=== PATIENT | male | born 1950 | race Caucasian/White ===

== ENCOUNTER → 2018-02-12 11:59 | Outpatient (CLI) | payer MEDICARE, SELFPAY ==
[2018-02-12 15:53] LABS: Absolute Lymphocyte Count 1.03 X10^3/ul (0.83-4.51); Absolute Neutrophil Count 4.9 X10^3/uL (2.0-7.7); Basophil# 0.04 X10^3/uL; Basophil% 0.6 % (0-1); Eosinophil# 0.15 X10^3/uL; Eosinophils% 2.2 % (0-5); Hemoglobin 13.1 g/dl (13.0-16.5); Lymphocyte # 1.03 X10^3/ul (4.0); Lymphocyte % 15.2 % (19-41); Mean Corp Hgb Conc 33.6 g/gl (32-36); Mean Corpuscular Volume 89.4 fL (80-94); Mean Platelet Vol. 11.1 fl (6.2-12.0); Monocyte# 0.62 X10^3/uL; Monocyte% 9.2 % (0-10); Neutrophil % 72.5 % (47-70); Platelet Count 187 K/mm3 (150-450); RBC Distribution Width CV 14.1 % (11.6-14.6); RBC Distribution Width SD 45.4 fl (35.1-43.9); Red Blood Count 4.36 M/mm3 (4.6-6.2); White Blood Count 6.8 K/mm3 (4.4-11.0)
[2018-02-12 15:55] LABS: POSITIVE COUNT NO; POSITIVE DIFFERENTIAL NO; POSITIVE MORPHOLOGY NO
[2018-02-12 16:09] LABS: ALB/GLOB Ratio 0.9 RATIO (0.9-2.4); AST(SGOT) 18 U/L (15-37); Alanine Aminotransfer ALT/SGPT 21 U/L (16-61); Albumin, Serum 3.5 g/dL (3.2-5.0); Alkaline Phosphatase 63 U/L (45-117); Anion Gap 5 (5-15); BUN 23 mg/dL (7-18); BUN/Creat Ratio 18.1 RATIO (10-20); Calcium,Total 8.9 mg/dL (8.5-10.1); Chloride 105 mmol/L (98-107); Creatinine, Serum 1.27 mg/dL (0.70-1.30); EST Glomerular Filtration Rate 60 mL/min (>60); Est Glom Filt Rate - Afr Amer 72 mL/min (>60); Glucose 98 mg/dL (74-106); Potassium 3.9 mmol/L (3.5-5.1); Protein, Total 7.5 g/dL (6.4-8.2); Sodium Level 137 mmol/L (136-145)
== END ==
PROVIDERS: Family Provider Family Medicine; PCP Family Medicine; Visit Provider Family Medicine
DX: I10 Essential (primary) hypertension (principal); I77.9 Disorder of arteries and arterioles, unspecified; I48.91 Unspecified atrial fibrillation; I51.9 Heart disease, unspecified
CPT/HCPCS: 36415; 80053; 85025

== ENCOUNTER → 2018-03-04 09:41 | Outpatient (CLI) | payer MEDICARE, SELFPAY ==
--- NOTE | 2018-03-04 09:47 | CDU_ITS ---
Reason For Study: bruit Rt. Velocities/BP Lt. Velocities/BP Prox CCA 57.5/12.3 cm/sec. Prox CCA 76.2/19.3 cm/sec. Mid CCA 62.1/14.1 cm/sec. Mid CCA 68.6/24.0 cm/sec. Dist CCA 90.3/20.5 cm/sec. Dist CCA 78.0/24.6 cm/sec. Prox ICA 348/137 cm/sec. Prox ICA 82.7/24.0 cm/sec. Mid ICA 388/108 cm/sec. Mid ICA 90.9/35.8 cm/sec. Dist ICA 59.7/25.1 cm/sec. Dist ICA 105/35.1 cm/sec. Rt. ICA/CCA = 6.2. Lt. ICA/CCA = 1.5. Prox ECA 145/20.4 cm/sec. Prox ECA 131/16.7 cm/sec. Rt. Vert. 75.6/24.6 cm/sec. Lt. Vert. 40.5/17.0 cm/sec. Right Extracranial There is homogeneous, smooth atherosclerotic plaque noted in the right common carotid artery. There is heterogeneous, irregular atherosclerotic plaque noted in the right internal carotid artery. There is heterogeneous, irregular atherosclerotic plaque noted in the right external carotid artery. Antegrade flow is noted in the right vertebral artery. There is heterogeneous, irregular atherosclerotic plaque noted in the right bulb. Left Extracranial There is heterogeneous, irregular atherosclerotic plaque noted in the left common carotid artery. There is heterogeneous, irregular atherosclerotic plaque noted in the left internal carotid artery. There is heterogeneous, irregular atherosclerotic plaque noted in the left external carotid artery. Antegrade flow is noted in the left vertebral artery. There is heterogeneous, irregular atherosclerotic plaque noted in the left bulb. Procedure Carotid Duplex 32597. The exam was diagnostic. Exam performed in department. Prelim called to Gerogie at Dr. Wilkerson's office. Interpretation Summary Near occlusion of the right extracranial internal carotid. Mild (<50%) stenosis left extracranial internal carotid. The degree of stenosis in the right internal carotid artery appears to be well over 70%, based upon velocity criteria, and likely nearly occlusive in nature. There is acoustic shadowing in the internal carotid arteries bilaterally, which obscures visualization of the arterial lumen. Therefore, the degree of stenosis may exceed that indicated by velocity criteria alone. The degree of stenosis in the right internal carotid artery warrants additional medical attention and management. Flow within the vertebral arteries is antegrade bilaterally. Ordering Physician: Oumar Wilkerson Performed By: Jose A Pike RVT
== END ==
LOC: CVS 09:42
PROVIDERS: Family Provider Family Medicine; PCP Family Medicine; Visit Provider Family Medicine
DX: R09.89 Other specified symptoms and signs involving the circulatory and respiratory systems (principal); I51.9 Heart disease, unspecified; I48.91 Unspecified atrial fibrillation
CPT/HCPCS: 93880

== ENCOUNTER → 2018-03-28 13:48 | Outpatient (CLI) | payer MEDICARE, SELFPAY ==
[2018-03-27 15:40] LABS: Hematocrit 41.9 % (40-54); Mean Corp Hgb Conc 33.4 g/gl (32-36); Mean Corpuscular Hgb 29.9 pg (27.0-32.0); Mean Corpuscular Volume 89.5 fL (80-94); Mean Platelet Vol. 10.2 fl (6.2-12.0); Platelet Count 193 K/mm3 (150-450); RBC Distribution Width CV 13.8 % (11.6-14.6); RBC Distribution Width SD 44.9 fl (35.1-43.9); Red Blood Count 4.68 M/mm3 (4.6-6.2); White Blood Count 5.2 K/mm3 (4.4-11.0)
[2018-03-27 15:47] LABS: Scan Indicated on CBC? Y/N NO
[2018-03-27 16:21] LABS: Anion Gap 4 (5-15); BUN 16 mg/dL (7-18); BUN/Creat Ratio 13.2 RATIO (10-20); Calcium,Total 8.9 mg/dL (8.5-10.1); Chloride 101 mmol/L (98-107); Creatinine, Serum 1.21 mg/dL (0.70-1.30); EST Glomerular Filtration Rate 63 mL/min (>60); Est Glom Filt Rate - Afr Amer 77 mL/min (>60); Glucose 83 mg/dL (74-106); Potassium 4.2 mmol/L (3.5-5.1); Sodium Level 137 mmol/L (136-145)
--- NOTE | 2018-03-28 13:49 | CT_ITS ---
STUDY: CTA NECK WITH CONTRAST REASON FOR EXAM: Male, 67 years old. Carotid artery stenosis RADIATION DOSAGE (If Supplied By Facility): CTDIvol = ( 26.43 ) mGy, DLP = ( 778.65 ) mGycm TECHNIQUE: CT angiography with multi-detector data acquisition was performed from the aortic arch to the skull base following intravenous administration of 100 ml of Isovue 370 contrast. MIP images were reconstructed from the axial data set. Post-processing of the angiographic images was performed, with multiplanar reformation and 3D reconstruction. Individualized dose optimization techniques were used for this CT. COMPARISON: None. FINDINGS: AORTIC ARCH: There is atherosclerotic calcific plaque formation of the aortic arch and great vessels arising from the aortic arch, without a hemodynamically significant stenosis. There is a normal origin of the brachiocephalic, left common carotid, and left subclavian arteries. RIGHT CAROTID ARTERIES: There is atherosclerotic plaque formation of the common carotid artery, but without a hemodynamically significant stenosis. There is extensive atherosclerotic plaque formation with severe narrowing of the right carotid bulb with a hemodynamically significant stenosis. There is severe atherosclerotic plaque formation of the origin of the right internal carotid artery with a near complete occlusion. Normal visualized cervical portion of the right internal carotid artery. There is mild atherosclerotic plaque formation of the origin of the right external carotid artery with less than 50% cross sectional diameter stenosis. LEFT CAROTID ARTERIES: There is atherosclerotic plaque formation of the common carotid artery, but without a hemodynamically significant stenosis. There is mild atherosclerotic plaque formation with minimal narrowing of the left carotid bulb. There is mild atherosclerotic plaque formation of the origin of the left internal carotid artery with less than 50% cross sectional diameter stenosis. Normal visualized cervical portion of the left internal carotid artery. There is mild atherosclerotic plaque formation of the origin of the left external carotid artery with less than 50% cross sectional diameter stenosis. VERTEBRAL ARTERIES: Normal bilateral vertebral arteries. CT/CTA Neck W/WO Contrast IMPRESSION: There is severe atherosclerotic plaque formation of the origin of the right internal carotid artery with a near complete occlusion. The degree of stenosis calculation is in accordance with NASCET criteria. N.B. : The above information has been verbally conveyed by Sage Montes MD to Lul Jones, Referring Physician, on 03/28/2018 15:07:14 (ET). Electronically Signed: Sage Montes MD at 15:07 EDT Tel , Service support , N.B. : The above information has been verbally conveyed by Sage Montes MD to Lul Jones, Referring Physician, on 03/28/2018 15:07:14 (ET).
== END ==
LOC: CT 13:48
PROVIDERS: Family Provider Family Medicine; PCP Family Medicine; Visit Provider Surgery
DX: Z01.818 Encounter for other preprocedural examination (principal); I65.23 Occlusion and stenosis of bilateral carotid arteries
CPT/HCPCS: 36415; 70498; 80048; 85027; Q9967

== ENCOUNTER → 2018-04-02 07:47 | Outpatient (CLI) | payer MEDICARE, SELFPAY ==
--- NOTE | 2018-04-02 07:49 | ECHOD_ITS ---
Reason For Study: PRE OP EXAM Procedure This was a 2D Doppler, Color Flow transthoracic echocardiogram. The exam was of adequate technical quality. Exam performed in department. Left Ventricle Moderately dilated left ventricle. Mild to moderate segmental systolic dysfunction (see wall motion). The estimated ejection fraction is 40 %. Transmitral diastolic flow velocities suggest moderate (stage 2) diastolic dysfunction (pseudonormal pattern). Posterior-Basal: Hypokinetic. Infero-Basal: Akinetic. Basal inferoseptal: Akinetic. Basal anteroseptal: Hypokinetic. Mid- Lateral : Hypokinetic. Mid-Posterior: Hypokinetic. Mid-Inferior: Hypokinetic. Mid-inferoseptal : Hypokinetic. Mid-anteroseptal : Hypokinetic. Anterior [place] : Akinetic. Inferior [place] : Akinetic. Lateral [place] : Hypokinetic. Septal [place] : Akinetic. Right Ventricle Normal RV size. ICD or pacer leads identified within the right ventricle. Normal systolic function. Atria The left atrium is severely enlarged. Normal right atrium. ICD or pacer leads identified within the right atrium. No doppler evidence for ASD. Mitral Valve There is no mitral annular calcification. Mild diffuse mitral valve thickening. Mild-Moderate (1- 2+) mitral valve insufficiency. Tricuspid Valve Normal tricuspid valve. Mild tricuspid valve insufficiency. Right ventricular systolic pressure estimated to be 27 mmHg. Aortic Valve Trisinus/trileaflet aortic valve. Mild diffuse aortic valve thickening. Trivial aortic valve insufficiency. Pulmonic Valve The pulmonic valve is not well visualized. Trivial pulmonic valve insufficiency. Great Vessels Normal sized aortic root. Pericardium/Pleural No pericardial effusion. MMode/2D Measurements & Calculations LVIDd: 5.9 cm IVSd: 0.83 cm Ao root diam: 3.4 cm LVIDs: 4.7 cm LVPWd: 1.1 cm RVDd: 3.5 cm FS: 19.6 % LAV(MOD-bp): 189.0 ml LA A4 area: 42.6 cm2 RA A4 area: 20.2 cm2 LAV(MOD-bp) Indexed: 92.8 ml/m2 LAV(MOD-sp2): 191.7 ml LAV(MOD-sp4): 184.1 ml Doppler Measurements & Calculations MV E max roscoe: 82.4 cm/sec Lat Peak E' Roscoe: 7.1 cm/sec Med Peak E' [place]coe: 7.0 cm/sec MV A max roscoe: 20.9 cm/sec E/E' lat: 11.7 E/E' med: 11.8 MV E/A: 3.9 Ao V2 max: 119.8 cm/sec LV V1 max: 82.7 cm/sec PA V2 max: 60.4 cm/sec Ao max P.7 mmHg LV V1 max P.7 mmHg PI dec slope: 84.3 cm/sec2 TR max roscoe: 245.5 cm/sec TR max P.2 mmHg Interpretation Summary Moderately dilated left ventricle. Mild to moderate segmental systolic dysfunction (see wall motion). The estimated ejection fraction is 40 %. The left atrium is severely enlarged. Mild diffuse mitral valve thickening. Mild-Moderate (1-2+) mitral valve insufficiency. Mild tricuspid valve insufficiency. Mild diffuse aortic valve thickening. Trivial aortic valve insufficiency. Trivial pulmonic valve insufficiency. Right ventricular systolic pressure estimated to be 27 mmHg. Transmitral diastolic flow velocities suggest diastolic dysfunction (pseudonormal pattern). ICD or pacer leads identified within the right atrium ICD or pacer leads identified within the right ventricle. Ordering Physician: Lul Jones Referring Physician: Oumar Wilkerson Performed By: Paulette Cortez, BRITNEY, RVT
== END ==
PROVIDERS: Family Provider Family Medicine; PCP Family Medicine; Visit Provider Surgery
DX: I25.10 Atherosclerotic heart disease of native coronary artery without angina pectoris (principal); Z95.5 Presence of coronary angioplasty implant and graft; Z95.0 Presence of cardiac pacemaker
CPT/HCPCS: 93306

== ENCOUNTER 2018-04-03 05:21 | Inpatient (IN) | payer MEDICARE, SELFPAY ==
--- NOTE | 2018-03-29 13:24 | EKG12_ITS ---
Test Reason : PREOP Blood Pressure : / mmHG Vent. Rate : 058 BPM Atrial Rate : 058 BPM P-R Int : 288 ms QRS Dur : 102 ms QT Int : 414 ms P-R-T Axes : 044 075 072 degrees QTc Int : 406 ms Sinus bradycardia with 1st degree A-V block Nonspecific T wave abnormality Confirmed by RAUL MARIE, [place] ([id number]), international editorial producer LAZ FLORES ([id number]) on 04/03/2018 3:17:47 PM Referred By: Lul Jones Confirmed By:JAMAICA CARTER MD
[2018-04-03] VITALS (27 sets, daily range): BP systolic 86–134; BP diastolic 44–71; PULSE 42–86; RESP 16–20; TEMP 36.1–36.7; O2SAT 90–100; BMI 25.9; BMI 26.7
--- NOTE | 2018-04-03 | PLAQ_PTH ---
PATIENT: KAREN JIMENEZ LOC: PCU U#:[id number] AGE/SX: 67/M ROOM: [facility] RE04/03/[address]: Dr. Lul Jones MD : [id number] BED: 1 DIS: 04/04/2018 SPEC #: [id number] RECD: 04/03/18 14:43 STATUS: ROBERT REQ #: [id number] SYMONE: 04/03/18 00:[address]: Lul Jones DEPT: SURGICAL PATHOLOGY RECD BY: Jam Montenegro ENTERED: 04/03/18 14:44 SP TYPE: PLAQUE OTHR DR: Dr. Oumar Wilkerson DO Tissues: PLAQUE Procedures: Decalcification bone/plaque Surgery Specimen Level III HEADER OPERATION: Right carotid endarterectomy with patch angioplasty PRE-OP DIAGNOSIS: Carotid stenosis, right TISSUE SUBMITTED: Plaque right carotid artery MICROSCOPIC DIAGNOSIS Right carotid artery plaque, endarterectomy: Calcified atheromatous plaque consistent with severe stenosis. AM:jacinto 04/08/18 GROSS DESCRIPTION Received in fixative is one container labeled with the patient's name and designated plaque right carotid artery. The specimen consists of a previously opened tubular piece of hopkins, indurated tissue measuring 3.5 cm in length and 1 cm in diameter. The lumen is almost completely obliterated focally. The specimen cuts with a gritty sensation. The entire specimen is submitted in one cassette after decalcification. / SJ:jacinto 04/03/18 TC:5 CPT: 27237, 07107
[2018-04-03 06:30] LABS: Prothrombin Time Fingerstick 11.7 SEC (11.9-14.4)
--- NOTE | 2018-04-03 06:36 | OP.PCM_ITS ---
Problem List (1) Carotid stenosis, right Status: Acute Report of Operation Date of Procedure: 04/03/18 Pre-Operative Diagnosis: Critical stenosis right extracranial internal carotid Post-Operative Diagnosis: Same Surgery/Procedure Performed:: Left radial arterial line placement. Right carotid endarterectomy with bovine patch angioplasty Description of Surgical Findings:: At the bedside timeout and informed consent was obtained. There was adequate Pancho test on the left. The left wrist was gently extended and prepped with Betadine. Under ultrasound guidance 1% lidocaine was instilled as a local anesthetic. A total of 1 cc was used. The radial artery was transfixed. I then try to get the 20-gauge aero anterior cath catheter to advance. It would not. So I removed that catheter held pressure. Then percutaneously I introduced a 20-gauge Angiocath. Using pressure tubing was connected. Seldinger wire technique I was able to advance a catheter. I secured to the skin with interrupted 3-0 silk. Good waveform was obtained. Oma wrap was applied after OpSite dressing was applied. Hand was viable at the completion. Blood loss minimal. No apparent complication. The patient tolerated the procedure well. Good waveform was obtained. The patient was subsequently taken to the operative room for definitive surgical intervention The patient was placed supine on the table. He underwent general endotracheal intubation and anesthesia. Ancef 2 g were given intravenously. The right neck was sterilely prepped and draped. An oblique incision was made along the anterior border the sternocleidomastoid. Sharp dissection was carried down through the subcutaneous tissue. The sternocleidomastoid was reflected laterally after incising the platysma. Crossing facial vein was secured with 3- 0 Vicryl ligatures. The carotid bulb was identified circumferential trial was obtained of the common carotid proximally and a Fernandez tie of Dacron tape was placed. There was a lymph node packet superiorly this had to be dissected free and elevated. Dissection was performed upon the internal carotid and the hypoglossal nerve was identified and protected. A Dacron tape was placed around the internal carotid. A vessel loop was then placed around the external carotid and a Fernandez tie of 3-0 Vicryl and the superior thyroid. The patient received 9000 units of heparin. After adequate circling time peripheral vascular clamps were placed on the internal carotid common carotid and external carotid. An 11 blade was used to make an arteriotomy which was extended with Fernandez scissors. The plaque was extraordinarily calcific thick. A reasonably long arteriotomy was required. A #10 USCI style shunt was placed cephalad and proximally. Time to place a shunt was 4 minutes and 15 seconds. There was increased difficulty in placement. Subsequently the endarterectomy was performed at the layer of the external elastic lamina. The plaque was sharply transected proximally. It then was nicely feathered at the internal carotid and an inversion enterectomy was performed of the external carotid. Debris was carefully removed. A single tacking suture of 7-0 Prolene was placed at the internal carotid. Then a bovine patch 8 x 0.8 cm shaped to form and a patch angioplasty was created with running 6-0 Prolene. Prior to completion the vessel was copiously irrigated the shunt was removed the angioplasty was completed. Initial flow was instituted from the external carotid common carotid find the internal carotid. Time for shunt removal was 2 minutes. A couple repair sutures of 7-0 Prolene required for complete hemostasis. The patient then received 30 mg of protamine. Surgicel was applied topically. The patient still from his preoperative anticoagulation of Coumadin and Plavix was still somewhat oozy so I Did Pl., FloSeal to the wound. After hemostasis was achieved the wound was closed with a deep layer approximating the platysma running 3-0 Vicryl. The skin edges proximate running septic or 5-0 Vicryl. The ledy-incisional area was anesthetized with 0.5% Marcaine. A total 10 cc was used. Steri-Strips Telfa and tape dressings were applied. Sponge and instrument and needle counts were reported to the surgeon to be correct. Blood loss was 200 cc. He tolerated the procedure well. It appeared to awake neurologically intact. He was taken to the recovery area in satisfactory condition without apparent complication. Specimens the plaque. Drains none. Blood loss 200 cc. Lul Jones M.D., F.A.C.S. Type of Anesthesia:: General Anesthesiologist: Jose Joseph
--- NOTE | 2018-04-03 06:38 | PCM.DC.GS ---
<Lul Jones - Last Filed: 04/03/18 06:38> Discharge Diet: Light diet - advance as tolerated - if you have questions about your diet instructions, please talk to you doctor. Discharge Activity: May Not Drive - for 1 week or while taking narcotic pain medicine. May shower in (days): 3 - Shower on Sunday please Lifting Restrictions: 10 pounds Call your doctor if your incision/area has: Continuous Slow Oozing, Sudden Increased Bleeding, Increased Pain/ Swelling, Increased Redness, Foul Smelling Discharge Call your doctor if you observe: Fever of 101 or Higher Suture Line Care: Avoid Pulling/Pushing, Avoid Pinching/Bending Additional Dressing/Incision Instructions:: Please keep your right neck incision clean and dry. You may shower on Sunday. You may cover the incision with gauze and tape as needed to protect from clothing. You may remove the Steri-Strips in 1 week Allergies/Adverse Reactions: Allergies No Known Allergies Allergy (Verified 03/29/18 08:07) Medications to take at Discharge Carvedilol [Coreg (Beta Giovanni)] 12.5 mg PO BID 07/02/15 Losartan Potassium [Cozaar] 25 mg PO DAILY 07/02/15 Pravastatin [Pravachol] 40 mg PO QHS 07/02/15 Warfarin Sodium [Jantoven] 7.5 mg PO MOWEFR 07/02/15 clopidogrel 75 mg tablet 75 mg PO QDAY 03/27/18 Furosemide [Lasix] 40 mg PO BIDLX 03/29/18 Spironolactone 12.5 mg PO DAILY 03/29/18 Warfarin [Coumadin] 5 mg PO SUTUTHSA 03/29/18 Primary Care Physician: Oumar Wilkerson DO [Primary Care Provider] - Please Follow Up With: Lul Jones MD - [phone] When: Call to make an appointment to be seen in about 10 days. <Lashanda Rodriguez - Last Filed: 04/04/18 07:20> Proposed Discharge Date: 04/04/18
[2018-04-03] MEDS: Cefazolin 2 GM in 0.9% Normal Saline 100 ML IV (07:11)
[2018-04-03] MEDS: Heparin Injection (Vial) 5,000 UNIT/ML VIAL 5000 UNIT (08:30)
[2018-04-03] MEDS: Bupivacaine Mpf 0.5% 30 ML VIAL (09:31)
[2018-04-03] MEDS: HYDROcodone Bitartrate/Apap 5/325 Tablet PO ×2 (14:48→22:25)
[2018-04-03] MEDS: Furosemide 40 MG Tablet PO (14:52)
[2018-04-03] MEDS: Spironolactone 25 MG Tablet 12.5 MG PO (14:52)
--- NOTE | 2018-04-03 15:00 | CASEMGMT ---
Addendum entered by Clover Rudd 04/03/18 15:12: Pt denies needs Original Note: SEE RN CM ASSESS LINK. D/C PLAN: HOME RAMIRO MARIN RN CM
[2018-04-03] MEDS: Cefazolin 1 GM/50 ML BAG IV ×2 (15:19→22:22)
[2018-04-03] MEDS: Tamsulosin HCl 0.4 MG Capsule PO (15:20)
[2018-04-03] MEDS: Carvedilol 12.5 MG Tablet PO (21:00)
[2018-04-03] MEDS: Pravastatin 40 MG Tablet PO (21:00)
[2018-04-03] MEDS: 0.9% NaCl Peripheral Flush Adult/Peds IV (22:22)
[2018-04-04 03:00] VITALS: PULSE 54
[2018-04-04 04:40] VITALS: BP 117/64; PULSE 61; RESP 16; TEMP 36.8; O2SAT 93
[2018-04-04] MEDS: HYDROcodone Bitartrate/Apap 5/325 Tablet PO (05:19)
--- NOTE | 2018-04-04 05:19 | PCM.PN.SRG ---
Subjective: Brief urinary retention last night treated with single st cath and pt now voiding Still on PULVERIZING AND SIFTING OPERATOR O2 Sl sore right neck Neuro intact - Physical Exam HEENT: - - supple, no staining Neurological: Cranial nerves II-XII grossly intact Vital Signs Temp Pulse Resp BP Pulse Ox 98.0 F 54 L 16 104/60 94 04/03/18 22:00 04/04/18 03:00 04/03/18 22:00 04/03/18 22:00 04/03/18 22:00 Oxygen Flow Rate (L/min) 2 Oxygen Delivery Method Nasal Cannula Weight: 197 lb 1.492 oz Body Mass Index (BMI) 26.7 Intake and Output for Last 24 Hours 04/02/18 04/03/18 04/04/18 23:59 23:59 23:59 Intake Total 4180 / 4180 223 / 223 Output Total 800 / 800 Balance 3380 / 3380 223 / 223 Laboratory Tests Past 24 Hrs 04/03/18 06:20 POC PT 11.7 L INR 1.00 Medical Necessity - Tobacco Use Smoking Status: Former smoker Tobacco Use: Vapor Assessment/Plan All Active Problems Carotid stenosis, right (Acute) S/P colonoscopy (Acute) S/P internal cardiac defibrillator procedure (Acute) History of radiofrequency ablation procedure for cardiac arrhythmia (Acute) S/P CABG (coronary artery bypass graft) (Acute) H/O heart artery stent (Acute) HTN (hypertension) (Acute) CHF (congestive heart failure) (Acute) Plan discharge today once off of oxygen Pt had preop echo and is discharged on admission medicines. CHF is chronic condition. Pt should follow up with primary care
[2018-04-04 06:55] VITALS: BP 114/60; PULSE 56; RESP 18; TEMP 36.7; O2SAT 95
--- NOTE | 2018-04-04 07:48 | NURSING ---
ambulated gilbert with pt, spo2 remained stable >94%
== END 2018-04-04 07:35 | disposition home or self-care (01) | DRG 39 ==
LOC: MS2 05:28 → PCU 13:48
PROVIDERS: Admitting Provider Surgery; Family Provider Family Medicine; PCP Family Medicine; Visit Provider Surgery
PROC: 03CK0ZZ Extirpation of Matter from Right Internal Carotid Artery, Open Approach (ICD-10-PCS; CPT 35301; principal; 2018-04-03 06:55)
DX: I65.21 Occlusion and stenosis of right carotid artery (principal); I50.9 Heart failure, unspecified; I11.0 Hypertensive heart disease with heart failure; K43.2 Incisional hernia without obstruction or gangrene; Z95.1 Presence of aortocoronary bypass graft; Z95.5 Presence of coronary angioplasty implant and graft; Z95.810 Presence of automatic (implantable) cardiac defibrillator; I25.10 Atherosclerotic heart disease of native coronary artery without angina pectoris; Z79.01 Long term (current) use of anticoagulants; R33.9 Retention of urine, unspecified; E78.5 Hyperlipidemia, unspecified
CPT/HCPCS: 36416; 85610; 88304; 88311; 93005; 93306; J7040; J7120; A4216; J2405

== ENCOUNTER → 2018-05-08 12:51 | Outpatient (CLI) | payer MEDICARE, SELFPAY ==
--- NOTE | 2018-05-08 13:13 | CDU_ITS ---
Reason For Study: F/U RT CEA Rt. Velocities/BP Prox CCA 72.7/18.2 cm/sec. Mid CCA 90.3/24.0 cm/sec. Dist CCA 101.0/26.4 cm/sec. Prox ICA 109.0/20.4 cm/sec. Mid ICA 94.3/29.1 cm/sec. Dist ICA 88.8/28.3 cm/sec. Rt. ICA/CCA = 1.2. Prox ECA 224.0/18.3 cm/sec. Rt. Vert. 58.6/18.8 cm/sec. Right Extracranial There is homogeneous, smooth atherosclerotic plaque noted in the right common carotid artery. There is homogeneous, smooth atherosclerotic plaque noted in the right internal carotid artery. There is homogeneous, smooth atherosclerotic plaque noted in the right external carotid artery. Antegrade flow is noted in the right vertebral artery. Procedure Carotid Duplex 10715. Exam performed in department. Interpretation Summary Surgical changes right carotid bulb and proximal internal carotid with minimal smooth plague. <50% stenosis right internal carotid Moderate disease right external carotid Patent and antegrade right vertebral. Ordering Physician: Lashanda Rodriguez PA-C Referring Physician: Lashanda Rodriguez PA-C Performed By: Re Kelly RVT
== END ==
LOC: CVS 12:52
PROVIDERS: Family Provider Family Medicine; PCP Family Medicine; Visit Provider Physician Assistant
DX: I65.21 Occlusion and stenosis of right carotid artery (principal)
CPT/HCPCS: 93882

== ENCOUNTER → 2018-09-13 08:10 | Outpatient (CLI) | payer MEDICARE, SELFPAY ==
[2018-09-13 12:19] LABS: Absolute Lymphocyte Count 0.89 X10^3/ul (0.83-4.51); Absolute Neutrophil Count 3.8 X10^3/uL (2.0-7.7); Basophil# 0.03 X10^3/uL; Basophil% 0.6 % (0-1); Eosinophil# 0.11 X10^3/uL; Hematocrit 38.8 % (40-54); Lymphocyte # 0.89 X10^3/ul (4.0); Lymphocyte % 16.4 % (19-41); Mean Corp Hgb Conc 33.5 g/gl (32-36); Mean Corpuscular Hgb 30.2 pg (27.0-32.0); Mean Platelet Vol. 11.3 fl (6.2-12.0); Monocyte# 0.56 X10^3/uL; Monocyte% 10.3 % (0-10); Neutrophil # 3.83 X10^3/uL (2.7-7.7); Neutrophil % 70.5 % (47-70); Platelet Count 196 K/mm3 (150-450); RBC Distribution Width CV 14.3 % (11.6-14.6); RBC Distribution Width SD 46.4 fl (35.1-43.9); Red Blood Count 4.31 M/mm3 (4.6-6.2); White Blood Count 5.4 K/mm3 (4.4-11.0)
[2018-09-13 12:27] LABS: ALB/GLOB Ratio 0.8 RATIO (0.9-2.4); AST(SGOT) 22 U/L (15-37); Alanine Aminotransfer ALT/SGPT 21 U/L (16-61); Albumin, Serum 3.4 g/dL (3.2-5.0); Alkaline Phosphatase 64 U/L (45-117); Anion Gap 7 (5-15); BUN 17 mg/dL (7-18); BUN/Creat Ratio 15.5 RATIO (10-20); Calcium,Total 8.5 mg/dL (8.5-10.1); Chloride 105 mmol/L (98-107); Cholesterol 146 mg/dL (200); EST Glomerular Filtration Rate 71 mL/min (>60); Est Glom Filt Rate - Afr Amer 85 mL/min (>60); Globulin 4.2 g/dL (2.2-4.2); Glucose 92 mg/dL (74-106); High Density Lipoprotein 52 mg/dL; POSITIVE COUNT NO; POSITIVE DIFFERENTIAL NO; POSITIVE MORPHOLOGY NO; PSA,Total - Annual Screen 0.11 ng/mL (0.00-4.00); Potassium 3.7 mmol/L (3.5-5.1); Protein, Total 7.6 g/dL (6.4-8.2); Sodium Level 140 mmol/L (136-145); Triglycerides 50 mg/dL; Very Low Density Lipoprotein 10 mg/dL (5-40)
--- OUTSIDE RECORDS SUMMARY | 2018-11-08 01:43 | XMS RPT_ITS ---
:1950 Author Organization OHIP Support Name Relationship Address Phone DAVID BELTRE Unavailable [address] [place] [address] R Unavailable Unavailable Unavailable KRUGER, SHAISTA Unavailable Unavailable + [place] [address] ALEXSANDER DAVID Unavailable [address] [place] [address] R Unavailable Unavailable Unavailable KRUGER, SHAISTA Unavailable Unavailable + [place] [address] ALEXSANDER DAVID Unavailable [address] [place] [address] R Unavailable Unavailable Unavailable KRUGER, SHAISTA Unavailable Unavailable + [place] [address] ALEXSANDER DAVID Unavailable [address] + [address] [place] [address] R Unavailable Unavailable Unavailable KRUGER, SHAISTA Unavailable . + [place] [address] ALEXSANDER, DAVID Unavailable [address] [place] [address] R Unavailable Unavailable Unavailable KRUGER, SHAISTA Unavailable Unavailable + [place] [address] ALEXSANDER, DAVID Unavailable [address] + [address] [place] [address] R Unavailable Unavailable Unavailable KRUGER, SHAISTA Unavailable . + [place] [address] ALEXSANDER, DAVID Unavailable [address] + [address] [place] [address] R Unavailable Unavailable Unavailable KRUGER, SHAISTA Unavailable Unavailable + [place] [address] ALEXSANDER, DAVID Unavailable [address] [place] [address] R Unavailable Unavailable Unavailable KRUGER, SHAISTA Unavailable Unavailable + [place] [address] ALEXSANDER, DAVID Unavailable [address] [place] [address] R Unavailable Unavailable Unavailable KRUGER, SHAISTA Unavailable . + [place] [address] ALEXSANDER, DAVID Unavailable [address] [place] [address] R Unavailable Unavailable Unavailable KRUGER, SHAISTA Unavailable . + [place] [address] ALEXSANDER, DAVID Unavailable [address] [place] [address] R Unavailable Unavailable Unavailable KRUGER, SHAISTA Unavailable . + [place] [address] ALEXSANDER, DAVID Unavailable [address] [place] [address] R Unavailable Unavailable Unavailable KRUGER, SHAISTA Unavailable . + [place] [address] ALEXSANDER, DAVID Unavailable [address] [place] [address] R Unavailable Unavailable Unavailable ALEXSANDER, DAVID Unavailable [address] [phone] [place] [address] R Unavailable Unavailable Unavailable Care Team Providers Name Role Phone DARIUS TRAN Referring Unavailable DARIUS TRAN Referring Unavailable DARIUS TRAN Admitting Unavailable DARIUS TRAN Attending Unavailable RheaOumar Attending Unavailable Rhea, Oumar Primary Care Unavailable RheaOumar Attending Unavailable Rhea, Oumar Referring Unavailable Rhea, Oumar Primary Care Unavailable CebulLul Attending Unavailable Rhea, Oumar Referring Unavailable Rhea, Oumar Primary Care Unavailable CebulLul Attending Unavailable CebulLul Referring Unavailable Rhea, Oumar Primary Care Unavailable Lul Jones Admitting Unavailable Lul Jones Attending Unavailable Rhea, Oumar Primary Care Unavailable CeLul richardson Attending Unavailable Cebul Lul Referring Unavailable Rhea, Oumar Primary Care Unavailable CebulLul Attending Unavailable Rhea, Oumar Referring Unavailable Rhea, Oumar Primary Care Unavailable Rodriguez PA-C, Lashanda Attending Unavailable Rhea, Oumar Referring Unavailable Rhea, Oumar Primary Care Unavailable Geovanny Carter Attending Unavailable Robert, Lul Referring Unavailable Cedylan, Lul Attending Unavailable Rodriguez PA-C, Lashanda Attending Unavailable Rhea, Oumar Primary Care Unavailable Rodriguez PA-C, Lashanda Referring Unavailable Geovanny Carter Attending Unavailable Cebul, Lul Attending Unavailable Rodriguez PA-C, Lashanda Referring Unavailable Rhea, Oumar Attending Unavailable Rhea, Oumar Primary Care Unavailable PROBLEMS PROBLEMS DATE TYPE CONDITION / CODE ATTENDING STATUS SOURCE 09/13/2018 Unknown I10 - Essential Oumar Wilkerson Active [place] (primary) Community hypertension / Hospital I10(ICD-10) Repository 09/13/2018 Unknown I48.91 - Unspecified Oumar Wilkerson Active [place] atrial fibrillation Community / I48.91(ICD-10) Hospital Repository 09/13/2018 Unknown I25.5 - Ischemic Rhea Oumar Active [place] cardiomyopathy / [facility] I25.5(ICD-10) Hospital Repository 09/13/2018 Unknown Z51.81 - Encounter Oumar Wilkerson Active [place] for therapeutic drug Community level monitoring / Hospital Z51.81(ICD-10) Repository 09/13/2018 Unknown Z12.11 - Encounter Rhea Oumar Elijah [place] for screening for [facility] malignant neoplasm [facility] colon / Repository Z12.11(ICD-10) 09/13/2018 Unknown Z12.5 - Encounter RheaOumar [place] for screening for [facility] malignant neoplasm [facility] prostate / Repository Z12.5(ICD-10) 09/13/2018 Unknown R63.4 - Abnormal Rhea Oumar Active [place] weight loss / Community R63.4(ICD-10) Hospital Repository 09/02/2018 Active Persistent atrial DRESINGDARIUS Active [place] fibrillation / [facility] I48.1(ICD-10) [place] Repository 06/20/2018 Unknown I65.21 - Occlusion Lul Jones Active [place] and stenosis of [facility] right carotid artery Hospital / I65.21(ICD-10) Repository 04/04/2018 Unknown Z84.89 - Family Lul Jones Active [place] history of other Community specified conditions Hospital / Z84.89(ICD-10) Repository 05/01/2018 Unknown R00.1 - Bradycardia, Geovanny Carter Active [place] unspecified / Community R00.1(ICD-10) Hospital Repository 05/01/2018 Unknown I50.9 - Heart Geovanny Carter Active [place] failure, unspecified Community / I50.9(ICD-10) Hospital Repository 05/01/2018 Unknown I11.0 - Hypertensive Geovanny Carter Active [place] heart disease with Community heart failure / Hospital I11.0(ICD-10) Repository 03/28/2018 Unknown Z01.818 - Encounter Lul Jones Active [place] for other Community preprocedural Hospital examination / Repository Z01.818(ICD-10) 03/27/2018 Unknown I65.23 - Occlusion Lul Jones Active [place] and stenosis of Community bilateral carotid Hospital arteries / Repository I65.23(ICD-10) 02/12/2018 Unknown I77.9 - Disorder of RheaOumar villarreal Active [place] arteries and Community arterioles, Hospital unspecified / Repository I77.9(ICD-10) 02/12/2018 Unknown I51.9 - Heart Oumar Wilkerson Active [place] disease, unspecified Community / I51.9(ICD-10) Hospital Repository PROCEDURES PROCEDURES No Procedure Records FoundRESULTS RESULTS COMPREHENSIVE METABOLIC Collected: 09/13/2018 Status: F Source: [place] PROFIL 8:13 AM [facility] REPOSITORY TYPE CODE TESTS RESULT OUT OF RANGE REFERENCE UNITS LAB L501.0100 74-106 mg/dL Normal GLU 92 Result Comment: Please note revised GLUCOSE reference range effective 2017. LAB L501.1000 7-18 mg/dL Normal BUN 17 LAB L501.1100 0.70-1.30 mg/dL Normal CREAT,SERUM 1.10 Result Comment: The validity of the calculated GFR AND GFRAA in patients over 70 years has not been determined. Clinical correlation is essential. LAB L501.1110 >60 mL/min Normal EST GFR 71 Result Comment: Non- GFR Calc LAB L501.1115 >60 mL/min Normal EST GFR - AA 85 Result Comment: GFR Calc LAB L501.1300 10-20 RATIO Normal BUN/CRE 15.5 LAB L501.1500 6.4-8.2 g/dL T Normal PROT 7.6 LAB L501.1800 3.2-5.0 g/dL Normal ALB 3.4 LAB L501.1950 2.2-4.2 g/dL Normal GLOB 4.2 LAB L501.2000 0.9-2.4 RATIO Low A/G 0.8 LAB L501.2200 8.5-10.1 mg/dL CA Normal 8.5 LAB L501.4100 15-37 U/L Normal AST 22 LAB L501.4305 45-117 U/L Normal ALK P 64 LAB L501.4405 16-61 U/L Normal ALT 21 LAB L501.4600 0.20-1.00 mg/dL T Normal BILI 0.60 LAB L501.5300 136-145 mmol/L NA Normal 140 LAB L501.5600 3.5-5.1 mmol/L K Normal 3.7 LAB L501.5900 98-107 mmol/L CL Normal 105 LAB L501.6100 21.0-32.0 mmol/L Normal CO2 28.0 LAB L501.6200 5-15 Normal GAP 7 Performed By: #### L500.4050, L500.4100, L501.9910 #### [facility] [address] [place], [place], [address] LIPID PROFILE Collected: 09/13/2018 Status: F Source: [place] 8:13 AM [facility] REPOSITORY TYPE CODE TESTS RESULT OUT OF RANGE REFERENCE UNITS LAB L501.4900 200 mg/dL Normal CHOL 146 Result Comment: <200 mg/dL Desirable 200-240 mg/dL Borderline >240 mg/dL High Risk LAB L501.5000 mg/dL Normal TRIG 50 Result Comment: The drugs N-Acetylcysteine and Metamizole may falsely depress this assay. Serum Triglycerides Reference Interval Normal <150 mg/dL Borderline high 150 - 199 mg/dL High 200 - 499 mg/dL Very High > or = 500 mg/dL LAB L501.6400 mg/dL Normal HDL 52 Result Comment: The drugs N-Acetylcysteine and Metamizole may falsely depress this assay. Reference Range HDL <40 mg/dL Low HDL Cholesterol HDL >or= 60 mg/dL High HDL Cholesterol LAB L501.6500 0-130 mg/dL Normal LDL 84 LAB L501.6600 5-40 mg/dL Normal VLDL 10 Performed By: #### L500.4050, L500.4100, L501.9910 #### [facility] [address] [place], [address] PSA,TOTAL - ANNUAL Collected: 09/13/2018 Status: F Source: [place] SCREEN 8:13 AM [facility] REPOSITORY TYPE CODE TESTS RESULT OUT OF RANGE REFERENCE UNITS LAB L501.9910 0.00-4.00 ng/mL Normal PSA,TOT 0.11 SCREEN Result Comment: This test was performed using the TPSA assay method for the BYTEGRID chemistry system. Values obtained with different assay methods cannot be used interchangably. When changing PSA assays in the course of monitoring a patient, additional sequential testing should be carried out to confirm baseline values. Performed By: #### L500.4050, L500.4100, L501.9910 #### [facility] [address] [facility] [place], [address] CBC W/DIFF, AUTOMATED Collected: 09/13/2018 Status: F Source: [place] 8:13 AM [facility] REPOSITORY TYPE CODE TESTS RESULT OUT OF RANGE REFERENCE UNITS LAB L100.1000 4.4-11.0 K/mm3 Normal WBC 5.4 LAB L100.1200 4.6-6.2 M/mm3 Low RBC 4.31 LAB L100.1300 13.0-16.5 g/dl Normal HGB 13.0 LAB L100.1400 40-54 % Low HCT 38.8 LAB L100.1500 80-94 fL Normal MCV 90.0 LAB L100.1600 27.0-32.0 pg Normal MCH 30.2 LAB L100.1700 32-36 g/gl Normal MCHC 33.5 LAB L100.1810 11.6-14.6 % Normal RDW CV 14.3 LAB L100.1820 35.1-43.9 fl High RDW SD 46.4 LAB L100.1900 150-450 K/mm3 Normal PLT 196 LAB L100.2000 6.2-12.0 fl Normal MPV 11.3 LAB L100.2100 47-70 % High NEUT% 70.5 LAB L100.2200 19-41 % Low LY% 16.4 LAB L100.2300 0-10 % High MONO% 10.3 LAB L100.2400 0-5 % Normal EO% 2.0 LAB L100.2500 0-1 % Normal BASO% 0.6 LAB L100.2550 0.0-0.9 % Normal IM GRAN % 0.200 Result Comment: IG% - Immature Granulocytes (promyelocytes, myelocytes and metamyelocytes) > 1% indicates that a LEFT SHIFT is Present. LAB L100.2620 2.0-7.7 X10 3/uL Normal Absolute Neut 3.8 LAB L100.2720 0.83-4.51 X10 3/ul Normal Absolute Lymph 0.89 Performed By: #### L100.0100 #### [facility] [address] [place], [address] EKG1 Observed: 09/02/2018 Status: F Source: [place] 8:58 AM [facility] REPOSITORY NAME : DAVID JIMENEZ PID : [id number] : 1950 Gender : Male Race : ORD : Procedure Date : Sep 02 2018 08:58:09 Edit Date : Sep 02 2018 15:56:46 Diagnosis:SINUS BRADYCARDIA WITH 1ST DEGREE AV BLOCK LOW VOLTAGE QRS, CONSIDER PULMONARY DISEASE, PERICARDIAL EFFUSION, OR NORMAL VARIANT NON-SPECIFIC ST AND T WAVE CHANGES ABNORMAL ECG Confirmed by YONATHAN VILLELA M.D. ([id number]) on 09/02/2018 3:56:43 PM Ventricular Rate : 55 BPM Atrial Rate : 55 BPM P-R Interval : 288 ms QRS Duration : 104 ms Q-T Interval : 438 ms QTC Calculation(Bezet) : 419 ms P [place] : 59 degrees R [place] : 60 degrees T [place] : 51 degrees Test Reason : 921 Location : 23 : [facility] J2-1 Overread By : YONATHAN VILLELA M.D. Edited By : YONATHAN VILLELA M.D. Referred By : , Acquired by : [id number] CNCNPATED Observed: 08/30/2018 Status: COMPLETED Source: [place] 12:00 AM [facility] REPOSITORY Education (EPSMN) DAVID JIMENEZ ([id number]) 1950 M Date Time Provider Department 08/30/18 DARIUS TRAN Tamra EPSMN Reason for Visit: Patient Education [91] Visit Notes: >> Jen Boyd) DOMI Rodriguez SunAug 30, 2018 12:19 PM Status: Signed THE FOLLOWING WAS EVALUATED Motivation To Learn: Interested Family/Significant Other Support: Unable to assess - Family not present Cognitive Ability: Alert and oriented Patient Learns Best By: Verbal Instruction The Following Influencing Factors Were Barriers To This Education Session: None The Following Physical Limitations Were Barriers To This Education Session: None Instruction Provided To: Patient Procedure: Cardioversion Pre-procedure information reviewed: Patient ID verified Procedure verified Physician verified Explanation of procedure Sedation level during procedure MD medication instructions from EP lab request None Travel instructions/restrictions Scheduling information Possible same day discharge versus overnight hospital stay Check out time Family waiting area Physician contact with family after procedure Post Procedure Expectations reviewed: Inpatient hospital stay Post procedure antiarrhythmics and anticoagulation will be discussed with Physician, nurse practitioner or Physician psychiatric technician assistant upon discharge Instructions for transmitting EKG to Monitoring Center 3 month follow up instructions Contact number for information and questions Patient Evaluation: Verbalizes understanding Follow Up Plan: Follow up as directed by MD. Supplemental Material Given: Written Material Instructed By Jen Rodriguez RN. In Department of CARDIOLOGY. During your visit today, we recorded the following information about you: Allergies As of Date: 08/30/2018 (No Known Allergies) Date Reviewed: 07/21/2016 Reviewed by: Rhea Hinds - Fully Assessed Prescriptions as of 08/30/2018 Sig: FUROSEMIDE 40 MG TABLET TAKE 1 TABLET BY MOUTH TWICE * CARVEDILOL 12.5 MG TABLET TAKE ONE TABLET BY MOUTH TWIC* CLOPIDOGREL 75 MG TABLET Take 1 tablet by mouth once d* WARFARIN 5 MG TABLET TAKE 1.5 TABLETS DAILY AND * LOSARTAN 25 MG TABLET Take 1 tablet by mouth once d* PRAVASTATIN 40 MG TABLET Take 1 tablet by mouth once d* SPIRONOLACTONE 25 MG TABLET Take 0.5 tablets by mouth onc* OMEPRAZOLE 20 MG TABLET,DELAY* Take by mouth. Encounter Status:Closed by JEN CLEMENS on 08/30/18 HOSP Observed: 08/26/2018 Status: COMPLETED Source: [place] 12:00 AM [facility] REPOSITORY Patient Update (EPSMN) BARBARADAVID Raine ([id number]) 1950 M Date Time Provider Department 08/26/18 DARIUS TRAN [facility] During your visit today, we recorded the following information about you: Trina Khalil RN 08/26/2018 5:30 AM Signed Allergies As of Date: 08/26/2018 (No Known Allergies) Date Reviewed: 07/21/2016 Reviewed by: Rhea Hinds - Fully Assessed Reason for Visit: Coumadin/INR [1207] Prescriptions as of 08/26/2018 Sig: FUROSEMIDE 40 MG TABLET TAKE 1 TABLET BY MOUTH TWICE * CARVEDILOL 12.5 MG TABLET TAKE ONE TABLET BY MOUTH TWIC* CLOPIDOGREL 75 MG TABLET Take 1 tablet by mouth once d* WARFARIN 5 MG TABLET TAKE 1.5 TABLETS DAILY AND * LOSARTAN 25 MG TABLET Take 1 tablet by mouth once d* PRAVASTATIN 40 MG TABLET Take 1 tablet by mouth once d* SPIRONOLACTONE 25 MG TABLET Take 0.5 tablets by mouth onc* OMEPRAZOLE 20 MG TABLET,DELAY* Take by mouth. Problem List As Of Date 08/26/2018 Noted Resolved Atrial fibrillation (HCC) [I48.91] HTN (hypertension) [I10] HLD (hyperlipidemia) [E78.5] CAD (coronary artery disease) [I25.10] Visit Notes: >> Trina Khalil RN SunAug 26, 2018 5:26 AM Status: Signed Encounter Status:Closed by TRINA KHALIL RN on 08/26/18 PROGRESS Observed: 08/17/2018 Status: COMPLETED Source: [place] 2:58 PM [facility] REPOSITORY HNO ID: [id number] Author: Darius Tran MD Service: (none) Author Type: Physician Type: Progress Notes Filed: 08/18/2018 11:06 AM Note Text: Pt seen in Device Clinic. Remote check showed AFL. Prior history of A-lead functioning poorly, so brought in to Clinic to affirm. Device check shows atrial flutter with excellent rate control. Duration ~1 month. Last INR was high, no issues with warfarin. He can get wekly INR at his testing facility. Only Sx are fatigue, decreased effort tolerance. ROS: Constitutional: - Negative Neuro: - Negative Psych: - Negative HEENT: - Negative Endo: - Negative CV: See HPI Pulm: - Negative GI: - Negative : - Negative MSK: - Negative Derm: - Negative Heme: - Negative General - Well-developed, well-nourished, no acute distress. HEENT - Normocephalic, atraumatic. Neck -Supple, no JVD, no bruits, no thyromegaly. Heart - RRR, no murmurs, gallops, rubs. Lungs - CTA bilaterally. Device site - Well healed, L upper chest. Abdomen - Positive bowel sounds, no bruits, no organomegaly, no masses. Back - Non-tender. Extremities - No edema. Normal pulses. Neuro - Alert and oriented to person, place, time. Interrogation of the device today shows normal device pacing and sensing function with battery status OK. Underlying AT with 3:1 AV conduction at 60 bpm. Programmed NOT to BiV pace. Starting on 07/31/18, AT with 3:1 AV conduction at 60 bpm. 2% DATA CONTROL CLERK. IMPRESSION: Atypical atrial flutter S/p ablation of AF DCM with chronic/systolic CHF S/p ICD PLAN: Will set up for DCCV in a few weeks. Can try ATP first, as this is a slow atypical flutter, vs AT. If ATP fails then DCCV. detention, he had widespread LA scarring, so less likely to consider redo ablation, however he benefited from ablation with documented EF improvement, so if flutter refractory, would have to consider. Darius Tran MD CNOV Observed: 08/17/2018 Status: COMPLETED Source: [place] 12:00 AM [facility] REPOSITORY Office Visit (CARDMN) DAVID JIMENEZ ([id number]) 1950 M Date Time Provider Department 08/17/18 DARIUS TRAN During your visit today, we recorded the following information about you: Darius Tran MD, MD 08/18/2018 11:06 AM Signed Pt seen in Device Clinic. Remote check showed AFL. Prior history of A-lead functioning poorly, so brought in to Clinic to affirm. Device check shows atrial flutter with excellent rate control. Duration ~1 month. Last INR was high, no issues with warfarin. He can get wekly INR at his testing facility. Only Sx are fatigue, decreased effort tolerance. ROS: Constitutional: - Negative Neuro: - Negative Psych: - Negative HEENT: - Negative Endo: - Negative CV: See HPI Pulm: - Negative GI: - Negative : - Negative MSK: - Negative Derm: - Negative Heme: - Negative General - Well-developed, well-nourished, no acute distress. HEENT - Normocephalic, atraumatic. Neck -Supple, no JVD, no bruits, no thyromegaly. Heart - RRR, no murmurs, gallops, rubs. Lungs - CTA bilaterally. Device site - Well healed, L upper chest. Abdomen - Positive bowel sounds, no bruits, no organomegaly, no masses. Back - Non-tender. Extremities - No edema. Normal pulses. Neuro - Alert and oriented to person, place, time. Interrogation of the device today shows normal device pacing and sensing function with battery status OK. Underlying AT with 3:1 AV conduction at 60 bpm. Programmed NOT to BiV pace. Starting on 07/31/18, AT with 3:1 AV conduction at 60 bpm. 2% DATA CONTROL CLERK. IMPRESSION: Atypical atrial flutter S/p ablation of AF DCM with chronic/systolic CHF S/p ICD PLAN: Will set up for DCCV in a few weeks. Can try ATP first, as this is a slow atypical flutter, vs AT. If ATP fails then DCCV. detention, he had widespread LA scarring, so less likely to consider redo ablation, however he benefited from ablation with documented EF improvement, so if flutter refractory, would have to consider. Darius Tran MD Allergies As of Date: 08/17/2018 (No Known Allergies) Date Reviewed: 07/21/2016 Reviewed by: Rhea Hinds - Fully Assessed Reason for Visit: palpitation [1365] Primary Visit Diagnosis:Atypical atrial flutter (HCC) [I48.4] Prescriptions as of 08/17/2018 Sig: FUROSEMIDE 40 MG TABLET TAKE 1 TABLET BY MOUTH TWICE * CARVEDILOL 12.5 MG TABLET TAKE ONE TABLET BY MOUTH TWIC* CLOPIDOGREL 75 MG TABLET Take 1 tablet by mouth once d* WARFARIN 5 MG TABLET TAKE 1.5 TABLETS DAILY AND * LOSARTAN 25 MG TABLET Take 1 tablet by mouth once d* PRAVASTATIN 40 MG TABLET Take 1 tablet by mouth once d* SPIRONOLACTONE 25 MG TABLET Take 0.5 tablets by mouth onc* OMEPRAZOLE 20 MG TABLET,DELAY* Take by mouth. Problem List As Of Date 08/17/2018 Noted Resolved Atrial fibrillation (HCC) [I48.91] HTN (hypertension) [I10] HLD (hyperlipidemia) [E78.5] CAD (coronary artery disease) [I25.10] Encounter Status:Closed by DARIUS TRAN MD on 08/18/18 CAROTID DUPLEX Observed: 05/12/2018 Status: F Source: [place] ULTRASOUND 4:13 PM [facility] REPOSITORY [facility] Cardiovascular Services [address] [place] [id number] Carotid Unilateral 05/08/18 1315 MR#: [id number] Acct: [id number] Name: DAVID JIMENEZ Rep #: [id number] : 1950 67 From: Lul Jones MD Attending Dr: Lashanda Rodriguez PA-C Status: REG CLI Ordering Dr: Lashanda Rodriguez PA-C Date: 05/08/18 Location: [facility] Sex: M C Admitted: Reason For Study: F/U RT CEA Rt. Velocities/BP Prox CCA 72.7/18.2 cm/sec. Mid CCA 90.3/24.0 cm/sec. Dist CCA 101.0/26.4 cm/sec. Prox ICA 109.0/20.4 cm/sec. Mid ICA 94.3/29.1 cm/sec. Dist ICA 88.8/28.3 cm/sec. Rt. ICA/CCA = 1.2. Prox ECA 224.0/18.3 cm/sec. Rt. Vert. 58.6/18.8 cm/sec. Right Extracranial There is homogeneous, smooth atherosclerotic plaque noted in the right common carotid artery. There is homogeneous, smooth atherosclerotic plaque noted in the right internal carotid artery. There is homogeneous, smooth atherosclerotic plaque noted in the right external carotid artery. Antegrade flow is noted in the right vertebral artery. Procedure Carotid Duplex 38817. Exam performed in department. Interpretation Summary Surgical changes right carotid bulb and proximal internal carotid with minimal smooth plague. <50% stenosis right internal carotid Moderate disease right external carotid Patent and antegrade right vertebral. 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 [address] [place] [address] OFFICE VISIT Date of Service: 04/15/18 MR#: [id number] Acct: [id number] Name: DAVID JIMENEZ Rep #: [id number] : 1950 Provider: Lashanda Rodriguez PA-C Age/Sex: 67/M Location: [facility] Status: Signed Intake Vital Signs04/15/18 Blood Pressure 114/70 04/15/18 Blood Pressure Location Lt brachial 04/15/18 Blood Pressure Position Sitting 04/15/18 Respiratory Rate 18 Intake Visit Reasons: FU 04/03/18 ENDARTERECTOMY - CEBUL Chief Complaint: carotid end Paper Feeder Required: No Is patient in pain?: No Allergies No Known Allergies Allergy (Verified 04/15/18 13:00) Medications Carvedilol [Coreg (Beta Giovanni)] 12.5 mg PO BID 07/02/15 [History Confirmed 04/15/18] Losartan Potassium [Cozaar] 25 mg PO DAILY 07/02/15 [History Confirmed 04/15/18] Pravastatin [Pravachol] 40 mg PO QHS 07/02/15 [History Confirmed 04/15/18] Warfarin Sodium [Jantoven] 7.5 mg PO MOWEFR 07/02/15 [History Confirmed 04/15/18] clopidogrel 75 mg tablet 75 mg PO QDAY 03/27/18 [History Confirmed 04/15/18] Furosemide [Lasix] 40 mg PO BIDLX 03/29/18 [History Confirmed 04/15/18] Spironolactone 12.5 mg PO DAILY 03/29/18 [History Confirmed 04/15/18] Warfarin [Coumadin] 5 mg PO SUTUTHSA 03/29/18 [History Confirmed 04/15/18] Hydrocodone Bitart/Apap 5-325 [[place] 5/325] 1 - 2 tab PO Q6H PRN PRN 3 Days #8 tab 04/04/18 [Rx Confirmed 04/15/18] PFSH Medical History Carotid stenosis, right (Acute) H/O heart artery stent (Acute) HTN (hypertension) (Acute) Chronic a-fib (Chronic) Dyslipidemia (Chronic) CHF (congestive heart failure) (Acute) CAD (coronary artery disease) (Chronic) Surgical History S/P colonoscopy (Acute) S/P internal cardiac defibrillator procedure (Acute) History of radiofrequency ablation procedure for cardiac arrhythmia (Acute) S/P CABG (coronary artery bypass graft) (Acute) Pacemaker (Chronic) H/O carotid endarterectomy (Acute) S/P internal cardiac defibrillator procedure (Acute) Family History Father Hypertension Social History Smoking Status: Former smoker HPI HPI HPI: DAVID JIMENEZ, is a 67 M I am following for carotid stenosis. Dr. Jones performed a right carotid endarterectomy on 04/03/18. Patient tolerated the procedure well. He denies numbness, tingling, weakness of extremities, slurred speech, hoarseness, or vision changes. Pathology demonstrated plaque. He denies incisional pain/discomfort. He is returned to taking both blood thinners. Exam Const General: cooperative, healthy appearing, comfortable, no acute distress Neck Other: Right lateral neck- incision c/d/i. No erythema or infection noted. Steri-strips removed. No drainage or oozing noted. Assessment AND Plan Problems 1. Carotid stenosis, right I65.21 Plan - Recommend right carotid duplex in 3 weeks and bilateral duplex in 1 year - Follow-up with Dr. Jones in 1 year Orders Orders: Coding Level of Care Code Global Post Op Diagnoses Carotid stenosis, right I65.21 04/16/18 0941 <Electronically signed by Lashanda Rodriguez PA-C> Date Lashanda Rodriguez PA-C Cosigner Signature: Date (if applicable) CC: OPERATIVE REPORT Observed: 04/04/2018 Status: F Source: [place] 1:03 PM [facility] REPOSITORY [facility] Medical Records Department [address] [place] [address] Operative Report 04/03/18 0633 MR#: [id number] Acct: [id number] Name: DAVID JIMENEZ Rep #: [id number] : 1950 67 From: Lul Jones MD PCP: Oumar Wilkerson DO Status: DIS IN Y Location: [facility] [id number] Problem List (1) Carotid stenosis, right Status: Acute Report of Operation Date of Procedure: 04/03/18 Pre-Operative Diagnosis: Critical stenosis right extracranial internal carotid Post-Operative Diagnosis: Same Surgery/Procedure Performed:: Left radial arterial line placement. Right carotid endarterectomy with bovine patch angioplasty Description of Surgical Findings:: At the bedside timeout and informed consent was obtained. There was adequate Pancho test on the left. The left wrist was gently extended and prepped with Betadine. Under ultrasound guidance 1% lidocaine was instilled as a local anesthetic. A total of 1 cc was used. The radial artery was transfixed. I then try to get the 20-gauge aero anterior cath catheter to advance. It would not. So I removed that catheter held pressure. Then percutaneously I introduced a 20-gauge Angiocath. Using pressure tubing was connected. Seldinger wire technique I was able to advance a catheter. I secured to the skin with interrupted 3-0 silk. Good waveform was obtained. Oma wrap was applied after OpSite dressing was applied. Hand was viable at the completion. Blood loss minimal. No apparent complication. The patient tolerated the procedure well. Good waveform was obtained. The patient was subsequently taken to the operative room for definitive surgical intervention The patient was placed supine on the table. He underwent general endotracheal intubation and anesthesia. Ancef 2 g were given intravenously. The right neck was sterilely prepped and draped. An oblique incision was made along the anterior border the sternocleidomastoid. Sharp dissection was carried down through the subcutaneous tissue. The sternocleidomastoid was reflected laterally after incising the platysma. Crossing facial vein was secured with 3-0 Vicryl ligatures. The carotid bulb was identified circumferential trial was obtained of the common carotid proximally and a Fernandez tie of Dacron tape was placed. There was a lymph node packet superiorly this had to be dissected free and elevated. Dissection was performed upon the internal carotid and the hypoglossal nerve was identified and protected. A Dacron tape was placed around the internal carotid. A vessel loop was then placed around the external carotid and a Fernandez tie of 3-0 Vicryl and the superior thyroid. The patient received 9000 units of heparin. After adequate circling time peripheral vascular clamps were placed on the internal carotid common carotid and external carotid. An 11 blade was used to make an arteriotomy which was extended with Fernandez scissors. The plaque was extraordinarily calcific thick. A reasonably long arteriotomy was required. A #10 USCI style shunt was placed cephalad and proximally. Time to place a shunt was 4 minutes and 15 seconds. There was increased difficulty in placement. Subsequently the endarterectomy was performed at the layer of the external elastic lamina. The plaque was sharply transected proximally. It then was nicely feathered at the internal carotid and an inversion enterectomy was performed of the external carotid. Debris was carefully removed. A single tacking suture of 7-0 Prolene was placed at the internal carotid. Then a bovine patch 8 x 0.8 cm shaped to form and a patch angioplasty was created with running 6-0 Prolene. Prior to completion the vessel was copiously irrigated the shunt was removed the angioplasty was completed. Initial flow was instituted from the external carotid common carotid find the internal carotid. Time for shunt removal was 2 minutes. A couple repair sutures of 7-0 Prolene required for complete hemostasis. The patient then received 30 mg of protamine. Surgicel was applied topically. The patient still from his preoperative anticoagulation of Coumadin and Plavix was still somewhat oozy so I Did Pl., FloSeal to the wound. After hemostasis was achieved the wound was closed with a deep layer approximating the platysma running 3-0 Vicryl. The skin edges proximate running septic or 5-0 Vicryl. The ledy-incisional area was anesthetized with 0.5% Marcaine. A total 10 cc was used. Steri-Strips Telfa and tape dressings were applied. Sponge and instrument and needle counts were reported to the surgeon to be correct. Blood loss was 200 cc. He tolerated the procedure well. It appeared to awake neurologically intact. He was taken to the recovery area in satisfactory condition without apparent complication. Specimens the plaque. Drains none. Blood loss 200 cc. Lul Jones M.D., F.A.C.S. Type of Anesthesia:: General Anesthesiologist: Jose Joseph 04/04/18 1303 <Electronically signed by Lul Jones MD> Date Lul Jones MD CC: Oumar Wilkerson DO; Lul Jones MD Signed DISCHARGE INSTRUCTION Observed: 04/04/2018 Status: F Source: [place] 1:03 PM [facility] REPOSITORY [facility] Medical Records Department [address] [place] [address] Instructions for Home/Discharge Instructions 04/03/18 0638 MR#: [id number] Acct: [id number] Name: DAVID JIMENEZ Rep #: [id number] : 1950 67 From: Lul Jones MD PCP: Oumar Wilkerson DO Status: DIS IN <Lul Jones - Last Filed: 04/03/18 06:38> Discharge Diet: Light diet - advance as tolerated - if you have questions about your diet instructions, please talk to you doctor. Discharge Activity: May Not Drive - for 1 week or while taking narcotic pain medicine. May shower in (days): 3 - Shower on Sunday please Lifting Restrictions: 10 pounds Call your doctor if your incision/area has: Continuous Slow Oozing, Sudden Increased Bleeding, Increased Pain/ Swelling, Increased Redness, Foul Smelling Discharge Call your doctor if you observe: Fever of 101 or Higher Suture Line Care: Avoid Pulling/Pushing, Avoid Pinching/Bending Additional Dressing/Incision Instructions:: Please keep your right neck incision clean and dry. You may shower on Sunday. You may cover the incision with gauze and tape as needed to protect from clothing. You may remove the Steri-Strips in 1 week Allergies/Adverse Reactions: Allergies No Known Allergies Allergy (Verified 03/29/18 08:07) Medications to take at Discharge Carvedilol [Coreg (Beta Giovanni)] 12.5 mg PO BID 07/02/15 Losartan Potassium [Cozaar] 25 mg PO DAILY 07/02/15 Pravastatin [Pravachol] 40 mg PO QHS 07/02/15 Warfarin Sodium [Jantoven] 7.5 mg PO MOWEFR 07/02/15 clopidogrel 75 mg tablet 75 mg PO QDAY 03/27/18 Furosemide [Lasix] 40 mg PO BIDLX 03/29/18 Spironolactone 12.5 mg PO DAILY 03/29/18 Warfarin [Coumadin] 5 mg PO SUTUTHSA 03/29/18 Primary Care Physician: Oumar Wilkerson DO [Primary Care Provider] - Please Follow Up With: Lul Jones MD - [phone] When: Call to make an appointment to be seen in about 10 days. <Lashanda Rodriguez - Last Filed: 04/04/18 07:20> Proposed Discharge Date: 04/04/18 04/04/18 1303 <Electronically signed by Lul Jones MD> Date Lul Jones MD CC: Oumar Wilkerson DO 12 LEAD ELECTROCARDIOGRAM Observed: 04/03/2018 Status: F Source: [place] 3:18 PM [facility] REPOSITORY [facility] Cardiovascular Services [address] [place] [id number] 12 Lead EKG 03/29/18 1337 MR#: [id number] Acct: [id number] Name: DAVID JIMENEZ Rep #: [id number] : 1950 67 From: Geovanny Carter MD Attending Dr: Lul Jones MD Status: ADM IN Ordering Dr: Lul Jones MD Date: 03/29/18 Location: [facility] Sex: M C Admitted: 04/03/18 Test Reason : PREOP Blood Pressure : / mmHG Vent. Rate : 058 BPM Atrial Rate : 058 BPM P-R Int : 288 ms QRS Dur : 102 ms QT Int : 414 ms P-R-T Axes : 044 075 072 degrees QTc Int : 406 ms Sinus bradycardia with 1st degree A-V block Nonspecific T wave abnormality Confirmed by RAUL MARIE, GEOVANNY ([id number]), photograph editor LAZ FLORES ([id number]) on 04/03/2018 3:17:47 PM Referred By: Lul Jones Confirmed By:GEOVANNY CARTER MD 04/03/18 1517 Date Geovanny Carter MD CC: Oumar Wilkerson DO; Lul Jones MD Signed PROTIME W/INR Collected: 04/03/2018 Status: F Source: [place] 6:20 AM [facility] REPOSITORY TYPE CODE TESTS RESULT OUT OF REFERENCE UNITS RANGE LAB L9200.1001 11.9-14.4 SEC Low PROTIME ISTAT 11.7 Result Comment: Reference Range 11.9 - 14.4 LAB L9200.2000 Normal INR ISTAT 1.00 Result Comment: Critical Value > 3.5 Performed By: #### L9200.0000 #### [facility] Point of Care [address] [place] [address] PLAQUE Observed: 04/03/2018 Status: F Source: [place] 12:00 AM [facility] REPOSITORY Patient: DAVID JIMENEZ : 1950 (67/M) Acct Num: [id number] Phys: Lul Jones MD Unit Num: [id number] Loc: PCU [id number] Specimen: [id number] Received: 04/03/18 - 1443 Spec Type: PLAQUE TISSUES TISSUES: PLAQUE GROSS DESCRIPTION Received in fixative is one container labeled with the patient's name and designated plaque right carotid artery. The specimen consists of a previously opened tubular piece of hopkins, indurated tissue measuring 3.5 cm in length and 1 cm in diameter. The lumen is almost completely obliterated focally. The specimen cuts with a gritty sensation. The entire specimen is submitted in one cassette after decalcification. / SJ:jacinto 04/03/18 TC:5 CPT: 79584, 67016 HEADER OPERATION: Right carotid endarterectomy with patch angioplasty PRE-OP DIAGNOSIS: Carotid stenosis, right TISSUE SUBMITTED: Plaque right carotid artery MICROSCOPIC DIAGNOSIS Right carotid artery plaque, endarterectomy: Calcified atheromatous plaque consistent with severe stenosis. AM:jacinto 04/08/18 Signed Arley Shobha 04/08/18 <signature on file> Performed By: #### PPLAQ #### [facility] [address] [place], [address] ECHOCARDIOGRAM COMPLETE Observed: 04/02/2018 Status: F Source: [place] 9:08 AM [facility] REPOSITORY [facility] Cardiovascular Services [address] [place] [address] Echo Complete 04/02/18 0756 MR#: [id number] Acct: [id number] Name: DAVID JIMENEZ Rep #: [id number] : 1950 67 From: Geovanny Carter MD Attending Dr: Lul Jones MD Status: REG CLI Ordering Dr: Lul Jones MD Date: 04/02/18 Location: [facility] Sex: M C Admitted: Reason For Study: PRE OP EXAM Procedure This was a 2D Doppler, Color Flow transthoracic echocardiogram. The exam was of adequate technical quality. Exam performed in department. Left Ventricle Moderately dilated left ventricle. Mild to moderate segmental systolic dysfunction (see wall motion). The estimated ejection fraction is 40 %. Transmitral diastolic flow velocities suggest moderate (stage 2) diastolic dysfunction (pseudonormal pattern). Posterior-Basal: Hypokinetic. Infero-Basal: Akinetic. Basal inferoseptal: Akinetic. Basal anteroseptal: Hypokinetic. Mid- Lateral : Hypokinetic. Mid-Posterior: Hypokinetic. Mid-Inferior: Hypokinetic. Mid-inferoseptal : Hypokinetic. Mid-anteroseptal : Hypokinetic. Anterior Pratt : Akinetic. Inferior Pratt : Akinetic. Lateral Pratt : Hypokinetic. Septal Pratt : Akinetic. Right Ventricle Normal RV size. ICD or pacer leads identified within the right ventricle. Normal systolic function. Atria The left atrium is severely enlarged. Normal right atrium. ICD or pacer leads identified within the right atrium. No doppler evidence for ASD. Mitral Valve There is no mitral annular calcification. Mild diffuse mitral valve thickening. Mild-Moderate (1- 2+) mitral valve insufficiency. Tricuspid Valve Normal tricuspid valve. Mild tricuspid valve insufficiency. Right ventricular systolic pressure estimated to be 27 mmHg. Aortic Valve Trisinus/trileaflet aortic valve. Mild diffuse aortic valve thickening. Trivial aortic valve insufficiency. Pulmonic Valve The pulmonic valve is not well visualized. Trivial pulmonic valve insufficiency. Great Vessels Normal sized aortic root. Pericardium/Pleural No pericardial effusion. MMode/2D Measurements AND Calculations LVIDd: 5.9 cm IVSd: 0.83 cm Ao root diam: 3.4 cm LVIDs: 4.7 cm LVPWd: 1.1 cm RVDd: 3.5 cm FS: 19.6 % LAV(MOD-bp): 189.0 ml LA A4 area: 42.6 cm2 RA A4 area: 20.2 cm2 LAV(MOD-bp) Indexed: 92.8 ml/m2 LAV(MOD-sp2): 191.7 ml LAV(MOD-sp4): 184.1 ml Doppler Measurements AND Calculations MV E max roscoe: 82.4 cm/sec Lat Peak E' Roscoe: 7.1 cm/sec Med Peak E' Roscoe: 7.0 cm/sec MV A max roscoe: 20.9 cm/sec E/E' lat: 11.7 E/E' med: 11.8 MV E/A: 3.9 Ao V2 max: 119.8 cm/sec LV V1 max: 82.7 cm/sec PA V2 max: 60.4 cm/sec Ao max P.7 mmHg LV V1 max P.7 mmHg PI dec slope: 84.3 cm/sec2 TR max roscoe: 245.5 cm/sec TR max P.2 mmHg Interpretation Summary Moderately dilated left ventricle. Mild to moderate segmental systolic dysfunction (see wall motion). The estimated ejection fraction is 40 %. The left atrium is severely enlarged. Mild diffuse mitral valve thickening. Mild-Moderate (1-2+) mitral valve insufficiency. Mild tricuspid valve insufficiency. Mild diffuse aortic valve thickening. Trivial aortic valve insufficiency. Trivial pulmonic valve insufficiency. Right ventricular systolic pressure estimated to be 27 mmHg. Transmitral diastolic flow velocities suggest diastolic dysfunction (pseudonormal pattern). ICD or pacer leads identified within the right atrium ICD or pacer leads identified within the right ventricle. 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 Carotid artery stenosis RADIATION DOSAGE (If Supplied By Facility): CTDIvol = ( 26.43 ) mGy, DLP = ( 778.65 ) mGycm TECHNIQUE: CT angiography with multi-detector data acquisition was performed from the aortic arch to the skull base following intravenous administration of 100 ml of Isovue 370 contrast. MIP images were reconstructed from the axial data set. Post-processing of the angiographic images was performed, with multiplanar reformation and 3D reconstruction. Individualized dose optimization techniques were used for this CT. COMPARISON: None. FINDINGS: AORTIC ARCH: There is atherosclerotic calcific plaque formation of the aortic arch and great vessels arising from the aortic arch, without a hemodynamically significant stenosis. There is a normal origin of the brachiocephalic, left common carotid, and left subclavian arteries. RIGHT CAROTID ARTERIES: There is atherosclerotic plaque formation of the common carotid artery, but without a hemodynamically significant stenosis. There is extensive atherosclerotic plaque formation with severe narrowing of the right carotid bulb with a hemodynamically significant stenosis. There is severe atherosclerotic plaque formation of the origin of the right internal carotid artery with a near complete occlusion. Normal visualized cervical portion of the right internal carotid artery. There is mild atherosclerotic plaque formation of the origin of the right external carotid artery with less than 50% cross sectional diameter stenosis. LEFT CAROTID ARTERIES: There is atherosclerotic plaque formation of the common carotid artery, but without a hemodynamically significant stenosis. There is mild atherosclerotic plaque formation with minimal narrowing of the left carotid bulb. There is mild atherosclerotic plaque formation of the origin of the left internal carotid artery with less than 50% cross sectional diameter stenosis. Normal visualized cervical portion of the left internal carotid artery. There is mild atherosclerotic plaque formation of the origin of the left external carotid artery with less than 50% cross sectional diameter stenosis. VERTEBRAL ARTERIES: Normal bilateral vertebral arteries. CT/CTA Neck W/WO Contrast IMPRESSION: There is severe atherosclerotic plaque formation of the origin of the right internal carotid artery with a near complete occlusion. The degree of stenosis calculation is in accordance with NASCET criteria. N.B. : The above information has been verbally conveyed by Sage Montes MD to Lul Jones, Referring Physician, on 03/28/2018 15:07:14 (ET). Electronically Signed: Sage Montes MD at 15:07 EDT Tel , Service support , N.B. : The above information has been verbally conveyed by Sage Montes MD to Lul Jones, Referring Physician, on 03/28/2018 15:07:14 (ET). 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 SURGERY VISIT REPORT Observed: 03/27/2018 Status: F Source: [place] 5:40 PM [facility] [address] [place] [address] [address] [place] [address] OFFICE VISIT Date of Service: 03/27/18 MR#: [id number] Acct: [id number] Name: BARBARADAVID Raine Rep #: [id number] : 1950 Provider: Lul Jones MD Age/Sex: 67/M Location: [facility] Status: Signed Intake Vital Signs03/27/18 Height 6 ft 03/27/18 Weight: 195 lb 2 oz 03/27/18 Body Mass Index (BMI) 26.4 03/27/18 Blood Pressure 139/81 Intake Visit Reasons: CAROTID Chief Complaint: carotid stenosis Paper Feeder Required: No Is patient in pain?: No Allergies No Known Allergies Allergy (Verified 03/27/18 13:51) Medications Carvedilol [Coreg (Beta Giovanni)] 12.5 mg PO BID 07/02/15 [History Confirmed 03/27/18] Losartan Potassium [Cozaar] 25 mg PO DAILY 07/02/15 [History Confirmed 03/27/18] Pravastatin [Pravachol] 40 mg PO QHS 07/02/15 [History Confirmed 03/27/18] Warfarin Sodium [Jantoven] 7.5 mg PO 07/02/15 [History Confirmed 03/27/18] Furosemide [Lasix] 40 mg PO BIDLX #60 tab 07/03/15 [Rx Confirmed 03/27/18] Magnesium Oxide [Mag-Ox 400] 400 mg PO DAILY #30 tab 07/03/15 [Rx Confirmed 03/27/18] Potassium Chloride [K-Dur] 20 meq PO DAILY #30 tab 07/03/15 [Rx Confirmed 03/27/18] clopidogrel 75 mg tablet 75 mg PO QDAY 03/27/18 [History Confirmed 03/27/18] PFSH Medical History Carotid stenosis, right (Acute) H/O heart artery stent (Acute) HTN (hypertension) (Acute) Chronic a-fib (Chronic) Dyslipidemia (Chronic) CHF (congestive heart failure) (Acute) CAD (coronary artery disease) (Chronic) Surgical History S/P colonoscopy (Acute) S/P internal cardiac defibrillator procedure (Acute) History of radiofrequency ablation procedure for cardiac arrhythmia (Acute) S/P CABG (coronary artery bypass graft) (Acute) Pacemaker (Chronic) S/P internal cardiac defibrillator procedure (Acute) Family History Father Hypertension Social History Smoking Status: Former smoker HPI HPI HPI: DAVID JIMENEZ, is a 67 M who presents to the office today for surgical consultation regarding extracranial carotid artery occlusive disease. 59-year-old gentleman. He is referred by Dr. Oumar Wilkerson for surgical consultation regarding carotid occlusive disease and a written copy of my surgical consult recommendations will be returned to him. On routine clinical examination the patient was detected as having a right carotid bruit. The patient has a known history of previous long-term heavy tobacco use at 3 packs per day. Approximately 8 years ago that culminated in him requiring coronary bypass surgery. He is also had coronary stenting 3 years ago. He is currently stopped his tobacco but he is now gaping. He is managed because of atrial fibrillation and pacemaker defibrillator in place on Coumadin as well as clopidogrel. He denies previous myocardial infarction or stroke. He states that there is some question as to whether his pacemaker defibrillator has a loose lead. He has undergone cardiac ablation. He is currently not in atrial fibrillation. He does not have a local audiovisual aids technician. On March 04, 2018 at the [facility] he had carotid duplex imaging. Peak systolic velocity within the right mid internal carotid was 388 cm/s with an end-diastolic flow of 108. This was felt to be consistent with greater than 70% stenosis. It was felt to be near occlusive. The left extracranial carotid artery has a normal velocity and less than 50% stenosis. Bilateral vertebrals are patent and antegrade. He denies any focal neurologic change. Patient does note calf claudication at several blocks. Right leg worse than the left ROS General General: No weight change, appetite, fatigue, colon cancer, breast cancer or weakness HEENT HEENT: No difficulty swallowing, eye injury, eye surgery, swollen glands or hoarseness Endo Endocrine: No thyroid disease, diabetes mellitus, thyroid cancer, Hair loss, heat intolerance or cold intolerance Musc Musculoskeletal: Yes back problems and arthritis; no rheumatoid arthritis, gout or joint pain Cardio Cardiovascular: Yes pacemaker, heart disease, high blood pressure, heart attack and heart stent; no murmur, atrial fibrillation, palpitations, shortness of breat with exertion or chest pain Resp Respiratory: No shortness of breath, No sleep apnea, No cough, No COPD, No asthma, No emphysema, No wheezing Gastro Gastrointestinal: No abdominal pain, No nausea or vomiting, Yes diarrhea, No constipation, No blood in stool, No acid reflux, No hemorrhoids, No ulcers, No gallbladder problem, No black,tarry stools Jose Hematologic: Yes blood thinners, No blood disorders, No bleeding, No anemia, No blood clots Neuro Neurologic: No weakness Exam Const General: cooperative, no acute distress [facility] Head: normal to inspection Eyes General: appearance normal, both eyes and all related structures Neck Neck: normal visual inspection Thyroid: thyroid normal Lymphatic: no lymphadenopathy noted Other: Diminished right carotid pulse at 1+ with a harsh 3/6 bruit. 3+ left carotid pulse Chest Other: Increased anterior posterior diameter Resp Effort AND Inspection: normal respiratory effort Auscultation: clear to auscultation bilaterally Cardio Rate: regular rate Rhythm: regular rhythm Heart Sounds: no murmurs Other: Bilateral brachials are 2+. Bilateral radials 2+. Bilateral femorals are 3+. Bilateral popliteals 1+. Left DP 1+. Left PT 3+. Right DP 0 right PT 1+ GI Palpation: soft, no hepatosplenomegaly Other: Patient has a midline median sternotomy incision. This extends way down into the epigastrium. There is a separate epigastric incisional hernia measuring approximately 4 cm in diameter. To the right at the site of suspected chest tube there is a much larger 8 cm diameter soft tissue defect. Neither of these areas are reducible Musc Cervical Spine: normal cervical lordosis Skin Other: Diffuse areas of ecchymosis noted bilateral dorsal hands and forearms Neuro General: CN's II-XI intact bilaterally Extrem General: no calf tenderness Psych Affect: normal affect Assessment AND Plan Problems 1. Carotid stenosis, right I65.21 2. Incisional hernia, without obstruction or gangrene K43.2; K43.91 Plan 67-year-old gentleman who appears to have a high-grade critical stenosis of his right internal carotid. He has had a history of coronary disease. He has a pacemaker defibrillator in place. He did have ablation treatment for atrial fibrillation and states that his rhythm has been normal. He does have history of cardiac bypass surgery as well as coronary stenting. He is doubly anticoagulated on Coumadin as well as clopidogrel. He denies any focal neurologic changes. He has had a past history of heavy tobacco use at 3 packs per day. He stopped approximately 7 or 8 years ago. He currently is vaping With his present I have discussed treatment options in detail. I am recommending a arterial line for monitoring and a right carotid endarterectomy with patch angioplasty. In details we have discussed the technique, benefits, risks, alternatives. We have compared and contrasted this with carotid artery stenting as well as ongoing medical management. He is not currently in atrial fibrillation I have asked him to hold his Coumadin 4 days preoperatively. I have asked him to hold his clopidogrel 2 days preoperatively and at that point start low-dose 81 mg aspirin. We will obtain a CTA of the carotids. He has had an opportunity to ask and have questions answered. He is aware that with his degree of right carotid stenosis I consider him at higher risk for stroke with or without treatment. I very much appreciate the kind opportunity of assisting with his surgical care It is of additional note that the patient has a rather complex epigastric ventral incisional hernia that extends not only in the midline but off to the right related to his midline median sternotomy incision as well as his chest tube causing 2 separate defects. He is not currently symptomatic from that at this setting. cc: Dr Rhea Jones M.D., F.A.C.S. Orders Orders: Coding Level of Care Code Comprehensive,moderate Diagnoses Carotid stenosis, right I65.21 Incisional hernia, without obstruction or gangrene K43.2; K43.91 Obstruction and gangrene presence: without obstruction or gangrene Time Spent (min) 55 03/27/18 1740 <Electronically signed by Lul Jones MD> Date Lul Jones MD Cosigner Signature: Date (if applicable) CC: Oumar Wilkerson DO CBC-COMPLETE BLOOD CNT Collected: 03/27/2018 Status: F Source: [place] NO DIFF 3:23 PM [facility] REPOSITORY TYPE CODE TESTS RESULT OUT OF RANGE REFERENCE UNITS LAB L100.1000 4.4-11.0 K/mm3 Normal WBC 5.2 LAB L100.1200 4.6-6.2 M/mm3 Normal RBC 4.68 LAB L100.1300 13.0-16.5 g/dl Normal HGB 14.0 LAB L100.1400 40-54 % Normal HCT 41.9 LAB L100.1500 80-94 fL Normal MCV 89.5 LAB L100.1600 27.0-32.0 pg Normal MCH 29.9 LAB L100.1700 32-36 g/gl Normal MCHC 33.4 LAB L100.1810 11.6-14.6 % Normal RDW CV 13.8 LAB L100.1820 35.1-43.9 fl High RDW SD 44.9 LAB L100.1900 150-450 K/mm3 Normal PLT 193 LAB L100.2000 6.2-12.0 fl Normal MPV 10.2 Performed By: #### L100.0500, L500.2500 #### [facility] [address] [place], [address] BASIC METABOLIC Collected: 03/27/2018 Status: F Source: [place] PROFILE (BMP) 3:23 PM [facility] REPOSITORY TYPE CODE TESTS RESULT OUT OF RANGE REFERENCE UNITS LAB L501.0100 74-106 mg/dL Normal GLU 83 Result Comment: Please note revised GLUCOSE reference range effective 2017. LAB L501.1000 7-18 mg/dL Normal BUN 16 LAB L501.1100 0.70-1.30 mg/dL Normal CREAT,SERUM 1.21 Result Comment: The validity of the calculated GFR AND GFRAA in patients over 70 years has not been determined. Clinical correlation is essential. LAB L501.1110 >60 mL/min Normal EST GFR 63 Result Comment: Non- GFR Calc LAB L501.1115 >60 mL/min Normal EST GFR - AA 77 Result Comment: GFR Calc LAB L501.1300 10-20 RATIO Normal BUN/CRE 13.2 LAB L501.2200 8.5-10.1 mg/dL CA Normal 8.9 LAB L501.5300 136-145 mmol/L NA Normal 137 LAB L501.5600 3.5-5.1 mmol/L K Normal 4.2 LAB L501.5900 98-107 mmol/L CL Normal 101 LAB L501.6100 21.0-32.0 mmol/L Normal CO2 32.0 LAB L501.6200 5-15 Low GAP 4 Performed By: #### L100.0500, L500.2500 #### [facility] [address] [place], [address] CAROTID DUPLEX Observed: 03/04/2018 Status: F Source: [place] ULTRASOUND 8:05 PM [facility] REPOSITORY [facility] Cardiovascular Services [address] [facility] [place] [address] Carotid Duplex Ultrasound 03/04/18 0953 MR#: [id number] Acct: [id number] Name: DAVID JIMENEZ Rep #: [id number] : 1950 67 From: Alex Varela MD Attending Dr: Oumar Wilkerson DO Status: REG CLI Ordering Dr: Oumar Wilkerson DO Date: 03/04/18 Location: CVS Sex: M C Admitted: Reason For Study: bruit Rt. Velocities/BP Lt. Velocities/BP Prox CCA 57.5/12.3 cm/sec. Prox CCA 76.2/19.3 cm/sec. Mid CCA 62.1/14.1 cm/sec. Mid CCA 68.6/24.0 cm/sec. Dist CCA 90.3/20.5 cm/sec. Dist CCA 78.0/24.6 cm/sec. Prox ICA 348/137 cm/sec. Prox ICA 82.7/24.0 cm/sec. Mid ICA 388/108 cm/sec. Mid ICA 90.9/35.8 cm/sec. Dist ICA 59.7/25.1 cm/sec. Dist ICA 105/35.1 cm/sec. Rt. ICA/CCA = 6.2. Lt. ICA/CCA = 1.5. Prox ECA 145/20.4 cm/sec. Prox ECA 131/16.7 cm/sec. Rt. Vert. 75.6/24.6 cm/sec. Lt. Vert. 40.5/17.0 cm/sec. Right Extracranial There is homogeneous, smooth atherosclerotic plaque noted in the right common carotid artery. There is heterogeneous, irregular atherosclerotic plaque noted in the right internal carotid artery. There is heterogeneous, irregular atherosclerotic plaque noted in the right external carotid artery. Antegrade flow is noted in the right vertebral artery. There is heterogeneous, irregular atherosclerotic plaque noted in the right bulb. Left Extracranial There is heterogeneous, irregular atherosclerotic plaque noted in the left common carotid artery. There is heterogeneous, irregular atherosclerotic plaque noted in the left internal carotid artery. There is heterogeneous, irregular atherosclerotic plaque noted in the left external carotid artery. Antegrade flow is noted in the left vertebral artery. There is heterogeneous, irregular atherosclerotic plaque noted in the left bulb. Procedure Carotid Duplex 96382. The exam was diagnostic. Exam performed in department. Prelim called to Georgie at Dr. Wilkerson's office. Interpretation Summary Near occlusion of the right extracranial internal carotid. Mild (<50%) stenosis left extracranial internal carotid. The degree of stenosis in the right internal carotid artery appears to be well over 70%, based upon velocity criteria, and likely nearly occlusive in nature. There is acoustic shadowing in the internal carotid arteries bilaterally, which obscures visualization of the arterial lumen. Therefore, the degree of stenosis may exceed that indicated by velocity criteria alone. The degree of stenosis in the right internal carotid artery warrants additional medical attention and management. Flow within the vertebral arteries is antegrade bilaterally. 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 CBC W/DIFF, AUTOMATED Collected: 02/12/2018 Status: F Source: [place] 12:02 PM [facility] REPOSITORY TYPE CODE TESTS RESULT OUT OF RANGE REFERENCE UNITS LAB L100.1000 4.4-11.0 K/mm3 Normal WBC 6.8 LAB L100.1200 4.6-6.2 M/mm3 Low RBC 4.36 LAB L100.1300 13.0-16.5 g/dl Normal HGB 13.1 LAB L100.1400 40-54 % Low HCT 39.0 LAB L100.1500 80-94 fL Normal MCV 89.4 LAB L100.1600 27.0-32.0 pg Normal MCH 30.0 LAB L100.1700 32-36 g/gl Normal MCHC 33.6 LAB L100.1810 11.6-14.6 % Normal RDW CV 14.1 LAB L100.1820 35.1-43.9 fl High RDW SD 45.4 LAB L100.1900 150-450 K/mm3 Normal PLT 187 LAB L100.2000 6.2-12.0 fl Normal MPV 11.1 LAB L100.2100 47-70 % High NEUT% 72.5 LAB L100.2200 19-41 % Low LY% 15.2 LAB L100.2300 0-10 % Normal MONO% 9.2 LAB L100.2400 0-5 % Normal EO% 2.2 LAB L100.2500 0-1 % Normal BASO% 0.6 LAB L100.2550 0.0-0.9 % Normal IM GRAN % 0.300 Result Comment: IG% - Immature Granulocytes (promyelocytes, myelocytes and metamyelocytes) > 1% indicates that a LEFT SHIFT is Present. LAB L100.2620 2.0-7.7 X10 3/uL Normal Absolute Neut 4.9 LAB L100.2720 0.83-4.51 X10 3/ul Normal Absolute Lymph 1.03 Performed By: #### L100.0100 #### [facility] [address] [place], [address] COMPREHENSIVE METABOLIC Collected: 02/12/2018 Status: F Source: [facility] 12:02 PM [facility] REPOSITORY TYPE CODE TESTS RESULT OUT OF RANGE REFERENCE UNITS LAB L501.0100 74-106 mg/dL Normal GLU 98 Result Comment: Please note revised GLUCOSE reference range effective 2017. LAB L501.1000 7-18 mg/dL High BUN 23 LAB L501.1100 0.70-1.30 mg/dL Normal CREAT,SERUM 1.27 Result Comment: The validity of the calculated GFR AND GFRAA in patients over 70 years has not been determined. Clinical correlation is essential. LAB L501.1110 >60 mL/min Normal EST GFR 60 Result Comment: Non- GFR Calc LAB L501.1115 >60 mL/min Normal EST GFR - AA 72 Result Comment: GFR Calc LAB L501.1300 10-20 RATIO Normal BUN/CRE 18.1 LAB L501.1500 6.4-8.2 g/dL T Normal PROT 7.5 LAB L501.1800 3.2-5.0 g/dL Normal ALB 3.5 LAB L501.1950 2.2-4.2 g/dL Normal GLOB 4.0 LAB L501.2000 0.9-2.4 RATIO Normal A/G 0.9 LAB L501.2200 8.5-10.1 mg/dL CA Normal 8.9 LAB L501.4100 15-37 U/L Normal AST 18 LAB L501.4305 45-117 U/L Normal ALK P 63 LAB L501.4405 16-61 U/L Normal ALT 21 LAB L501.4600 0.20-1.00 mg/dL T Normal BILI 0.50 LAB L501.5300 136-145 mmol/L NA Normal 137 LAB L501.5600 3.5-5.1 mmol/L K Normal 3.9 LAB L501.5900 98-107 mmol/L CL Normal 105 LAB L501.6100 21.0-32.0 mmol/L Normal CO2 27.0 LAB L501.6200 5-15 Normal GAP 5 Performed By: #### L500.4050 #### [facility] [address] [place], [place], [address] ALLERGIES ALLERGIES DATE TYPE / CODE NAME / CODE REACTION SEVERITY SOURCE 04/15/2018 Drug No Known Unknown [facility] Allergy/416 Allergies/U30452 [facility] 873390(SNOM 0388(RXNORM) Repository ED CT) Drug NO KNOWN [facility] Class/92444 ALLERGIES [facility] 1003(SNOMED Repository CT) ENCOUNTERS ENCOUNTERS ADMIT/DISCHARGE ACCOUNT ADMITTING ENCOUNTER LOCATION SOURCE NUMBER CLASS 09/13/2018 [id number] Ambulatory [facility] ing:LAB.FUTUR Repository E 09/02/2018 [id number] CHELSEA [facility] Repository 09/02/2018 [id number] Ambulatory [facility] Repository 08/16/2018/08/16/20 [id number] Ambulatory [address] Repository 05/12/2018 [id number] Ambulatory BMSBuilding:[place].[facility] Repository 05/08/2018 [id number] Ambulatory [facility] ing:[facility]S Repository 04/15/2018/04/15/20 [id number] Ambulatory BMSBuilding:[place] [address] [facility] Repository 04/03/2018/04/04/20 [id number] CebulLul Inpatient [place] 18 Encounter [facility] ing:PCURoom: Repository [id number]: 1 04/03/2018/04/04/20 [id number] Ambulatory BMSBuilding:B [place] 18 MS.[facility] Repository 04/02/2018 [id number] Ambulatory [facility] ing:CVS Repository 04/02/2018 [id number] Ambulatory BMSBuilding:[place] [facility] Repository 03/29/2018/04/04/20 [id number] Ambulatory BMSBuilding:W [place] 18 [facility] Repository 03/28/2018 [id number] Ambulatory [facility] ing:CT Repository 03/27/2018/03/27/20 [id number] Ambulatory BMSBuilding:B [place] [facility] Repository 03/19/2018 [id number] Ambulatory BMSBuilding:[place] [facility] Repository 03/04/2018 [id number] Ambulatory [facility] ing:CVS Repository 02/12/2018 [id number] Ambulatory [facility] ing:BFHLAB Repository PAYERS PAYERS ENCOUNTER GUARANTOR PAYER SUBSCRIBER SOURCE 09/13/2018 DAVID Ni Primary DAVID Ni [place] [id number] Insurance:MEDICARE SLONEDOB: [facility] [id number] Number: Repository [id number]: [phone] [id number] [phone] () Date:2018-08-27 09/13/2018 Secondary NOT GIVENUNK [place] Insurance:SELF PAY [facility] Number: Effective Repository Date:2018-08-27 05/12/2018 DAVID Ni Primary DAVID D [place] [id number] Insurance:MEDICARE SLONEDOB: [facility] [id number] Number: Repository [id number]: 330 [id number] [phone] () Date:2018-04-15 05/12/2018 Secondary NOT GIVENUNK [place] Insurance:SELF PAY [facility] Number: Effective Repository Date:2018-05-12 05/08/2018 DAVID D Primary DAVID D [place] [id number] Insurance:MEDICARE SLONEDOB: [facility] [address] PART A [facility] [id number], [place] Number: Repository [address]Bio: 330 [id number] [phone] () Date:2018-04-15 05/08/2018 Secondary NOT GIVENUNK [place] Insurance:SELF PAY [facility] Number: Effective Repository Date:2018-04-15 04/15/2018 DAVID D Primary DAVID D [place] [id number] Insurance:MEDICARE SLONEDOB: [facility] [address] PART A [facility] [id number], [place] Number: Repository [id number]: 330 [id number] [phone] () Date:2018-04-04 04/15/2018 Secondary NOT GIVENUNK [place] Insurance:SELF PAY [facility] Number: Effective Repository Date:2018-04-04 04/03/2018 DAVID D Primary DAVID D [place] [id number] Insurance:MEDICARE SLONEDOB: [facility] [address] PART A [facility] [id number], [place] Number: Repository [address]Dmf: 330 [id number] [phone] () Date:2018-03-27 04/03/2018 Secondary NOT GIVENUNK [place] Insurance:SELF PAY [facility] Number: Effective Repository Date:2018-03-27 04/03/2018 DAVID D Primary DAVID D [place] [id number] Insurance:MEDICARE SLONEDOB: [facility] [address] PART A [facility] [id number], [place] Number: Repository [address]Gry: 330 [id number] [phone] () Date:2018-03-27 04/03/2018 Secondary NOT GIVENUNK [place] Insurance:SELF PAY [facility] Number: Effective Repository Date:2018-04-03 04/02/2018 DAVID D Primary DAVID D [place] [id number] Insurance:MEDICARE SLONEDOB: [facility] [address] [address] PART A [facility] [id number] [place] Number: Repository [address]Rqu: 440 [id number] [phone] () Date:2018-04-01 04/02/2018 Secondary NOT GIVENUNK [place] Insurance:SELF PAY [facility] Number: Effective Repository Date:2018-04-01 04/02/2018 DAVID D Primary DAVID D [place] [id number] Insurance:MEDICARE SLONEDOB: [facility] [address] PART A [facility] [id number], [place] Number: Repository [address]Dmy: 330 [id number] [phone] () Date:2018-04-01 04/02/2018 Secondary NOT GIVENUNK [place] Insurance:SELF PAY [facility] Number: Effective Repository Date:2018-04-02 03/29/2018 DAVID D Primary DAVID D [place] [id number] Insurance:MEDICARE SLONEDOB: [facility] [address] PART A [facility] [id number], [place] Number: Repository [address]Vnu: 330 [id number] [phone] () Date:2018-03-27 03/29/2018 Secondary NOT GIVENUNK [place] Insurance:SELF PAY [facility] Number: Effective Repository Date:2018-03-29 03/28/2018 DAVID D Primary DAVID D [place] [id number] Insurance:MEDICARE SLONEDOB: [facility] [address] PART A [facility] [id number], [place] Number: Repository [id number]: [phone] [id number] [phone] () Date:2018-03-27 03/28/2018 Secondary NOT GIVENUNK [place] Insurance:SELF PAY [facility] Number: Effective Repository Date:2018-03-27 03/27/2018 DAVID D Primary DAVID D [place] [id number] Insurance:MEDICARE SLONEDOB: [facility] [address] PART A [facility] [id number], [place] Number: Repository [id number]: [phone] [id number] [phone] () Date:2018-03-26 03/27/2018 Secondary NOT GIVENUNK [place] Insurance:SELF PAY [facility] Number: Effective Repository Date:2018-03-27 03/19/2018 DAVID D Primary DAVID D [place] [id number] Insurance:MEDICARE SLONEDOB: [facility] [address] PART A [facility] [id number], [place] Number: Repository [id number]: [phone]) [id number] [phone] () Date:2018-03-05 03/19/2018 Secondary NOT GIVENUNK [place] Insurance:SELF PAY [facility] Number: Effective Repository Date:2018-04-05 03/04/2018 David D Primary David D [place] [id number] Insurance:MEDICARE SloneDOB: [facility] [address] PART A [facility] [id number], [place] Number: Repository [id number]: [phone] [id number] [phone] () Date:2018-02-12 03/04/2018 Secondary NOT GIVENUNK [place] Insurance:SELF PAY [facility] Number: Effective Repository Date:2018-02-12 02/12/2018 David D Primary David D [place] [id number] Insurance:MEDICARE SloneDOB: [facility]isa DrDenise PART A [facility] [id number], [place] Number: Repository [id number]: [phone] [id number] [phone] () Date:2018-02-12 02/12/2018 Secondary NOT GIVENUNK [place] Insurance:SELF PAY [facility] Number: Effective Repository Date:2018-02-12
== END ==
PROVIDERS: Family Provider Family Medicine; PCP Family Medicine; Visit Provider Family Medicine
DX: I10 Essential (primary) hypertension (principal); I48.91 Unspecified atrial fibrillation; I25.5 Ischemic cardiomyopathy; Z51.81 Encounter for therapeutic drug level monitoring; Z12.11 Encounter for screening for malignant neoplasm of colon; Z12.5 Encounter for screening for malignant neoplasm of prostate; R63.4 Abnormal weight loss
CPT/HCPCS: 36415; 80053; 80061; 84153; 85025; G0103

== ENCOUNTER 2019-09-07 15:55 | Emergency (ER) | payer MEDICARE, SELFPAY ==
[2019-09-07 15:55] VITALS: BP 142/67; PULSE 65; RESP 16; TEMP 35.9
[2019-09-07 15:57] VITALS: BP 142/67; PULSE 65; RESP 16; TEMP 35.8; BMI 24.4
--- NOTE | 2019-09-07 16:23 | ED.DCSUM_ITS ---
- ER Visit Summary Date of Service: 09/07/19 Chief Complaint: Left foot pain History of Present Illness: The patient is a 69 M who presents with left foot pain that has been getting progressively worse over the past 4 days. Patient states the pain is gradually gotten worse. Patient describes the pain as sharp. Patient states nothing makes the pain better or worse. Patient denies any paresthesias or weakness. Patient denies any trauma or injury. Patient denies any calf pain or swelling. Physical Examination: Vital signs are stable. Patient is afebrile. Patient is in no acute distress. Musculoskeletal exam reveals tenderness, edema, and mild erythema over the first metatarsal phalangeal joint of the left foot. There is some mild edema around the second and third distal metatarsals as well. There is no bony crepitance or step-off. There is pain with any motion of the left great toe. Sensation was intact to light touch in all digits. Capillary refill is less than 2 seconds in all digits. Pedal pulses are equal bilaterally. There is no tenderness to the ankle or calf. There is full range of motion of the ankle and knee. Test Results: X-rays of the left foot were obtained. There are osteoarthritic changes noted. There is no acute fracture noted. This is interpreted by the radiologist myself. CBC and basic metabolic profile were obtained. Patient has a mild anemia with hemoglobin of 12.9 and hematocrit 39.1. Uric acid was ob tained and was normal at 7.2. Emergency Department Course and Treatment: Patient was given a dose of [place] here. Patient was given a postop shoe. Patient was given a prescription for Naprosyn. Patient was instructed to ice and elevate the left foot. Patient was instructed to follow-up with his primary care physician in 5 to 7 days. Patient understood and was agreeable with the plan. All questions were answered. Disposition: Discharge home Impression: Left foot pain, probable gout This note was generated with MEMS[employer] dictation software. It may contain incorrect words, spelling, and punctuation that were not noted in review of the chart prior to signing ED Disposition - Plan for ED Patient: Disposition: Home or Assisted Living Diagnosis: Left foot pain Instructions: Gouty Arthritis Prescriptions: Naproxen [Naprosyn] 500 mg PO BID #20 tab Prescription Printed Referrals: Oumar Wilkerson DO [Primary Care Provider] - 5-7 Days
--- NOTE | 2019-09-07 16:45 | RAD_ITS ---
STUDY: X-RAY - LEFT FOOT CLINICAL: Male, 69 years old. Left foot pain. TECHNIQUE: 3 view(s) of the foot. COMPARISON: None. FINDINGS: Superior and inferior calcaneal spurs. Normal visualized subtalar, talonavicular, calcaneocuboid, tarsal and tarsometatarsal articulations. Normal metatarsi. Moderate arthrosis of the MTP and IP joints. The soft tissue structures are unremarkable. RAD/Foot min 3 Views IMPRESSION: Osteoarthritic changes. No acute finding. Electronically Signed: Kyle Greenberg MD at 17:01 EST , Service support ,
[2019-09-07 16:47] LABS: Absolute Lymphocyte Count 0.83 X10^3/uL (0.83-4.51); Absolute Neutrophil Count 5.6 X10^3/uL (2.0-7.7); Basophil# 0.04 X10^3/uL; Basophil% 0.5 % (0-1); Eosinophil# 0.06 X10^3/uL; Eosinophils% 0.8 % (0-5); Hematocrit 39.1 % (40-54); Hemoglobin 12.9 g/dL (13.0-16.5); Lymphocyte # 0.83 X10^3/ul (4.0); Lymphocyte % 11.1 % (19-41); Mean Corpuscular Hgb 30.1 pg (27.0-32.0); Mean Corpuscular Volume 91.4 fL (80-94); Mean Platelet Vol. 10.6 fl (6.2-12.0); Monocyte# 0.93 X10^3/uL; Monocyte% 12.4 % (0-10); NRBC Flagged by Analyzer 0 % (0-5); Neutrophil # 5.63 X10^3/uL (2.7-7.7); Neutrophil % 74.9 % (47-70); Platelet Count 163 K/mm3 (150-450); RBC Distribution Width CV 13.5 % (11.6-14.6); RBC Distribution Width SD 45.7 fl (35.1-43.9); Red Blood Count 4.28 M/mm3 (4.6-6.2); White Blood Count 7.5 K/mm3 (4.4-11.0)
[2019-09-07 16:56] LABS: Anion Gap 6 (5-15); BUN 15 mg/dL (7-18); BUN/Creat Ratio 13.2 RATIO (10-20); Chloride 104 mmol/L (98-107); Creatinine, Serum 1.14 mg/dL (0.70-1.30); EST Glomerular Filtration Rate 68 mL/min (>60); Est Glom Filt Rate - Afr Amer 82 mL/min (>60); Estimated Creatinine Clearance 66.18 ml/min; Glucose 97 mg/dL (74-106); Potassium 3.4 mmol/L (3.5-5.1); Sodium Level 140 mmol/L (136-145); Uric Acid 7.2 mg/dL (3.5-7.2)
[2019-09-07] MEDS: HYDROcodone Bitartrate/Apap 5/325 Tablet PO (17:17)
[2019-09-07 17:44] VITALS: BP 130/68; PULSE 71; RESP 15; O2SAT 98
== END 2019-09-07 17:48 | disposition home or self-care (01) ==
PROVIDERS: Emergency Provider Emergency Medicine; Family Provider Family Medicine; PCP Family Medicine
DX: M79.672 Pain in left foot (principal); M19.072 Primary osteoarthritis, left ankle and foot; I11.0 Hypertensive heart disease with heart failure; I50.9 Heart failure, unspecified; Z95.810 Presence of automatic (implantable) cardiac defibrillator
CPT/HCPCS: 73630; 80048; 84550; 85025; 99284; A4216

== ENCOUNTER → 2019-11-04 15:12 | Outpatient (CLI) | payer MEDICARE, SELFPAY ==
[2019-11-04 17:39] LABS: PSA,Total - Annual Screen 0.12 ng/mL (0.00-4.00)
[2019-11-04 17:41] LABS: International Normalized Ratio 1.6; Prothrombin Time (Protime)PT. 19.1 SECONDS (11.7-14.9)
== END ==
LOC: BFHLAB 15:13
PROVIDERS: PCP Family Medicine; Visit Provider Family Medicine
DX: Z51.81 Encounter for therapeutic drug level monitoring (principal); Z79.01 Long term (current) use of anticoagulants; Z12.5 Encounter for screening for malignant neoplasm of prostate
CPT/HCPCS: 36415; 84153; 85610; G0103

== ENCOUNTER → 2020-09-14 11:56 | Outpatient (CLI) | payer MEDICARE, SELFPAY ==
[2020-09-14 16:10] LABS: Absolute Lymphocyte Count 1.18 X10^3/uL (0.83-4.51); Absolute Neutrophil Count 4.5 X10^3/uL (2.0-7.7); Basophil# 0.04 X10^3/uL; Basophil% 0.6 % (0-1); Eosinophil# 0.14 X10^3/uL; Eosinophils% 2.2 % (0-5); Hemoglobin 14.1 g/dL (13.0-16.5); Lymphocyte # 1.18 X10^3/ul (4.0); Lymphocyte % 18.4 % (19-41); Mean Corp Hgb Conc 32.8 g/dL (32-36); Mean Corpuscular Hgb 30.7 pg (27.0-32.0); Mean Corpuscular Volume 93.5 fL (80-94); Monocyte# 0.54 X10^3/uL; Monocyte% 8.4 % (0-10); NRBC Flagged by Analyzer 0 % (0-5); Neutrophil # 4.49 X10^3/uL (2.7-7.7); Neutrophil % 70.2 % (47-70); Platelet Count 210 K/mm3 (150-450); RBC Distribution Width CV 13.8 % (11.6-14.6); RBC Distribution Width SD 46.8 fl (35.1-43.9); White Blood Count 6.4 K/mm3 (4.4-11.0)
[2020-09-14 16:12] LABS: International Normalized Ratio 3.3; Prothrombin Time (Protime)PT. 33.2 SECONDS (11.7-14.9)
[2020-09-14 16:19] LABS: ALB/GLOB Ratio 0.8 RATIO (0.9-2.4); AST(SGOT) 24 U/L (15-37); Alanine Aminotransfer ALT/SGPT 28 U/L (16-61); Albumin, Serum 3.4 g/dL (3.2-5.0); Alkaline Phosphatase 74 U/L (45-117); Anion Gap 5 (5-15); BUN 13 mg/dL (7-18); BUN/Creat Ratio 12.3 RATIO (10-20); Calcium,Total 9.1 mg/dL (8.5-10.1); Chloride 105 mmol/L (98-107); Creatinine, Serum 1.06 mg/dL (0.70-1.30); EST Glomerular Filtration Rate 73 mL/min (>60); Est Glom Filt Rate - Afr Amer 89 mL/min (>60); Globulin 4.3 g/dL (2.2-4.2); Glucose 84 mg/dL (74-106); Potassium 3.5 mmol/L (3.5-5.1); Protein, Total 7.7 g/dL (6.4-8.2); Sodium Level 140 mmol/L (136-145)
[2020-09-16 15:59] LABS: Carbohydrate AG 19-9 3 U/mL (0-35)
== END ==
PROVIDERS: PCP Family Medicine; Visit Provider Family Medicine
DX: I10 Essential (primary) hypertension (principal); R63.4 Abnormal weight loss; R11.0 Nausea; Z51.81 Encounter for therapeutic drug level monitoring; Z79.01 Long term (current) use of anticoagulants; R97.8 Other abnormal tumor markers
CPT/HCPCS: 36415; 80053; 85025; 85610; 86301

== ENCOUNTER → 2020-09-16 13:29 | Outpatient (CLI) | payer MEDICARE, SELFPAY ==
--- NOTE | 2020-09-16 13:31 | RAD_ITS ---
STUDY: X-RAY CHEST REASON FOR EXAM: Male, 70 years old. Cough, history of smoking. TECHNIQUE: PA and lateral views of the chest. COMPARISON: Comparison is made with prior examination of 07/02/2015. FINDINGS: Hyperinflation. Mild elevation of the anterior aspect of the right hemidiaphragm. Minimal linear scarring at the lung bases. . There is no demonstrated pleural abnormality. Sternal cerclage wires and vascular clips are present from a prior sternotomy and coronary artery bypass graft procedure (CABG). Left-sided dual-chamber pacemaker is seen. Normal mediastinum and jagruti. Normal visualized pulmonary arteries. There is atherosclerotic calcification of the aortic arch with tortuosity. There are diffuse degenerative changes of the visualized thoracic spine. Normal visualized ribs, clavicles, and shoulders. There is no demonstrated abnormality of the visualized soft tissue structures of the upper abdomen. RAD/Chest PA and Lateral IMPRESSION: Hyperinflation. Mild scarring at the lung bases. Electronically Signed: Brody Sanchez, at 15:42 EST , Service support ,
--- NOTE | 2020-09-16 13:32 | RAD_ITS ---
STUDY: X-RAY - LUMBAR SPINE REASON FOR EXAM: Male, 70 years old. Right foot drop, lower back pain. TECHNIQUE: 5 view(s) of the lumbar spine were obtained including oblique views. COMPARISON: None FINDINGS: There is straightening of the normal lumbar lordosis. There is a levoscoliosis of the lumbar spine. There is a normal alignment of the vertebrae. There is multilevel endplate spondylosis of the lumbar vertebrae. There is multi-level degenerative disc disease with multi-level disc space narrowing. There is atherosclerotic calcification of the abdominal aorta without a demonstrated aneurysm. RAD/L/S Spine Min 4 Views IMPRESSION: Degenerative changes of the spine, as detailed above. Straightening of the normal lumbar lordosis. Mild levoscoliosis. Electronically Signed: Brody Sanchez, at 15:45 EST , Service support ,
== END ==
PROVIDERS: PCP Family Medicine; Referring Provider Family Medicine; Visit Provider Family Medicine
DX: M21.371 Foot drop, right foot (principal); R05 Cough
CPT/HCPCS: 71046; 72110

== ENCOUNTER → 2020-11-10 11:19 | Outpatient (CLI) | payer MEDICARE, SELFPAY ==
--- NOTE | 2020-11-10 12:56 | NEURO_ITS ---
NCS and/or EMG Patient Report Ordering Doctor: Oumar Wilkerson DATE OF SERVICE: 11/10/20 David Persaud presents for electrodiagnostic testing of the right lower limb. He has noted weakness and foot drop in the right foot over the past 3 to 4 months. Electrodiagnostic findings: There is an absent peroneal motor response when measuring at the extensor digitorum brevis. At the tibialis anterior, there is a right peroneal latency within normal limits with reduced amplitude and normal conduction velocity. Normal right tibial motor response is noted. Absent right superficial peroneal response. Prolonged right sural latency. On needle EMG, 1+ fibrillations are noted in the right tibialis anterior with a decreased re cruitment pattern. No denervation was noted in any other muscles tested. Electrodiagnostic impression: This is an abnormal study in the right lower limb. 1. 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 There are motor units present without polyphasic activity, though there is a decreased recruitment pattern. 2. 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 No electrodiagnostic evidence is noted for lumbosacral radiculopathy. If there are any further questions, please do not hesitate to contact me.
== END ==
LOC: PSN 11:20
PROVIDERS: PCP Family Medicine; Referring Provider Family Medicine; Visit Provider Family Medicine
DX: M21.371 Foot drop, right foot (principal)
CPT/HCPCS: 95886; 95910

== ENCOUNTER 2020-12-16 12:09 | Outpatient (RCR) | payer MEDICARE, SELFPAY ==
[2020-12-16] MEDS: COVID-19 VACC, MRNA(PFIZER)/PF 30 MCG/0.3 ML SYRINGE IM (08:39)
[2021-01-06] MEDS: COVID-19 VACC, MRNA(PFIZER)/PF 30 MCG/0.3 ML SYRINGE IM (08:15)
== END 2020-12-16 23:59 ==
LOC: IMMUN 12:09
PROVIDERS: PCP Family Medicine; Visit Provider Family Medicine
DX: Z23 Encounter for immunization (principal)
CPT/HCPCS: 0001A; 0002A

== ENCOUNTER → 2020-12-21 09:22 | Outpatient (CLI) | payer MEDICARE, SELFPAY ==
[2020-12-21 12:22] LABS: International Normalized Ratio 2.8; Prothrombin Time (Protime)PT. 29.1 SECONDS (11.7-14.9)
== END ==
PROVIDERS: PCP Family Medicine; Visit Provider Family Medicine
DX: Z79.01 Long term (current) use of anticoagulants (principal); Z51.81 Encounter for therapeutic drug level monitoring
CPT/HCPCS: 36415; 85610

== ENCOUNTER → 2022-05-11 | Outpatient (CLI) | payer MEDICARE, SELFPAY ==
--- NOTE | 2022-05-11 13:40 | RAD_ITS ---
STUDY: X-RAY CHEST REASON FOR EXAM: Male, 71 years old. Cough. Shortness of breath. TECHNIQUE: Frontal and lateral views of the chest. COMPARISON: 09/16/2020. FINDINGS: Mild hyperinflation with mild diffuse interstitial pattern, slightly more prominent than on the prior study. Azygos lobe. There is no demonstrated pleural abnormality. Stable cardiomegaly, sternotomy wires and dual lead cardiac pacer. Normal mediastinum and jagruti. Normal visualized pulmonary arteries. Aortic tortuosity with calcification unchanged. Mild diffuse thoracic spondylosis. Normal visualized ribs, clavicles, and shoulders. There is no demonstrated abnormality of the visualized soft tissue structures of the upper abdomen. RAD/Chest PA and Lateral IMPRESSION: Cardiomegaly with hyperexpansion and mild increase in interstitial prominence. No focal consolidation or acute finding. Electronically Signed: Kyle Greenberg MD at 9:28 EDT ,
[2022-05-11 14:56] LABS: Absolute Lymphocyte Count 0.96 X10^3/uL (0.83-4.51); Absolute Neutrophil Count 5.1 X10^3/uL (2.0-7.7); Basophil# 0.05 X10^3/uL; Basophil% 0.7 % (0-1); Eosinophil# 0.12 X10^3/uL; Eosinophils% 1.7 % (0-5); Hematocrit 37.6 % (40-54); Hemoglobin 12.7 g/dL (13.0-16.5); Lymphocyte # 0.96 X10^3/ul (0.83-4.51); Lymphocyte % 13.9 % (19-41); Mean Corp Hgb Conc 33.8 g/dL (32-36); Mean Corpuscular Hgb 31.4 pg (27.0-32.0); Mean Corpuscular Volume 92.8 fL (80-94); Mean Platelet Vol. 10.7 fl (6.2-12.0); Monocyte# 0.67 X10^3/uL; Monocyte% 9.7 % (0-10); NRBC Flagged by Analyzer 0 % (0-5); Neutrophil # 5.07 X10^3/uL (2.7-7.7); Neutrophil % 73.6 % (47-70); Platelet Count 184 K/mm3 (150-450); RBC Distribution Width CV 15.2 % (11.6-14.6); RBC Distribution Width SD 52.3 fl (35.1-43.9); Red Blood Count 4.05 M/mm3 (4.6-6.2); White Blood Count 6.9 K/mm3 (4.4-11.0)
[2022-05-11 15:14] LABS: Vitamin B12 473 pg/mL (211-911)
[2022-05-11 15:33] LABS: ALB/GLOB Ratio 0.8 RATIO (0.9-2.4); AST(SGOT) 17 U/L (15-37); Alanine Aminotransfer ALT/SGPT 18 U/L (16-61); Albumin, Serum 3.1 g/dL (3.2-5.0); Alkaline Phosphatase 73 U/L (45-117); Anion Gap 6 (5-15); BUN 13 mg/dL (7-18); Calcium,Total 8.5 mg/dL (8.5-10.1); Chloride 109 mmol/L (98-107); Cholesterol 176 mg/dL (200); Creatinine, Serum 1.08 mg/dL (0.70-1.30); EST Glomerular Filtration Rate 71 mL/min (>60); Est Glom Filt Rate - Afr Amer 86 mL/min (>60); Globulin 3.8 g/dL (2.2-4.2); Glucose 112 mg/dL (74-106); High Density Lipoprotein 51 mg/dL; Potassium 3.8 mmol/L (3.5-5.1); Protein, Total 6.9 g/dL (6.4-8.2); Sodium Level 138 mmol/L (136-145); Thyroid Stim Hormone (TSH) 3.25 uIU/mL (0.358-3.74); Triglycerides 87 mg/dL; Uric Acid 3.7 mg/dL (3.5-7.2); Very Low Density Lipoprotein 17 mg/dL (5-40)
== END | disposition home or self-care (01) ==
LOC: MTLAB 13:34
PROVIDERS: PCP Family Medicine; Referring Provider Family Medicine; Visit Provider Family Medicine
DX: I10 Essential (primary) hypertension (principal); I48.91 Unspecified atrial fibrillation; M10.9 Gout, unspecified; R63.4 Abnormal weight loss; R53.83 Other fatigue; R05.9 Cough, unspecified; R06.00 Dyspnea, unspecified
CPT/HCPCS: 36415; 71046; 80053; 80061; 82607; 84443; 84550; 85025

== ENCOUNTER → 2022-05-12 | Outpatient (CLI) | payer MEDICARE, SELFPAY ==
[2022-05-12 15:12] LABS: Color, Urine Yellow (Yellow); Glucose, Dipstick Normal (Normal); Ketone-Dipstick 5 mg/dl (Negative); Leukocyte Esterase-Dipstick 25 /ul (Negative); Nitrite-Dipstick Negative (Negative); Occult Blood-Urine 25 /ul (Negative); Protein-Dipstick 15 mg/dl (Negative); Urine Bilirubin Dipstick Negative (Negative); Urine Clarity Clear (Clear); Urine Urobilinogen 1 mg/dl (Normal)
== END | disposition home or self-care (01) ==
LOC: LABSPEC 13:50
PROVIDERS: PCP Family Medicine; Referring Provider Family Medicine; Visit Provider Family Medicine
DX: I10 Essential (primary) hypertension (principal); I48.91 Unspecified atrial fibrillation; M10.9 Gout, unspecified; R63.4 Abnormal weight loss; R53.83 Other fatigue
CPT/HCPCS: 81002

== ENCOUNTER → 2022-05-18 | Outpatient (CLI) | payer MEDICARE, SELFPAY ==
--- NOTE | 2022-05-18 16:39 | CT_ITS ---
EXAM: CT CHEST WITH INTRAVENOUS CONTRAST CLINICAL INDICATION: DYSPNEA/COUGH TECHNIQUE: Helically acquired images were obtained of the chest with intravenous contrast. This CT exam was performed using one or more of the following dose reduction techniques: automated exposure control, adjustment of the mA and/or kV according to patient size, and/or use of iterative reconstruction technique. This report was created using [employer] report generation technology. CONTRAST: IV 100mL Isovue-370 COMPARISON: None. FINDINGS: LUNGS AND PLEURAL SPACES: Unremarkable. No mass. No consolidation or edema. No pleural effusion or thickening. No pneumothorax. HEART: There is enlargement of the left atrium. No pericardial effusion. No significant coronary artery calcifications. MEDIASTINUM: Unremarkable. No mediastinal or hilar adenopathy. Esophagus is unremarkable. No hiatal hernia. THYROID: Unremarkable. No thyroid lesions. BONES/JOINTS: Unremarkable. No suspicious lytic or blastic abnormality. VASCULATURE: Images were obtained down through the abdomen. There is an infrarenal abdominal aortic aneurysm that measures 7.2 cm in AP diameter. There is no evidence of rupture or leakage. No thoracic aortic dissection. No obvious central pulmonary embolism although this study was not performed with the pulmonary embolism protocol. CT/Chest WITH Contrast IMPRESSION: 1. No acute pulmonary abnormality. 2. Large infrarenal abdominal aortic aneurysm measuring 7.2 cm in AP diameter. There is no rupture or leakage. Electronically Signed: Juan Jose Cid MD at 17:31 EDT ,
== END | disposition home or self-care (01) ==
PROVIDERS: PCP Family Medicine; Visit Provider Family Medicine
DX: R05.9 Cough, unspecified (principal); R06.00 Dyspnea, unspecified; R63.4 Abnormal weight loss
CPT/HCPCS: 71260; Q9967

== ENCOUNTER → 2022-05-29 | Outpatient (CLI) | payer MEDICARE, SELFPAY ==
[2022-05-29 16:38] LABS: Creatinine, Serum 1.75 mg/dL (0.70-1.30); EST Glomerular Filtration Rate 41 mL/min (>60); Est Glom Filt Rate - Afr Amer 49 mL/min (>60)
== END | disposition home or self-care (01) ==
LOC: LAB 14:16
PROVIDERS: PCP Family Medicine; Visit Provider Surgery Trauma Surgery
DX: I71.4 Abdominal aortic aneurysm, without rupture (principal)
CPT/HCPCS: 36415; 82565

== ENCOUNTER → 2022-06-02 | Outpatient (CLI) | payer MEDICARE, SELFPAY ==
--- NOTE | 2022-06-02 13:04 | CT_ITS ---
STUDY: CTA ABDOMEN AND PELVIS WITH CONTRAST REASON FOR EXAM: Male, 71 years old. AAA, operative planning RADIATION DOSAGE (If Supplied By Facility): CTDIvol = ( 10.04 ) mGy, DLP = ( 310.81 ) mGycm TECHNIQUE: Transaxial images were obtained from the dome of the diaphragm to the symphysis pubis without oral contrast. IV 100mL Isovue-370 was administered. Sagittal and coronal images were reconstructed. 3-D images were reconstructed. Individualized dose optimization techniques were used for this CT. COMPARISON: None. FINDINGS: The visualized lung bases are unremarkable. Markedly distended left atrium. Coronary artery calcification. A dual-chamber pacemaker is seen. 1 cm cyst in the lateral aspect of the right lobe of the liver. Normal gallbladder and extrahepatic biliary system. Normal spleen. Normal pancreas. Normal bilateral adrenal glands. Normal right kidney. Normal left kidney. Normal visualized stomach. Normal small intestine. There are multiple colonic diverticula consistent with diverticulosis. Moderate amount of fecal material is seen in the colon. The appendix is visualized and appears normal. There is a fusiform infrarenal abdominal aortic aneurysm with a transverse dimension of 6.9 cm. There is evidence of a mural thrombus. Calcification of the common iliac arteries bilaterally. Atherosclerotic plaque formation at the origin of the superior mesenteric artery and celiac trunk. Atherosclerotic plaque formation at the origin of the renal arteries bilaterally. Normal inferior vena cava. Normal retroperitoneum. There is diffuse bladder wall thickening although the bladder is not adequately distended at this time. Normal abdominal wall. There are diffuse degenerative changes of the visualized lumbar spine. Loss of the normal lumbar lordosis. CT/CT ANGIO ABD&PEL W/O&W/DYE IMPRESSION: Fusiform infrarenal abdominal aortic aneurysm with a transverse dimension of 6.9 cm. Mural thrombus is seen. Atherosclerotic plaque formation at the origins of both renal arteries as well as the superior mesenteric and celiac arteries. Enlargement of the left atrium. Electronically Signed: Brody Sanchez MD at 13:34 EDT ,
== END | disposition home or self-care (01) ==
PROVIDERS: PCP Family Medicine; Visit Provider Surgery Trauma Surgery
DX: I71.4 Abdominal aortic aneurysm, without rupture (principal)
CPT/HCPCS: 74174; Q9967

== ENCOUNTER → 2022-06-30 | Outpatient (CLI) | payer MEDICARE, SELFPAY ==
--- NOTE | 2022-06-30 16:12 | STRESSREP ---
Stress Test Report Pharmacologic myocardial perfusion stress test. 71-year-old man with a history of coronary disease status post coronary bypass surgery status post ICD implantation who is scheduled to undergo abdominal aortic surgery. Stress protocol: Resting EKG demonstrates normal sinus rhythm with a rate of 74 bpm ventricular paced rhythm is noted resting blood pressure is 118/72 mmHg. 0.4 mg of regadenoson was infused per usual protocol followed by rapid intravenous saline flush injection continuous EKG monitoring was performed. The maximum heart rate attained was 81 bpm which was 54% of max impacted heart rate the maximum workload was 1 metabolic equivalent. At rest there were no ST or T wave changes noted to suggest abnormal flow reserve and at peak infusion nonspecific ST changes were noted with did not meet the criteria for ischemia. The final blood pressure was 100/62 mmHg. Myocardial perfusion protocol. 11.3 mCi of technetium 99m sestamibi was injected at rest. 0.4 mg of regadenoson was infused per usual protocol. At peak infusion 33.9 mCi of technetium 99m sestamibi was injected stress images were obtained stress and rest images were reconstructed in comparing the short axis vertical long and horizontal long axis. Gated images were also obtained. Perfusion SPECT analysis: Review of the stress images demonstrate a normal cardiac silhouette size. There is a medium size defect noted involving the mid anterior wall extending to the apex. The septum lateral wall and inferior wall are well perfused. The resting images demonstrate a similar patent. No obvious ischemia is noted in the above is suggestive of a previous anterior apical infarct. Gated SPECT analysis: The gated ejection fraction is noted to be 31%. Conclusion: Pharmacologic myocardial perfusion stress test with no obvious ischemia noted. Previous anteroapical infarct noted. Ischemic cardiomyopathy present.
== END | disposition home or self-care (01) ==
LOC: CVS 07:03
PROVIDERS: PCP Family Medicine; Referring Provider Internal Medicine Cardiovascular Disease; Visit Provider Internal Medicine Cardiovascular Disease
DX: I25.10 Atherosclerotic heart disease of native coronary artery without angina pectoris (principal)
CPT/HCPCS: 78452; 93017; A9500; A4216; J2785

== ENCOUNTER 2022-07-03 05:18 | Inpatient (IN) | payer MEDICARE, SELFPAY ==
--- NOTE | 2022-06-28 08:04 | EKG12_ITS ---
Test Reason : PRE OP Blood Pressure : / mmHG Vent. Rate : 072 BPM Atrial Rate : 072 BPM P-R Int : 146 ms QRS Dur : 170 ms QT Int : 482 ms P-R-T Axes : 091 -85 090 degrees QTc Int : 527 ms AV dual-paced rhythm Abnormal ECG Confirmed by OSCAR MARIE, NAHID ([id number]), metropolitan editor CACHRORO MCDANIEL ([id number]) on 06/28/2022 1:55:41 PM Referred By: LINDSAY Confirmed By:NAHID MOORE MD
[2022-06-28 08:49] LABS: Absolute Lymphocyte Count 0.94 X10^3/uL (0.83-4.51); Absolute Neutrophil Count 7.7 X10^3/uL (2.0-7.7); Basophil# 0.04 X10^3/uL; Basophil% 0.4 % (0-1); Eosinophil# 0.09 X10^3/uL; Hematocrit 39.8 % (40-54); Hemoglobin 13.1 g/dL (13.0-16.5); Lymphocyte # 0.94 X10^3/ul (0.83-4.51); Mean Corp Hgb Conc 32.9 g/dL (32-36); Mean Corpuscular Volume 94.1 fL (80-94); Mean Platelet Vol. 10.7 fl (6.2-12.0); Monocyte# 0.67 X10^3/uL; Monocyte% 7.1 % (0-10); NRBC Flagged by Analyzer 0 % (0-5); Neutrophil # 7.66 X10^3/uL (2.7-7.7); Neutrophil % 81.2 % (47-70); Platelet Count 178 K/mm3 (150-450); RBC Distribution Width CV 15.5 % (11.6-14.6); RBC Distribution Width SD 53.3 fl (35.1-43.9); Red Blood Count 4.23 M/mm3 (4.6-6.2); White Blood Count 9.4 K/mm3 (4.4-11.0)
[2022-06-28 09:12] LABS: Anion Gap 7 (5-15); BUN 24 mg/dL (7-18); BUN/Creat Ratio 14.3 RATIO (10-20); Calcium,Total 9.2 mg/dL (8.5-10.1); Chloride 102 mmol/L (98-107); Creatinine, Serum 1.68 mg/dL (0.70-1.30); EST Glomerular Filtration Rate 43 mL/min (>60); Est Glom Filt Rate - Afr Amer 52 mL/min (>60); Glucose 100 mg/dL (74-106); Potassium 3.8 mmol/L (3.5-5.1); Sodium Level 137 mmol/L (136-145)
[2022-06-28 09:15] LABS: Albumin, Serum 3.5 g/dL (3.2-5.0); Magnesium 2.2 mg/dL (1.6-2.6); Phosphorus 3.4 mg/dL (2.5-4.9)
--- NOTE | 2022-06-29 14:31 | SUR.PREOP ---
talked with delmar the pacer rep with the [facility] about the pacemaker/icd and turning off and on for procedure. she said she will not be doing this and we will need to call the pacer rep, kb, to coordinate this (cell: [phone]). Kb called and given the info about the pt and procedure for sunday. he is going to call Maurice in the phlebotomy lab assistant and coordinate when he should be here sunday.
[2022-07-03] VITALS (22 sets, daily range): BP systolic 93–134; BP diastolic 52–82; PULSE 69–109; RESP 2–21; TEMP 35.9–36.4; O2SAT 93–100; BMI 20.5; BMI 21.2
[2022-07-03 05:56] LABS: INR Fingerstick 1.3; Prothrombin Time Fingerstick 15.7 SEC (11.7-14.9)
[2022-07-03] MEDS: Lactated Ringers 1,000 ML 15 ML IV (06:26)
--- NOTE | 2022-07-03 07:33 | PCM.HP.BLA ---
History and Physical Intake Vital Signs ? 05/29/2213:58 06/13/2215:44 Height 5 ft 9.5 in ? Weight: ? 146 lb 8 oz BP ? 102/69 Blood Pressure Location ? Lt brachial Position ? Sitting Respiration ? 18 Pulse ? 90 Pulse Source ? Monitor Temp ? 98.6 F Temp Source ? Temporal Pulse Oximetry (%) ? 98 Oxygen Delivery Method ? room air Intake Visit Reasons:?test results, AAA (abdominal aortic aneurysm) without rupture Chief Complaint: carotid end Is patient in pain?: No Allergies No Known Allergies Allergy (Verified 05/29/22 14:00) Medications carvedilol 12.5 mg tablet 12.5 mg PO BID bp 07/02/15 [History Confirmed 06/13/22] losartan 25 mg tablet 25 mg PO DAILY bp 07/02/15 [History Confirmed 06/13/22] clopidogrel 75 mg tablet (Plavix) 75 mg PO QDAY blood thinner 03/27/18 [History Confirmed 06/13/22] furosemide 40 mg tablet 40 mg PO BIDLX water pill 03/29/18 [History Confirmed 06/13/22] spironolactone 25 mg tablet 12.5 mg PO DAILY water pill 03/29/18 [History Confirmed 06/13/22] allopurinol 300 mg tablet 300 mg PO DAILY 05/29/22 [History Confirmed 06/13/22] amiodarone 200 mg tablet 200 mg PO DAILY 05/29/22 [History Confirmed 06/13/22] warfarin 5 mg tablet 5 mg PO DAILY blood thinner 06/13/22 [History Confirmed 06/13/22] PFSH Medical History? CAD (coronary artery disease) Carotid stenosis, right CHF (congestive heart failure) Chronic a-fib Dyslipidemia HTN (hypertension) Surgical History? H/O carotid endarterectomy H/O heart artery stent History of radiofrequency ablation procedure for cardiac arrhythmia Pacemaker S/P CABG (coronary artery bypass graft) S/P colonoscopy S/P internal cardiac defibrillator procedure S/P internal cardiac defibrillator procedure Family History? Father Hypertension Social History? Smoking Status:? Former smoker alcohol intake:? current Assessment and Plan Assessment and Plan (1) AAA (abdominal aortic aneurysm) without rupture: ?Status:?Chronic ?Plan: -CTA images reviewed -has adequate proximal landing zone for Ovation, and also with difficult access vessels R>L; should be adequate for graft delivery -will plan for EVAR
--- NOTE | 2022-07-03 12:44 | PCM.OPRPT ---
Report of Operation Date of Procedure: 07/03/22 Pre-Operative Diagnosis: Abdominal aortic aneurysm without rupture Right common femoral artery stenosis Post-Operative Diagnosis: Same Surgery/Procedure Performed:: Endovascular exclusion of abdominal aortic aneurysm Right femoral endarterectomy and patch angioplasty Description of Surgical Findings:: Satisfactory exclusion of aneurysm with no endoleak visualized. Palpable bilateral femoral pulses. Surgeon: Son Costa Type of Anesthesia: General Specimen's removed: Right femoral plaque Estimated Blood Loss (mL): 100 Description of Procedure: HPI: Patient is a 71-year-old male who was incidentally found to have a large infrarenal abdominal aneurysm seen initially on imaging of the chest. Formal CTA revealed anatomy that was suitable for endovascular repair but also significantly diseased bilateral common femoral arteries more right than left. He is taken now for planned endovascular exclusion with bilateral cutdowns and a right femoral endarterectomy. Description of procedure: Upon obtaining informed consent and verification of correct patient procedure and site patient was taken to [facility] where he was placed under general anesthesia. He was then positioned prepped and draped in usual sterile fashion and timeout was performed. Oblique incision made over the palpable right femoral artery and Bovie used to dissect down through subcutaneous tissue. Self-retaining tractor was then put in position further dissection was carried down to the femoral sheath. Femoral sheath was then incised exposing the common femoral artery present dissected using sharp dissection. Right angle used to place a vessel loop in the proximal common femoral artery distally onto the SFA and profunda. We then made oblique incision over the left femoral artery and Bovie was used dissect down through subcutaneous tissue again self-retaining tractors were put in position. Dissection was then carried to the femoral sheath which was then incised and sharp dissection used to dissect free the common femoral artery. Right angle was then used to place a vessel loop proximal distal common femoral artery. Patient was then heparinized and allowed us to care for 3 minutes with reducing every 30 minutes based on ACT. Next micropuncture needle was used to access the right common femoral artery in retrograde fashion. This exchanged out for a Magic wire and the micropuncture sheath exchanged for a short 5 [place] sheath. Using the Magic wire and angled glide catheter we navigated the abdominal aorta ultimately advanced our wire and catheter into the proximal descending thoracic aorta. Magic wire was exchanged out for a Lunderquist wire we turned our attention to the left femoral access. Left common femoral artery was accessed in retrograde fashion using a micropuncture needle and wire exchanged for micropuncture sheath. The micropuncture sheath a starter J-wire was advanced a micropuncture sheath exchanged out for a short 5 [place] sheath. Through the 5 [place] sheath glide catheter was then advanced and used to navigate the Magic wire traversing abdominal aorta. The glide cath was exchanged for a marker pigtail catheter was then positioned at the L2 vertebral body. Digital subtraction aortogram was performed confirming position of the proximal extent of the aneurysm in relation to the renal vessels. The Endologix alto abdominal stent graft system was then brought in the field and prepped for manufactures instructions. A 34 mm main body was selected and the 5 [place] sheath was then withdrawn from the right femoral access and the main body advanced under fluoroscopic guidance into the abdominal aorta. Then positioned at the aortic landing zone and repeat subtraction angiography was performed with magnified view and adjustments for parallax. The renal vessel origins were then confirmed and device position adjusted to limb below the lowest renal artery which was on the right. Suprarenal fixation was then released fixing the graft in position and the polymer was attached to the injection system. The polymer was being injected we attempted to cannulate the contralateral gate using an array of catheters and an angled glide wire. Ultimately were unable to successfully cannulate so the plan was used through wire access and snare. First we ballooned the proximal seal zone using the integrated balloon. Next an 014 wire was advanced through the through wire access port in the left femoral 5 [place] sheath exchanged out for a short 7 [place] sheath. Through the 7 [place] sheath a ensnare was advanced and used to snare through reaccessed wire in the distal aorta. Snare and captured wire were then withdrawn and the glide catheter advanced over the exteriorized portion of the wire. This was advanced into the main body of the graft a second 014 wire was advanced through the glide catheter traversing into the descending thoracic aorta. The through wire was then withdrawn and the cath advanced into the descending thoracic aorta. The second 014 wire was then withdrawn and the liquids wire advanced through the glide catheter into the descending thoracic aorta. The glide catheter was then exchanged for a marker pigtail catheter which was positioned at the inferior aspect of the graft and subtraction angiography via the left femoral sheath was performed. The left internal iliac artery was chronically occluded but plan was to land the graft in the distal common iliac. In ovation limb 18 x 120 was then brought in the field prepped for manufactures instruction. The left femoral 7 [place] sheath was then withdrawn slowly advanced into position and deployed. The delivery sheath was left intact to maintain hemostasis. Next the remainder the main body was deployed in the delivery system withdrawn after which a 14 [place] sheath was advanced over the Lunderquist wire to maintain hemostasis in the right femoral access. Marker pigtail catheter was then advanced via the right femoral sheath and repeat subtraction angiography of the right iliac system performed confirming necessary length. Next a 16 x 140 ovation limb was brought in the field and prepped for manufactures instructions. The pigtail catheter was then withdrawn from the right femoral access and the limb advanced via the right femoral sheath. This was in position with satisfactory overlap and deployed then delivery system withdrawn. Next a Q50 balloon was used to angioplasty the overlap sites of the iliac limbs. Finally a pigtail catheter was readvanced via the right femoral access sheath and positioned at the renal vessels. Completion aortogram was performed to revealed satisfactory placement of the graft with no endoleak identified, patent bilateral renal arteries, preserved right internal iliac artery, and brisk flow through the iliac outflow. Next the left femoral sheath and wire were withdrawn and the vessel occluded with Vesseloops. It was then repaired with 6-0 Prolene in transverse orientation after which there is a palpable pulse proximal to and distal to the repair. Next the right femoral sheath and wire withdrawn and vessel occluded with Vesseloops. The arteriotomy was then extended proximal and distal and a freer elevator used to perform endarterectomy of the right common femoral artery with satisfactory endpoint distally. The distal endpoint was intact with 7-0 Prolene interrupted sutures and a bovine pericardial patch secured using 5-0 Prolene in a running fashion. After completing the suture line the clamps were removed from the profunda and the common femoral arteries allowing antegrade flush before releasing the superficial femoral artery. Palpable pulse across the over the patch into the outflow vessels and satisfactory Doppler signal. Wounds were then inspected for hemostasis and heparin reversed with protamine. The incision was then closed with 2-0 Vicryl 3-0 Vicryl 4-0 Monocryl and Dermabond for the skin. The conclusion of the case patient was awakened anesthesia taken recovery room with anticipated mission the intensive care unit.
--- NOTE | 2022-07-03 13:40 | PCM.CONS.GEN ---
Assessment & Plan Assessment/Plan (1) CAD (coronary artery disease): QUALIFIERS: Coronary Disease-Associated Artery/Lesion type: coronary artery bypass graft PLAN: Status post CABG Patient does have an ischemic cardiomyopathy with an EF of 45% from 2D echocardiogram on 01/20/22 Patient does have an AICD in place Placed back on clopidogrel (2) Atrial fibrillation: PLAN: Paced rhythm On carvedilol and amiodarone Anticoagulated with warfarin. Warfarin has been resumed by vascular surgery. Monitor INR (3) AAA (abdominal aortic aneurysm) without rupture: PLAN: Status post repair today Management per vascular surgery PLAN: Plan VTE prophylaxis: Patient on warfarin. Thank for the consult. The hospital service will continue to following during this patient's hospitalization. HPI Consult Data Date of Consult: 07/03/22 HPI Narrative Reason for Consultation: Medical management. HPI Narrative: KAREN JIMENEZ, is a 71 M who presents for AAA repair. Today, the patient underwent endovascular exclusion of the abdominal aortic aneurysm with right femoral endarterectomy and patch angioplasty. Patient feels the need to urinate as well as defecate. Feels tired currently. [facility] Medical History Alcohol use Ambulates with cane Arthritis Atrial fibrillation Back pain CAD (coronary artery disease) Cardiac resynchronization therapy defibrillator (TH[employer] D[employer] MAP MODELER-D) in place Cardiology follow-up encounter Carotid stenosis, right CHF (congestive heart failure) Essential (primary) hypertension Former smoker Gout History of diverticulitis History of echocardiogram History of stress test Hyperlipidemia Injury of head and neck Loss of hearing Mitral regurgitation Primary cardiomyopathy Wears dentures Wears glasses Home Medications carvedilol 12.5 mg tablet 12.5 mg PO BID bp 07/02/15 [History Last Taken 09/07/19] losartan 25 mg tablet 25 mg PO DAILY bp 07/02/15 [History Last Taken 09/07/19] clopidogrel 75 mg tablet (Plavix) 75 mg PO QDAY blood thinner 03/27/18 [History Last Taken 07/02/22] spironolactone 25 mg tablet 12.5 mg PO DAILY water pill 03/29/18 [History Last Taken 09/07/19] allopurinol 300 mg tablet 300 mg PO DAILY GOUT 05/29/22 [History Last Taken Unknown] amiodarone 200 mg tablet 200 mg PO DAILY HEART 05/29/22 [History Last Taken Unknown] warfarin 5 mg tablet 5 mg PO DAILY blood thinner 06/13/22 [History Last Taken 06/25/22] furosemide 40 mg tablet 40 mg PO BID water pill 06/26/22 [History Last Taken Unknown] atorvastatin 10 mg tablet (Lipitor) 10 mg PO DAILY #30 tabs 06/28/22 [Rx Last Taken Unknown] Allergy/AdvReac Type Severity Reaction Status Date / Time No Known Allergies Allergy Verified 07/03/22 05:56 Family History Father Hypertension Pacemaker Mother Myocardial infarction Daughter Thyroid disorder Other Essential (primary) hypertension Surgical History H/O carotid endarterectomy H/O heart artery stent H/O right inguinal hernia repair (~2003) History of cardiac catheterization History of carotid endarterectomy History of radiofrequency ablation procedure for cardiac arrhythmia Pacemaker S/P CABG (coronary artery bypass graft) S/P colonoscopy S/P internal cardiac defibrillator procedure S/P internal cardiac defibrillator procedure Social History Smoking Status: Former smoker how long ago did patient quit smokin years ago alcohol intake: current alcohol intake frequency: a few times a month substance use type: does not use caffeine: Yes Type: coffee Number of servings: 5 ROS ROS Narrative All review of systems were negative except as mentioned above in the history of present illness and the other review of systems. Physical Exam Const alert and no apparent distress Resp normal respiratory effort, no retractions, no use of accessory muscles and clear to auscultation bilaterally Cardio regular rate, regular rhythm, S1 normal heart sound and S2 normal heart sound GI normal to inspection, nondistended, normoactive bowel sounds and soft to palpation GI Narrative: Abdominal bruit Extremity normal to inspection and no clubbing, cyanosis or edema Psych affect normal Lab / Micro Data Result Diagrams: 06/28/22 08:31 06/28/22 08:31 Labs: Laboratory Results - last 24 hr 07/03/22 05:49: POC PT 15.7 H, INR 1.3 Charges/Coding Visit Charges Inpatient E&M: 84230 Init Hosp L2
[2022-07-03] MEDS: Cefazolin 2 GM in 0.9% Normal Saline 100 ML IV (13:57)
[2022-07-03] MEDS: Heparin Injection (Vial) 5,000 UNIT/ML VIAL 5000 UNIT (13:57)
[2022-07-03] MEDS: Bupivacaine 0.25% 30 ML Vial (13:57)
[2022-07-03] MEDS: Nitro/D5w 25MG/250ML Bottle 25 MG (13:57)
[2022-07-03] MEDS: Thrombin 5,000 IU Kit (PSA) 5,000 IU Vial 5000 IU TOPICAL (13:58)
[2022-07-03] MEDS: 0.9% Normal Saline 1,000 ML 100 ML IV ×2 (13:58→23:59)
[2022-07-03] MEDS: Cefazolin 1 GM/50 ML BAG IV ×2 (15:03→21:00)
[2022-07-03] MEDS: HEPARIN/D5w 25,000 UNITS 25,000 UNITS/250 ML IV.SOLN. 5 UNITS CONT INF (16:44)
[2022-07-03] MEDS: Ensure Plus High Protein 120 ML LIQUID PO (16:49)
--- NOTE | 2022-07-03 19:49 | NURSING ---
This RN attempted to place pts arterial line in the correct position and stabilize it with tape. Pt states it is uncomfortable and does not leave the line where it needs to be. RN educated pt on the importance of the location of the line. RN will continue educations as pt tolerates. Note completed by: Makenzie Rose RN.
[2022-07-03] MEDS: 0.9% Saline Lock 10 ML Syringe IV (20:57)
[2022-07-03] MEDS: oxyCODONE 5 MG Tablet PO (20:57)
[2022-07-03] MEDS: Atorvastatin Calcium 10 MG Tablet PO (21:00)
[2022-07-03] MEDS: Carvedilol 12.5 MG Tablet PO (21:00)
[2022-07-04] VITALS (17 sets, daily range): BP systolic 95–114; BP diastolic 59–81; PULSE 79–93; RESP 10–22; TEMP 35.9–36.4; O2SAT 93–110
[2022-07-04] MEDS: oxyCODONE 5 MG Tablet PO (01:57)
[2022-07-04 04:43] LABS: Absolute Lymphocyte Count 0.43 X10^3/uL (0.83-4.51); Absolute Neutrophil Count 10.6 X10^3/uL (2.0-7.7); Basophil# 0.02 X10^3/uL; Basophil% 0.2 % (0-1); Hematocrit 30.1 % (40-54); Hemoglobin 9.9 g/dL (13.0-16.5); Lymphocyte # 0.43 X10^3/ul (0.83-4.51); Lymphocyte % 3.6 % (19-41); Mean Corp Hgb Conc 32.9 g/dL (32-36); Mean Corpuscular Hgb 30.8 pg (27.0-32.0); Mean Corpuscular Volume 93.8 fL (80-94); Mean Platelet Vol. 11.3 fl (6.2-12.0); Monocyte% 6.7 % (0-10); NRBC Flagged by Analyzer 0 % (0-5); Neutrophil # 10.63 X10^3/uL (2.7-7.7); Neutrophil % 88.9 % (47-70); POSITIVE DIFFERENTIAL YES; Platelet Count 121 K/mm3 (150-450); RBC Distribution Width SD 52.1 fl (35.1-43.9); Red Blood Count 3.21 M/mm3 (4.6-6.2)
[2022-07-04 04:46] LABS: Differential Indicated SCAN CRITERIA MET
[2022-07-04 04:57] LABS: International Normalized Ratio 1.4; Prothrombin Time (Protime)PT. 16.9 SECONDS (11.7-14.9)
--- NOTE | 2022-07-04 05:03 | NURSING ---
Pts arterial line continued to be dampened and be very positional. RN got blood work from pts line and then removed line due to not being able to get a good wave form. RN held pressure for initial 10 minutes the site began to ooz. RN help pressure for continued 30 minutes, placed a new clean dressing and will continue to monitor per protocol. Note completed by: Makenzie Rose RN.
[2022-07-04 05:04] LABS: Anisocytosis 1+
[2022-07-04 05:07] LABS: Anion Gap 8 (5-15); BUN 19 mg/dL (7-18); BUN/Creat Ratio 15.4 RATIO (10-20); Calcium,Total 8.1 mg/dL (8.5-10.1); Chloride 106 mmol/L (98-107); Creatinine, Serum 1.23 mg/dL (0.70-1.30); EST Glomerular Filtration Rate 61 mL/min (>60); Est Glom Filt Rate - Afr Amer 74 mL/min (>60); Estimated Creatinine Clearance 52.98 ml/min; Glucose 130 mg/dL (74-106); Magnesium 1.9 mg/dL (1.6-2.6); Potassium 3.4 mmol/L (3.5-5.1); Sodium Level 139 mmol/L (136-145)
--- NOTE | 2022-07-04 07:10 | PCM.PN.HOSP ---
Subjective Subjective Feels good. Objective Data Objective Data Vital Signs: Vital Signs Temp Pulse Resp BP Pulse Ox O2 Del Method O2 Flow Rate 35.9 C L 84 14 110/65 110 Room Air 95 07/04/22 00:00 07/04/22 07:00 07/04/22 07:00 07/04/22 07:00 07/04/22 07:00 07/04/22 07:00 07/04/22 00:00 Oxygen Flow Rate (L/min) 95 Oxygen Delivery Method Room Air Weight: 71.1 kg Body Mass Index (BMI) 21.2 Intake & Output: Intake and Output for Last 24 Hours 07/02/22 07/03/22 07/04/22 23:59 23:59 23:59 Intake Total 1627 / 1627 Output Total 1999 325 / 325 Balance -373 / -473 -325 / -325 Medical Nutrition Assessment Dietitian: Malnutrition Criteria Met Start: 07/03/22 16:25 Freq: Status: Active Protocol: Document 07/03/22 16:25 RMA (Rec: 07/03/22 16:25 RMA [id number]) Nutrition Malnutrition Evidence of Malnutrition Exists Yes Malnutrition (severe): Acute Illness/Injury Evidenced By Suboptimal Energy Intake ( Moderate),Weight Loss (Severe) Clinical Problem Acute Disease or Injury Related Malnutrition Etiology moderate to severe protein- calorie malnutrition in the context of acute disease related to inadequate oral intake and decreased appetite Signs/Symptoms as evidenced by ~5% wt loss x past 1 month and PO meeting less than 50-75% estimated nutrition needs Status Active Problem Recommendation Dietitian Recommendations/Changes Continue cardiac diet; will add 120 ml ensure plus high protein TID w/ medpass for tolerance. Adjust ONS as needed to optimize oral intake and prevent further weight loss. Lab / Micro Data Result Diagrams: 07/04/22 04:18 07/04/22 04:18 Labs: Laboratory Results - last 24 hr 07/04/22 04:18: WBC 12.0 H, RBC 3.21 L, Hgb 9.9 L, Hct 30.1 L, MCV 93.8, MCH 30.8, MCHC 32.9, RDW Std Deviation 52.1 H, RDW Coeff of Cynthia 15.0 H, Plt Count 121 L, MPV 11.3, Immature Gran % (Auto) 0.600, Neut % (Auto) 88.9 H, Lymph % (Auto) 3.6 L, [place] % (Auto) 6.7, Eos % (Auto) 0.0, Baso % (Auto) 0.2, Absolute Neuts (auto) 10.6 H, Absolute Lymphs (auto) 0.43 L, Nucleated RBC % 0, Anisocytosis 1+ 07/04/22 04:18: PT 16.9 H, INR 1.4 07/04/22 04:18: Sodium 139, Potassium 3.4 L, Chloride 106, Carbon Dioxide 25.0, Anion Gap 8, BUN 19 H, Creatinine 1.23, Estim Creat Clear Calc 52.98, Est GFR (MDRD) Af Amer 74, Est GFR (MDRD) Non-Af 61, BUN/Creatinine Ratio 15.4, Glucose 130 H, Calcium 8.1 L, Phosphorus 3.0, Magnesium 1.9 Physical Exam Const alert and no apparent distress Resp normal respiratory effort, no retractions, no use of accessory muscles and clear to auscultation bilaterally Cardio regular rate, regular rhythm, S1 normal heart sound and S2 normal heart sound GI normal to inspection, nondistended, normoactive bowel sounds GI Narrative: abdominal bruit. Assessment & Plan Assessment/Plan (1) CAD (coronary artery disease): QUALIFIERS: Associated angina: without angina Coronary Disease-Associated Artery/Lesion type: [place] artery [place] vs. transplanted heart: [place] heart Qualified Code(s): I25.10 - Atherosclerotic heart disease of [place] coronary artery without angina pectoris PLAN: Status post CABG Patient does have an ischemic cardiomyopathy with an EF of 45% from 2D echocardiogram on 01/20/22 Patient does have an AICD in place Placed back on clopidogrel Follow up with cardiology per prior routine. (2) Atrial fibrillation: QUALIFIERS: Atrial fibrillation type: unspecified Qualified Code(s): I48.91 - Unspecified atrial fibrillation PLAN: Paced rhythm On carvedilol and amiodarone Anticoagulated with warfarin. Warfarin has been resumed by vascular surgery. On heparin gtt Monitor INR Not necessary to bridge warfarin from an afib perspective. (3) AAA (abdominal aortic aneurysm) without rupture: PLAN: Status post repair today Management per vascular surgery (4) Hypokalemia: PLAN: K 3.4, Mag 1.9 replace (5) Acute blood loss anemia: PLAN: Hg 13.1 on the , now down to 9.9. Monitor No need for transfusions at this time, but transfuse if Hg 8 or less (given h/o CAD) No need to hold anticoagulation at this time from a medical perspective. PLAN: Plan VTE prophylaxis: Patient on warfarin and heparin gtt. Charges/Coding Visit Charges Inpatient E&M: 57029 Subs Hosp L2
--- NOTE | 2022-07-04 07:30 | PLAQ_PTH ---
PATIENT: KAREN JIMENEZ LOC: [facility] U#:[id number] AGE/SX: 71/M ROOM: ICU02 RE07/03/[address]: Dr. Son Costa MD : 1950 BED: 1 DIS: 07/04/2022 SPEC #: [id number] RECD: 07/04/22 10:01 STATUS: ROBERT REQ #: [id number] SYMONE: 07/04/22 07:[address]: Son Costa DEPT: SURGICAL PATHOLOGY RECD BY: Elizabeth Patricia ENTERED: 07/04/22 10:38 SP TYPE: PLAQUE OTHR DR: MD Dr. Oumar Holloway DO Tissues: PLAQUE Procedures: Decalcification bone/plaque Surgery Specimen Level III HEADER OPERATION: Endovascular abdominal aortic aneurysm repair right femoral artery; femoral endarterectomy PRE-OP DIAGNOSIS: Abdominal aortic aneurysm; femoral atherosclerosis TISSUE SUBMITTED: Right femoral artery plaque MICROSCOPIC DIAGNOSIS Right femoral artery plaque, endarterectomy: Atherosclerotic tissue with focal calcifications (plaque). DOUGLAS:jacinto 07/07/2022 GROSS DESCRIPTION Received in fixative is one container labeled with the patient's name and designated plaque. The specimen consists of a previously opened, elongated piece of [place], indurated tissue measuring 2.5 x 0.5 x 0.5 cm. Also present in the container are multiple detached pieces of [place], indurated tissue measuring in aggregate 1.5 x 1.5 x 0.2 cm. The specimen cuts with gritty sensation. The entire specimen is submitted in one cassette after decalcification. / DOUGLAS:jacinto 07/04/2022 TC:5 CPT: 23175, 43531
--- NOTE | 2022-07-04 09:04 | PCM.PN.SRG ---
Subjective Subjective Doing well, mild pain at left femoral incision. Was up to chair last night. Objective Data Objective Data Vital Signs: Vital Signs Temp Pulse Resp BP Pulse Ox O2 Del Method O2 Flow Rate 97.6 F L 84 13 105/67 94 Room Air 95 07/04/22 08:00 07/04/22 08:00 07/04/22 08:00 07/04/22 08:00 07/04/22 08:00 07/04/22 08:00 07/04/22 00:00 Oxygen Flow Rate (L/min) 95 Oxygen Delivery Method Room Air Weight: 156 lb 11.979 oz Body Mass Index (BMI) 21.2 Intake & Output: Intake and Output for Last 24 Hours 07/02/22 07/03/22 07/04/22 23:59 23:59 23:59 Intake Total 1627 / 1627 240 / 240 Output Total 1999 / 2099 325 / 325 Balance -373 / -473 -85 / -85 Medical Nutrition Assessment Dietitian: Malnutrition Criteria Met Start: 07/03/22 16:25 Freq: Status: Active Protocol: Document 07/03/22 16:25 RMA (Rec: 07/03/22 16:25 RMA [id number]) Nutrition Malnutrition Evidence of Malnutrition Exists Yes Malnutrition (severe): Acute Illness/Injury Evidenced By Suboptimal Energy Intake ( Moderate),Weight Loss (Severe) Clinical Problem Acute Disease or Injury Related Malnutrition Etiology moderate to severe protein- calorie malnutrition in the context of acute disease related to inadequate oral intake and decreased appetite Signs/Symptoms as evidenced by ~5% wt loss x past 1 month and PO meeting less than 50-75% estimated nutrition needs Status Active Problem Recommendation Dietitian Recommendations/Changes Continue cardiac diet; will add 120 ml ensure plus high protein TID w/ medpass for tolerance. Adjust ONS as needed to optimize oral intake and prevent further weight loss. Lab / Micro Data Result Diagrams: 07/04/22 04:18 07/04/22 04:18 Labs: Laboratory Results - last 24 hr 07/04/22 04:18: WBC 12.0 H, RBC 3.21 L, Hgb 9.9 L, Hct 30.1 L, MCV 93.8, MCH 30.8, MCHC 32.9, RDW Std Deviation 52.1 H, RDW Coeff of Cynthia 15.0 H, Plt Count 121 L, MPV 11.3, Immature Gran % (Auto) 0.600, Neut % (Auto) 88.9 H, Lymph % (Auto) 3.6 L, [place] % (Auto) 6.7, Eos % (Auto) 0.0, Baso % (Auto) 0.2, Absolute Neuts (auto) 10.6 H, Absolute Lymphs (auto) 0.43 L, Nucleated RBC % 0, Anisocytosis 1+ 07/04/22 04:18: PT 16.9 H, INR 1.4 07/04/22 04:18: Sodium 139, Potassium 3.4 L, Chloride 106, Carbon Dioxide 25.0, Anion Gap 8, BUN 19 H, Creatinine 1.23, Estim Creat Clear Calc 52.98, Est GFR (MDRD) Af Amer 74, Est GFR (MDRD) Non-Af 61, BUN/Creatinine Ratio 15.4, Glucose 130 H, Calcium 8.1 L, Phosphorus 3.0, Magnesium 1.9 Physical Exam Narrative Bilateral incision soft, no hematoma Const alert, oriented x3, no apparent distress and healthy appearing General Appearance: cooperative; Negative for combative or lethargic Orientation / Consciousness: awake Exam Limitations: no limitations HEENT Head and Scalp: normocephalic and atraumatic Eyes EOMs intact bilaterally General Eye: normal appearance of both eyes Neck full ROM and no lymphadenopathy General: trachea midline Thyroid: thyroid normal Resp normal respiratory effort and no use of accessory muscles Effort and Inspection: Negative for labored, stridor or audible wheezes Cardio regular rate and regular rhythm Peripheral Pulses: brachial pulses present and radial pulses present Back/Spine Cervical Spine: cervical ROM normal Extremity full ROM, normal capillary refill and no clubbing, cyanosis or edema Skin no rashes or lesions noted and no wounds Neuro oriented x3, CN's II-XII intact bilaterally, no focal motor deficits and no sensory deficits noted Psych thought process normal, cooperative, affect normal, speech normal and activity/motor behavior normal Assessment & Plan Assessment/Plan (1) AAA (abdominal aortic aneurysm) without rupture: PLAN: -cr down to below baseline, hgb drop since pre-op labs; suspect dilutional rather than blood loss -cont low dose fixed rate heparin, coumadin this evening -dc PURVI mcclain -resume home lasix -progressive ambulation -if doing well this afternoon will DC in evening
--- NOTE | 2022-07-04 09:45 | CASEMGMT ---
RN CM Face to Face with patient for initial transition planning/care coordination assessment. RN CM introduced self and role at [facility]. Patient sitting in chair, alert and oriented. Patient willing to participate in assessment and is able to answer all questions appropriately. Care providers, pharmacy, and demographics verified. Patient wishes to discharge home, denies need for home health at this time. Patient states he has no further needs or concerns at this time. CM to follow for discharge planning needs that may arise. PCP: Rhea Specialists: [facility]; [facility] Preferred Pharmacy: [facility] Insurance: [facility] Prescription Benefit: yes Living Will/HPOA: none LNOK: girlfriend, daughter Living Arrangements: Patient lives with girlfriend in a mobile home with 3 steps and railing to enter the home. Patient states he is independent at home. Transportation: self, girlfriend DME/HHC: Patient states he has cane, walker, and grab bars at home. Patient denies previous HHC or SNF. Disposition Plan: Patient to discharge home with family support and follow-up plans in place. Chrissie MARIN, RN, CM
[2022-07-04] MEDS: Losartan Potassium 25 MG Tablet PO (10:06)
[2022-07-04] MEDS: Amiodarone 200 MG Tablet PO (10:06)
[2022-07-04] MEDS: Carvedilol 12.5 MG Tablet PO (10:06)
[2022-07-04] MEDS: Allopurinol 300 MG Tablet PO (10:06)
[2022-07-04] MEDS: Clopidogrel Bisulfate 75 MG Tablet PO (10:06)
[2022-07-04] MEDS: Ensure Plus High Protein 120 ML LIQUID PO ×2 (10:06→11:15)
[2022-07-04] MEDS: Furosemide 40 MG Tablet PO (10:06)
[2022-07-04] MEDS: Potassium Chloride Oral Tablet 20 MEQ 40 MEQ PO (10:11)
--- NOTE | 2022-07-04 15:24 | DCINST_ITS ---
Discharge Instructions Diet Discharge Diet: No restrictions Activity Discharge Activity: May Drive (when not taking pain medication) and May Shower (07/05) Weight Bearing Status: Weight bearing as tolerated Lifting Restrictions: Do not lieft >20 lbs for 3 weeks Additional Activity Instructions:: Do not submerge incisions for 3 weeks Dressing / Incision Call your doctor if your incision/area has: Sudden Increased Bleeding, Increased Pain/ Swelling, Increased Redness and Foul Smelling Discharge Call your doctor if you observe: Fever of 101 or Higher and Uncontrolled pain Cleanse incision/area with: Soap & Water (gently with shower) and Keep Dressing Clean & Dry Additional Dressing/Incision Instructions:: Remove left side dressing 07/05 after shower. Remove right side dressing 1 week Follow Up Care Test Results: Test results from this visit will be discussed in further detail at your follow- up appointment, if applicable. Discharge Plan Admission Admit Date/Time: 07/03/22 05:18 Primary Reason for Your Visit: AAA Attending Provider: Son Costa Primary Care Provider: Oumar Wilkerson Consulting Providers: Son Cervantes Discharge Orders/Prescriptions Prescriptions: New oxycodone 5 mg Tablet 5 mg PO Q4H PRN PRN (Reason: Pain Score 4-5) 3 Days Qty: 12 0RF Continued clopidogrel [Plavix] 75 mg tablet 75 mg PO QDAY amiodarone 200 mg tablet 200 mg PO DAILY allopurinol 300 mg tablet 300 mg PO DAILY atorvastatin [Lipitor] 10 mg tablet 10 mg PO DAILY Qty: 30 6RF carvedilol 12.5 MG tablet 12.5 mg PO BID Label Comments: Heart losartan 25 MG tablet 25 mg PO DAILY Label Comments: Blood pressure spironolactone 25 MG tablet 12.5 mg PO DAILY warfarin 5 mg tablet 5 mg PO DAILY furosemide 40 mg tablet 40 mg PO BID Label Comments: water pill Referrals / Follow Up: Oumar Wilkerson DO [Primary Care Provider] - Disposition Discharge Orders: Discharge Patient (Routine); Ordered 07/04/22 Ordered By: Dr. Son Costa
--- NOTE | 2022-07-04 15:29 | DS.PCM_ITS ---
Providers Date of Admission: 07/03/22 Primary Care Physician: Dr. Oumar Wilkerson DO Reason For Visit: ENDOVASCULAR AAA REPAIR RT FEMORAL ENDARTERECTOMY Diagnosis Discharge Diagnosis (1) CAD (coronary artery disease): Status: Chronic Code(s): I25.10 - Atherosclerotic heart disease of [place] coronary artery without angina pectoris Qualifiers: [place] vs. transplanted heart: [place] heart Coronary Disease-Associated Artery/Lesion type: [place] artery Associated angina: without angina Qualified Code(s): I25.10 - Atherosclerotic heart disease of [place] coronary artery without angina pectoris (2) Atrial fibrillation: Status: Chronic Code(s): I48.91 - Unspecified atrial fibrillation Qualifiers: Atrial fibrillation type: unspecified Qualified Code(s): I48.91 - Unspecified atrial fibrillation (3) AAA (abdominal aortic aneurysm) without rupture: Status: Chronic Code(s): I71.4 - Abdominal aortic aneurysm, without rupture Plan: -cr down to below baseline, hgb drop since pre-op labs; suspect dilutional rather than blood loss -cont low dose fixed rate heparin, coumadin this evening -PURVI [place] -resume home lasix -progressive ambulation -if doing well this afternoon will DC in evening (4) Hypokalemia: Status: Acute Code(s): E87.6 - Hypokalemia (5) Acute blood loss anemia: Status: Acute Code(s): D62 - Acute posthemorrhagic anemia Medications at Discharge Home Medications carvedilol 12.5 mg tablet 12.5 mg PO BID bp 07/02/15 losartan 25 mg tablet 25 mg PO DAILY bp 07/02/15 clopidogrel 75 mg tablet (Plavix) 75 mg PO QDAY blood thinner 03/27/18 spironolactone 25 mg tablet 12.5 mg PO DAILY water pill 03/29/18 allopurinol 300 mg tablet 300 mg PO DAILY GOUT 05/29/22 amiodarone 200 mg tablet 200 mg PO DAILY HEART 05/29/22 warfarin 5 mg tablet 5 mg PO DAILY blood thinner 06/13/22 furosemide 40 mg tablet 40 mg PO BID water pill 06/26/22 atorvastatin 10 mg tablet (Lipitor) 10 mg PO DAILY #30 tabs 06/28/22 oxycodone 5 mg tablet 5 mg PO Q4H PRN PRN Pain Score 4-5 3 days #12 tabs 07/04/22 Hospital Course Operations - (Endovascular aneurysm repair, right femoral endarterectomy ) Summary of Care Provided Hospital Course: Patient presented on 07/03/2022 for elective endovascular exclusion of abdominal aortic aneurysm and right femoral endarterectomy. He tolerated the procedure well which went as planned and he was admitted to the intensive care unit for hemodynamic monitoring and vascular checks. He began early ambulation on postop day 0 with progressive ambulation the following day. Patient has some element of chronic kidney disease and so was hydrated postoperatively given the contrast used for the procedure and on postop day 1 showed evidence of hemodilution with a drop in hemoglobin but also drop in creatinine to better than his baseline. He remained hemodynamically stable with satisfactory urine output so fluids were discontinued and home medications including diuretics were resumed. Throughout postop day #1 he increase his level of activity, tolerated diet, and was able to void without difficulty after the catheter was removed. In the evening on 07/04/2022 he felt prepared for discharge to home with his . He was discharged home with instructions to resume his home medications with addition of short interval pain medications, and also he was given instructions on care for his Prevena closed incisional wound VAC. Physical Exam Const alert, oriented x3, no apparent distress and healthy appearing General Appearance: cooperative; Negative for combative or lethargic Orientation / Consciousness: awake Exam Limitations: no limitations HEENT Head and Scalp: normocephalic and atraumatic Eyes EOMs intact bilaterally General Eye: normal appearance of both eyes Neck full ROM General: trachea midline; Negative for lymphadenopathy Resp normal respiratory effort and no use of accessory muscles Effort and Inspection: Negative for labored, stridor or audible wheezes Cardio regular rate and regular rhythm Back/Spine Cervical Spine: cervical ROM normal Extremity full ROM Skin no rashes or lesions noted and no wounds Neuro oriented x3, CN's II-XII intact bilaterally, no focal motor deficits and no sensory deficits noted Psych thought process normal, cooperative, affect normal, speech normal and activity/motor behavior normal Medical Records Data Medical Nutrition Assessment Dietitian: Malnutrition Criteria Met Start: 07/03/22 16:25 Freq: Status: Active Protocol: Document 07/03/22 16:25 RMA (Rec: 07/03/22 16:25 RMA [id number]) Nutrition Malnutrition Evidence of Malnutrition Exists Yes Malnutrition (severe): Acute Illness/Injury Evidenced By Suboptimal Energy Intake ( Moderate),Weight Loss (Severe) Clinical Problem Acute Disease or Injury Related Malnutrition Etiology moderate to severe protein- calorie malnutrition in the context of acute disease related to inadequate oral intake and decreased appetite Signs/Symptoms as evidenced by ~5% wt loss x past 1 month and PO meeting less than 50-75% estimated nutrition needs Status Active Problem Recommendation Dietitian Recommendations/Changes Continue cardiac diet; will add 120 ml ensure plus high protein TID w/ medpass for tolerance. Adjust ONS as needed to optimize oral intake and prevent further weight loss. Weight / BMI Weight Weight: 156 lb 11.979 oz Body Mass Index (BMI) 21.2 ABG / Lab / Microbiology Data Result Diagrams: 07/04/22 04:18 07/04/22 04:18 Laboratory: Laboratory Results - last 24 hr 07/04/22 04:18: WBC 12.0 H, RBC 3.21 L, Hgb 9.9 L, Hct 30.1 L, MCV 93.8, MCH 30.8, MCHC 32.9, RDW Std Deviation 52.1 H, RDW Coeff of Cynthia 15.0 H, Plt Count 121 L, MPV 11.3, Immature Gran % (Auto) 0.600, Neut % (Auto) 88.9 H, Lymph % (Auto) 3.6 L, [place] % (Auto) 6.7, Eos % (Auto) 0.0, Baso % (Auto) 0.2, Absolute Neuts (auto) 10.6 H, Absolute Lymphs (auto) 0.43 L, Nucleated RBC % 0, Anisocytosis 1+ 07/04/22 04:18: PT 16.9 H, INR 1.4 07/04/22 04:18: Sodium 139, Potassium 3.4 L, Chloride 106, Carbon Dioxide 25.0, Anion Gap 8, BUN 19 H, Creatinine 1.23, Estim Creat Clear Calc 52.98, Est GFR (MDRD) Af Amer 74, Est GFR (MDRD) Non-Af 61, BUN/Creatinine Ratio 15.4, Glucose 130 H, Calcium 8.1 L, Phosphorus 3.0, Magnesium 1.9 D/C Instructions Discharge Diet: No restrictions Weight Bearing Status: Weight bearing as tolerated Additional Activity Instructions: Do not submerge incisions for 3 weeks Call your doctor if your incision/area has: Sudden Increased Bleeding, Increased Pain/ Swelling, Increased Redness and Foul Smelling Discharge Call your doctor if you observe: Fever of 101 or Higher and Uncontrolled pain Cleanse incision/area with: Soap & Water (gently with shower) and Keep Dressing Clean & Dry Additional Dressing/Incision Instructions: Remove left side dressing 07/05 after shower. Remove right side dressing 1 week Meaningful Use Info Meaningful Use Diagnoses (Choose all that apply): None applicable Discharge Plan Admission Admit Date/Time: 07/03/22 05:18 Primary Reason for Your Visit: AAA Attending Provider: Son Costa Primary Care Provider: Oumar Wilkerson Consulting Providers: Son Cervantes Discharge Orders/Prescriptions Prescriptions: New oxycodone 5 mg Tablet 5 mg PO Q4H PRN PRN (Reason: Pain Score 4-5) 3 Days Qty: 12 0RF Continued clopidogrel [Plavix] 75 mg tablet 75 mg PO QDAY amiodarone 200 mg tablet 200 mg PO DAILY allopurinol 300 mg tablet 300 mg PO DAILY atorvastatin [Lipitor] 10 mg tablet 10 mg PO DAILY Qty: 30 6RF carvedilol 12.5 MG tablet 12.5 mg PO BID Label Comments: Heart losartan 25 MG tablet 25 mg PO DAILY Label Comments: Blood pressure spironolactone 25 MG tablet 12.5 mg PO DAILY warfarin 5 mg tablet 5 mg PO DAILY furosemide 40 mg tablet 40 mg PO BID Label Comments: water pill Referrals / Follow Up: Oumar Wilkerson DO [Primary Care Provider] - Disposition Disposition (needs filled in before D/C Order can be placed): Home, Self Care
== END 2022-07-04 16:30 | disposition home or self-care (01) | DRG 269 ==
LOC: ACINP 05:19 → ICU 14:03
PROVIDERS: Anesthesiology; Admitting Provider Surgery Trauma Surgery; PCP Family Medicine; Referring Provider Surgery Trauma Surgery; Visit Provider Surgery Trauma Surgery
PROC: 04V03DZ Restriction of Abdominal Aorta with Intraluminal Device, Percutaneous Approach (ICD-10-PCS; principal; 2022-07-03 07:00)
PROC: 04V03DZ Restriction of Abdominal Aorta with Intraluminal Device, Percutaneous Approach (ICD-10-PCS; 2022-07-03 07:00)
DX: I71.4 Abdominal aortic aneurysm, without rupture (principal); E44.0 Moderate protein-calorie malnutrition; I74.5 Embolism and thrombosis of iliac artery; I13.0 Hypertensive heart and chronic kidney disease with heart failure and stage 1 through stage 4 chronic kidney disease, or unspecified chronic kidney disease; I48.20 Chronic atrial fibrillation, unspecified; I50.9 Heart failure, unspecified; E78.5 Hyperlipidemia, unspecified; E87.6 Hypokalemia; I70.201 Unspecified atherosclerosis of native arteries of extremities, right leg; I25.10 Atherosclerotic heart disease of native coronary artery without angina pectoris; M10.9 Gout, unspecified; I25.5 Ischemic cardiomyopathy; N18.9 Chronic kidney disease, unspecified; Z68.21 Body mass index [BMI] 21.0-21.9, adult; Z79.02 Long term (current) use of antithrombotics/antiplatelets; Z79.01 Long term (current) use of anticoagulants; Z79.899 Other long term (current) drug therapy; Z87.891 Personal history of nicotine dependence; Z95.1 Presence of aortocoronary bypass graft; Z95.5 Presence of coronary angioplasty implant and graft; Z95.810 Presence of automatic (implantable) cardiac defibrillator
CPT/HCPCS: 34701; 34812; 36415; 36416; 78452; 80048; 82040; 83735; 84100; 85025; 85610; 86850; 86900; 86901; 88304; 88311; 93005; 93017; 97161; 97166; 97802; 99251; A9500; C1725; J7030; J7040; J7050; J7120; Q9967; A4216; C1769; C1773; C1894; G0463; J1940; J2405; J2785

== ENCOUNTER → 2022-07-31 | Outpatient (CLI) | payer MEDICARE, SELFPAY ==
[2022-07-31 10:31] LABS: Creatinine, Serum 1.59 mg/dL (0.70-1.30); EST Glomerular Filtration Rate 46 mL/min (>60); Est Glom Filt Rate - Afr Amer 55 mL/min (>60)
== END | disposition home or self-care (01) ==
PROVIDERS: PCP Family Medicine; Referring Provider Surgery Trauma Surgery; Visit Provider Surgery Trauma Surgery
DX: I71.40 Abdominal aortic aneurysm, without rupture, unspecified (principal)
CPT/HCPCS: 36415; 82565

== ENCOUNTER → 2022-08-03 | Outpatient (CLI) | payer MEDICARE, SELFPAY ==
--- NOTE | 2022-08-03 14:10 | CT_ITS ---
INDICATION: AAA, s/p evar EXAMINATION: CTA abdomen and pelvis - TECHNIQUE: Routine abdominal CT angiogram protocol was performed with IV contrast. MIP images provided. A radiation dose optimization technique was used for this scan. IV Contrast dosage and agent: 10 4 mL Radiation dose DLP mGy / cm. COMPARISON: June 02, 2022 CT angiogram abdomen and pelvis FINDINGS: Lung bases: There is minimal bilateral lower lobe atelectasis left greater than right this is superimposed on fibrotic change. There is slightly greater than prior study. The heart is enlarged. There are partially visualized pacer leads. Liver: There is a well-corticated cystic structure right hepatic lobe measuring 1.9 mm stable since prior study. Gallbladder: Normal. Spleen: Normal. Adrenal gland: Normal. Kidneys: There is moderate to severe atrophy of the left kidney. There is dense calcification uptake of the left renal artery similar to prior study. Pancreas:Normal. Bowel gas pattern: There is a visualized small hiatal hernia. The small bowel demonstrates normal caliber. There is a mild amount of stool in the colon. Allowing for technique there is a decompressed mildly thick-walled appearance of the tortuous rectum. Appendix: Normal. Free air: None. Free fluid: None. Pelvis: There is a thick walled appearance of the bladder suspicious for cystitis. Pelvic organs: Prostate is mildly enlarged. There are calcifications. Bone survey: Is visualized degenerative change in the thoracolumbar spine. There is multilevel disc space narrowing and vacuum phenomenon neural foraminal narrowing. At the level of L3 L4 L4 L5 L5 S1 there is moderate neural foraminal narrowing moderate central stenosis. Adenopathy: No significant pathologic adenopathy detected. Other: None. Vascular: At the level of the kidneys and jamul aorta measures 6.8 x 7.2 cm. The aneurysm has been repaired since the prior study. This visualized stent that begins at the level of the celiac. The stent partially surrounds the jamul liver contrasted lumen of the aorta. There are stents visualized within the bilateral common iliac arteries. On image #70 there is a suggestion that there could be a minimal amount of endovascular leak allowing for the presence of the stent and its interface. CT/CT ANGIO ABD&PEL W/O&W/DYE IMPRESSION: [place] aorta measuring 6.8 x 7.2 cm similar in size to the prior study. Status post repair. Image #75 suggests there could be a small amount endovascular leak around the edge of the stent. Recommend continued follow-up. Severe left renal atrophy. Hiatal hernia. Wall thickening of the esophagus could consider esophagitis. Findings suspicious for cystitis. Decompressed possibly mild thick-walled appearance of the rectum with tortuosity could consider follow-up proctoscopy when appropriate. Minimal lower lobe atelectasis. Superimposed on interstitial lung disease. Cardiomegaly. Status post sternotomy. Electronically Signed: Juliana Alexander MD at 5:57 EDT ,
== END | disposition home or self-care (01) ==
LOC: CT 13:46
PROVIDERS: PCP Family Medicine; Referring Provider Surgery Trauma Surgery; Visit Provider Surgery Trauma Surgery
DX: I71.40 Abdominal aortic aneurysm, without rupture, unspecified (principal)
CPT/HCPCS: 74174; Q9967

== ENCOUNTER → 2022-12-14 | Outpatient (CLI) | payer MEDICARE, SELFPAY ==
[2022-12-14 17:46] LABS: Absolute Lymphocyte Count 0.98 X10^3/uL (0.83-4.51); Absolute Neutrophil Count 4.8 X10^3/uL (2.0-7.7); Basophil# 0.04 X10^3/uL; Basophil% 0.6 % (0-1); Eosinophils% 1.5 % (0-5); Hematocrit 38.2 % (40-54); Hemoglobin 12.7 g/dL (13.0-16.5); Lymphocyte # 0.98 X10^3/ul (0.83-4.51); Lymphocyte % 15.1 % (19-41); Mean Corp Hgb Conc 33.2 g/dL (32-36); Mean Corpuscular Hgb 30.8 pg (27.0-32.0); Mean Corpuscular Volume 92.7 fL (80-94); Mean Platelet Vol. 11.2 fl (6.2-12.0); Monocyte# 0.62 X10^3/uL; Monocyte% 9.5 % (0-10); NRBC Flagged by Analyzer 0 % (0-5); Neutrophil # 4.76 X10^3/uL (2.7-7.7); Neutrophil % 73.1 % (47-70); Platelet Count 200 K/mm3 (150-450); RBC Distribution Width CV 16.6 % (11.6-14.6); RBC Distribution Width SD 56.4 fl (35.1-43.9); Red Blood Count 4.12 M/mm3 (4.6-6.2); White Blood Count 6.5 K/mm3 (4.4-11.0)
[2022-12-14 18:14] LABS: Vitamin D,25 Hydroxy 26.1 ng/mL
[2022-12-14 18:36] LABS: ALB/GLOB Ratio 0.8 RATIO (0.9-2.4); AST(SGOT) 28 U/L (15-37); Alanine Aminotransfer ALT/SGPT 29 U/L (16-61); Albumin, Serum 3.4 g/dL (3.2-5.0); Alkaline Phosphatase 87 U/L (45-117); Anion Gap 5 (5-15); BUN 32 mg/dL (7-18); BUN/Creat Ratio 20.1 RATIO (10-20); Chloride 104 mmol/L (98-107); Creatinine, Serum 1.59 mg/dL (0.70-1.30); EST Glomerular Filtration Rate 46 mL/min (>60); Est Glom Filt Rate - Afr Amer 55 mL/min (>60); Globulin 4.3 g/dL (2.2-4.2); Glucose 104 mg/dL (74-106); Potassium 4.4 mmol/L (3.5-5.1); Protein, Total 7.7 g/dL (6.4-8.2); Sodium Level 137 mmol/L (136-145); Thyroid Stim Hormone (TSH) 5.84 uIU/mL (0.358-3.74)
== END | disposition home or self-care (01) ==
LOC: BFHLAB 16:30
PROVIDERS: PCP Family Medicine; Visit Provider Family Medicine
DX: R53.83 Other fatigue (principal); Z51.81 Encounter for therapeutic drug level monitoring; E55.9 Vitamin D deficiency, unspecified
CPT/HCPCS: 36415; 80053; 82306; 84443; 85025

== ENCOUNTER 2023-03-19 06:38 | Day surgery (SDC) | payer MEDICARE, SELFPAY ==
[2023-03-19] VITALS (7 sets, daily range): BP systolic 107–125; BP diastolic 68–78; PULSE 72–76; RESP 16; TEMP 35.9–36.7; O2SAT 94–100; BMI 20.2
--- NOTE | 2023-03-19 | GASB_PTH ---
PATIENT: KAREN JIMENEZ LOC: EN U#:[id number] AGE/SX: 72/M ROOM: RE03/19/[address]: Dr. Ashanti Huerta MD : 1950 BED: DIS: 03/19/2023 SPEC #: [id number] RECD: 03/19/23 14:24 STATUS: ROBERT KATY #: [id number] SYMONE: 03/19/23 00:[address]: Ashanti Huerta DEPT: SURGICAL PATHOLOGY RECD BY: Jam Montenegro ENTERED: 03/20/23 07:43 SP TYPE: Gastric Bx OTHR DR: Dr. Oumar Wilkerson DO Tissues: A - Gastric mucous membrane B - Ascending colon C - Transverse colon Procedures: Special Stain Group II Surgery Specimen Level IV Alcian Blue/PAS (control) HEADER OPERATION: Colonoscopy, EGD (MAC), biopsy, polypectomy PRE-OP DIAGNOSIS: Change in bowel habit, weight loss nonintentional TISSUE SUBMITTED: A - Biopsy of Gastroesophageal junction, B - Polyps ascending colon, C - Polyp transverse colon MICROSCOPIC DIAGNOSIS A. Gastroesophageal junction, biopsy: A fragment of gastric mucosa with chronic inflammation. Intestinal metaplasia (goblet cell metaplasia) not identified. See comment. B. Ascending colon polyps, polypectomy: Fragments of tubular adenoma. C. Transverse colon polyp, polypectomy: Fragments of tubular adenoma. SJ:rg 03/21/2023 COMMENT A. Alcian blue/PAS stain with matched control is used in the evaluation of the specimen. MICROSCOPIC DESCRIPTION Slides are reviewed. GROSS DESCRIPTION A - Received in fixative is one container labeled with the patient's name and designated biopsy GE junction. The specimen consists of one irregular fragment of light hopkins soft tissue that measures 0.3 x 0.3 x 0.1 cm. The specimen is totally submitted in one cassette. B - Received in fixative is one container labeled with the patient's name and designated polyps ascending colon. The specimen consists of multiple irregular fragments of light hopkins soft tissue that in aggregate measure 2.5 x 0.5 x 0.1 cm. The specimen is totally submitted in one cassette. C - Received in fixative is one container labeled with the patient's name and designated polyp transverse colon. The specimen consists of multiple irregular fragments of light hopkins soft tissue that in aggregate measure 2.0 x 0.5 x 0.3 cm. The specimen is totally submitted in one cassette. / SJ:rg 03/20/2023 TC:1 CPT: 96767 x3, 47328
--- NOTE | 2023-03-19 07:23 | SUR.PREOP ---
Curly, patient advocate from [facility], calls to say pacemaker interrogation is normal.
[2023-03-19] MEDS: Lactated Ringers 1,000 ML 15 ML IV (07:24)
--- NOTE | 2023-03-19 07:33 | SUR.PREOP ---
Roland from [employer] calls, if cautery will be used, magnet needs taped over device. If anesthesia wants, may interrogate again after procedure if cautery used, but not necessary.
--- NOTE | 2023-03-19 08:09 | PCM.HP.BLA ---
History and Physical Date of Admission: 03/19/23 Date of Service:? 02/26/23 MR#: [id number] Acct: [id number] Name:KAREN CASTILLO Rep #: [id number] : 1950 ? ? Provider: Dr. Ashanti Huerta MD Age/Sex:? 72/M ? ? Location: [facility] Status: Signed with Addenda ADDENDUM by Dr. Ashanti Huerta MD on 02/27/23 at 0946 Assessment and Plan Assessment and Plan (1) Change in bowel habit: ?Status:?Acute (2) Weight loss, non-intentional: ?Status:?Acute Plan We will have patient continue his Plavix but hold his warfarin for 5 days prior to the procedure. 02/27/23 0946 <Electronically signed by Ashanti Huerta MD> Date Ashanti Huerta MD cc:? Dr. Oumar Wilkerson, DO ~* Signed Intake Vital Signs ? 07/03/2216:10 02/26/2313:27 Height 5 ft 11 in 5 ft 11 in Weight: ? 142 lb 6 oz BMI ? 19.8 BP ? 101/68 Blood Pressure Location ? Lt radial Position ? Sitting Respiration ? 16 Pulse ? 81 Pulse Source ? Monitor Temp ? 97.5 F L Temp Source ? Temporal Pulse Oximetry (%) ? 98 Oxygen Delivery Method ? 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 Is patient in pain?: Yes Allergies No Known Allergies Allergy (Verified 02/26/23 13:31) Medications carvedilol 12.5 mg tablet 12.5 mg PO BID bp 07/02/15 [History Confirmed 02/26/23] losartan 25 mg tablet 25 mg PO DAILY bp 07/02/15 [History Confirmed 02/26/23] clopidogrel 75 mg tablet (Plavix) 75 mg PO QDAY blood thinner 03/27/18 [History Confirmed 02/26/23] spironolactone 25 mg tablet 12.5 mg PO DAILY water pill 06/15/18 [History Confirmed 02/26/23] allopurinol 300 mg tablet 300 mg PO DAILY GOUT 05/29/22 [History Confirmed 02/26/23] amiodarone 200 mg tablet 200 mg PO DAILY HEART 05/29/22 [History Confirmed 02/26/23] warfarin 5 mg tablet 5 mg PO DAILY blood thinner 06/13/22 [History Confirmed 02/26/23] furosemide 40 mg tablet 40 mg PO BID water pill 06/26/22 [History Confirmed 02/26/23] atorvastatin 10 mg tablet (Lipitor) 10 mg PO DAILY #30 tabs 06/28/22 [Rx Confirmed 02/26/23] oxycodone 5 mg tablet 5 mg PO Q4H PRN PRN Pain Score 4-5 3 days #12 tabs 07/04/22 [Rx Confirmed 07/27/22] cholecalciferol (vitamin D3) 1,250 mcg (50,000 unit) tablet (Dialyvite Vitamin D3 Max) 1,250 mcg PO QWEEK 02/26/23 [History Confirmed 02/26/23] pravastatin 40 mg tablet 40 mg PO DAILY 02/26/23 [History Confirmed 02/26/23] warfarin 7.5 mg tablet 7.5 mg PO QMWF 02/26/23 [History Confirmed 02/26/23] PFSH Medical History? 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 H/O carotid endarterectomy H/O heart artery stent H/O right inguinal hernia repair (~2003) History of cardiac catheterization History of carotid endarterectomy History of radiofrequency ablation procedure for cardiac arrhythmia Pacemaker S/P AAA repair S/P CABG (coronary artery bypass graft) S/P colonoscopy S/P internal cardiac defibrillator procedure S/P internal cardiac defibrillator procedure Family History? Father Hypertension PacemakerMother Myocardial infarctionDaughter Thyroid disorderOther Essential (primary) hypertension Social History? Smoking Status:? Former smoker how long ago did patient quit smoking:? 12 years ago alcohol intake:? current alcohol intake frequency: a few times a month substance use type:? does not use caffeine:? Yes Type: coffee Number of servings: 5 HPI HPI HPI: 72-year-old male presents with his significant other-Nahomy due to change of bowel habits as well as weight loss.? Nahomy states he has lost about 100 pounds in the last year unintentional.? Patient's last colonoscopy was about 15 years ago negative per patient; however memory may not be accurate.? Patient has been having issues with constipation but over the last 3 weeks and was needing a laxative daily however currently he last took a laxative 3 to 4 days ago and goes about every other day.? Patient has been trying to drink a little more water.? Patient never had previous EGD.? Patient states he does have some vomiting of phlegm once or twice a day denies it actually been from the stomach or any nausea or reflux.? Patient states is due to his sinuses/allergy. ROS General General: Yes weight change and fatigue; No appetite, colon cancer, breast cancer or weakness Additional Details: loss HEENT HEENT: No difficulty swallowing, eye injury, eye surgery, swollen glands or hoarseness Endo Endocrine: No thyroid disease, diabetes mellitus, thyroid cancer, Hair loss, heat intolerance or cold intolerance Skin Skin: No rash or changing moles Musc Musculoskeletal: Yes back problems, arthritis and gout; No rheumatoid arthritis or joint pain Cardio Cardiovascular: Yes heart disease, atrial fibrillation, high blood pressure, heart attack, heart stent and shortness of breat with exertion; No murmur, pacemaker, palpitations or chest pain Psych Psychiatric: Yes depression and anxiety; No hearing voices Resp Respiratory: Yes shortness of breath, Yes sleep apnea, Yes cough, No COPD, No asthma, No emphysema and No wheezing Gastro Gastrointestinal: No abdominal pain, No nausea or vomiting, No diarrhea, Yes constipation, No blood in stool, No acid reflux, No hemorrhoids, No ulcers, No gallbladder problem and No black,tarry stools Jose Hematologic: Yes blood thinners, No blood disorders, Yes bleeding, No anemia and No blood clots Neuro Neurologic: No system reviewed and no additional complaints, except as documented, No as per HPI, No abnormal gait, No abnormal hearing, No abnormal movements, No abnormal speech, No behavioral changes, No burning sensations, No confusion, No convulsions, No disequilibrium, No dizziness, No localized weakness, No frequent falls, No headache(s), No lack of coordination, No loss of vision, No memory loss, Yes numbness, No other visual disturbances, No radicular pain, No restless legs, No sensory deficit, No syncope, Yes tingling, No tremor(s), No weakness and No other Exam Const General: cooperative and frail appearing Nutritional Appearance: underweight Resp Effort & Inspection: normal respiratory effort Cardio Rate: regular rate GI Inspection: non-distended Palpation: soft, hernia (Epigastric, reducible-inferior area of CABG incision) and nontender Skin General: ecchymosis (Due to blood thinners and upper extremities) Neuro General: patient alert, patient awake and patient oriented x3 Psych Appearance: grossly normal Assessment and Plan Assessment and Plan (1) Change in bowel habit: ?Status:?Acute (2) Weight loss, non-intentional: ?Status:?Acute Plan I have discussed the above with the patient. I have offered the patient EGD and colonoscopy I have explained the risks/benefits of the procedure and described the procedure.? I have discussed the risks with the patient, including but not limited to:? infection, bleeding, perforation of the GI tract requiring emergency surgery, inability to complete the procedure, injury to any internal organs, complications of anesthesia, etc. - the patient understands and agrees to proceed. I have answered all the patient's questions to the patient's satisfaction and the patient has no further questions. The patient has been given instructions for the colon cleansing preparation.? 1 day of clears, MiraLAX Dulcolax split prep.? Okay to start as early as he wants the day before the procedure. Ashanti Huerta M.D. Pager: [phone] [facility] [address] [place] [address], [address] [place] [address] Office: [phone] Coding Level of Care Code Off vis,new,level 3 Diagnoses Change in bowel habit? R19.4 Weight loss, non-intentional? R63.4 02/27/23 0946 <Electronically signed by Ashanti Huerta MD> Date Ashanti Huerta MD
--- NOTE | 2023-03-19 10:09 | OP.EGD_ITS ---
Patient Name: David Persaud Procedure Date: 03/19/2023 7:26 AM Date of : 1950 Age: 72 Procedure: Upper GI endoscopy Indications: Weight loss Providers: Ashanti Huerta MD Medicines: Monitored Anesthesia Care Patient Profile: This is a 72 year old male. Complications: No immediate complications. Procedure: Pre-Anesthesia Assessment: - Prior to the procedure, a History and Physical was performed, and patient medications and allergies were reviewed. The patient's tolerance of previous anesthesia was also reviewed. The risks and benefits of the procedure and the sedation options and risks were discussed with the patient. All questions were answered, and informed consent was obtained. Prior Anticoagulants: The patient has taken Coumadin (warfarin), last dose was 5 days prior to procedure. ASA Grade Assessment: Per anesthesia. After reviewing the risks and benefits, the patient was deemed in satisfactory condition to undergo the procedure. After obtaining informed consent, the endoscope was passed under direct vision. Throughout the procedure, the patient's blood pressure, pulse, and oxygen saturations were monitored continuously. The Colonoscope was introduced through the mouth, and advanced to the second part of duodenum. The upper GI endoscopy was accomplished without difficulty. The patient tolerated the procedure well. Scope In: 8:54:04 AM Scope Out: 9:07:53 AM Total Procedure Duration Time 0 hours 13 minutes 49 seconds Findings: The Z-line was irregular and was found 42 cm from the incisors. Biopsies were taken with a cold forceps for histology. A small hiatal hernia was present. Striped mildly erythematous mucosa without bleeding was found in the gastric antrum. The examined duodenum was normal. The exam was otherwise without abnormality. Impression: - Z-line irregular, 42 cm from the incisors. Biopsied. - Small hiatal hernia. - Erythematous mucosa in the antrum. - Normal examined duodenum. - The examination was otherwise normal. Recommendation: - Discharge patient to home. - Resume previous diet. - Continue present medications. - Resume Coumadin (warfarin) at prior dose tomorrow. - Use Prilosec (omeprazole) 40 mg PO daily. Procedure Code(s): --- Professional --- 89967, Esophagogastroduodenoscopy, flexible, transoral; with biopsy, single or multiple Diagnosis Code(s): --- Professional --- K22.8, Other specified diseases of esophagus K44.9, Diaphragmatic hernia without obstruction or gangrene K31.89, Other diseases of stomach and duodenum R63.4, Abnormal weight loss CPT copyright 2017 [employer]. All rights reserved. The codes documented in this report are preliminary and upon certified medical coder review may be revised to meet current compliance requirements. MD Ashanti Garza MD 03/19/2023 10:08:56 AM This report has been signed electronically. Number of Addenda: 0 Note Initiated On: 03/19/2023 7:26 AM
--- NOTE | 2023-03-19 10:10 | OP.CCLET_ITS ---
03/19/2023 Oumar Wilkerson [address] [place] [address] Re : Upper GI endoscopy procedure for David Persaud Dear Dr. Wilkerson This procedure was performed on Sunday, March 19, 2023. My impressions and recommendations are as follows: Impressions : - Z-line irregular, 42 cm from the incisors. Biopsied. - Small hiatal hernia. - Erythematous mucosa in the antrum. - Normal examined duodenum. - The examination was otherwise normal. Recommendations : - Discharge patient to home. - Resume previous diet. - Continue present medications. - Resume Coumadin (warfarin) at prior dose tomorrow. - Use Prilosec (omeprazole) 40 mg PO daily. My findings are described in the full procedure note, which is enclosed. If I can be of further assistance, please feel free to contact me at Doctor phone number(s): , Work: . Sincerely, MD Ashanti Garza MD 03/19/2023 10:08:56 AM This report has been signed electronically.
--- NOTE | 2023-03-19 10:16 | OP.COLON_ITS ---
Patient Name: David Persaud Procedure Date: 03/19/2023 9:08 AM Date of : 1950 Age: 72 Procedure: Colonoscopy Indications: Weight loss Providers: Ashanti Huerta MD Medicines: Monitored Anesthesia Care Patient Profile: This is a 72 year old male. Last Colonoscopy: more than 10 years ago. Complications: No immediate complications. Procedure: Pre-Anesthesia Assessment: - Prior to the procedure, a History and Physical was performed, and patient medications and allergies were reviewed. The patient's tolerance of previous anesthesia was also reviewed. The risks and benefits of the procedure and the sedation options and risks were discussed with the patient. All questions were answered, and informed consent was obtained. Prior Anticoagulants: The patient has taken Coumadin (warfarin), last dose was 5 days prior to procedure. ASA Grade Assessment: Per anesthesia. After reviewing the risks and benefits, the patient was deemed in satisfactory condition to undergo the procedure. After I obtained informed consent, the scope was passed under direct vision. Throughout the procedure, the patient's blood pressure, pulse, and oxygen saturations were monitored continuously. The Colonoscope was introduced through the anus and advanced to the cecum, identified by the appendiceal orifice, ileocecal valve and palpation. The colonoscopy was technically difficult and complex due to a tortuous colon. The patient tolerated the procedure well. The quality of the bowel preparation was good. Scope In: 9:09:56 AM Scope Withdrawal Time 0 hours 31 minutes 33 seconds Scope Out: 9:57:33 AM Total Procedure Duration Time 0 hours 47 minutes 37 seconds Findings: The perianal and digital rectal examinations were normal. Seven semi-pedunculated polyps were found in the transverse colon and ascending colon. The polyps were 3 to 6 mm in size. These polyps were removed with a hot snare. Resection and retrieval were complete. Two sessile polyps were found in the transverse colon and ascending colon. The polyps were less than 5 mm in size. These polyps were removed with a cold biopsy forceps. Resection and retrieval were complete. Multiple small-mouthed diverticula were found in the sigmoid colon. The exam was otherwise without abnormality on direct and retroflexion views. Impression: - Seven 3 to 6 mm polyps in the transverse colon and in the ascending colon, removed with a hot snare. Resected and retrieved. - Two less than 5 mm polyps in the transverse colon and in the ascending colon, removed with a cold biopsy forceps. Resected and retrieved. - Diverticulosis in the sigmoid colon. - The examination was otherwise normal on direct and retroflexion views. Recommendation: - Discharge patient to home. - High fiber diet. - Continue present medications. - Await pathology results. - Repeat colonoscopy is recommended for surveillance of multiple polyps. The colonoscopy date will be determined after pathology results from today's exam become available for review. Procedure Code(s): --- Professional --- 08467, PT, Colonoscopy, flexible; with removal of tumor(s), polyp(s), or other lesion(s) by snare technique 93941, 59, Colonoscopy, flexible; with biopsy, single or multiple Diagnosis Code(s): --- Professional --- D12.3, Benign neoplasm of transverse colon (hepatic flexure or splenic flexure) D12.2, Benign neoplasm of ascending colon R63.4, Abnormal weight loss K57.30, Diverticulosis of large intestine without perforation or abscess without bleeding CPT copyright 2017 [employer] [place] [employer]. All rights reserved. The codes documented in this report are preliminary and upon host/hostess head review may be revised to meet current compliance requirements. MD Ashanti Garza MD 03/19/2023 10:15:14 AM This report has been signed electronically. Number of Addenda: 0 Note Initiated On: 03/19/2023 9:08 AM
--- NOTE | 2023-03-19 10:16 | OP.CCLET_ITS ---
03/19/2023 Oumar Wilkerson [address] [place] [address] Re : Colonoscopy procedure for David Persaud Dear Dr. Wilkerson This procedure was performed on Sunday, March 19, 2023. My impressions and recommendations are as follows: Impressions : - Seven 3 to 6 mm polyps in the transverse colon and in the ascending colon, removed with a hot snare. Resected and retrieved. - Two less than 5 mm polyps in the transverse colon and in the ascending colon, removed with a cold biopsy forceps. Resected and retrieved. - Diverticulosis in the sigmoid colon. - The examination was otherwise normal on direct and retroflexion views. Recommendations : - Discharge patient to home. - High fiber diet. - Continue present medications. - Await pathology results. - Repeat colonoscopy is recommended for surveillance of multiple polyps. The colonoscopy date will be determined after pathology results from today's exam become available for review. My findings are described in the full procedure note, which is enclosed. If I can be of further assistance, please feel free to contact me at Doctor phone number(s): , Work: . Sincerely, MD Ashanti Garza MD 03/19/2023 10:15:14 AM This report has been signed electronically.
--- NOTE | 2023-03-19 11:10 | SUR.PHASEI ---
MAGNET WAS PLACED OVER PACEMAKER DURING ENDOSCOPY PROCEDURES. PACEMAKER INTERROGATED PER WRITTEN INSTRUCTIONS. CALL RECEIVED TO VERIFY PACEMAKER IS FUNCTIONING CORRECTLY.
== END 2023-03-19 11:20 | disposition home or self-care (01) ==
LOC: EN 06:42 → AC 06:43
PROVIDERS: PCP Family Medicine; Referring Provider Family Medicine; Visit Provider Surgery
PROC: 0DJD8ZZ Inspection of Lower Intestinal Tract, Via Natural or Artificial Opening Endoscopic (ICD-10-PCS; CPT 45378; principal; 2023-03-19 08:25)
DX: K20.90 Esophagitis, unspecified without bleeding (principal); I50.9 Heart failure, unspecified; I11.0 Hypertensive heart disease with heart failure; K57.30 Diverticulosis of large intestine without perforation or abscess without bleeding; K44.9 Diaphragmatic hernia without obstruction or gangrene; Z87.891 Personal history of nicotine dependence; D12.2 Benign neoplasm of ascending colon; D12.3 Benign neoplasm of transverse colon; Z79.01 Long term (current) use of anticoagulants; Z79.899 Other long term (current) drug therapy; Z79.02 Long term (current) use of antithrombotics/antiplatelets; E78.5 Hyperlipidemia, unspecified
CPT/HCPCS: 45385; 45380; 43239; 88305; 88313; J7120; J2405

== ENCOUNTER 2023-09-08 07:53 | Inpatient (IN) | payer MEDICARE, SELFPAY ==
[2023-09-08] VITALS (12 sets, daily range): BP systolic 92–111; BP diastolic 58–68; PULSE 72–83; RESP 17–28; TEMP 36.2–36.6; O2SAT 83–98; BMI 20.7; BMI 19.3
--- NOTE | 2023-09-08 08:10 | ED.VIS.DYS ---
HPI History of Present Illness Chief Complaint: Shortness of Breath Informant: patient and spouse/S.O. Narrative Narrative: Patient presents with dyspnea. There is a little variation of the story between the patient and his . The overall summary is here. The patient has been having more dyspnea than his baseline for the last weeks or months. He coughs and brings up clear liquid. He was placed on pantoprazole for this. He has not had fevers. He has not had chest pain. He has been getting more short of breath. He has gotten some swelling of his feet. But it is a little bit better now than it was a week or so ago. Patient is on Coumadin. His level was just cut down last week because evidently he was too high. It sounds like this might be due to atrial fibrillation or to diffuse peripheral vascular disease. They are not sure exactly why he takes Coumadin. Patient has not had been having fevers or chills. What prompted the visit this morning is that he seemed to be confused. He had gone to the bathroom a couple times. He thought there might be a baby in the room when he looked at a blanket. He realizes it was not there but he states it look like it at that time. I am wondering if he may have been transiently hypoxic. He is not on oxygen at home. He smokes marijuana but not cigarettes. He used to smoke cigarettes and used to smoke cigars. [facility] Medical History AAA (abdominal aortic aneurysm) without rupture Alcohol use Ambulates with cane Arthritis Atrial fibrillation Back pain CAD (coronary artery disease) Cardiac resynchronization therapy defibrillator ([employer]UMBER-D) in place Cardiology follow-up encounter Carotid stenosis, right CHF (congestive heart failure) Essential (primary) hypertension Former smoker Gout History of diverticulitis History of echocardiogram History of stress test Hyperlipidemia Injury of head and neck Loss of hearing Mitral regurgitation Primary cardiomyopathy Wears dentures Wears glasses Home Medications carvedilol 12.5 mg tablet 12.5 mg PO BID bp 07/02/15 [History Last Taken 09/07/19] losartan 25 mg tablet 25 mg PO DAILY bp 07/02/15 [History Last Taken 09/07/19] clopidogrel 75 mg tablet (Plavix) 75 mg PO QDAY blood thinner 03/27/18 [History Last Taken 07/02/22] spironolactone 25 mg tablet 12.5 mg PO DAILY water pill 03/29/18 [History Last Taken 09/07/19] allopurinol 300 mg tablet 300 mg PO DAILY PRN GOUT 05/29/22 [History Last Taken Unknown] amiodarone 200 mg tablet 200 mg PO DAILY HEART 05/29/22 [History Last Taken Unknown] furosemide 40 mg tablet 40 mg PO BID water pill 06/26/22 [History Last Taken 09/07/23 17:00] atorvastatin 10 mg tablet (Lipitor) 10 mg PO DAILY #30 tabs 06/28/22 [Rx Last Taken Unknown] pantoprazole 40 mg tablet,delayed release 40 mg PO DAILY #30 tabs 03/19/23 [Rx Last Taken Unknown] warfarin 2.5 mg tablet 2.5 mg PO DAILY 09/08/23 [History Last Taken 09/07/23 17:00] Allergy/AdvReac Type Severity Reaction Status Date / Time No Known Allergies Allergy Verified 09/08/23 08:04 Family History Father Hypertension Pacemaker Mother Myocardial infarction Daughter Thyroid disorder Other Essential (primary) hypertension Surgical History H/O carotid endarterectomy H/O heart artery stent H/O right inguinal hernia repair (~2003) History of cardiac catheterization History of carotid endarterectomy History of radiofrequency ablation procedure for cardiac arrhythmia Pacemaker S/P AAA repair S/P CABG (coronary artery bypass graft) S/P colonoscopy S/P internal cardiac defibrillator procedure S/P internal cardiac defibrillator procedure Social History Smoking Status: Former smoker how long ago did patient quit smokin years ago alcohol intake: current alcohol intake frequency: a few times a month substance use type: does not use caffeine: Yes Type: coffee Number of servings: 5 ROS ROS ED ROS Narrative A complete review of systems was performed and is negative except as documented in the history of present illness. Some specific details below. Constitutional: No recent fevers or chills. No malaise. His states that he has fallen intermittently over the last few months but denies hurting himself. He has not hit his head. EYE: No discharge, visual complaints, or pain. ENT: No difficulty swallowing. No swelling. No pain. He was placed on pantoprazole recently. CV: Denies chest pain or palpitations. He does have history of four-vessel bypass about 14 years ago and stents and ablation since. Respiratory: See history of present illness. GI: No abdominal pain. No nausea vomiting diarrhea. No blood in stool. : No frequency dysuria or hematuria. Musculoskeletal: No recent trauma. No pains. No swelling other than at both feet and ankles. It has not gone up higher.. Skin: No rash. Nondiaphoretic. Neuro: No weakness or numbness. Endocrine: No polyuria or polydipsia. EXAM Physical Exam Narrative Exam Narrative: CONSTITUTIONAL: Patient is nontoxic in appearance. The patient looks comfortable. Work of breathing looks normal. He carries on a normal conversation. HEENT: No notable trauma. Mucous membranes moist. No sinus tenderness. No indication of pain with swallowing. EYES: No conjunctival injection. No significant pallor. NECK:No JVD. No stridor. CARDIOVASCULAR: Regular rate and he appears to be paced on the monitor at about 70. Regular rhythm. No notable murmur. No JVD. He has palpable pacer/ICD in his left upper chest and signs of prior well-healed median sternotomy. RESPIRATORY: No respiratory distress. Breathing is unlabored. When I first had the patient take a deep breath he seemed to have a slight wheeze but that cleared. He did have a few crackles at the bases just a little bit more on the right than the left. No rhonchi. No coughing while I am in the room. Saturations were normal sitting in bed at about 94% on room air showing no hypoxia at this moment. GASTROINTESTINAL: Not distended. Bowel sounds are normal. No tenderness. No guarding. No rebound. No palpable mass. No bruit is heard. GENITOURINARY: No tenderness over the bladder. No CVA tenderness. MUSCULOSKELETAL: Atraumatic. He does have some slight edema just to the dorsal surface of his feet and at his ankles. But no edema above the ankles. NEUROLOGICAL: Patient is alert and appropriate. No focal deficit noted. He is not at all confused now. He is not hallucinating. SKIN: No noted rashes. No diaphoresis. PSYCHIATRIC: Patient is calm. Mood is appropriate. Const Vital Signs: 09/08/23 07:55 09/08/23 08:02 09/08/23 08:37 Temperature 97.2 F L Temperature Source Temporal Pulse Rate 73 Respiratory Rate 18 Respiratory Effort Short of Breath Blood Pressure 106/62 Blood Pressure Mean 76 Pulse Ox 94 91 Oxygen Delivery Method Room Air Room Air Room Air Oxygen Flow Rate (L/min) 09/08/23 08:37 09/08/23 08:58 09/08/23 08:58 Temperature Temperature Source Pulse Rate 75 Respiratory Rate 20 H Respiratory Effort Blood Pressure Blood Pressure Mean Pulse Ox 83 96 Oxygen Delivery Method Room Air Nasal Cannula Oxygen Flow Rate (L/min) 2 09/08/23 09:13 Temperature Temperature Source Pulse Rate 72 Respiratory Rate 28 H Respiratory Effort Blood Pressure 108/68 Blood Pressure Mean 81 Pulse Ox 96 Oxygen Delivery Method Nasal Cannula Oxygen Flow Rate (L/min) 2 MDM MDM MDM Narrative Medical decision making narrative: My independent interpretation of the patient's two-view PA and lateral chest x-ray shows his pacer, left-sided effusion, increased markings consistent with CHF and there may be a component of chronic interstitial disease. Final reading is pending at this time. Patient CBC shows minimal elevation of white count and minimally low hemoglobin with normal platelets. I do not think the small abnormalities are the cause of his symptoms. Patient's Rocio does show minimally low sodium. Creatinine is near his baseline but slightly high. Glucose is slightly up at 129. Patient's troponin is negative still at 75. Patient's BNP is quite high at 3128.8. This is his highest that I have on record. His INR is elevated at 3.6 but no acute bleeding. By his history it sounds like this was in the range of 6 last week when his Coumadin dose was not reduced. I have no indication that he has been subtherapeutic recently and I do not think he needs CT scan looking for pulmonary embolus. Patient was ambulated and desaturated to 83% even while he was wearing 2 L of oxygen with minimal exertion. Patient does not have oxygen at home. I think his intermittent hallucinations are likely due to severe hypoxia. With his significant history of coronary artery disease, slight valvular problems, pulmonary hypertension as I did review his prior echo in June 2022, peripheral vascular disease, Coumadin, he should come in the hospital. He has significantly desaturating with minimal exertion even on oxygen. He was given some Lasix here. Hospitalist was contacted. I also note that his COVID and influenza are negative. Lab Data Attestation: I reviewed the patient's lab results. Labs: Laboratory Results - last 24 hr 09/08/23 08:02 WBC 11.8 H RBC 4.01 L Hgb 12.0 L Hct 36.6 L MCV 91.3 MCH 29.9 MCHC 32.8 RDW Std Deviation 53.7 H RDW Coeff of Cytnhia 16.0 H Plt Count 330 MPV 11.1 Immature Gran % (Auto) 0.600 Neut % (Auto) 87.5 H Lymph % (Auto) 6.2 L [place] % (Auto) 5.2 Eos % (Auto) 0.2 Baso % (Auto) 0.3 Absolute Neuts (auto) 10.3 H Absolute Lymphs (auto) 0.73 L Nucleated RBC % 0 PT 36.1 H INR 3.6 Sodium 135 L Potassium 3.9 Chloride 101 Carbon Dioxide 27.0 Anion Gap 7 BUN 35 H Creatinine 2.00 H Estim Creat Clear Calc 30.89 Est GFR (MDRD) Af Amer 42 L Est GFR (MDRD) Non-Af 35 L BUN/Creatinine Ratio 17.5 Glucose 129 H Calcium 9.2 Troponin I High Sens 75 B-Natriuretic Peptide 3128.8 H EKG Initial EKG: Comments: My independent interpretation of the patient's EKG shows paced rhythm at 70. Nonspecific changes likely related to pace. No notable ST elevation. VA interval is normal on this AV dual paced rhythm. QRS duration and QTc are a bit long Discharge Plan Triage Chief Complaint: Shortness of Breath ED Provider: Jamel Weston Dx/Rx/DC Orders Clinical Impression: History of peripheral vascular disease, Acute CHF (congestive heart failure), Hypoxia, History of coronary artery disease, Warfarin-induced coagulopathy Prescriptions: No Action clopidogrel [Plavix] 75 mg tablet 75 mg PO QDAY amiodarone 200 mg tablet 200 mg PO DAILY allopurinol 300 mg tablet 300 mg PO DAILY PRN (Reason: GOUT) atorvastatin [Lipitor] 10 mg tablet 10 mg PO DAILY Qty: 30 6RF carvedilol 12.5 MG tablet 12.5 mg PO BID Patient Comments: Heart losartan 25 MG tablet 25 mg PO DAILY Patient Comments: Blood pressure spironolactone 25 MG tablet 12.5 mg PO DAILY furosemide 40 mg tablet 40 mg PO BID Patient Comments: water pill pantoprazole 40 mg tablet,delayed release (DR/EC) 40 mg PO DAILY Qty: 30 3RF warfarin 2.5 mg tablet 2.5 mg PO DAILY Primary Care Provider: Oumar Wilkerson Referrals: Oumar Wilkerson DO [Primary Care Provider] -
[2023-09-08] MEDS: Ipratropium/Albuterol Sulfate 3 ML AMPUL.NEB INHALATION (08:22)
[2023-09-08 08:25] LABS: Absolute Lymphocyte Count 0.73 X10^3/uL (0.83-4.51); Absolute Neutrophil Count 10.3 X10^3/uL (2.0-7.7); Basophil# 0.04 X10^3/uL; Basophil% 0.3 % (0-1); Eosinophil# 0.02 X10^3/uL; Eosinophils% 0.2 % (0-5); Hematocrit 36.6 % (40-54); Lymphocyte # 0.73 X10^3/ul (0.83-4.51); Lymphocyte % 6.2 % (19-41); Mean Corp Hgb Conc 32.8 g/dL (32-36); Mean Corpuscular Hgb 29.9 pg (27.0-32.0); Mean Corpuscular Volume 91.3 fL (80-94); Mean Platelet Vol. 11.1 fl (6.2-12.0); Monocyte# 0.61 X10^3/uL; Monocyte% 5.2 % (0-10); NRBC Flagged by Analyzer 0 % (0-5); Neutrophil # 10.34 X10^3/uL (2.7-7.7); Neutrophil % 87.5 % (47-70); Platelet Count 330 K/mm3 (150-450); RBC Distribution Width SD 53.7 fl (35.1-43.9); Red Blood Count 4.01 M/mm3 (4.6-6.2); White Blood Count 11.8 K/mm3 (4.4-11.0)
[2023-09-08 08:43] LABS: Anion Gap 7 (5-15); BUN 35 mg/dL (7-18); BUN/Creat Ratio 17.5 RATIO (10-20); Calcium,Total 9.2 mg/dL (8.5-10.1); Chloride 101 mmol/L (98-107); EST Glomerular Filtration Rate 35 mL/min (>60); Est Glom Filt Rate - Afr Amer 42 mL/min (>60); Estimated Creatinine Clearance 30.89 ml/min; Glucose 129 mg/dL (74-106); Potassium 3.9 mmol/L (3.5-5.1); Sodium Level 135 mmol/L (136-145); Troponin-I HS 75 pg/mL (3.0-78.0)
--- NOTE | 2023-09-08 08:50 | RAD_ITS ---
STUDY: X-RAY CHEST REASON FOR EXAM: Male, 73 years old. cough, SOB TECHNIQUE: PA and lateral views of the chest. COMPARISON: Chest x-ray dated May 11, 2022 FINDINGS: Moderate patchy consolidation is present in bilateral lower lobes and in the inferior aspects of the bilateral upper lobes consistent with multifocal pneumonia. Small bilateral pleural effusions are also present. Chronically hyperinflated lungs with cystic emphysematous changes and interstitial scarring. Normal heart size. Stable CABG clips. Stable left chest cardiac device. Upper abdominal aortic vascular stent partially visualized. Stable visualized osseous structures. There is no demonstrated abnormality of the visualized soft tissue structures of the upper abdomen. RAD/Chest PA and Lateral IMPRESSION: 1. Moderate multifocal bilateral pneumonia Electronically Signed: Arnold Quintanilla MD at 9:32 EST ,
[2023-09-08 08:51] LABS: International Normalized Ratio 3.6; Prothrombin Time (Protime)PT. 36.1 SECONDS (11.7-14.9)
[2023-09-08] MEDS: Furosemide 40 MG/4 ML Vial IV ×2 (09:12→16:44)
--- NOTE | 2023-09-08 09:22 | NURSING ---
DR NORIS REVELES
--- NOTE | 2023-09-08 09:27 | NURSING ---
PCU KITTOE CHF, HYPOXIA, HX CAD, AND PERIPHAL VASCULAR DISEASE
--- NOTE | 2023-09-08 09:36 | PCM.HP.STD ---
[facility] - General General Date of Admission: 09/08/23 Date of Service: 09/08/23 Chief Complaint: Shortness of breath HPI Narrative KAREN JIMENEZ, is a 73 M with past medical history seen for coronary artery disease with previous CABG, ischemic cardiomyopathy status post AICD placement chronic A-fib who presented with shortness of breath. Patient symptoms have been ongoing for the past couple of weeks. Shortness of breath is brought on with minimal activity. Patient also did notice increasing swelling involving both lower extremities. He also did experience subjective cough but denied any fever. Presented to the emergency department where patient was found to have significant hypoxia. Patient was found to have markedly elevated BNP as well as moderate multifocal bilateral patchy consolidation consistent with multifocal pneumonia. Admitted to monitored bed as a case of acute respiratory insufficiency secondary to combination of CHF and pneumonia [facility] Medical History AAA (abdominal aortic aneurysm) without rupture Alcohol use Ambulates with cane Arthritis Atrial fibrillation Back pain CAD (coronary artery disease) Cardiac resynchronization therapy defibrillator (TOP CAGER-D) in place Cardiology follow-up encounter Carotid stenosis, right CHF (congestive heart failure) Essential (primary) hypertension Former smoker Gout History of diverticulitis History of echocardiogram History of stress test Hyperlipidemia Injury of head and neck Loss of hearing Mitral regurgitation Primary cardiomyopathy Wears dentures Wears glasses Home Medications carvedilol 12.5 mg tablet 12.5 mg PO BID bp 07/02/15 [History Last Taken 09/07/19] losartan 25 mg tablet 25 mg PO DAILY bp 07/02/15 [History Last Taken 09/07/19] clopidogrel 75 mg tablet (Plavix) 75 mg PO QDAY blood thinner 03/27/18 [History Last Taken 07/02/22] spironolactone 25 mg tablet 12.5 mg PO DAILY water pill 03/29/18 [History Last Taken 09/07/19] allopurinol 300 mg tablet 300 mg PO DAILY PRN GOUT 05/29/22 [History Last Taken Unknown] amiodarone 200 mg tablet 200 mg PO DAILY HEART 05/29/22 [History Last Taken Unknown] furosemide 40 mg tablet 40 mg PO BID water pill 06/26/22 [History Last Taken 09/07/23 17:00] atorvastatin 10 mg tablet (Lipitor) 10 mg PO DAILY cholesterol #30 tabs 06/28/22 [Rx Last Taken Unknown] pantoprazole 40 mg tablet,delayed release 40 mg PO DAILY #30 tabs 03/19/23 [Rx Last Taken Unknown] warfarin 2.5 mg tablet 2.5 mg PO DAILY 09/08/23 [History Last Taken 09/07/23 17:00] Allergy/AdvReac Type Severity Reaction Status Date / Time No Known Allergies Allergy Verified 09/08/23 08:04 Family History Father Hypertension Pacemaker Mother Myocardial infarction Daughter Thyroid disorder Other Essential (primary) hypertension Surgical History H/O carotid endarterectomy H/O heart artery stent H/O right inguinal hernia repair (~2003) History of cardiac catheterization History of carotid endarterectomy History of radiofrequency ablation procedure for cardiac arrhythmia Pacemaker S/P AAA repair S/P CABG (coronary artery bypass graft) S/P colonoscopy S/P internal cardiac defibrillator procedure S/P internal cardiac defibrillator procedure Social History Smoking Status: Former smoker how long ago did patient quit smokin years ago alcohol intake: current alcohol intake frequency: a few times a month substance use type: does not use caffeine: Yes Type: coffee Number of servings: 5 ROS ROS Narrative GENERAL: anorexia HEENT: denies headache, sinus congestion, RESPIRATORY: cough, sputum production, shortness of breath, dyspnea on exertion CARDIAC: denies chest pain, palpitations, orthopnea, PND GASTROINTESTINAL: denies abdominal pain, nausea, GENITOURINARY: denies dysuria, urgency, frequency, EXTREMITY: denies swelling MUSCULOSKELETAL: denies current joint pain or tenderness NEUROLOGIC: denies focal numbness, weakness, tingling HEMATOLOGIC: denies easy bruising and/or hemorrhage INTEGUMENT: denies rashes PSYCHIATRIC: denies suicidal or homicidal ideation Vital Signs Vital Signs Vital Signs: 09/08/23 07:55 09/08/23 08:02 09/08/23 08:37 Temperature 97.2 F L Temperature Source Temporal Pulse Rate 73 Respiratory Rate 18 Respiratory Effort Short of Breath Blood Pressure 106/62 Blood Pressure Mean 76 Pulse Ox 94 91 Oxygen Delivery Method Room Air Room Air Room Air Oxygen Flow Rate (L/min) 09/08/23 08:37 09/08/23 08:58 09/08/23 08:58 Temperature Temperature Source Pulse Rate 75 Respiratory Rate 20 H Respiratory Effort Blood Pressure Blood Pressure Mean Pulse Ox 83 96 Oxygen Delivery Method Room Air Nasal Cannula Oxygen Flow Rate (L/min) 2 09/08/23 09:13 Temperature Temperature Source Pulse Rate 72 Respiratory Rate 28 H Respiratory Effort Blood Pressure 108/68 Blood Pressure Mean 81 Pulse Ox 96 Oxygen Delivery Method Nasal Cannula Oxygen Flow Rate (L/min) 2 Weight Weight: 67.4 kg Body Mass Index (BMI) 20.7 Physical Exam Narrative GENERAL: cooperative but frail looking HEENT: Atraumatic; normocephalic EYES; Anicteric, Normal Conjunctiva NECK; supple, normal thyroid, RESPIRATORY: Diminished to auscultation CARDIOVASCULAR: Regular S1 S2, GI: soft, normoactive bowel sounds, : No Renal angle tenderness; EXTREMITIES: 1+ bipedal edema, no clubbing, MUSCULOSKELETAL: no muscle wasting NEURO: Awake; no lateralizing signs. SKIN: No Rash PSYCH; Flat affect Results Lab / Micro Data 09/08/23 08:02 09/08/23 08:02 Labs: Laboratory Results - last 24 hr 09/08/23 08:02: WBC 11.8 H, RBC 4.01 L, Hgb 12.0 L, Hct 36.6 L, MCV 91.3, MCH 29.9, MCHC 32.8, RDW Std Deviation 53.7 H, RDW Coeff of Cynthia 16.0 H, Plt Count 330, MPV 11.1, Immature Gran % (Auto) 0.600, Neut % (Auto) 87.5 H, Lymph % (Auto) 6.2 L, [place] % (Auto) 5.2, Eos % (Auto) 0.2, Baso % (Auto) 0.3, Absolute Neuts (auto) 10.3 H, Absolute Lymphs (auto) 0.73 L, Nucleated RBC % 0, PT 36.1 H, INR 3.6, Sodium 135 L, Potassium 3.9, Chloride 101, Carbon Dioxide 27.0, Anion Gap 7, BUN 35 H, Creatinine 2.00 H, Estim Creat Clear Calc 30.89, Est GFR (MDRD) Af Amer 42 L, Est GFR (MDRD) Non-Af 35 L, BUN/Creatinine Ratio 17.5, Glucose 129 H, Calcium 9.2, Troponin I High Sens 75, B-Natriuretic Peptide 3128.8 H Micro: Microbiology 09/08/23 08:41 Nasal Secretion SARS-CoV-2 & FLU Antigen (Rapid) - Final Imagaing Radiology Impression Chest X-Ray 09/08/23 08:50 IMPRESSION: 1. Moderate multifocal bilateral pneumonia Electronically Signed: Arnold Quintanilla MD at 9:32 EST , Assessment & Plan Assessment/Plan (1) Acute CHF (congestive heart failure): PLAN: Plan Patient is a 73-year-old gentleman presented with progressive shortness of breath imaging studies demonstrated moderate multifocal bilateral pneumonia. Was also found to have elevated BNP greater than 3000 admitted to monitored bed for further management 1. Acute respiratory insufficiency ? Secondary to combination of acute congestive heart failure as well as suspected pneumonia. Admitted to monitored bed with treatment of underlying condition 2. Acute on chronic congestive heart failure with reduced ejection fraction ? Echo from 01/20/2022 demonstrated EF of 45%. Patient has been admitted to a monitored bed placed on strict input and output, daily weight, low-sodium diet, fluid restriction. Placed on furosemide and repeat echo ordered 3. Multifocal pneumonia ? Apart from patient dyspnea patient also had slightly elevated WBC count he was however Afebrile. Patient was started on ceftriaxone as well as azithromycin in addition to supplemental oxygen after cultures have been sent 4. Coronary artery disease W previous CABG and subsequent stent placement, Patient is on guideline directed medical therapy 5. Ischemic cardiomyopathy ? Status post AICD placement 6. Chronic kidney disease stage III ? Baseline creatinine 1.5-1.7 creatinine on admission was 2, daily monitoring with BMPs ordered since patient is on furosemide 7. Dyslipidemia -Patient is on statin therapy, continued at home dose 8. Hypertension - Blood pressure controlled, home medications continued with dose adjustment as needed 9. Chronic A. fib ? Rate controlled on amiodarone and beta-blockers. Patient is on systemic anticoagulation with Coumadin INR was slightly elevated Coumadin dose held for a day subsequent monitoring with daily INR as ordered 10. Conduction system disorder ? Status post pacemaker placement 11. DVT prophylaxis ? Patient is on systemic anticoagulation Time spent in the patient's overall evaluation,decision-making process, review of diagnostic data, adjustment of management, discussion with other providers, nursing nursing and ancillary staff involved in patient's care documentation, 75 Minutes Advance planning; did discuss with the patient and family regarding advanced directives as well as CODE STATUS. Did explain the various scenarios involved ( FULL CODE, DNR CCA, DNR CCA with no intubation, and DNR CC and what each meant) patient elected to remain full code with CPR and intubation if needed. Order was placed. Time spent on discussion 18 minutes. Charges/Coding Visit Charges Inpatient E&M: 80417 Init Hosp L3 Procedures Hospitalists Procedures: 97391 Advncd Care Plan 30 Min
--- NOTE | 2023-09-08 10:45 | CASEMGMT ---
DOMI LOVELL Face to Face with patient for initial transition planning/care coordination assessment. RN NAS introduced self and role at [facility]. Patient lying in bed, alert and oriented. Patient willing to participate in assessment and is able to answer all questions appropriately. Care providers, pharmacy, and demographics verified. Patient wishes to discharge home, denies need for home health at discharge. Patient states he has no further needs or concerns at this time. CM to follow for discharge planning needs that may arise. PCP: Rhea Specialists: Igor, vascular; Abrahan, party demonstrator Preferred Pharmacy: [facility] Insurance: [facility] Prescription Benefit: none Living Will/HPOA: none, interested in completing, SW made aware LNOK: Daughter, significant other Living Arrangements: Patient has been staying with signifcant other in her mobile home with 4 steps to enter. Patient states he is independent at home. Transportation: self, significant other DME/HHC: Patient has shower chair, cane, and walker at home. No previous HHC or SNF. Will monitor for home oxygen at discharge. Patient has no preferences for DME Disposition Plan: Patient to discharge home with family support and follow-up plans in place. Will monitor for home oxygen. Chrissie MARIN, RN, CM
--- NOTE | 2023-09-08 10:55 | ECHOD_ITS ---
Reason For Study: CHF Procedure This was a 2D Doppler, Color Flow transthoracic echocardiogram. The study was technically difficult. PT unable to lie down or be still D/T SOB. Exam performed sitting upright. Exam performed portable in patient room. Left Ventricle Severely dilated left ventricle. Severe global left ventricular systolic dysfunction. The left ventricular ejection fraction is 25 %. At least grade 2 diastolic dysfunction. Right Ventricle There is a pacemaker lead in the right ventricle. Atria The left atrium is severely enlarged. The right atrium is mildly enlarged. ICD or pacer leads identified within the right atrium. Mitral Valve Moderately severe (3+) mitral valve insufficiency. Tricuspid Valve Moderate (2+) tricuspid valve insufficiency. Right ventricular systolic pressure estimated to be 60 mmHg. Aortic Valve Aortic sclerosis, no stenosis. Moderate (2+) aortic valve insufficiency. Pulmonic Valve The pulmonic valve is not well visualized. Great Vessels Normal sized aortic root. Pericardium/Pleural No pericardial effusion. Moderate size left pleural effusion. MMode/2D Measurements & Calculations LVIDd: 7.1 cm IVSd: 0.87 cm Ao root diam: 3.5 cm LVIDs: 6.4 cm LVPWd: 0.97 cm RVDd: 3.0 cm FS: 10.7 % LAV(MOD-bp): 338.3 ml LVAd ap4: 50.9 cm2 LVAd ap2: 53.2 cm2 LAV(MOD-bp) Indexed: 187.2 ml/m2 LVLd ap4: 9.3 cm LVLd ap2: 9.5 cm LAV(MOD-sp2): 396.1 ml EDV(MOD-sp4): 237.7 ml EDV(MOD-sp2): 243.4 ml LAV(MOD-sp4): 291.4 ml EDV(sp4-el): 236.4 ml EDV(sp2-el): 252.7 ml LVAs ap4: 42.1 cm2 LVAs ap2: 43.9 cm2 LVLs ap4: 8.8 cm LVLs ap2: 9.6 cm ESV(MOD-sp4): 170.9 ml ESV(MOD-sp2): 170.8 ml ESV(sp4-el): 171.3 ml ESV(sp2-el): 170.7 ml EF(MOD-sp4): 28.1 % EF(MOD-sp2): 29.8 % EF(sp4-el): 27.5 % SV(MOD-sp4): 66.8 ml SV(MOD-sp2): 72.6 ml SV(sp4-el): 65.1 ml LA dimension(2D): 7.9 cm LA A4 area: 57.1 cm2 RA A4 area: 19.8 cm2 TAPSE: 2.3 cm Doppler Measurements & Calculations Lat Peak E' Roscoe: 6.9 cm/sec Med Peak E' Roscoe: 7.1 cm/sec MV V2 max: 155.6 cm/sec MV max P.7 mmHg MV V2 mean: 86.9 cm/sec MV mean P.4 mmHg MV V2 VTI: 31.1 cm MV P1/2t max roscoe: 154.3 cm/sec Ao V2 max: 138.1 cm/sec AI max roscoe: 339.2 cm/sec MV P1/2t: 46.7 msec Ao max P.6 mmHg AI max P.0 mmHg MV dec slope: 968.1 cm/sec2 Ao V2 mean: 87.0 cm/sec AI dec slope: 259.1 cm/sec2 Ao mean P.5 mmHg AI P1/2t: 383.5 msec MVA(P1/2t): 4.7 cm2 Ao V2 VTI: 21.7 cm AV (velocity ratio): 0.65 LV V1 max: 80.9 cm/sec MR max roscoe: 446.4 cm/sec PA V2 max: 49.4 cm/sec LV V1 max P.6 mmHg MR max P.7 mmHg LV V1 mean P.1 mmHg MR mean roscoe: 328.1 cm/sec LV V1 mean: 48.2 cm/sec MR mean P.3 mmHg LV V1 VTI: 14.1 cm MR VTI: 115.1 cm PI end-d roscoe: 192.8 cm/sec TR max roscoe: 334.4 cm/sec TR max P.7 mmHg ECHO/Echo Complete Interpretation Summary Severely dilated left ventricle. Severe global left ventricular systolic dysfunction. The left ventricular ejection fraction is 25 %. At least grade 2 diastolic dysfunction. The left atrium is severely enlarged. The right atrium is mildly enlarged. Moderately severe (3+) mitral valve insufficiency. Moderate (2+) tricuspid valve insufficiency. Right ventricular systolic pressure estimated to be 60 mmHg. Moderate (2+) aortic valve insufficiency. Moderate size left pleural effusion. Ordering Physician: Tamir Ramirez Referring Physician: Oumar Wilkerson Performed By: Paulette Cortez, BRITNEY, RVT
--- NOTE | 2023-09-08 11:06 | US_ITS ---
STUDY: RENAL ULTRASOUND - COMPLETE REASON FOR EXAM: Male, 73 years old. Elevated BUN and creatinine TECHNIQUE: Ultrasound evaluation of the kidneys was performed with real-time and static rossi-scale imaging. COMPARISON: None. FINDINGS: RIGHT KIDNEY: Normal location of the right kidney, which is normal in size. The right kidney measures 10.0 x 6.0 x 4.3 cm. There is a normal cortex of the right kidney. The renal cortex measures 1.0 cm. There is no right renal mass or cyst. There are no right renal calculi. There is no right hydronephrosis. DISTAL RIGHT URETER: There is non-visualization of the distal right ureter. There is no demonstrated right ureterovesical junction calculus. There is a visualized right ureteral jet. LEFT KIDNEY: Normal location of the left kidney, which is atrophic. The left kidney measures 8.0 x 3.8 x 3.4 cm. There is diffuse thinning of the renal cortex. The renal cortex measures 0.9 cm. There is no left renal mass or cyst. There are no left renal calculi. There is no left hydronephrosis. DISTAL LEFT URETER: There is non-visualization of the distal left ureter. There is no demonstrated left ureterovesical junction calculus. There is a visualized left ureteral jet. AORTA: There is no elongation or tortuosity of the abdominal aorta. I.V.C.: The IVC is patent. BLADDER: The bladder is incompletely distended. There is a small amount of fluid around the inferior right lobe of liver and the kidney US/Kidney and Bladder IMPRESSION: No obstructive uropathy or suspicious solid renal lesion Left kidney is slightly atrophic with cortical thinning compared to the right suggesting perhaps long-standing vascular insufficiency or reflux Small amount of free fluid around the inferior right lobe of liver and right kidney Electronically Signed: Dar Kruger MD at 15:15 EST ,
[2023-09-08 12:11] LABS: Lactic Acid 2.2 mmol/L (0.4-1.9)
--- NOTE | 2023-09-08 12:35 | CASEMGMT ---
Social Work As per CM, pt interested in completing LW/POA. SW met w/pt in room, he declined to complete the forms at this time and just wanted the information. SW left information for pt in room(as pt in restroom) with number for pt to call to set up an appt to complete the forms. BRADY Weinstein
[2023-09-08] MEDS: Ceftriaxone 2 GM in 0.9% Normal Saline (50mL MB+) 50 ML IV (14:13)
[2023-09-08] MEDS: guaiFENesin 1,200 MG Tablet 1200 MG PO ×2 (14:14→21:32)
[2023-09-08] MEDS: Carvedilol 12.5 MG Tablet PO (14:14)
[2023-09-08] MEDS: Amiodarone 200 MG Tablet PO (14:14)
[2023-09-08] MEDS: Clopidogrel Bisulfate 75 MG Tablet PO (14:14)
[2023-09-08] MEDS: Pantoprazole Sodium 40 MG Tablet PO (14:14)
[2023-09-08] MEDS: Spironolactone 25 MG Tablet 12.5 MG PO (14:15)
[2023-09-08] MEDS: Menthol/Lanolin/Calamine/Znox 113 GM Tube 1 APPLIC TOPICAL ×3 (14:17→21:29)
[2023-09-08] MEDS: Losartan Potassium 25 MG Tablet PO (14:18)
[2023-09-08] MEDS: proCHLORPERazine 10 MG/2 ML Vial 5 MG IV (14:31)
[2023-09-08] MEDS: 0.9% Saline Lock 10 ML Syringe IV ×2 (14:31→16:43)
[2023-09-08] MEDS: Azithromycin 500 MG in Dextrose 5%-Water (250mL Bag) 250 ML 250 MG IV (15:06)
[2023-09-08 15:39] LABS: Reflex Lactate? Y
[2023-09-08 16:41] LABS: Lactic Acid 2.9 mmol/L (0.4-1.9)
[2023-09-08] MEDS: Senna/Docusate Sodium 1 Tablet 2 TABLET PO (16:43)
--- NOTE | 2023-09-08 17:10 | NURSING ---
erin Peres called updated
[2023-09-08] MEDS: MELATONIN 3 MG TABLET PO (21:29)
[2023-09-08] MEDS: Atorvastatin Calcium 10 MG Tablet PO (21:29)
[2023-09-09] VITALS (7 sets, daily range): BP systolic 92–106; BP diastolic 51–63; PULSE 68–72; RESP 15–18; TEMP 36.3–36.6; O2SAT 93–97; BMI 18.8
--- NOTE | 2023-09-09 04:11 | RAD_ITS ---
HISTORY: blood tinged sputum. TECHNIQUE: XR Chest 1 View. COMPARISON: Prior day. FINDINGS: LINES/TUBES: Cardiac pacemaker again seen. CARDIOMEDIASTINAL BORDERS: Unchanged cardiomegaly with midline sternotomy. Aortic stent graft noted in the abdomen. LUNGS: Mild interval change in pattern of patchy alveolar and interstitial opacities. PLEURA: Decreased mild left pleural effusion. RAD/Chest 1 View (Portable) IMPRESSION: Decreased mild left pleural effusion with mild interval change in pattern of bilateral pneumonia. Electronically Signed: Janette Atkins MD at 10:25 EST ,
[2023-09-09 05:34] LABS: Absolute Lymphocyte Count 0.82 X10^3/uL (0.83-4.51); Absolute Neutrophil Count 8.8 X10^3/uL (2.0-7.7); Basophil# 0.03 X10^3/uL; Basophil% 0.3 % (0-1); Eosinophil# 0.03 X10^3/uL; Eosinophils% 0.3 % (0-5); Hematocrit 35.5 % (40-54); Hemoglobin 11.2 g/dL (13.0-16.5); Lymphocyte # 0.82 X10^3/ul (0.83-4.51); Lymphocyte % 7.8 % (19-41); Mean Corp Hgb Conc 31.5 g/dL (32-36); Mean Corpuscular Hgb 29.2 pg (27.0-32.0); Mean Corpuscular Volume 92.4 fL (80-94); Mean Platelet Vol. 10.8 fl (6.2-12.0); Monocyte# 0.72 X10^3/uL; Monocyte% 6.9 % (0-10); NRBC Flagged by Analyzer 0 % (0-5); Neutrophil # 8.82 X10^3/uL (2.7-7.7); Neutrophil % 84.2 % (47-70); Platelet Count 277 K/mm3 (150-450); RBC Distribution Width CV 16.2 % (11.6-14.6); RBC Distribution Width SD 54.4 fl (35.1-43.9); Red Blood Count 3.84 M/mm3 (4.6-6.2); White Blood Count 10.5 K/mm3 (4.4-11.0)
[2023-09-09 05:52] LABS: Prothrombin Time (Protime)PT. 43.4 SECONDS (11.7-14.9)
[2023-09-09 05:56] LABS: International Normalized Ratio 4.5
[2023-09-09 06:05] LABS: Anion Gap 10 (5-15); BUN 35 mg/dL (7-18); BUN/Creat Ratio 17.3 RATIO (10-20); Calcium,Total 8.2 mg/dL (8.5-10.1); Chloride 102 mmol/L (98-107); Creatinine, Serum 2.02 mg/dL (0.70-1.30); EST Glomerular Filtration Rate 35 mL/min (>60); Est Glom Filt Rate - Afr Amer 42 mL/min (>60); Estimated Creatinine Clearance 28.63 ml/min; Glucose 108 mg/dL (74-106); Magnesium 2.2 mg/dL (1.6-2.6); Phosphorus 3.9 mg/dL (2.5-4.9); Potassium 3.5 mmol/L (3.5-5.1); Sodium Level 137 mmol/L (136-145)
--- NOTE | 2023-09-09 07:21 | PCM.PN.HOSP ---
Reason for Visit Reason for Visit: Diagnoses Heart failure, unspecified (09/08/23) Subjective Subjective Patient is a 73-year-old gentleman admitted with progressive shortness of breath admitted to monitored bed where patient is currently undergoing evaluation and management. Objective Data Objective Data Vital Signs: Vital Signs Temp Pulse Resp BP Pulse Ox O2 Del Method O2 Flow Rate 97.9 F 72 18 92/60 96 Nasal Cannula 2 09/09/23 04:00 09/09/23 04:00 09/09/23 04:00 09/09/23 04:00 09/09/23 04:00 09/09/23 04:00 09/09/23 04:00 FiO2 96 09/08/23 10:24 Oxygen Flow Rate (L/min) 2 Oxygen Delivery Method Nasal Cannula Weight: 61.5 kg Body Mass Index (BMI) 18.8 Intake & Output: Intake and Output for Last 24 Hours 09/07/23 09/08/23 09/09/23 23:59 23:59 23:59 Intake Total 945 / 1425 960 / 960 Balance 945 / 1425 960 / 960 Lab / Micro Data 09/09/23 04:48 09/09/23 04:48 Labs: Laboratory Results - last 24 hr 09/08/23 08:02: WBC 11.8 H, RBC 4.01 L, Hgb 12.0 L, Hct 36.6 L, MCV 91.3, MCH 29.9, MCHC 32.8, RDW Std Deviation 53.7 H, RDW Coeff of Cynthia 16.0 H, Plt Count 330, MPV 11.1, Immature Gran % (Auto) 0.600, Neut % (Auto) 87.5 H, Lymph % (Auto) 6.2 L, Rhea % (Auto) 5.2, Eos % (Auto) 0.2, Baso % (Auto) 0.3, Absolute Neuts (auto) 10.3 H, Absolute Lymphs (auto) 0.73 L, Nucleated RBC % 0, PT 36.1 H, INR 3.6, Sodium 135 L, Potassium 3.9, Chloride 101, Carbon Dioxide 27.0, Anion Gap 7, BUN 35 H, Creatinine 2.00 H, Estim Creat Clear Calc 30.89, Est GFR (MDRD) Af Amer 42 L, Est GFR (MDRD) Non-Af 35 L, BUN/Creatinine Ratio 17.5, Glucose 129 H, Calcium 9.2, Troponin I High Sens 75, B-Natriuretic Peptide 3128.8 H 09/08/23 11:33: Lactic Acid 2.2 H* 09/08/23 15:54: Lactic Acid 2.9 H* 09/09/23 04:48: WBC 10.5, RBC 3.84 L, Hgb 11.2 L, Hct 35.5 L, MCV 92.4, MCH 29.2, MCHC 31.5 L, RDW Std Deviation 54.4 H, RDW Coeff of Cynthia 16.2 H, Plt Count 277, MPV 10.8, Immature Gran % (Auto) 0.500, Neut % (Auto) 84.2 H, Lymph % (Auto) 7.8 L, Rhea % (Auto) 6.9, Eos % (Auto) 0.3, Baso % (Auto) 0.3, Absolute Neuts (auto) 8.8 H, Absolute Lymphs (auto) 0.82 L, Nucleated RBC % 0, PT 43.4 H, INR 4.5 H*, Sodium 137, Potassium 3.5, Chloride 102, Carbon Dioxide 25.0, Anion Gap 10, BUN 35 H, Creatinine 2.02 H, Estim Creat Clear Calc 28.63, Est GFR (MDRD) Af Amer 42 L, Est GFR (MDRD) Non-Af 35 L, BUN/Creatinine Ratio 17.3, Glucose 108 H, Calcium 8.2 L, Phosphorus 3.9, Magnesium 2.2, B-Natriuretic Peptide 2558.5 H Micro: Microbiology 09/08/23 15:15 Mucosa - Nose Respiratory Panel (PCR) - Final 09/08/23 19:30 Urine, Clean Catch Legionella Antigen - Final 09/08/23 19:30 Urine, Clean Catch Streptococcus pneumoniae Antigen (M - Final 09/08/23 08:41 Nasal Secretion SARS-CoV-2 & FLU Antigen (Rapid) - Final Radiography Diagnostic Testing: Radiology Impression Chest X-Ray 09/08/23 08:50 IMPRESSION: 1. Moderate multifocal bilateral pneumonia Electronically Signed: Arnold Quintanilla MD at 9:32 EST Reading Location ID and State: [facility] / [place] , Service support , Renal Ultrasound 09/08/23 11:06 IMPRESSION: No obstructive uropathy or suspicious solid renal lesion Left kidney is slightly atrophic with cortical thinning compared to the right suggesting perhaps long-standing vascular insufficiency or reflux Small amount of free fluid around the inferior right lobe of liver and right kidney Electronically Signed: Dar Kruger MD at 15:15 EST Reading Location ID and State: [facility] / [place] , Service support , Physical Exam Narrative GENERAL: cooperative but frail looking HEENT: Atraumatic; normocephalic EYES; Anicteric, Normal Conjunctiva NECK; supple, normal thyroid, RESPIRATORY: Diminished to auscultation CARDIOVASCULAR: Regular S1 S2, GI: soft, normoactive bowel sounds, : No Renal angle tenderness; EXTREMITIES: 1+ bipedal edema, no clubbing, MUSCULOSKELETAL: no muscle wasting NEURO: Awake; no lateralizing signs. SKIN: No Rash PSYCH; Flat affect Assessment & Plan Assessment/Plan (1) Acute CHF (congestive heart failure): PLAN: Plan Patient is a 73-year-old gentleman presented with progressive shortness of breath imaging studies demonstrated moderate multifocal bilateral pneumonia. Was also found to have elevated BNP greater than 3000 admitted to monitored bed for further management 1. Acute respiratory insufficiency ? Secondary to combination of acute congestive heart failure as well as suspected pneumonia. Admitted to monitored bed with treatment of underlying condition ? 09/09/2023 patient remains on supplemental oxygen 2. Acute on chronic congestive heart failure with reduced ejection fraction ? Echo from 01/20/2022 demonstrated EF of 45%. Patient has been admitted to a monitored bed placed on strict input and output, daily weight, low-sodium diet, fluid restriction. Placed on furosemide and repeat echo ordered ? 09/09/2023; I's and O's not accurately charted, patient's weight down from admission weight of 67.4 kg to 61.5. Switched IV Lasix to p.o. Lasix 3. Multifocal pneumonia ? Apart from patient dyspnea patient also had slightly elevated WBC count he was however Afebrile. Patient was started on ceftriaxone as well as azithromycin in addition to supplemental oxygen after cultures have been sent 4. Coronary artery disease W previous CABG and subsequent stent placement, Patient is on guideline directed medical therapy 5. Ischemic cardiomyopathy ? Status post AICD placement 6. Chronic kidney disease stage III ? Baseline creatinine 1.5-1.7 creatinine on admission was 2, daily monitoring with BMPs ordered since patient is on furosemide ? 09/09/2023; no significant change in kidney function following admission. Consult placed to nephrology 7. Dyslipidemia -Patient is on statin therapy, continued at home dose 8. Hypertension - Blood pressure controlled, home medications continued with dose adjustment as needed 9. Chronic A. fib ? Rate controlled on amiodarone and beta-blockers. Patient is on systemic anticoagulation with Coumadin INR was slightly elevated Coumadin dose held for a day subsequent monitoring with daily INR as ordered ? 09/09/2023 INR up to 4.5 patient Coumadin currently being held repeat INR ordered for a.m. 10. Conduction system disorder ? Status post pacemaker placement 11. DVT prophylaxis ? Patient is on systemic anticoagulation Time spent in the patient's overall evaluation,decision-making process, review of diagnostic data, adjustment of management, discussion with other providers, nursing nursing and ancillary staff involved in patient's care documentation, 50 minutes Charges/Coding Visit Charges Inpatient E&M: [id number] [facility] L3
--- NOTE | 2023-09-09 08:37 | PCM.CONS.R ---
Assessment & Plan Assessment/Plan (1) KENJI (acute kidney injury): (2) Chronic kidney disease, stage 3b: (3) HTN (hypertension): PLAN: Plan Impression/Plan: 73-year-old man with past history of hypertension, CAD status post CABG, ischemic cardiomyopathy with HFrEF status post AICD placement, atrial fibrillation, PAD, GERD, and hyperlipidemia. The patient presented to hospital on 09/08/2023 with dyspnea. He was admitted for treatment of acute hypoxic respiratory failure due to decompensated HFrEF and pneumonia. Nephrology is following for KENJI on CKD. Acute kidney injury on chronic kidney disease stage G3b. Baseline serum creatinine has been around 1.6 to 1.8 mg/dL since May 2022. I suspect patient has nephrosclerosis and/or ischemic nephropathy since he has past history of PAD and tobacco use. Renal ultrasound from 09/08/2023 showed atrophic left kidney measuring 8.0 cm. Right kidney measures 10.0 cm. There are no hydronephrosis on either kidney. Current rise in serum creatinine up to 2.02 mg/dL on 09/09/2023 may be secondary to cardiorenal KENJI. However, current serum creatinine may represent progression of CKD as well. I will check urinalysis and urine indices. I will check urine albumin to creatinine ratio. Okay to continue current medication including losartan and spironolactone. Agree with continuing losartan and spironolactone. We will monitor renal function. After discharge, the patient will benefit from following up with us for CKD care our office in [place]. Hypertension. BP is controlled. He is on losartan and spironolactone for HFrEF already. These medication should also help to attenuate proteinuria and protect the kidney as well. As long as there is no hyperkalemia or unexpected drop of GFR, ARB and MRA should be continued. Nephrology plan will be discussed with Dr. Ramirez. HPI Consult Data Date of Consult: 09/11/23 HPI Narrative Reason for Consultation: Chronic kidney disease HPI Narrative: KAREN JIMENEZ is a 73-year-old man with past history of hypertension, CAD status post CABG, ischemic cardiomyopathy with HFrEF status post AICD placement, atrial fibrillation, PAD, GERD, and hyperlipidemia. The patient presented to hospital on 09/08/2023 with dyspnea. He was admitted for treatment of acute hypoxic respiratory failure due to decompensated HFrEF and pneumonia. Nephrology is asked see the patient because of KENJI and CKD. Patient presented with serum creatinine of 2.00 mg/dL on 09/08/2023. Serum creatinine prior to this admission had been around 1.6-1.8 mg/dL as far back as 2021. The patient is unaware of any prior history of CKD. He has never seen nephrology before. The patient denies current chest pain. His dyspnea and ankle edema has improved since admission. There is no current edema. The patient has occasional nausea without vomiting. He denies diarrhea. He denies LUTS. FORMERLY [facility], [facility] Medical History AAA (abdominal aortic aneurysm) without rupture Alcohol use Ambulates with cane Arthritis Atrial fibrillation Back pain CAD (coronary artery disease) Cardiac resynchronization therapy defibrillator (BATTERY INSTALLER-D) in place Cardiology follow-up encounter Carotid stenosis, right CHF (congestive heart failure) Essential (primary) hypertension Former smoker Gout History of diverticulitis History of echocardiogram History of stress test Hyperlipidemia Injury of head and neck Loss of hearing Mitral regurgitation Primary cardiomyopathy Wears dentures Wears glasses Home Medications carvedilol 12.5 mg tablet 12.5 mg PO BID bp 07/02/15 [History Last Taken 09/07/19] losartan 25 mg tablet 25 mg PO DAILY bp 07/02/15 [History Last Taken 09/07/19] clopidogrel 75 mg tablet (Plavix) 75 mg PO QDAY blood thinner 03/27/18 [History Last Taken 07/02/22] spironolactone 25 mg tablet 12.5 mg PO DAILY water pill 03/29/18 [History Last Taken 09/07/19] allopurinol 300 mg tablet 300 mg PO DAILY PRN GOUT 05/29/22 [History Last Taken Unknown] amiodarone 200 mg tablet 200 mg PO DAILY HEART 05/29/22 [History Last Taken Unknown] furosemide 40 mg tablet 40 mg PO BID water pill 06/26/22 [History Last Taken 09/07/23 17:00] atorvastatin 10 mg tablet (Lipitor) 10 mg PO DAILY cholesterol #30 tabs 06/28/22 [Rx Last Taken Unknown] pantoprazole 40 mg tablet,delayed release 40 mg PO DAILY #30 tabs 03/19/23 [Rx Last Taken Unknown] warfarin 2.5 mg tablet 2.5 mg PO DAILY 09/08/23 [History Last Taken 09/07/23 17:00] Allergy/AdvReac Type Severity Reaction Status Date / Time No Known Allergies Allergy Verified 09/08/23 08:04 Family History Father Hypertension Pacemaker Mother Myocardial infarction Daughter Thyroid disorder Other Essential (primary) hypertension Surgical History H/O carotid endarterectomy H/O heart artery stent H/O right inguinal hernia repair (~2003) History of cardiac catheterization History of carotid endarterectomy History of radiofrequency ablation procedure for cardiac arrhythmia Pacemaker S/P AAA repair S/P CABG (coronary artery bypass graft) S/P colonoscopy S/P internal cardiac defibrillator procedure S/P internal cardiac defibrillator procedure Social History Smoking Status: Former smoker how long ago did patient quit smokin years ago alcohol intake: current alcohol intake frequency: a few times a month substance use type: does not use caffeine: Yes Type: coffee Number of servings: 5 ROS ROS Narrative ROS is as per HPI otherwise noncontributory. Physical Exam Narrative General: Alert and oriented x3, NAD. HEENT: Normocephalic, atraumatic. Mucous membrane moist without erythema. PERRLA, EOMI. Hearing is intact. Neck: Supple, no JVD. Trachea is midline. No thyromegaly or lymphadenopathy. Cardiovascular: Normal S1, S2. No rubs, murmurs, or gallops. Respiratory: There is crackle of right lower lobe on auscultation. Decreased breath sound at left lower lobe. There is mild expiratory wheeze. Abdomen: Normal bowel sounds, soft, nontender, no guarding or rebound, no organomegaly. Extremities: No clubbing, cyanosis, or edema. Musculoskeletal: Full passive range of motion, no joint swelling. Psychiatric: Normal mood and affect. Skin: Warm and dry, no rash. Neurologic: Cranial nerve II to XII are grossly intact. No focal neurologic deficits. Lab / Micro Data 09/10/23 04:48 09/10/23 04:48 Labs: Laboratory Results - last 24 hr 09/08/23 08:02: PT 36.1 H, INR 3.6, Sodium 135 L, Potassium 3.9, Chloride 101, Carbon Dioxide 27.0, Anion Gap 7, BUN 35 H, Creatinine 2.00 H, Estim Creat Clear Calc 30.89, Est GFR (MDRD) Af Amer 42 L, Est GFR (MDRD) Non-Af 35 L, BUN/Creatinine Ratio 17.5, Glucose 129 H, Calcium 9.2, Troponin I High Sens 75, B-Natriuretic Peptide 3128.8 H 09/08/23 11:33: Lactic Acid 2.2 H* 09/08/23 15:54: Lactic Acid 2.9 H* 09/09/23 04:48: WBC 10.5, RBC 3.84 L, Hgb 11.2 L, Hct 35.5 L, MCV 92.4, MCH 29.2, MCHC 31.5 L, RDW Std Deviation 54.4 H, RDW Coeff of Cynthia 16.2 H, Plt Count 277, MPV 10.8, Immature Gran % (Auto) 0.500, Neut % (Auto) 84.2 H, Lymph % (Auto) 7.8 L, [place] % (Auto) 6.9, Eos % (Auto) 0.3, Baso % (Auto) 0.3, Absolute Neuts (auto) 8.8 H, Absolute Lymphs (auto) 0.82 L, Nucleated RBC % 0, PT 43.4 H, INR 4.5 H*, Sodium 137, Potassium 3.5, Chloride 102, Carbon Dioxide 25.0, Anion Gap 10, BUN 35 H, Creatinine 2.02 H, Estim Creat Clear Calc 28.63, Est GFR (MDRD) Af Amer 42 L, Est GFR (MDRD) Non-Af 35 L, BUN/Creatinine Ratio 17.3, Glucose 108 H, Calcium 8.2 L, Phosphorus 3.9, Magnesium 2.2, B-Natriuretic Peptide 2558.5 H Micro: Microbiology 09/09/23 03:45 Sputum, Expectorated/Coughed Gram Stain - Final 09/09/23 03:45 Sputum, Expectorated/Coughed Respiratory Culture - Final 09/08/23 15:15 Mucosa - Nose Respiratory Panel (PCR) - Final 09/08/23 19:30 Urine, Clean Catch Legionella Antigen - Final 09/08/23 19:30 Urine, Clean Catch Streptococcus pneumoniae Antigen (M - Final 09/08/23 08:41 Nasal Secretion SARS-CoV-2 & FLU Antigen (Rapid) - Final Imagaing Radiology Impression Chest X-Ray 09/08/23 08:50 IMPRESSION: 1. Moderate multifocal bilateral pneumonia Electronically Signed: Arnold Quintanilla MD at 9:32 EST , Renal Ultrasound 09/08/23 11:06 IMPRESSION: No obstructive uropathy or suspicious solid renal lesion Left kidney is slightly atrophic with cortical thinning compared to the right suggesting perhaps long-standing vascular insufficiency or reflux Small amount of free fluid around the inferior right lobe of liver and right kidney Electronically Signed: Dar Kruger MD at 15:15 EST ,
[2023-09-09] MEDS: Azithromycin 500 MG in Dextrose 5%-Water (250mL Bag) 250 ML 250 MG IV (09:28)
[2023-09-09] MEDS: Amiodarone 200 MG Tablet PO (09:32)
[2023-09-09] MEDS: Carvedilol 12.5 MG Tablet PO ×2 (09:32→21:15)
[2023-09-09] MEDS: Menthol/Lanolin/Calamine/Znox 113 GM Tube 1 APPLIC TOPICAL ×4 (09:32→21:19)
[2023-09-09] MEDS: Pantoprazole Sodium 40 MG Tablet PO (09:32)
[2023-09-09] MEDS: Furosemide 40 MG Tablet PO ×2 (09:32→17:18)
[2023-09-09] MEDS: guaiFENesin 1,200 MG Tablet 1200 MG PO ×2 (09:32→21:15)
[2023-09-09] MEDS: Spironolactone 25 MG Tablet 12.5 MG PO (09:33)
[2023-09-09] MEDS: Losartan Potassium 25 MG Tablet PO (09:33)
[2023-09-09 10:16] LABS: Bacteria 0 SEEN /hpf (None Seen); Mucous, Urine 0 SEEN /hpf (<or=2+); Red Blood Cells-Urine 0 SEEN /hpf (0-5); Squamous Epithelial Cells - UA 0 SEEN /hpf (0-5); White Blood Cells 0 SEEN /hpf (0-5)
[2023-09-09 10:25] LABS: Color, Urine Yellow (Yellow); Glucose, Dipstick Normal (Normal); Ketone-Dipstick Negative (Negative); Leukocyte Esterase-Dipstick Negative /ul (Negative); Nitrite-Dipstick Negative (Negative); Occult Blood-Urine Negative /ul (Negative); Protein-Dipstick Negative (Negative); Specific Gravity, Urine 1.015 (1.002-1.030); Urine Bilirubin Dipstick Negative (Negative); Urine Clarity Clear (Clear); Urine Urobilinogen Normal (Normal)
[2023-09-09 10:31] LABS: Protein, Urine (Random) 13.3 mg/dL (<11.9); Protein:Creat Ratio 195 mg/g CRE (0-200)
[2023-09-09 10:45] LABS: Urea Nitrogen, Urine 393 mg/dL (NO RANGE EST.)
[2023-09-09] MEDS: Ceftriaxone 2 GM in 0.9% Normal Saline (50mL MB+) 50 ML IV (11:03)
[2023-09-09] MEDS: proCHLORPERazine 10 MG/2 ML Vial 5 MG IV ×2 (11:08→21:47)
[2023-09-09] MEDS: 0.9% Saline Lock 10 ML Syringe IV ×3 (11:08→21:47)
[2023-09-09] MEDS: Albuterol 2.5 MG/3 ML VIAL.NEB. INHALATION (17:59)
[2023-09-09] MEDS: Atorvastatin Calcium 10 MG Tablet PO (21:15)
[2023-09-09] MEDS: MELATONIN 3 MG TABLET PO ×2 (21:16→23:16)
[2023-09-09] MEDS: Temazepam 15 MG Capsule PO (23:16)
[2023-09-10] VITALS (14 sets, daily range): BP systolic 75–107; BP diastolic 50–70; PULSE 70–82; RESP 16–18; TEMP 36.3–36.8; O2SAT 86–97
[2023-09-10] MEDS: Albuterol 2.5 MG/3 ML VIAL.NEB. INHALATION (01:38)
[2023-09-10 05:01] LABS: Absolute Lymphocyte Count 0.72 X10^3/uL (0.83-4.51); Absolute Neutrophil Count 8.9 X10^3/uL (2.0-7.7); Basophil# 0.02 X10^3/uL; Basophil% 0.2 % (0-1); Hematocrit 31.1 % (40-54); Hemoglobin 10.1 g/dL (13.0-16.5); Lymphocyte # 0.72 X10^3/ul (0.83-4.51); Mean Corp Hgb Conc 32.5 g/dL (32-36); Mean Corpuscular Hgb 29.4 pg (27.0-32.0); Mean Corpuscular Volume 90.7 fL (80-94); Mean Platelet Vol. 10.9 fl (6.2-12.0); Monocyte# 0.57 X10^3/uL; Monocyte% 5.5 % (0-10); NRBC Flagged by Analyzer 0 % (0-5); Neutrophil # 8.94 X10^3/uL (2.7-7.7); Neutrophil % 86.4 % (47-70); Platelet Count 240 K/mm3 (150-450); RBC Distribution Width CV 16.3 % (11.6-14.6); RBC Distribution Width SD 53.2 fl (35.1-43.9); Red Blood Count 3.43 M/mm3 (4.6-6.2); White Blood Count 10.3 K/mm3 (4.4-11.0)
[2023-09-10 05:09] LABS: International Normalized Ratio 3.1; Prothrombin Time (Protime)PT. 32.6 SECONDS (11.7-14.9)
[2023-09-10 05:31] LABS: Anion Gap 8 (5-15); BUN 46 mg/dL (7-18); BUN/Creat Ratio 23.4 RATIO (10-20); Calcium,Total 8.1 mg/dL (8.5-10.1); Chloride 104 mmol/L (98-107); Creatinine, Serum 1.97 mg/dL (0.70-1.30); EST Glomerular Filtration Rate 36 mL/min (>60); Est Glom Filt Rate - Afr Amer 43 mL/min (>60); Estimated Creatinine Clearance 28.62 ml/min; Glucose 101 mg/dL (74-106); Potassium 3.4 mmol/L (3.5-5.1); Sodium Level 137 mmol/L (136-145)
[2023-09-10] MEDS: 0.9% Saline Lock 10 ML Syringe IV ×2 (06:06→11:14)
[2023-09-10] MEDS: proCHLORPERazine 10 MG/2 ML Vial 5 MG IV (06:06)
[2023-09-10] MEDS: guaiFENesin 1,200 MG Tablet 1200 MG PO ×2 (08:30→20:38)
[2023-09-10] MEDS: Potassium Chloride Oral Tablet 20 MEQ 40 MEQ PO (08:30)
[2023-09-10] MEDS: Furosemide 40 MG Tablet PO ×2 (08:30→18:28)
[2023-09-10] MEDS: Carvedilol 12.5 MG Tablet PO (08:31)
[2023-09-10] MEDS: Losartan Potassium 25 MG Tablet PO (08:31)
[2023-09-10] MEDS: Amiodarone 200 MG Tablet PO (08:31)
[2023-09-10] MEDS: Spironolactone 25 MG Tablet 12.5 MG PO (08:31)
[2023-09-10] MEDS: Acetaminophen 325 MG Tablet 650 MG PO (08:32)
--- NOTE | 2023-09-10 09:01 | PN.RENAL_ITS ---
Subjective Subjective Sitting on side of bed. Hoping to go home today. Denies any complaints today. Objective Data Objective Data Vital Signs: Vital Signs Temp Pulse Resp BP Pulse Ox O2 Del Method O2 Flow Rate 97.6 F L 74 17 107/62 93 Nasal Cannula 4 09/10/23 08:26 09/10/23 08:26 09/10/23 08:26 09/10/23 08:26 09/10/23 08:26 09/10/23 08:46 09/10/23 08:46 FiO2 96 09/08/23 10:24 Oxygen Flow Rate (L/min) 4 Oxygen Delivery Method Nasal Cannula Weight: 61.5 kg Body Mass Index (BMI) 18.8 Intake & Output: Intake and Output for Last 24 Hours 09/08/23 09/09/23 09/10/23 23:59 23:59 23:59 Intake Total 945 / 1425 2260 / 2740 555 / 555 Balance 945 / 1425 2260 / 2740 555 / 555 Lab / Micro Data 09/10/23 04:48 09/10/23 04:48 Labs: Laboratory Results - last 24 hr 09/08/23 19:30: Urine Color Yellow, Urine Clarity Clear, Urine pH 6.0, Ur Specific [place] 1.015, Urine Protein Negative, Urine Glucose (UA) Normal, Urine Ketones Negative, Urine Occult Blood Negative, Urine Nitrite Negative, Urine Bilirubin Negative, Urine Urobilinogen Normal, Ur Leukocyte Esterase Negative, Urine RBC 0 SEEN, Urine WBC 0 SEEN, Ur Squamous Epith Cells 0 SEEN, Urine Bacteria 0 SEEN, Urine Mucus 0 SEEN, U Random Total Protein 13.3 H, Urine Creatinine 69.00 09/08/23 19:30: Urine Creatinine 68.10, Protein/Creatinin Ratio 195, Urine Urea Nitrogen 393 09/10/23 04:48: WBC 10.3, RBC 3.43 L, Hgb 10.1 L, Hct 31.1 L, MCV 90.7, MCH 29.4, MCHC 32.5, RDW Std Deviation 53.2 H, RDW Coeff of Cynthia 16.3 H, Plt Count 240, MPV 10.9, Immature Gran % (Auto) 0.900, Neut % (Auto) 86.4 H, Lymph % (Auto) 7.0 L, [place] % (Auto) 5.5, Eos % (Auto) 0.0, Baso % (Auto) 0.2, Absolute Neuts (auto) 8.9 H, Absolute Lymphs (auto) 0.72 L, Nucleated RBC % 0, PT 32.6 H, INR 3.1, Sodium 137, Potassium 3.4 L, Chloride 104, Carbon Dioxide 25.0, Anion Gap 8, BUN 46 H, Creatinine 1.97 H, Estim Creat Clear Calc 28.62, Est GFR (MDRD) Af Amer 43 L, Est GFR (MDRD) Non-Af 36 L, BUN/Creatinine Ratio 23.4 H, Glucose 101, Calcium 8.1 L Micro: Microbiology 09/09/23 08:30 Sputum, Expectorated/Coughed Gram Stain - Final 09/09/23 08:30 Sputum, Expectorated/Coughed Respiratory Culture - Preliminary Presumptive C albicans 09/08/23 11:35 Blood Culture (Wb) - Right Hand Blood Culture - Preliminary No growth in 48 hours. 09/08/23 11:33 Blood Culture (Wb) - Anticubital Right Blood Culture - Preliminary No growth in 48 hours. 09/09/23 03:45 Sputum, Expectorated/Coughed Gram Stain - Final 09/09/23 03:45 Sputum, Expectorated/Coughed Respiratory Culture - Final 09/08/23 15:15 Mucosa - Nose Respiratory Panel (PCR) - Final 09/08/23 19:30 Urine, Clean Catch Legionella Antigen - Final 09/08/23 19:30 Urine, Clean Catch Streptococcus pneumoniae Antigen (M - Final 09/08/23 08:41 Nasal Secretion SARS-CoV-2 & FLU Antigen (Rapid) - Final Radiography Diagnostic Testing: Radiology Impression Echocardiogram 09/08/23 10:55 Interpretation Summary Severely dilated left ventricle. Severe global left ventricular systolic dysfunction. The left ventricular ejection fraction is 25 %. At least grade 2 diastolic dysfunction. The left atrium is severely enlarged. The right atrium is mildly enlarged. Moderately severe (3+) mitral valve insufficiency. Moderate (2+) tricuspid valve insufficiency. Right ventricular systolic pressure estimated to be 60 mmHg. Moderate (2+) aortic valve insufficiency. Moderate size left pleural effusion. Ordering Physician: Tamir Ramirez Referring Physician: Oumar Wilkerson Performed By: Paulette Cortez, RDCS, RVT Chest X-Ray 09/09/23 04:11 IMPRESSION: Decreased mild left pleural effusion with mild interval change in pattern of bilateral pneumonia. Electronically Signed: Janette Atkins MD at 10:25 EST , Physical Exam Narrative Alert and oriented x3, NAD. Normal S1, S2. No rubs, murmurs, or gallops. Decreased breath sounds posterior lower lobes. No rales or rhonchi Abdomen soft, nontender No edema Assessment & Plan Assessment/Plan (1) KENJI (acute kidney injury): (2) Chronic kidney disease, stage 3b: (3) HTN (hypertension): PLAN: Plan Impression/Plan: 73-year-old man with past history of hypertension, CAD status post CABG, ischemic cardiomyopathy with HFrEF status post AICD placement, atrial fibr illation, PAD, GERD, and hyperlipidemia. The patient presented to hospital on 09/08/2023 with dyspnea. He was admitted for treatment of acute hypoxic respiratory failure due to decompensated HFrEF and pneumonia. Nephrology is following for KENJI on CKD. Acute kidney injury on chronic kidney disease stage G3b. Baseline serum creatinine has been around 1.6 to 1.8 mg/dL since May 2022. Suspect patient has nephrosclerosis and/or ischemic nephropathy since he has past history of PAD and tobacco use. Renal ultrasound from 09/08/2023 showed atrophic left kidney measuring 8.0 cm. Right kidney measures 10.0 cm. There are no hydronephrosis on either kidney. Creatinine 2.00 on admission (09/08) --> SCr 2.02 09/09 and today creatinine 1.97 mg/dL. Overall renal function is stable and near baseline. No hyperkalemia and acid-base acceptable. Patient is nonoliguric. Current rise in serum creatinine up to 2.02 mg/dL on 09/09/2023 may be secondary to cardiorenal KENJI. However, current serum creatinine may represent progression of CKD as well. UA no blood, protein or bacteria. Urine protein creatinine ratio 195 mg/g. Will arrange for hospital follow-up at time of hospital discharge Hypertension. BP is controlled. He is on losartan and spironolactone for HFrEF already. These medication should also help to attenuate proteinuria and protect the kidney as well. Acute on chronic congestive heart failure with reduced EF; echo from 09/08: EF 25% (echo from 01/2022 EF 45%), severely dilated left ventricle, severe global left ventricular systolic dysfunction, at least grade 2 diastolic dysfunction, no pericardial effusion, left atrium severely enlarged, right atrium mildly enlarged, moderately severe mitral valve insufficiency, moderate tricuspid valve insufficiency, moderate aortic valve insufficiency Pneumonia; on antibiotics
[2023-09-10] MEDS: Ceftriaxone 2 GM in 0.9% Normal Saline (50mL MB+) 50 ML IV (09:03)
[2023-09-10] MEDS: 0.9% Normal Saline (250mL Bag) 250 ML 15 ML IV (09:40)
[2023-09-10] MEDS: Azithromycin 500 MG in Dextrose 5%-Water (250mL Bag) 250 ML 250 MG IV (09:57)
[2023-09-10] MEDS: Pantoprazole Sodium 40 MG Tablet PO (09:58)
[2023-09-10] MEDS: Menthol/Lanolin/Calamine/Znox 113 GM Tube 1 APPLIC TOPICAL (09:59)
--- NOTE | 2023-09-10 17:43 | PCM.PN.HOSP ---
Reason for Visit Reason for Visit: Diagnoses Heart failure, unspecified (09/08/23) Subjective Subjective Patient was seen and examined today, he insists he lives in [place], he also states that he wants to go home even though he is on oxygen, he states I have doctors I can see. Patient has been running low blood pressure today, I initially held his Lasix but have decided to place him back on Lasix orally starting tonight. Objective Data Objective Data Vital Signs: Vital Signs Temp Pulse Resp BP Pulse Ox O2 Del Method O2 Flow Rate 97.4 F L 71 16 83/70 L 94 Nasal Cannula 3 09/10/23 15:35 09/10/23 15:35 09/10/23 15:35 09/10/23 15:35 09/10/23 15:35 09/10/23 15:38 09/10/23 15:38 FiO2 96 09/08/23 10:24 Oxygen Flow Rate (L/min) 3 Oxygen Delivery Method Nasal Cannula Weight: 61.5 kg Body Mass Index (BMI) 18.8 Intake & Output: Intake and Output for Last 24 Hours 09/08/23 09/09/23 09/10/23 23:59 23:59 23:59 Intake Total 945 / 1425 2260 / 2740 1414.25 / 1414.25 Balance 945 / 1425 2260 / 2740 1414.25 / 1414.25 Lab / Micro Data 09/10/23 04:48 09/10/23 04:48 Labs: Laboratory Results - last 24 hr 09/10/23 04:48: WBC 10.3, RBC 3.43 L, Hgb 10.1 L, Hct 31.1 L, MCV 90.7, MCH 29.4, MCHC 32.5, RDW Std Deviation 53.2 H, RDW Coeff of Cynthia 16.3 H, Plt Count 240, MPV 10.9, Immature Gran % (Auto) 0.900, Neut % (Auto) 86.4 H, Lymph % (Auto) 7.0 L, [place] % (Auto) 5.5, Eos % (Auto) 0.0, Baso % (Auto) 0.2, Absolute Neuts (auto) 8.9 H, Absolute Lymphs (auto) 0.72 L, Nucleated RBC % 0, PT 32.6 H, INR 3.1, Sodium 137, Potassium 3.4 L, Chloride 104, Carbon Dioxide 25.0, Anion Gap 8, BUN 46 H, Creatinine 1.97 H, Estim Creat Clear Calc 28.62, Est GFR (MDRD) Af Amer 43 L, Est GFR (MDRD) Non-Af 36 L, BUN/Creatinine Ratio 23.4 H, Glucose 101, Calcium 8.1 L Micro: Microbiology 09/09/23 08:30 Sputum, Expectorated/Coughed Gram Stain - Final 09/09/23 08:30 Sputum, Expectorated/Coughed Respiratory Culture - Preliminary Presumptive C albicans 09/08/23 11:35 Blood Culture (Wb) - Right Hand Blood Culture - Preliminary No growth in 48 hours. 09/08/23 11:33 Blood Culture (Wb) - Anticubital Right Blood Culture - Preliminary No growth in 48 hours. 09/09/23 03:45 Sputum, Expectorated/Coughed Gram Stain - Final 09/09/23 03:45 Sputum, Expectorated/Coughed Respiratory Culture - Final 09/08/23 15:15 Mucosa - Nose Respiratory Panel (PCR) - Final 09/08/23 19:30 Urine, Clean Catch Legionella Antigen - Final 09/08/23 19:30 Urine, Clean Catch Streptococcus pneumoniae Antigen (M - Final 09/08/23 08:41 Nasal Secretion SARS-CoV-2 & FLU Antigen (Rapid) - Final Physical Exam Const alert, no apparent distress and average body habitus Constitutional Narrative: Patient appears frail, he exhibits some confusion Orientation / Consciousness: confused HEENT head/scalp atraumatic and moist oral mucous membranes Eyes PERRL, EOMs intact bilaterally and conjunctivae normal Neck supple and no JVD Resp no retractions and no use of accessory muscles Resp Narrative: Inspiratory rales are noted over the lower lung singer bilaterally Auscultation: Negative for rhonchi or wheezes Cardio regular rate, regular rhythm, S1 normal heart sound and S2 normal heart sound Cardio Narrative: Rhythm is paced GI normal to inspection, nondistended, normoactive bowel sounds, soft to palpation and non-tender Neuro CN's II-XII intact bilaterally, moves all extremities, no focal motor deficits and no sensory deficits noted Neuro Narrative: Patient exhibits mild confusion Sensorium / Orientation: awake and alert Psych Psych Narrative: Patient is mildly fused Assessment & Plan Assessment/Plan (1) Acute CHF (congestive heart failure): PLAN: Plan 1. Acute on chronic systolic congestive heart failure-I have decided to place the patient on oral Lasix due to his hypotension and reevaluate the patient tomorrow #2 ischemic cardiomyopathy-patient does not follow-up with cardiology at this time, I had a discussion with his significant other by phone today and patient did not want to follow-up with the low heel builder he saw last year. Patient will need follow-up. Patient's last echocardiogram was last June, his EF at that time was 45%, he did have a stress test done that month which did not show evidence of ischemia and his ejection fraction on the nuclear stress test was 31%. Attempts will be made to adjust the patient's medications during this hospitalization. #3 cognitive impairment-etiology unclear, it is unknown whether the patient could have dementia versus confusion due to hypoxia at home, patient will need temporary placement in a snf facility, I want to talk with his daughter about this since he has no durable healthcare power of [place] attorney. PT and OT are seeing the patient. #4 status post aortic aneurysm stenting-it appears this was done last year, I talked with the patient's significant other about this and she was unaware that it was an aortic stenting. This will need follow-up with Dr. Costa, he was supposed to have repeat imaging studies but the patient did not reschedule these. It appears from Dr. Costa's note that the patient was to have repeat imaging in a year from July of last year. I will obtain an abdominal ultrasound tomorrow. #5 possible bilateral pneumonia-patient remains on IV antibiotics at this time, patient's white blood cell count is normal at this time, patient will need a 7-day course of antibiotics #6 hypoxia secondary to #1 and #5-patient is currently on 3 L of oxygen Total time spent addressing the patient's medical issues, reviewing all of his data, and collaborating with the patient's care team: 50 minutes Charges/Coding Visit Charges Inpatient E&M: 11589 [facility] L3
[2023-09-10] MEDS: Atorvastatin Calcium 10 MG Tablet PO (20:38)
[2023-09-10] MEDS: MELATONIN 3 MG TABLET PO (20:43)
[2023-09-11] MEDS: Acetaminophen 325 MG Tablet 650 MG PO (02:26)
[2023-09-11 03:50] VITALS: BP 99/67; PULSE 78; RESP 18; TEMP 36.6; O2SAT 97
[2023-09-11 06:00] VITALS: BMI 18.8
[2023-09-11 06:22] LABS: International Normalized Ratio 3.2; Prothrombin Time (Protime)PT. 33.1 SECONDS (11.7-14.9)
[2023-09-11 06:48] LABS: Anion Gap 9 (5-15); BUN 51 mg/dL (7-18); BUN/Creat Ratio 24.6 RATIO (10-20); Calcium,Total 8.5 mg/dL (8.5-10.1); Chloride 102 mmol/L (98-107); Creatinine, Serum 2.07 mg/dL (0.70-1.30); EST Glomerular Filtration Rate 34 mL/min (>60); Est Glom Filt Rate - Afr Amer 41 mL/min (>60); Estimated Creatinine Clearance 27.15 ml/min; Glucose 113 mg/dL (74-106); Potassium 3.9 mmol/L (3.5-5.1); Sodium Level 136 mmol/L (136-145)
--- NOTE | 2023-09-11 07:33 | RAD_ITS ---
STUDY: X-RAY CHEST REASON FOR EXAM: Male, 73 years old. Congestive failure. TECHNIQUE: Frontal and lateral views of the chest. COMPARISON: September 09, 2023 FINDINGS: Cardiomegaly, dual lead cardiac pacer, sternotomy wires, aortic tortuosity with calcification, prominent central pulmonary arteries, hyperinflation and increased diffuse interstitial opacities compared to the prior study. Slight increase in pleural effusions. Findings compatible with worsening interstitial edema/congestive failure and follow-up chest imaging to resolution is recommended. No abnormality of the visualized soft tissue structures of the upper abdomen. RAD/Chest PA and Lateral IMPRESSION: Findings compatible with worsening interstitial edema/congestive failure. Follow-up chest imaging to resolution recommended. Electronically Signed: Kyle Greenberg MD at 12:25 EST ,
[2023-09-11 10:24] VITALS: O2SAT 84; O2SAT 89; O2SAT 91
[2023-09-11 10:29] VITALS: BP 93/80; PULSE 75; RESP 18; TEMP 36.6; O2SAT 92
[2023-09-11] MEDS: Amiodarone 200 MG Tablet PO (10:34)
[2023-09-11] MEDS: guaiFENesin 1,200 MG Tablet 1200 MG PO (10:34)
[2023-09-11] MEDS: Furosemide 40 MG Tablet PO (10:34)
[2023-09-11] MEDS: Pantoprazole Sodium 40 MG Tablet PO (10:34)
--- NOTE | 2023-09-11 10:50 | PN.RENAL_ITS ---
Subjective Subjective Sitting on edge of bed. No overnight events and overall looking better today. Denies any complaints. Objective Data Objective Data Vital Signs: Vital Signs Temp Pulse Resp BP Pulse Ox O2 Del Method O2 Flow Rate 97.8 F 75 18 93/80 92 Room Air 2 09/11/23 10:29 09/11/23 10:29 09/11/23 10:29 09/11/23 10:29 09/11/23 10:29 09/11/23 10:29 09/11/23 10:24 FiO2 96 09/08/23 10:24 Oxygen Flow Rate (L/min) [ 2 AMBULATING with Oxygen #1] Oxygen Flow Rate (L/min) 3 Oxygen Delivery Method Room Air Weight: 61.3 kg Body Mass Index (BMI) 18.8 Intake & Output: Intake and Output for Last 24 Hours 09/09/23 09/10/23 09/11/23 23:59 23:59 23:59 Intake Total 2260 / 2740 1834.25 / 2134.25 300 / 300 Balance 2260 / 2740 1834.25 / 2134.25 300 / 300 Lab / Micro Data 09/10/23 04:48 09/11/23 05:45 Labs: Laboratory Results - last 24 hr 09/11/23 05:45: PT 33.1 H, INR 3.2, Sodium 136, Potassium 3.9, Chloride 102, Carbon Dioxide 25.0, Anion Gap 9, BUN 51 H, Creatinine 2.07 H, Estim Creat Clear Calc 27.15, Est GFR (MDRD) Af Amer 41 L, Est GFR (MDRD) Non-Af 34 L, BUN/Creatinine Ratio 24.6 H, Glucose 113 H, Calcium 8.5 Micro: Microbiology 09/09/23 08:30 Sputum, Expectorated/Coughed Gram Stain - Final 09/09/23 08:30 Sputum, Expectorated/Coughed Respiratory Culture - Final Presumptive C albicans 09/08/23 11:35 Blood Culture (Wb) - Right Hand Blood Culture - Preliminary No growth in 48 hours. 09/08/23 11:33 Blood Culture (Wb) - Anticubital Right Blood Culture - Preliminary No growth in 48 hours. 09/09/23 03:45 Sputum, Expectorated/Coughed Gram Stain - Final 09/09/23 03:45 Sputum, Expectorated/Coughed Respiratory Culture - Final 09/08/23 15:15 Mucosa - Nose Respiratory Panel (PCR) - Final 09/08/23 19:30 Urine, Clean Catch Legionella Antigen - Final 09/08/23 19:30 Urine, Clean Catch Streptococcus pneumoniae Antigen (M - Final 09/08/23 08:41 Nasal Secretion SARS-CoV-2 & FLU Antigen (Rapid) - Final Physical Exam Narrative Alert and oriented x3, NAD. Normal S1, S2. No rubs, murmurs, or gallops. Diminished breath sound posterior lobes. Clear anteriorly. No rales or rhonchi Abdomen soft, nontender No edema Assessment & Plan Assessment/Plan (1) KENJI (acute kidney injury): (2) Chronic kidney disease, stage 3b: (3) HTN (hypertension): PLAN: Plan Impression/Plan: 73-year-old man with past history of hypertension, CAD status post CABG, ischemic cardiomyopathy with HFrEF status post AICD placement, atrial fibrillation, PAD, GERD, and hyperlipidemia. The patient presented to hospital on 09/08/2023 with dyspnea. He was admitted for treatment of acute hypoxic respiratory failure due to decompensated HFrEF and pneumonia. Nephrology is following for KENJI on CKD. Acute kidney injury on chronic kidney disease stage G3b. Baseline serum creatinine has been around 1.6 to 1.8 mg/dL since May 2022. Suspect patient has nephrosclerosis and/or ischemic nephropathy since he has past history of PAD and tobacco use. Renal ultrasound from 09/08/2023 showed atrophic left kidney measuring 8.0 cm. Right kidney measures 10.0 cm. There are no hydronephrosis on either kidney. Current rise in serum creatinine may be secondary to cardiorenal KENJI versus progression of CKD. SCr 2.02 09/09 and today creatinine 2.07 mg/dL. Overall renal function is stable and near baseline. No hyperkalemia and acid-base acceptable. Patient is nonoliguric. UA negative for blood, protein or bacteria. UPC 195 mg/g. Hypertension. Blood pressure controlled. discussed nephrology plan with Dr. Ybarra, will arrange for hospital follow- up
[2023-09-11 11:30] VITALS: O2SAT 86
--- NOTE | 2023-09-11 11:32 | CASEMGMT ---
Addendum entered by Marleni Connor 09/11/23 13:05: Physician called patient's significant other and explained patient is much better today and does not need to go to a custodial. Physician answered all of her questions and she was in agreement with picking up patient. Marleni PALAFOX Original Note: SW received a voice mail from Emily Rodriguez. Emily states she is patient's granddaughter in law. Emily said her grandma Nahomy is patient's significant other. Patient keeps calling them insisting they need to come pick him up as he is being discharged. Emily said Nahomy talked with the Dr who said patient needs to go to a custodial. 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 Therapy has not seen patient yet so it is unknown what therapy will recommend (SNF vs HH vs outpatient. Insurance will not pay for a custodial simply because a patient is confused. SW will see what therapy recommends. Marleni PALAFOX
--- NOTE | 2023-09-11 11:51 | DCINST_ITS ---
Discharge Instructions Diet Discharge Diet: No restrictions Activity Discharge Activity: Return to Normal Activity Weight Bearing Status: Full weight bearing Follow Up Care Test Results: Test results from this visit will be discussed in further detail at your follow- up appointment, if applicable. Discharge Plan Admission Admit Date/Time: 09/08/23 09:23 Primary Reason for Your Visit: Congestive heart failure Attending Provider: Oumar Ybarra Primary Care Provider: Oumar Wilkerson Consulting Providers: Nini Dye; Tamir Ramirez Instructions Additional Instructions / Restrictions: Use oxygen at 2 L/min while ambulating Discharge Orders/Prescriptions Prescriptions: New spironolactone 25 mg Tablet 25 mg PO DAILY Qty: 30 0RF Continued clopidogrel [Plavix] 75 mg tablet 75 mg PO QDAY amiodarone 200 mg tablet 200 mg PO DAILY allopurinol 300 mg tablet 300 mg PO DAILY PRN (Reason: GOUT) atorvastatin [Lipitor] 10 mg tablet 10 mg PO DAILY Qty: 30 6RF carvedilol 12.5 MG tablet 12.5 mg PO BID Patient Comments: Heart losartan 25 MG tablet 25 mg PO DAILY Patient Comments: Blood pressure furosemide 40 mg tablet 40 mg PO BID Patient Comments: water pill pantoprazole 40 mg tablet,delayed release (DR/EC) 40 mg PO DAILY Qty: 30 3RF warfarin 2.5 mg tablet 2.5 mg PO DAILY Discontinued spironolactone 25 MG tablet 12.5 mg PO DAILY Referrals / Follow Up: Oumar Wilkerson DO [Primary Care Provider] - In 1 Week (You will need your BMP (lab) rechecked) Disposition Disposition (needs filled in before D/C Order can be placed): Home, Self Care
--- NOTE | 2023-09-11 11:57 | PCM.DC.SUM ---
Providers Date of Admission: 09/08/23 Date of Discharge: 09/11/23 Primary Care Physician: Dr. Oumar Wilkerson, DO Consultations 09/09/23 08:05 Consult: Nephrology Routine Consulting Provider: Nini Dye Reason for Consult: CKD EMERGENT Consult: No MD Notified: Yes Date Notified: 09/09/23 Time Notified: 08:05 Method of Notification: Verbal Reason For Visit: CHF Diagnosis Discharge Diagnosis (1) KENJI (acute kidney injury): Status: Acute Code(s): N17.9 - Acute kidney failure, unspecified (2) Chronic kidney disease, stage 3b: Status: Acute Code(s): N18.32 - Chronic kidney disease, stage 3b (3) HTN (hypertension): Status: Chronic Code(s): I10 - Essential (primary) hypertension Plan 1. Acute on chronic systolic congestive heart failure-I have decided to place the patient on oral Lasix due to his hypotension and reevaluate the patient tomorrow #2 ischemic cardiomyopathy-patient does not follow-up with cardiology at this time, I had a discussion with his significant other by phone today and patient did not want to follow-up with the lead qa analyst he saw last year. Patient will need follow-up. Patient's last echocardiogram was last June, his EF at that time was 45%, he did have a stress test done that month which did not show evidence of ischemia and his ejection fraction on the nuclear stress test was 31%. Attempts will be made to adjust the patient's medications during this hospitalization. #3 Metabolic encephalopathy secondary to acute on chronic systolic congestive heart failure with hypoxia #4 status post aortic aneurysm stenting-it appears this was done last year, I talked with the patient's significant other about this and she was unaware that it was an aortic stenting. This will need follow-up with Dr. Costa, he was supposed to have repeat imaging studies but the patient did not reschedule these. It appears from Dr. Costa's note that the patient was to have repeat imaging in a year from July of last year. I will obtain an abdominal ultrasound tomorrow. #5 hypoxia secondary to #1 and #5-patient is currently on 3 L of oxygen Community-acquired pneumonia was ruled out Total time spent addressing the patient's medical issues, reviewing all of his data, and collaborating with the patient's care team: 50 minutes Medications at Discharge Home Medications carvedilol 12.5 mg tablet 12.5 mg PO BID bp 07/02/15 losartan 25 mg tablet 25 mg PO DAILY bp 07/02/15 clopidogrel 75 mg tablet (Plavix) 75 mg PO QDAY blood thinner 03/27/18 allopurinol 300 mg tablet 300 mg PO DAILY PRN GOUT 05/29/22 amiodarone 200 mg tablet 200 mg PO DAILY HEART 05/29/22 furosemide 40 mg tablet 40 mg PO BID water pill 06/26/22 atorvastatin 10 mg tablet (Lipitor) 10 mg PO DAILY cholesterol #30 tabs 06/28/22 pantoprazole 40 mg tablet,delayed release 40 mg PO DAILY #30 tabs 03/19/23 warfarin 2.5 mg tablet 2.5 mg PO DAILY 09/08/23 spironolactone 25 mg tablet 25 mg PO DAILY #30 tabs 09/11/23 Hospital Course Operations None Procedures 2-D Echocardiogram Summary of Care Provided Minutes Spent on Discharge: 32 Hospital Course: This 73-year-old white male was seen in the emergency room at [facility] with complaints of shortness of breath, he was brought in by his significant other for evaluation. Patient denied any fevers, he denied any chest pain, he stated that he had some swelling of his feet and he has been more dyspneic for a few weeks prior to being seen in the emergency room. Patient's significant other stated that the patient seemed to be confused that day, he has no home oxygen. Work-up in the emergency room revealed the patient to require 2 L of oxygen to maintain his pulse ox above 90%, troponin was unremarkable, patient's beta nitric peptide was elevated at 3128, INR was elevated at 3.6-patient was taking Coumadin as an outpatient. CBC showed a minimally elevated white blood cell count, chest x-ray showed increased markings consistent with congestive heart failure and a left-sided pleural effusion. Patient was ambulated and he had oxygen desaturation to 83% while he was wearing 2 L of oxygen. Patient was admitted to PCU, initially there was concern that he might have community-acquired pneumonia and he was kept on IV antibiotics and placed on IV Lasix. Echocardiogram was obtained which revealed a diminished ejection fraction of 25%, right ventricular systolic pressure was estimated to be 60. Patient had intermittent confusion during his hospitalization, this was felt to be metabolic encephalopathy due to his illness. Patient's oxygenation improved with IV diuresis, PT and OT saw the patient. On 09/11/2023, patient requested to be discharged home, at that time he had been transitioned to oral Lasix and his antibiotics have been stopped, patient required 2 L of oxygen to maintain his pulse ox at 89% while ambulating, patient's pulse ox on room air at rest was 91%. He was set up for home oxygen. I had multiple discussions with the patient's significant other about his medical care during his hospitalization. On 09/11/2023, patient was seen and examined: alert, no apparent distress and average body habitus Constitutional Narrative: Patient appears frail, he exhibits some confusion Orientation / Consciousness: confused HEENT head/scalp atraumatic and moist oral mucous membranes Eyes PERRL, EOMs intact bilaterally and conjunctivae normal Neck supple and no JVD Resp no retractions and no use of accessory muscles Resp Narrative: Inspiratory rales are noted over the lower lung singer bilaterally Auscultation: Negative for rhonchi or wheezes Cardio regular rate, regular rhythm, S1 normal heart sound and S2 normal heart sound Cardio Narrative: Rhythm is paced GI normal to inspection, nondistended, normoactive bowel sounds, soft to palpation and non-tender Neuro CN's II-XII intact bilaterally, moves all extremities, no focal motor deficits and no sensory deficits noted Neuro Narrative: Patient exhibits mild confusion Sensorium / Orientation: awake and alert Psych Psych Narrative: Patient is mildly fused Patient was felt to be stable for discharge home on 09/11/2023. Weight / BMI Weight Weight: 61.3 kg Body Mass Index (BMI) 18.8 ABG / Lab / Microbiology Data 09/10/23 04:48 09/11/23 05:45 Laboratory: Laboratory Results - last 24 hr 09/11/23 05:45: PT 33.1 H, INR 3.2, Sodium 136, Potassium 3.9, Chloride 102, Carbon Dioxide 25.0, Anion Gap 9, BUN 51 H, Creatinine 2.07 H, Estim Creat Clear Calc 27.15, Est GFR (MDRD) Af Amer 41 L, Est GFR (MDRD) Non-Af 34 L, BUN/Creatinine Ratio 24.6 H, Glucose 113 H, Calcium 8.5 Microbiology: Microbiology 09/09/23 08:30 Sputum, Expectorated/Coughed Gram Stain - Final 09/09/23 08:30 Sputum, Expectorated/Coughed Respiratory Culture - Final Presumptive C albicans 09/08/23 11:35 Blood Culture (Wb) - Right Hand Blood Culture - Preliminary No growth in 48 hours. 09/08/23 11:33 Blood Culture (Wb) - Anticubital Right Blood Culture - Preliminary No growth in 48 hours. 09/09/23 03:45 Sputum, Expectorated/Coughed Gram Stain - Final 09/09/23 03:45 Sputum, Expectorated/Coughed Respiratory Culture - Final 09/08/23 15:15 Mucosa - Nose Respiratory Panel (PCR) - Final 09/08/23 19:30 Urine, Clean Catch Legionella Antigen - Final 09/08/23 19:30 Urine, Clean Catch Streptococcus pneumoniae Antigen (M - Final 09/08/23 08:41 Nasal Secretion SARS-CoV-2 & FLU Antigen (Rapid) - Final D/C Instructions Discharge Diet: No restrictions Weight Bearing Status: Full weight bearing Meaningful Use Info Meaningful Use Diagnoses (Choose all that apply): CHF CHF KERON/ARB ordered at discharge?: Yes Documented LVEF (%): 25 Discharge Plan Admission Admit Date/Time: 09/08/23 09:23 Primary Reason for Your Visit: Congestive heart failure Attending Provider: Oumar Ybarra Primary Care Provider: Oumar Wilkerson Consulting Providers: Nini Dye; Tamir Ramirez Instructions Additional Instructions / Restrictions: Use oxygen at 2 L/min while ambulating Discharge Orders/Prescriptions Prescriptions: New spironolactone 25 mg Tablet 25 mg PO DAILY Qty: 30 0RF Continued clopidogrel [Plavix] 75 mg tablet 75 mg PO QDAY amiodarone 200 mg tablet 200 mg PO DAILY allopurinol 300 mg tablet 300 mg PO DAILY PRN (Reason: GOUT) atorvastatin [Lipitor] 10 mg tablet 10 mg PO DAILY Qty: 30 6RF carvedilol 12.5 MG tablet 12.5 mg PO BID Patient Comments: Heart losartan 25 MG tablet 25 mg PO DAILY Patient Comments: Blood pressure furosemide 40 mg tablet 40 mg PO BID Patient Comments: water pill pantoprazole 40 mg tablet,delayed release (DR/EC) 40 mg PO DAILY Qty: 30 3RF warfarin 2.5 mg tablet 2.5 mg PO DAILY Discontinued spironolactone 25 MG tablet 12.5 mg PO DAILY Referrals / Follow Up: Oumar Wilkerson DO [Primary Care Provider] - In 1 Week (You will need your BMP (lab) rechecked Please call the office to schedule an appt within the next week. ) Disposition Disposition (needs filled in before D/C Order can be placed): Home, Self Care Charges/Coding Visit Charges Inpatient E&M: 70222 Disch Hosp >30min
--- NOTE | 2023-09-11 12:02 | PCM.HOSP.N ---
Hospitalist Note Patient is ambulatory in the home and community and requires home oxygen with portability, he requires 2 L of oxygen with ambulation only.
--- NOTE | 2023-09-11 13:23 | PHA.DC_ITS ---
Pharmacy [facility] Service has performed discharge medication reconciliation and counseling for this patient. The patient's discharge medication list was reviewed for discrepancies and discrepancies were resolved. The patient was counseled on the following discharge medications and changes in medications for homegoing were reviewed. The Reason for Use, instructions for use, and potential side effects were reviewed for all new medications. The patient's questions regarding all of their medications were answered. 1. Spironolactone 25 mg PO daily. The patient was able to verbally demonstrate an understanding of their discharge medications. Medications at Discharge Home Medications carvedilol 12.5 mg tablet 12.5 mg PO BID bp 07/02/15 losartan 25 mg tablet 25 mg PO DAILY bp 07/02/15 clopidogrel 75 mg tablet (Plavix) 75 mg PO QDAY blood thinner 03/27/18 allopurinol 300 mg tablet 300 mg PO DAILY PRN GOUT 05/29/22 amiodarone 200 mg tablet 200 mg PO DAILY HEART 05/29/22 furosemide 40 mg tablet 40 mg PO BID water pill 06/26/22 atorvastatin 10 mg tablet (Lipitor) 10 mg PO DAILY cholesterol #30 tabs 06/28/22 pantoprazole 40 mg tablet,delayed release 40 mg PO DAILY #30 tabs 03/19/23 warfarin 2.5 mg tablet 2.5 mg PO DAILY 09/08/23 spironolactone 25 mg tablet 25 mg PO DAILY #30 tabs 09/11/23
--- NOTE | 2023-09-11 15:20 | CASEMGMT ---
DOMI LOVELL in to discuss discharge planning with patient. Patient will need oxygen at discharge with ambulation. Patient would like [employer] for home oxygen. DOMI LOVELL discuss progress with therapy. Patient is denying therapy at discharge stating he is not home bound and not interested in outpatient therapy. Patient gave permission for DOMI LOVELL to call significant other. DOMI LOVELL called significant other and is agreeable to plan. DOMI LOVELL explained to significant other that should they reconsider need for therapy they can follow-up with PCP, significant other voiced understanding. Significant other had no further questions or concerns at this time.
[2023-09-11 16:52] VITALS: BP 106/76; PULSE 108; RESP 17; TEMP 36.6; O2SAT 92
== END 2023-09-11 17:31 | disposition home or self-care (01) | DRG 291 ==
LOC: ED 09:40 → PCU 10:00
PROVIDERS: Internal Medicine; Internal Medicine Nephrology; Admitting Provider Internal Medicine; Emergency Provider Emergency Medicine; PCP Family Medicine; Visit Provider Internal Medicine
DX: I13.0 Hypertensive heart and chronic kidney disease with heart failure and stage 1 through stage 4 chronic kidney disease, or unspecified chronic kidney disease (principal); I50.23 Acute on chronic systolic (congestive) heart failure; G93.41 Metabolic encephalopathy; N17.9 Acute kidney failure, unspecified; I48.20 Chronic atrial fibrillation, unspecified; I95.9 Hypotension, unspecified; Z79.01 Long term (current) use of anticoagulants; N18.32 Chronic kidney disease, stage 3b; K21.9 Gastro-esophageal reflux disease without esophagitis; I25.5 Ischemic cardiomyopathy; E78.5 Hyperlipidemia, unspecified; I25.10 Atherosclerotic heart disease of native coronary artery without angina pectoris; R79.1 Abnormal coagulation profile; R09.02 Hypoxemia; N26.1 Atrophy of kidney (terminal); Z11.52 Encounter for screening for COVID-19; Z79.02 Long term (current) use of antithrombotics/antiplatelets; Z79.899 Other long term (current) drug therapy; Z87.891 Personal history of nicotine dependence; Z95.810 Presence of automatic (implantable) cardiac defibrillator; T45.515A Adverse effect of anticoagulants, initial encounter
CPT/HCPCS: 36415; 71045; 71046; 76770; 80048; 81001; 82570; 83605; 83735; 83880; 84100; 84156; 84484; 84540; 85025; 85610; 87040; 87070; 87205; 87428; 87449; 87633; 93005; 93306; 94640; 94668; 97162; 97166; 99285; J7050; A4216; J0696; J1940

== ENCOUNTER 2023-09-18 11:18 | Inpatient (IN) | payer MEDICARE, SELFPAY ==
[2023-09-18] VITALS (14 sets, daily range): BP systolic 73–96; BP diastolic 46–62; PULSE 72–105; RESP 16–22; TEMP 35.5–36.6; O2SAT 92–96; BMI 20.7; BMI 19.4
--- NOTE | 2023-09-18 11:47 | EX.ED.DYSGE1 ---
HPI History of Present Illness Chief Complaint: Edema Informant: patient and EMS Narrative Narrative: Patient presents to the hospital for edema to both of his legs. He states that it has been like this for maybe a month, worse in the past week. Denies any chest pain, dyspnea even with exertion or lying flat. States he was feeling weak and having difficulty getting up and getting around so he called EMS. Denies any lightheadedness or syncope, but hypotensive for EMS and for us here. States he was here about a week ago for pneumonia and treated, he has been feeling much better and barely has any cough left. Has a history of congestive heart failure, CABG 13 or so years ago. Left leg where the vein was harvested from has been more swollen than the right. [facility] Medical History AAA (abdominal aortic aneurysm) without rupture Alcohol use Ambulates with cane Arthritis Atrial fibrillation Back pain CAD (coronary artery disease) Cardiac resynchronization therapy defibrillator (SAUSAGE COOKER-D) in place Cardiology follow-up encounter Carotid stenosis, right CHF (congestive heart failure) Essential (primary) hypertension Former smoker Gout History of diverticulitis History of echocardiogram History of stress test Hyperlipidemia Injury of head and neck Loss of hearing Mitral regurgitation Primary cardiomyopathy Wears dentures Wears glasses Home Medications carvedilol 12.5 mg tablet 12.5 mg PO BID bp 07/02/15 [History Last Taken 09/17/23] losartan 25 mg tablet 25 mg PO DAILY bp 07/02/15 [History Last Taken 09/17/23] clopidogrel 75 mg tablet (Plavix) 75 mg PO QDAY blood thinner 03/27/18 [History Last Taken 09/17/23] allopurinol 300 mg tablet 300 mg PO DAILY PRN GOUT 05/29/22 [History Last Taken 09/17/23] amiodarone 200 mg tablet 200 mg PO DAILY HEART 05/29/22 [History Last Taken 09/17/23] furosemide 40 mg tablet 40 mg PO BID water pill 06/26/22 [History Last Taken 09/17/23] atorvastatin 10 mg tablet (Lipitor) 10 mg PO DAILY cholesterol #30 tabs 06/28/22 [Rx Last Taken 09/17/23] pantoprazole 40 mg tablet,delayed release 40 mg PO DAILY #30 tabs 03/19/23 [Rx Last Taken 09/17/23] warfarin 2.5 mg tablet 2.5 mg PO DAILY 09/08/23 [History Last Taken 09/17/23] spironolactone 25 mg tablet 25 mg PO DAILY #30 tabs 09/11/23 [Rx Last Taken 09/17/23] Allergy/AdvReac Type Severity Reaction Status Date / Time No Known Allergies Allergy Verified 09/18/23 11:24 Family History Father Hypertension Pacemaker Mother Myocardial infarction Daughter Thyroid disorder Other Essential (primary) hypertension Surgical History H/O carotid endarterectomy H/O heart artery stent H/O right inguinal hernia repair (~2003) History of cardiac catheterization History of carotid endarterectomy History of radiofrequency ablation procedure for cardiac arrhythmia Pacemaker S/P AAA repair S/P CABG (coronary artery bypass graft) S/P colonoscopy S/P internal cardiac defibrillator procedure S/P internal cardiac defibrillator procedure Social History Smoking Status: Former smoker how long ago did patient quit smokin years ago alcohol intake: current alcohol intake frequency: a few times a month substance use type: does not use caffeine: Yes Type: coffee Number of servings: 5 ROS ROS ED Constitutional Constitutional ED: Reports weakness; Denies chills or fever(s) Eyes Eyes: Denies change in vision or diplopia ENT ENT ED: Denies rhinorrhea or sore throat Cardiovascular Cardiovascular: Reports leg edema; Denies chest pain, lightheadedness, palpitations, radiating jaw, neck or arm pain or syncope Respiratory/Chest Respiratory/Chest: Denies cough or dyspnea Gastrointestinal Gastrointestinal: Reports other Details: Chronic relatively frequent spitting up/vomiting due to reflux, states has been better lately than usual ; Denies abdominal pain, diarrhea or nausea Genitourinary Genitourinary ED: Denies dysuria or hematuria Musculoskeletal Musculoskeletal: Reports back pain and other Details: Back pain is chronic no new pains or injury ; Denies neck pain Integumentary Denies abscess or rash Neurologic Neurologic: Denies headache(s), paresthesias or weakness Psychiatric Psychiatric: Denies anxiety or suicidal thoughts EXAM Physical Exam Const Vital Signs: 12/05/23 11:20 09/18/23 11:25 09/18/23 11:28 Temperature 95.9 F L Temperature Source Temporal Pulse Rate Respiratory Rate Respiratory Effort Normal Non-Labored Blood Pressure 73/57 L Blood Pressure Mean 62 Pulse Ox 94 Oxygen Delivery Method 09/18/23 11:41 09/18/23 12:10 09/18/23 13:00 Temperature 96 F L 97.9 F Temperature Source Temporal Oral Pulse Rate 105 H 105 H Respiratory Rate 22 H 22 H Respiratory Effort Blood Pressure 73/57 L 92/59 L Blood Pressure Mean 62 70 Pulse Ox 96 95 Oxygen Delivery Method Room Air Room Air Room Air 09/18/23 13:04 Temperature Temperature Source Pulse Rate Respiratory Rate Respiratory Effort Blood Pressure 92/59 L Blood Pressure Mean 70 Pulse Ox Oxygen Delivery Method Positive well nourished and well developed Constitutional Narrative: Thin. Well-appearing, conversive in full sentences lying supine without respiratory distress. General Appearance ED: well developed and NAD HEENT Reports moist mucous membranes normocephalic and atraumatic Eyes PERRL and EOMs intact bilaterally Neck full ROM, supple and no JVD Chest Wall inspection of chest normal and palpation of chest normal Resp normal respiratory effort and clear to auscultation bilaterally Resp Narrative: Diminished throughout, symmetric Cardio regular rate, regular rhythm and no murmurs GI non-tender and non-distended Auscultation: normoactive bowel sounds Palpation: soft Back/Spine no CVA tenderness General Back: other FROM Extremity normal to inspection General Extremety ED: Yes edema; Negative for pulses abnormal or tenderness General Extremity: edema bilateral lower extremity Details: moderate (Both feet and ankles moderately edematous and pitting, there is some clear fluid and trace amount seeping from the skin of the lower right leg, on the left the pitting edema progresses up to the proximal patterson, on the right it does not quite go that high. No signs of cellulitis no tenderness all com); Negative for pulses abnormal Neuro oriented x3, CN's II-XII intact bilaterally and no sensory deficits noted Sensorium / Orientation: awake and alert Motor Exam: strength 5/5 throughout Psych mental status grossly normal Skin no rashes or lesions noted and no wounds MDM MDM MDM Narrative Medical decision making narrative: Patient appears to need some diuresis with regards to his leg edema, however his blood pressure is 73/57. Therefore he was given an IV fluid bolus since he does not appear to be clinically in acute congestive heart failure/pulmonary edema, this did help his blood pressure came up over 100, he did not develop any dyspnea, chest x-ray 1 view does show what appears to be CHF, radiology in agreement. The rest of his workup shows chronic anemia, chronic renal insufficiency, supratherapeutic INR 4.4, and a slightly elevated nonspecific lactic acidosis of 2.1. He has no sign of any infection on his workup or chest x-ray, clinically not concerned about pneumonia either. He states he is too weak with regards to all of the swelling in his legs to function at home, which is why he needed EMS to bring him to the hospital, will discuss with hospitalist for admission and medication adjustments. He has been on Lasix 40 mg twice daily for the last couple days, and with his severe cardiomyopathy, he may need to be on different medicines. History & Record Review Additional record(s) reviewed:: Prior inpatient record and Other (Echocardiogram 2 weeks ago, severe dilated cardiomyopathy EF 25%) Lab Data Attestation: I reviewed the patient's lab results. Labs: Laboratory Results - last 24 hr 09/18/23 09/18/23 09/18/23 11:50 12:04 13:00 WBC 9.0 RBC 3.67 L Hgb 10.7 L Hct 33.9 L MCV 92.4 MCH 29.2 MCHC 31.6 L RDW Std Deviation 57.1 H RDW Coeff of Cynthia 17.2 H Plt Count 224 MPV 10.9 Immature Gran % (Auto) 0.700 Neut % (Auto) 82.5 H Lymph % (Auto) 6.4 L [place] % (Auto) 8.2 Eos % (Auto) 2.0 Baso % (Auto) 0.2 Absolute Neuts (auto) 7.4 Absolute Lymphs (auto) 0.57 L Nucleated RBC % 0 Differential Comment SCANNED PT 42.7 H INR 4.4 H* APTT 68.1 H Sodium 135 L Potassium 3.6 Chloride 104 Carbon Dioxide 24.0 Anion Gap 7 BUN 45 H Creatinine 2.02 H Estim Creat Clear Calc 30.54 Est GFR (MDRD) Af Amer 42 L Est GFR (MDRD) Non-Af 35 L BUN/Creatinine Ratio 22.3 H Glucose 107 H Lactic Acid 2.1 H* Calcium 8.2 L Total Bilirubin 0.90 AST 36 ALT 27 Alkaline Phosphatase 71 Troponin I High Sens 28 B-Natriuretic Peptide 2367.6 H Total Protein 6.4 Albumin 2.1 L Globulin 4.3 H Albumin/Globulin Ratio 0.5 L Urine Color Yellow Urine Clarity Clear Urine pH 6.0 Ur Specific [place] 1.015 Urine Protein 15 H Urine Glucose (UA) Normal Urine Ketones Negative Urine Occult Blood Negative Urine Nitrite Negative Urine Bilirubin 1 H Urine Urobilinogen 1 H Ur Leukocyte Esterase Negative Urine RBC 0 SEEN Urine WBC 0 SEEN Ur Squamous Epith Cells 0 SEEN Urine Bacteria 0 SEEN Urine Mucus 0 SEEN Radiography Diagnostic Testing: Clinical Impression(s) from Imaging Studies Chest X-Ray 09/18/23 12:08 IMPRESSION: Findings in keeping with pulmonary edema. There has been improvement as compared to prior study. Electronically Signed: Brody Sanchez MD at 12:41 EST Reading Location ID and State: [facility] / [place] , Service support , Rhythm Strip Rhythm Strip: paced (likely underlying afib) Rate: 100 Ectopy: None EKG Initial EKG: Attestation: I personally reviewed and interpreted this EKG as follows: Interpretation: No Acute Injury Pattern, Atrial Fibrillation and Paced Prior EKG tracings: available for review Prior: Unchanged Management Discussion w/another healthcare provider: Hospitalist Discharge Plan Triage Chief Complaint: Edema ED Provider: Garland Hernandez Dx/Rx/DC Orders Clinical Impression: Acute exacerbation of CHF (congestive heart failure), Chronic kidney disease, stage 3b, Transient hypotension, Declining functional status, Supratherapeutic INR Prescriptions: No Action clopidogrel [Plavix] 75 mg tablet 75 mg PO QDAY amiodarone 200 mg tablet 200 mg PO DAILY allopurinol 300 mg tablet 300 mg PO DAILY PRN (Reason: GOUT) atorvastatin [Lipitor] 10 mg tablet 10 mg PO DAILY Qty: 30 6RF carvedilol 12.5 MG tablet 12.5 mg PO BID Patient Comments: Heart losartan 25 MG tablet 25 mg PO DAILY Patient Comments: Blood pressure furosemide 40 mg tablet 40 mg PO BID Patient Comments: water pill pantoprazole 40 mg tablet,delayed release (DR/EC) 40 mg PO DAILY Qty: 30 3RF warfarin 2.5 mg tablet 2.5 mg PO DAILY spironolactone 25 mg Tablet 25 mg PO DAILY Qty: 30 0RF Primary Care Provider: Oumar Wilkerson Referrals: Oumar Wilkerson DO [Primary Care Provider] - Disposition Disposition: Acute Care Hospital [facility]
[2023-09-18 12:01] LABS: Absolute Lymphocyte Count 0.57 X10^3/uL (0.83-4.51); Absolute Neutrophil Count 7.4 X10^3/uL (2.0-7.7); Basophil# 0.02 X10^3/uL; Basophil% 0.2 % (0-1); Eosinophil# 0.18 X10^3/uL; Hematocrit 33.9 % (40-54); Hemoglobin 10.7 g/dL (13.0-16.5); Lymphocyte # 0.57 X10^3/ul (0.83-4.51); Lymphocyte % 6.4 % (19-41); Mean Corp Hgb Conc 31.6 g/dL (32-36); Mean Corpuscular Hgb 29.2 pg (27.0-32.0); Mean Corpuscular Volume 92.4 fL (80-94); Mean Platelet Vol. 10.9 fl (6.2-12.0); Monocyte# 0.73 X10^3/uL; Monocyte% 8.2 % (0-10); NRBC Flagged by Analyzer 0 % (0-5); Neutrophil # 7.39 X10^3/uL (2.7-7.7); Neutrophil % 82.5 % (47-70); POSITIVE DIFFERENTIAL YES; Platelet Count 224 K/mm3 (150-450); RBC Distribution Width CV 17.2 % (11.6-14.6); RBC Distribution Width SD 57.1 fl (35.1-43.9); Red Blood Count 3.67 M/mm3 (4.6-6.2)
[2023-09-18 12:06] LABS: Differential Indicated SCAN CRITERIA MET
--- NOTE | 2023-09-18 12:08 | RAD_ITS ---
STUDY: X-RAY CHEST REASON FOR EXAM: Male, 73 years old. Weakness TECHNIQUE: AP and lateral views of the chest. COMPARISON: Comparison is made with prior study dated September 11, 2023. FINDINGS: EKG electrodes are seen. Persistent bilateral airspace disease worse in the right hemithorax suggestive of pulmonary edema. This has improved as compared to prior study. Blunting of the left costophrenic angle. Sternal cerclage wires and vascular clips are present from a prior sternotomy and coronary artery bypass graft procedure (CABG). A left-sided dual-chamber pacemaker is seen. Cardiomegaly. Normal mediastinum and jagruti. Normal visualized pulmonary arteries. There is atherosclerotic calcification of the aortic arch with tortuosity. There are diffuse degenerative changes of the visualized thoracic spine. Normal visualized ribs, clavicles, and shoulders. There is no demonstrated abnormality of the visualized soft tissue structures of the upper abdomen. RAD/Chest 1 View (Portable) IMPRESSION: Findings in keeping with pulmonary edema. There has been improvement as compared to prior study. Electronically Signed: Brody Sanchez MD at 12:41 EST ,
[2023-09-18] MEDS: 0.9% Normal Saline (500mL Bag) 500 ML 999 ML IV (12:09)
[2023-09-18 12:14] LABS: ALB/GLOB Ratio 0.5 RATIO (0.9-2.4); AST(SGOT) 36 U/L (15-37); Alanine Aminotransfer ALT/SGPT 27 U/L (16-61); Albumin, Serum 2.1 g/dL (3.2-5.0); Alkaline Phosphatase 71 U/L (45-117); Anion Gap 7 (5-15); BUN 45 mg/dL (7-18); BUN/Creat Ratio 22.3 RATIO (10-20); Calcium,Total 8.2 mg/dL (8.5-10.1); Chloride 104 mmol/L (98-107); Creatinine, Serum 2.02 mg/dL (0.70-1.30); EST Glomerular Filtration Rate 35 mL/min (>60); Est Glom Filt Rate - Afr Amer 42 mL/min (>60); Estimated Creatinine Clearance 30.54 ml/min; Globulin 4.3 g/dL (2.2-4.2); Glucose 107 mg/dL (74-106); Potassium 3.6 mmol/L (3.5-5.1); Protein, Total 6.4 g/dL (6.4-8.2); Sodium Level 135 mmol/L (136-145); Troponin-I HS 28 pg/mL (3.0-78.0)
[2023-09-18 12:38] LABS: International Normalized Ratio 4.4; Prothrombin Time (Protime)PT. 42.7 SECONDS (11.7-14.9)
[2023-09-18 12:39] LABS: Partial Thromboplast Time 68.1 Seconds (24.1-36.2)
[2023-09-18 12:51] LABS: Lactic Acid 2.1 mmol/L (0.4-1.9)
[2023-09-18 13:04] LABS: Bacteria 0 SEEN /hpf (None Seen); Mucous, Urine 0 SEEN /hpf (<or=2+); Red Blood Cells-Urine 0 SEEN /hpf (0-5); Squamous Epithelial Cells - UA 0 SEEN /hpf (0-5); White Blood Cells 0 SEEN /hpf (0-5)
[2023-09-18 13:09] LABS: Differential Comment SCANNED
[2023-09-18 13:15] LABS: Color, Urine Yellow (Yellow); Glucose, Dipstick Normal (Normal); Ketone-Dipstick Negative (Negative); Leukocyte Esterase-Dipstick Negative /ul (Negative); Nitrite-Dipstick Negative (Negative); Occult Blood-Urine Negative /ul (Negative); Protein-Dipstick 15 mg/dl (Negative); Specific Gravity, Urine 1.015 (1.002-1.030); Urine Clarity Clear (Clear); Urine Urobilinogen 1 mg/dl (Normal)
[2023-09-18 13:18] LABS: Urine Bilirubin Dipstick 1 mg/dL (Negative)
--- NOTE | 2023-09-18 15:54 | PCM.HP.STD ---
[facility] - General General Date of Admission: 09/18/23 HPI Narrative KAREN JIMENEZ, is a 73 M who presents to the hospital with increased lower extremity edema with weeping and hypotension as well as some shortness of breath. He was recently admitted for shortness of breath and what was felt to be a heart failure exacerbation, at that time his BNP was elevated and his echo demonstrated a reduced EF to 25% which is abnormal for him. He also had a stage II diastolic dysfunction and an RVSP of 60 mmHg. On discharge she was increased to Lasix twice daily dosing as well as Aldactone and it is possible that he has become over diuresed, his renal function is stable but his BNP is better than it has been but he is indicating increasing edema. 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 Renal function is stable compared to his previous admission at 2.02 but it is still elevated from baseline of 1.6-1.8. He was given some IV fluids in the ER [facility] Medical History (Updated 09/18/23 @ 16:53 by Jayde Beltran) AAA (abdominal aortic aneurysm) without rupture Alcohol use Ambulates with cane Anxiety Arthritis Atrial fibrillation Back pain CAD (coronary artery disease) Cardiac resynchronization therapy defibrillator ([employer]-D) in place Cardiology follow-up encounter Carotid stenosis, right CHF (congestive heart failure) Depression Essential (primary) hypertension Former smoker Gout History of diverticulitis History of echocardiogram History of stress test Hyperlipidemia ICD (implantable cardioverter-defibrillator) in place Injury of head and neck Loss of hearing Mitral regurgitation Myocardial infarct On home oxygen therapy Primary cardiomyopathy Wears dentures Wears glasses Home Medications carvedilol 12.5 mg tablet 12.5 mg PO BID bp 07/02/15 [History Last Taken 09/17/23] losartan 25 mg tablet 25 mg PO DAILY bp 07/02/15 [History Last Taken 09/17/23] clopidogrel 75 mg tablet (Plavix) 75 mg PO QDAY blood thinner 03/27/18 [History Last Taken 09/17/23] allopurinol 300 mg tablet 300 mg PO DAILY PRN GOUT 05/29/22 [History Last Taken 09/17/23] amiodarone 200 mg tablet 200 mg PO DAILY HEART 05/29/22 [History Last Taken 09/17/23] furosemide 40 mg tablet 40 mg PO BID water pill 06/26/22 [History Last Taken 09/17/23] atorvastatin 10 mg tablet (Lipitor) 10 mg PO DAILY cholesterol #30 tabs 06/28/22 [Rx Last Taken 09/17/23] pantoprazole 40 mg tablet,delayed release 40 mg PO DAILY #30 tabs 03/19/23 [Rx Last Taken 09/17/23] warfarin 2.5 mg tablet 2.5 mg PO DAILY 09/08/23 [History Last Taken 09/17/23] spironolactone 25 mg tablet 25 mg PO DAILY #30 tabs 09/11/23 [Rx Last Taken 09/17/23] Allergy/AdvReac Type Severity Reaction Status Date / Time No Known Allergies Allergy Verified 09/18/23 11:24 Family History Father Hypertension Pacemaker Mother Myocardial infarction Daughter Thyroid disorder Other Essential (primary) hypertension Surgical History (Updated 09/18/23 @ 16:51 by Jayde Beltran) H/O carotid endarterectomy H/O heart artery stent H/O right inguinal hernia repair (~2003) History of cardiac catheterization History of carotid endarterectomy History of radiofrequency ablation procedure for cardiac arrhythmia Hx of CABG Pacemaker S/P AAA repair S/P CABG (coronary artery bypass graft) S/P colonoscopy S/P internal cardiac defibrillator procedure S/P internal cardiac defibrillator procedure Social History Smoking Status: Former smoker how long ago did patient quit smokin years ago alcohol intake: current alcohol intake frequency: a few times a month substance use type: does not use caffeine: Yes Type: coffee Number of servings: 5 Vital Signs Vital Signs Vital Signs: 09/18/23 11:20 09/18/23 11:25 09/18/23 11:28 Temperature 95.9 F L Temperature Source Temporal Pulse Rate Respiratory Rate Respiratory Effort Normal Non-Labored Blood Pressure 73/57 L Blood Pressure Mean 62 Pulse Ox 94 Oxygen Delivery Method 09/18/23 11:41 09/18/23 12:10 09/18/23 13:00 Temperature 96 F L 97.9 F Temperature Source Temporal Oral Pulse Rate 105 H 105 H Respiratory Rate 22 H 22 H Respiratory Effort Blood Pressure 73/57 L 92/59 L Blood Pressure Mean 62 70 Pulse Ox 96 95 Oxygen Delivery Method Room Air Room Air Room Air 09/18/23 13:04 09/18/23 14:04 09/18/23 14:36 Temperature 98 F Temperature Source Oral Pulse Rate 74 72 Respiratory Rate 16 19 H Respiratory Effort Blood Pressure 92/59 L 89/54 L Blood Pressure Mean 70 65 Pulse Ox 95 95 Oxygen Delivery Method Room Air Room Air 09/18/23 15:03 09/18/23 15:04 Temperature 97.9 F Temperature Source Pulse Rate 95 Respiratory Rate 18 16 Respiratory Effort Blood Pressure 89/54 L Blood Pressure Mean 65 Pulse Ox 95 Oxygen Delivery Method Weight Weight: 148 lb 5.938 oz Body Mass Index (BMI) 20.7 Physical Exam Narrative General: Alert, Oriented x3, Cooperative, No apparent distress HEENT: Atraumatic, PERRLA, EOMI, Normocephalic Oral: Moist Mucosa Neck: Supple, No JVD Lungs: Diminished, Normal air movement, No rhonchi, No wheeze, No rales, basilar crackles Cardiovascular: Regular rate, Regular Rhythm, Normal S1, Normal S2, No murmurs Abdomen: Soft, Non Tender, Non-Distended, No Hepato-splenomegaly Extremities: 2+ pitting edema with weeping, Capillary Refill Less than 3 Seconds Skin: No rashes, No breakdown Musculoskeletal: No Tenderness to Palpation of Joints or Extremities Neurological: Cranial nerves II-XII grossly intact, Motor Exam 5/5 strength throughout, Sensory exam intact to light touch and pain Psych/Mental Status: Normal Affect, Appropriate Results Lab / Micro Data 09/18/23 11:50 09/18/23 11:50 Labs: Laboratory Results - last 24 hr 09/18/23 11:50: WBC 9.0, RBC 3.67 L, Hgb 10.7 L, Hct 33.9 L, MCV 92.4, MCH 29.2, MCHC 31.6 L, RDW Std Deviation 57.1 H, RDW Coeff of Cynthia 17.2 H, Plt Count 224, MPV 10.9, Immature Gran % (Auto) 0.700, Neut % (Auto) 82.5 H, Lymph % (Auto) 6.4 L, [place] % (Auto) 8.2, Eos % (Auto) 2.0, Baso % (Auto) 0.2, Absolute Neuts (auto) 7.4, Absolute Lymphs (auto) 0.57 L, Nucleated RBC % 0, Differential Comment SCANNED, Sodium 135 L, Potassium 3.6, Chloride 104, Carbon Dioxide 24.0, Anion Gap 7, BUN 45 H, Creatinine 2.02 H, Estim Creat Clear Calc 30.54, Est GFR (MDRD) Af Amer 42 L, Est GFR (MDRD) Non-Af 35 L, BUN/Creatinine Ratio 22.3 H, Glucose 107 H, Calcium 8.2 L, Total Bilirubin 0.90, AST 36, ALT 27, Alkaline Phosphatase 71, Troponin I High Sens 28, B-Natriuretic Peptide 2367.6 H, Total Protein 6.4, Albumin 2.1 L, Globulin 4.3 H, Albumin/Globulin Ratio 0.5 L 09/18/23 12:04: PT 42.7 H, INR 4.4 H*, APTT 68.1 H, Lactic Acid 2.1 H* 09/18/23 13:00: Urine Color Yellow, Urine Clarity Clear, Urine pH 6.0, Ur Specific [place] 1.015, Urine Protein 15 H, Urine Glucose (UA) Normal, Urine Ketones Negative, Urine Occult Blood Negative, Urine Nitrite Negative, Urine Bilirubin 1 H, Urine Urobilinogen 1 H, Ur Leukocyte Esterase Negative, Urine RBC 0 SEEN, Urine WBC 0 SEEN, Ur Squamous Epith Cells 0 SEEN, Urine Bacteria 0 SEEN, Urine Mucus 0 SEEN Micro: Microbiology 09/18/23 11:54 Nasal Secretion SARS-CoV-2 & FLU Antigen (Rapid) - Final Rhythm Strip Rhythm Strip: paced (likely underlying afib) Rate: 100 Ectopy: None Imagaing Radiology Impression Chest X-Ray 09/18/23 12:08 IMPRESSION: Findings in keeping with pulmonary edema. There has been improvement as compared to prior study. Electronically Signed: Brody Sanchez MD at 12:41 EST , Assessment & Plan Assessment/Plan (1) Declining functional status: (2) Edema: PLAN: Plan 1. Increasing lower extremity edema with declining functional status with shortness of breath due to rhinovirus/chronic combined systolic and diastolic CHF/HTN/HLD/CAD status post CABG and stent/defibrillator/A-fib ? He does have a history of of combined systolic and diastolic CHF unclear if he is in exacerbation as his BNP is better than it was and he is not short of breath ? He was hypotensive on admission we will decrease his Lasix from twice daily to daily ? We will place him on fluid restriction ? Respiratory panel did result with rhinovirus ? We will hold his Aldactone ? Can resume his Coreg and losartan, if blood pressures allow. Will monitor and make adjustments as necessary ? We will place him on Jardiance based on his EF ? If no significant improvement in his fluid status may benefit from a cardiology consult, he did receive some fluid in the ER but will be cautious given his cardiac history ? Resume his amiodarone ? INR supratherapeutic at 4.4, will hold Coumadin and recheck INR in the morning 2. GERD ? Stable ? Continue with PPI DVT: Supratherapeutic INR 75 minutes was spent on direct patient care, including documentation as well as chart review and collaboration with colleagues Charges/Coding Visit Charges Inpatient E&M: 18255 Init Hosp L3
[2023-09-18 16:13] LABS: Reflex Lactate? Y
[2023-09-18 18:04] LABS: Lactic Acid 2.7 mmol/L (0.4-1.9)
[2023-09-18] MEDS: Clopidogrel Bisulfate 75 MG Tablet PO (18:25)
[2023-09-18] MEDS: Atorvastatin Calcium 10 MG Tablet PO (20:16)
[2023-09-18] MEDS: Temazepam 15 MG Capsule PO (22:46)
[2023-09-18] MEDS: MELATONIN 3 MG TABLET PO (22:46)
[2023-09-19] VITALS (17 sets, daily range): BP systolic 79–104; BP diastolic 44–60; PULSE 70–102; RESP 16–18; TEMP 35.9–36.6; O2SAT 80–98; BMI 19.5
[2023-09-19 07:15] LABS: Absolute Lymphocyte Count 0.62 X10^3/uL (0.83-4.51); Absolute Neutrophil Count 6.2 X10^3/uL (2.0-7.7); Basophil# 0.01 X10^3/uL; Basophil% 0.1 % (0-1); Eosinophil# 0.18 X10^3/uL; Eosinophils% 2.3 % (0-5); Hematocrit 34.3 % (40-54); Hemoglobin 11.2 g/dL (13.0-16.5); Lymphocyte # 0.62 X10^3/ul (0.83-4.51); Mean Corp Hgb Conc 32.7 g/dL (32-36); Mean Corpuscular Hgb 29.9 pg (27.0-32.0); Mean Corpuscular Volume 91.7 fL (80-94); Mean Platelet Vol. 10.6 fl (6.2-12.0); Monocyte# 0.64 X10^3/uL; Monocyte% 8.3 % (0-10); NRBC Flagged by Analyzer 0 % (0-5); Neutrophil # 6.24 X10^3/uL (2.7-7.7); Neutrophil % 80.7 % (47-70); Platelet Count 234 K/mm3 (150-450); RBC Distribution Width CV 17.3 % (11.6-14.6); Red Blood Count 3.74 M/mm3 (4.6-6.2); White Blood Count 7.7 K/mm3 (4.4-11.0)
[2023-09-19 07:44] LABS: Anion Gap 5 (5-15); BUN 45 mg/dL (7-18); BUN/Creat Ratio 25.3 RATIO (10-20); Calcium,Total 8.2 mg/dL (8.5-10.1); Chloride 106 mmol/L (98-107); Creatinine, Serum 1.78 mg/dL (0.70-1.30); EST Glomerular Filtration Rate 40 mL/min (>60); Est Glom Filt Rate - Afr Amer 48 mL/min (>60); Estimated Creatinine Clearance 32.65 ml/min; Glucose 94 mg/dL (74-106); Potassium 3.7 mmol/L (3.5-5.1); Sodium Level 137 mmol/L (136-145)
[2023-09-19 07:50] LABS: Prothrombin Time (Protime)PT. 42.7 SECONDS (11.7-14.9)
[2023-09-19 07:54] LABS: International Normalized Ratio 4.4
--- NOTE | 2023-09-19 08:48 | PN.HOSP_ITS ---
Reason for Visit Reason for Visit: Diagnoses Other malaise (09/18/23) Edema, unspecified (09/18/23) Objective Data Objective Data Vital Signs: Vital Signs Temp Pulse Resp BP Pulse Ox O2 Del Method O2 Flow Rate 98 F 70 16 90/60 93 Nasal Cannula 3 09/19/23 06:58 09/19/23 06:58 09/19/23 06:58 09/19/23 06:58 09/19/23 06:58 09/19/23 06:58 09/19/23 06:58 Oxygen Flow Rate (L/min) 3 Oxygen Delivery Method Nasal Cannula Weight: 139 lb 12.369 oz Body Mass Index (BMI) 19.5 Intake & Output: Intake and Output for Last 24 Hours 09/17/23 09/18/23 09/19/23 23:59 23:59 23:59 Intake Total 740 / 740 Balance 740 / 740 Lab / Micro Data 09/19/23 06:25 09/19/23 06:25 Labs: Laboratory Results - last 24 hr 09/18/23 11:50: WBC 9.0, RBC 3.67 L, Hgb 10.7 L, Hct 33.9 L, MCV 92.4, MCH 29.2, MCHC 31.6 L, RDW Std Deviation 57.1 H, RDW Coeff of Cynthia 17.2 H, Plt Count 224, MPV 10.9, Immature Gran % (Auto) 0.700, Neut % (Auto) 82.5 H, Lymph % (Auto) 6.4 L, [place] % (Auto) 8.2, Eos % (Auto) 2.0, Baso % (Auto) 0.2, Absolute Neuts (auto) 7.4, Absolute Lymphs (auto) 0.57 L, Nucleated RBC % 0, Differential Comment SCANNED, Sodium 135 L, Potassium 3.6, Chloride 104, Carbon Dioxide 24.0, Anion Gap 7, BUN 45 H, Creatinine 2.02 H, Estim Creat Clear Calc 30.54, Est GFR (MDRD) Af Amer 42 L, Est GFR (MDRD) Non-Af 35 L, BUN/Creatinine Ratio 22.3 H, Glucose 107 H, Calcium 8.2 L, Total Bilirubin 0.90, AST 36, ALT 27, Alkaline Phosphatase 71, Troponin I High Sens 28, B-Natriuretic Peptide 2367.6 H, Total Protein 6.4, Albumin 2.1 L, Globulin 4.3 H, Albumin/Globulin Ratio 0.5 L 09/18/23 12:04: PT 42.7 H, INR 4.4 H*, APTT 68.1 H, Lactic Acid 2.1 H* 09/18/23 13:00: Urine Color Yellow, Urine Clarity Clear, Urine pH 6.0, Ur Spec ific [place] 1.015, Urine Protein 15 H, Urine Glucose (UA) Normal, Urine Ketones Negative, Urine Occult Blood Negative, Urine Nitrite Negative, Urine Bilirubin 1 H, Urine Urobilinogen 1 H, Ur Leukocyte Esterase Negative, Urine RBC 0 SEEN, Urine WBC 0 SEEN, Ur Squamous Epith Cells 0 SEEN, Urine Bacteria 0 SEEN, Urine Mucus 0 SEEN 09/18/23 16:50: Lactic Acid 2.7 H* 09/19/23 06:25: WBC 7.7, RBC 3.74 L, Hgb 11.2 L, Hct 34.3 L, MCV 91.7, MCH 29.9, MCHC 32.7, RDW Std Deviation 57.0 H, RDW Coeff of Cynthia 17.3 H, Plt Count 234, MPV 10.6, Immature Gran % (Auto) 0.600, Neut % (Auto) 80.7 H, Lymph % (Auto) 8.0 L, [place] % (Auto) 8.3, Eos % (Auto) 2.3, Baso % (Auto) 0.1, Absolute Neuts (auto) 6.2, Absolute Lymphs (auto) 0.62 L, Nucleated RBC % 0, PT 42.7 H, INR 4.4 H*, Sodium 137, Potassium 3.7, Chloride 106, Carbon Dioxide 26.0, Anion Gap 5, BUN 45 H, Creatinine 1.78 H, Estim Creat Clear Calc 32.65, Est GFR (MDRD) Af Amer 48 L, Est GFR (MDRD) Non-Af 40 L, BUN/Creatinine Ratio 25.3 H, Glucose 94, Calcium 8.2 L Micro: Microbiology 09/18/23 15:33 Mucosa - Nasopharyngeal Respiratory Panel (PCR) - Final Rhinovirus 09/18/23 11:54 Nasal Secretion SARS-CoV-2 & FLU Antigen (Rapid) - Final Radiography Diagnostic Testing: Radiology Impression Chest X-Ray 09/18/23 12:08 IMPRESSION: Findings in keeping with pulmonary edema. There has been improvement as compared to prior study. Electronically Signed: Brody Sanchez MD at 12:41 EST , Rhythm Strip Rhythm Strip: paced (likely underlying afib) Rate: 100 Ectopy: None Physical Exam Narrative Seen and examined. Patient is fatigued, very weak leaning on the table. Patient has mild shortness of breath but denies exertional orthopnea but states PND/has to wake up in middle of night to catch breath. Denies chest pain. Low blood pressure. Physical exam General: Alert, Oriented x3, Cooperative, fatigue HEENT: Atraumatic, PERRLA, EOMI, Normocephalic Oral: Hard of hearing. No Gingival or Mucosal Lesions/ Ulcerations Neck: Supple, No JVD, Negative Carotid Bruits Lungs: Air entry diminished in bilateral lung bases. No crepitation/rhonchi Cardiovascular: Regular rate, Regular Rhythm, Normal S1, Normal S2, systolic m urmur LLSB and right second ICS. AICD left subclavicular. Abdomen: Bowel Sounds Present, Soft, Non Tender, Non-Distended : No renal angle tenderness. No suprapubic tenderness. Extremities: Mild edema, Capillary Refill Less than 3 Seconds Skin: No rashes, No breakdown Musculoskeletal: No Tenderness to Palpation of Joints or Extremities. Muscle strength 4+/5 at knees and hip joints. Neurological: Cranial nerves II-XII grossly intact, DTR 2+/4. No acute focal neurological deficit. Psych/Mental Status:Lethargic. Flat affect Assessment & Plan Assessment/Plan (1) Declining functional status: (2) Edema: PLAN: Plan 73-year-old gentleman was admitted for edema of both legs for about 1 month worse for last 1 week. Denies chest pain dyspnea on exertion or orthopnea. Generalized weakness and difficulty getting up and around. Patient was discharge medication reconciliation done. Discharge follow-up instructions completed. Discharge process discussed with the patient and all questions were answered to patient's satisfaction. Follow with PCP in 1 to 2 weeks Total time spent, exact 35 minutes on discharge meds reconciliation, examination, coordination of care with nurses and ancillary staff, review of imaging and blood test and discussion with the patient on follow-up instru ctions. About a week ago for pneumonia. History of CABG 13 years ago. 1. Increasing lower extremity edema with declining functional status with shortness of breath due to rhinovirus 2. Chronic combined systolic and diastolic CHF/HTN/HLD/CAD status post CABG History is unclear. Patient does not have much leg swelling or lung crepitations but he states mild PND. Patient hypotensive on admission and is still last BP 97/55. Patient on furosemide 40 mg daily, Coreg 12.5 mg twice daily and losartan 25 mg daily. Coreg decreased to 6.25 twice daily and other medications spaced out around the day with holding parameters. Potassium 3.7. Home spironolactone 25 mg resumed. 3. Chronic A-fib with defibrillator: ? Resume his amiodarone ? INR supratherapeutic at 4.4, and continue to hold Coumadin and recheck INR in the morning 4. GERD ? Stable ? Continue with PPI 5. CKD stage IIIb: Patient baseline creatinine is around 2.0. Most recent 1.78. DVT: Supratherapeutic INR
[2023-09-19] MEDS: Clopidogrel Bisulfate 75 MG Tablet PO (09:47)
[2023-09-19] MEDS: Amiodarone 200 MG Tablet PO (09:47)
[2023-09-19] MEDS: Empagliflozin 10 MG Tablet PO (09:47)
[2023-09-19] MEDS: Pantoprazole Sodium 40 MG Tablet PO (09:47)
[2023-09-19] MEDS: Spironolactone 25 MG Tablet PO (11:17)
[2023-09-19] MEDS: guaiFENesin/D-Methorphan TAB.SR.12H 2 TABLET PO ×2 (11:17→21:07)
--- NOTE | 2023-09-19 14:35 | CHAPLAIN ---
Type of Pastoral Visit _x__ Initial Visit ___ Follow-up Visit ___ On-call Visit ___ General Patient Visit ___ Spiritual Assessment ___ Family Conference ___ Bereavement ___ Rapid Response ___ Code Blue ___ Other (describe below) Pastoral Care Referral From _x__ Patient ___ Family ___ Nurse ___ Physician ___ Aviation Technician Aircraft ___ Internet Marketing Coordinator ___ Other (describe below) Sacrament/Intervention _x__ Active listening ___ Anointing ___ Evangelical ___ Bereavement ___ Communion ___ Kathleen exploration ___ ___ Life review _x__ Prayer ___ Reconciliation ___ Sacrament of Sick ___ Supportive presence ___ Wedding ___ Other (describe below) Pastoral Comments patient is resting in bed and repeatedly states that he is 'so very tired today for some reason'; pt is given opportunities to talk and seek support but continues to say that he is 'ok' and 'don't really need anything'; 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
[2023-09-19] MEDS: Atorvastatin Calcium 10 MG Tablet PO (21:07)
[2023-09-19] MEDS: Albumin Human 25% (100 mL) 25 GM/100 ML BAG IV (22:18)
[2023-09-19] MEDS: MELATONIN 3 MG TABLET PO (22:18)
[2023-09-20] VITALS (16 sets, daily range): BP systolic 87–134; BP diastolic 54–84; PULSE 72–102; RESP 16–24; TEMP 36–36.9; O2SAT 88–99; BMI 19.1
[2023-09-20] MEDS: Furosemide 40 MG/4 ML Vial IV (00:12)
[2023-09-20] MEDS: 0.9% Saline Lock 10 ML Syringe IV (00:12)
[2023-09-20 05:55] LABS: Absolute Lymphocyte Count 0.46 X10^3/uL (0.83-4.51); Absolute Neutrophil Count 8.4 X10^3/uL (2.0-7.7); Basophil# 0.01 X10^3/uL; Basophil% 0.1 % (0-1); Eosinophil# 0.05 X10^3/uL; Eosinophils% 0.5 % (0-5); Hematocrit 36.1 % (40-54); Hemoglobin 11.3 g/dL (13.0-16.5); Lymphocyte # 0.46 X10^3/ul (0.83-4.51); Lymphocyte % 4.8 % (19-41); Mean Corp Hgb Conc 31.3 g/dL (32-36); Mean Corpuscular Hgb 28.8 pg (27.0-32.0); Mean Corpuscular Volume 92.1 fL (80-94); Monocyte# 0.57 X10^3/uL; Monocyte% 5.9 % (0-10); NRBC Flagged by Analyzer 0 % (0-5); Neutrophil # 8.44 X10^3/uL (2.7-7.7); Neutrophil % 88.1 % (47-70); POSITIVE DIFFERENTIAL YES; Platelet Count 276 K/mm3 (150-450); RBC Distribution Width CV 17.4 % (11.6-14.6); RBC Distribution Width SD 58.1 fl (35.1-43.9); Red Blood Count 3.92 M/mm3 (4.6-6.2); White Blood Count 9.6 K/mm3 (4.4-11.0)
[2023-09-20 06:09] LABS: Differential Indicated SCAN CRITERIA MET
[2023-09-20 06:24] LABS: International Normalized Ratio 3.9; Prothrombin Time (Protime)PT. 39.2 SECONDS (11.7-14.9)
[2023-09-20 06:33] LABS: Anion Gap 8 (5-15); BUN 45 mg/dL (7-18); BUN/Creat Ratio 26.5 RATIO (10-20); Calcium,Total 8.3 mg/dL (8.5-10.1); Chloride 104 mmol/L (98-107); EST Glomerular Filtration Rate 42 mL/min (>60); Est Glom Filt Rate - Afr Amer 51 mL/min (>60); Estimated Creatinine Clearance 33.54 ml/min; Glucose 92 mg/dL (74-106); Potassium 3.8 mmol/L (3.5-5.1); Sodium Level 137 mmol/L (136-145)
[2023-09-20 07:07] LABS: Differential Comment SCANNED
[2023-09-20] MEDS: Furosemide 40 MG Tablet PO ×2 (07:47→07:57)
[2023-09-20] MEDS: guaiFENesin/D-Methorphan TAB.SR.12H 2 TABLET PO ×2 (07:50→23:27)
[2023-09-20] MEDS: Spironolactone 25 MG Tablet PO (07:55)
[2023-09-20] MEDS: Carvedilol 6.25 MG Tablet PO ×2 (07:56→22:55)
[2023-09-20] MEDS: Pantoprazole Sodium 40 MG Tablet PO (07:56)
[2023-09-20] MEDS: Clopidogrel Bisulfate 75 MG Tablet PO (07:56)
[2023-09-20] MEDS: Amiodarone 200 MG Tablet PO (07:57)
[2023-09-20 08:41] LABS: BNP,B-Type NATRIURETIC PEPTIDE 2569.1 pg/mL (0-100)
[2023-09-20] MEDS: Empagliflozin 10 MG Tablet PO (11:08)
--- NOTE | 2023-09-20 17:59 | PN.HOSP_ITS ---
Reason for Visit Reason for Visit: Diagnoses Other malaise (09/18/23) Edema, unspecified (09/18/23) Objective Data Objective Data Vital Signs: Vital Signs Temp Pulse Resp BP Pulse Ox O2 Del Method O2 Flow Rate 97.2 F L 101 H 16 99/59 L 94 Nasal Cannula 3 09/20/23 17:01 09/20/23 17:01 09/20/23 17:01 09/20/23 17:58 09/20/23 17:01 09/20/23 17:01 09/20/23 17:01 Oxygen Flow Rate (L/min) 3 Oxygen Delivery Method Nasal Cannula Weight: 137 lb 2.04 oz Body Mass Index (BMI) 19.1 Intake & Output: Intake and Output for Last 24 Hours 09/18/23 09/19/23 09/20/23 23:59 23:59 23:59 Intake Total 740 / 740 480 / 530 700 / 700 Output Total 400 / 400 Balance 740 / 740 480 / 430 300 / 300 Lab / Micro Data 09/20/23 04:20 09/20/23 04:20 Labs: Laboratory Results - last 24 hr 09/20/23 04:20: WBC 9.6, RBC 3.92 L, Hgb 11.3 L, Hct 36.1 L, MCV 92.1, MCH 28.8, MCHC 31.3 L, RDW Std Deviation 58.1 H, RDW Coeff of Cynthia 17.4 H, Plt Count 276, MPV 11.0, Immature Gran % (Auto) 0.600, Neut % (Auto) 88.1 H, Lymph % (Auto) 4.8 L, [place] % (Auto) 5.9, Eos % (Auto) 0.5, Baso % (Auto) 0.1, Absolute Neuts (auto) 8.4 H, Absolute Lymphs (auto) 0.46 L, Nucleated RBC % 0, Differential Comment SCANNED, PT 39.2 H, INR 3.9, Sodium 137, Potassium 3.8, Chloride 104, Carbon Dioxide 25.0, Anion Gap 8, BUN 45 H, Creatinine 1.70 H, Estim Creat Clear Calc 33.54, Est GFR (MDRD) Af Amer 51 L, Est GFR (MDRD) Non-Af 42 L, BUN/Creatinine Ratio 26.5 H, Glucose 92, Calcium 8.3 L, B-Natriuretic Peptide 2569.1 H Micro: Microbiology 09/18/23 13:00 Urine, Clean Catch Urine Culture - Final Culture exhibits no growth. 09/18/23 12:04 Blood Culture (Wb) - Right Forearm Blood Culture - Preliminary No growth in 48 hours. 09/18/23 12:20 Blood Culture (Wb) - Anticubital Left Blood Culture - Preliminary No growth in 48 hours. 09/18/23 15:33 Mucosa - Nasopharyngeal Respiratory Panel (PCR) - Final Rhinovirus 09/18/23 11:54 Nasal Secretion SARS-CoV-2 & FLU Antigen (Rapid) - Final Rhythm Strip Rhythm Strip: paced (likely underlying afib) Rate: 100 Ectopy: None Physical Exam Narrative Seen and examined. Patient is fatigued, very weak leaning on the table. Patient still looks very short of breath sitting upright on the bed. Seems has orthopnea and PND/has to wake up in middle of night to catch breath. Denies chest pain. Low blood pressure. Physical exam General: Alert, Oriented x3, Cooperative, fatigue HEENT: Atraumatic, PERRLA, EOMI, Normocephalic Oral: Hard of hearing. No Gingival or Mucosal Lesions/ Ulcerations Neck: Supple, No JVD, Negative Carotid Bruits Lungs: Air entry diminished in bilateral lung bases. No crepitation/rhonchi Cardiovascular: Regular rate, Regular Rhythm, Normal S1, Normal S2, systolic murmur LLSB and right second ICS. AICD left subclavicular. Abdomen: Bowel Sounds Present, Soft, Non Tender, Non-Distended : No renal angle tenderness. No suprapubic tenderness. Extremities: Mild edema, Capillary Refill Less than 3 Seconds Skin: No rashes, No breakdown Musculoskeletal: No Tenderness to Palpation of Joints or Extremities. Muscle strength 4+/5 at knees and hip joints. Neurological: Cranial nerves II-XII grossly intact, DTR 2+/4. No acute focal neurological deficit. Psych/Mental Status:Lethargic. Flat affect Assessment & Plan Assessment/Plan (1) Declining functional status: (2) Edema: PLAN: Plan 73-year-old gentleman was admitted for edema of both legs for about 1 month worse for last 1 week. Denies chest pain dyspnea on exertion or orthopnea. Generalized weakness and difficulty getting up and around. Patient was d ischarge medication reconciliation done. Discharge follow-up instructions completed. Discharge process discussed with the patient and all questions were answered to patient's satisfaction. Follow with PCP in 1 to 2 weeks Total time spent, exact 35 minutes on discharge meds reconciliation, examin ation, coordination of care with nurses and ancillary staff, review of imaging and blood test and discussion with the patient on follow-up instructions. About a week ago for pneumonia. History of CABG 13 years ago. 1. Increasing lower extremity edema with declining functional status with otilia rtness of breath due to rhinovirus: Bronchopulmonary hygiene. Heart failure core measures including intake and output, fluid restriction less than 1500 mL, daily weight monitoring, kidney and electrolytes monitoring. Volodymyr wrap bandage. Rest as mentioned below 2. Chronic combined systolic and diastolic CHF/HTN/HLD/CAD status post CABG History is unclear. Patient does not have much leg swelling or lung crepitations but he states mild PND. Patient hypotensive on admission and is still last BP 97/55. Patient on furosemide 40 mg daily, Coreg 12.5 mg twice daily and losartan 25 mg daily. Coreg decreased to 6.25 twice daily and other medications spaced out around the day with holding parameters. Potassium 3.7. Home spironolactone 25 mg resumed. 09/20: Lasix 40 mg oral changed to Lasix 20 mg IV twice daily with holding parameters. 3. Chronic A-fib with defibrillator: ? Resume his amiodarone ? INR supratherapeutic at 4.4, and continue to hold Coumadin and recheck INR in the morning 09/14: INR is still 3.9. Continue holding warfarin. 4. GERD ? Stable ? Continue with PPI 5. CKD stage IIIb: Patient baseline creatinine is around 2.0. Most recent 1.78. DVT: Supratherapeutic INR Charges/Coding Visit Charges Inpatient E&M: 23698 Subs Hosp L2
[2023-09-20] MEDS: Ipratropium/Albuterol Sulfate 3 ML AMPUL.NEB INHALATION (20:26)
[2023-09-20] MEDS: Atorvastatin Calcium 10 MG Tablet PO (23:06)
[2023-09-21] VITALS (13 sets, daily range): BP systolic 80–106; BP diastolic 52–66; PULSE 70–86; RESP 16–20; TEMP 36.2–36.8; O2SAT 92–95; BMI 19.1
[2023-09-21] MEDS: Ipratropium/Albuterol Sulfate 3 ML AMPUL.NEB INHALATION ×3 (06:49→19:33)
[2023-09-21 07:17] LABS: Absolute Lymphocyte Count 0.64 X10^3/uL (0.83-4.51); Absolute Neutrophil Count 8.1 X10^3/uL (2.0-7.7); Basophil# 0.02 X10^3/uL; Basophil% 0.2 % (0-1); Eosinophil# 0.04 X10^3/uL; Eosinophils% 0.4 % (0-5); Hemoglobin 10.8 g/dL (13.0-16.5); Lymphocyte # 0.64 X10^3/ul (0.83-4.51); Lymphocyte % 6.7 % (19-41); Mean Corp Hgb Conc 31.8 g/dL (32-36); Mean Corpuscular Hgb 28.4 pg (27.0-32.0); Mean Corpuscular Volume 89.5 fL (80-94); Mean Platelet Vol. 10.7 fl (6.2-12.0); Monocyte% 7.3 % (0-10); NRBC Flagged by Analyzer 0 % (0-5); Neutrophil # 8.11 X10^3/uL (2.7-7.7); Neutrophil % 84.5 % (47-70); Platelet Count 259 K/mm3 (150-450); RBC Distribution Width CV 17.4 % (11.6-14.6); RBC Distribution Width SD 56.1 fl (35.1-43.9); White Blood Count 9.6 K/mm3 (4.4-11.0)
[2023-09-21 07:26] LABS: International Normalized Ratio 3.2
[2023-09-21 07:41] LABS: Anion Gap 5 (5-15); BUN 46 mg/dL (7-18); BUN/Creat Ratio 24.3 RATIO (10-20); Calcium,Total 8.4 mg/dL (8.5-10.1); Chloride 106 mmol/L (98-107); Creatinine, Serum 1.89 mg/dL (0.70-1.30); EST Glomerular Filtration Rate 37 mL/min (>60); Est Glom Filt Rate - Afr Amer 45 mL/min (>60); Estimated Creatinine Clearance 30.17 ml/min; Glucose 126 mg/dL (74-106); Potassium 3.7 mmol/L (3.5-5.1); Sodium Level 136 mmol/L (136-145)
[2023-09-21] MEDS: guaiFENesin/D-Methorphan TAB.SR.12H 2 TABLET PO (08:29)
[2023-09-21] MEDS: Pantoprazole Sodium 40 MG Tablet PO (08:36)
[2023-09-21] MEDS: Amiodarone 200 MG Tablet PO (08:36)
[2023-09-21] MEDS: Empagliflozin 10 MG Tablet PO ×2 (08:36)
[2023-09-21] MEDS: Clopidogrel Bisulfate 75 MG Tablet PO (08:37)
[2023-09-21] MEDS: 0.9% Saline Lock 10 ML Syringe IV ×2 (08:37→17:13)
--- NOTE | 2023-09-21 09:22 | PCM.PN.HOSP ---
Reason for Visit Reason for Visit: Diagnoses Other malaise (09/18/23) Edema, unspecified (09/18/23) Objective Data Objective Data Vital Signs: Vital Signs Temp Pulse Resp BP Pulse Ox O2 Del Method O2 Flow Rate 97.1 F L 73 16 91/58 L 93 Nasal Cannula 6 09/21/23 08:19 09/21/23 08:19 09/21/23 08:19 09/21/23 08:19 09/21/23 08:19 09/21/23 08:22 09/21/23 08:22 Oxygen Flow Rate (L/min) 6 Oxygen Delivery Method Nasal Cannula Weight: 137 lb 2.04 oz Body Mass Index (BMI) 19.1 Intake & Output: Intake and Output for Last 24 Hours 09/19/23 09/20/23 09/21/23 23:59 23:59 23:59 Intake Total 480 / 530 700 / 1200 850 / 850 Output Total 400 / 400 Balance 480 / 430 300 / 800 850 / 850 Lab / Micro Data 09/21/23 06:38 09/21/23 06:38 Labs: Laboratory Results - last 24 hr 09/21/23 06:38: WBC 9.6, RBC 3.80 L, Hgb 10.8 L, Hct 34.0 L, MCV 89.5, MCH 28.4, MCHC 31.8 L, RDW Std Deviation 56.1 H, RDW Coeff of Cynthia 17.4 H, Plt Count 259, MPV 10.7, Immature Gran % (Auto) 0.900, Neut % (Auto) 84.5 H, Lymph % (Auto) 6.7 L, [place] % (Auto) 7.3, Eos % (Auto) 0.4, Baso % (Auto) 0.2, Absolute Neuts (auto) 8.1 H, Absolute Lymphs (auto) 0.64 L, Nucleated RBC % 0, PT 33.0 H, INR 3.2, Sodium 136, Potassium 3.7, Chloride 106, Carbon Dioxide 25.0, Anion Gap 5, BUN 46 H, Creatinine 1.89 H, Estim Creat Clear Calc 30.17, Est GFR (MDRD) Af Amer 45 L, Est GFR (MDRD) Non-Af 37 L, BUN/Creatinine Ratio 24.3 H, Glucose 126 H, Calcium 8.4 L Micro: Microbiology 09/18/23 13:00 Urine, Clean Catch Urine Culture - Final Culture exhibits no growth. 09/18/23 12:04 Blood Culture (Wb) - Right Forearm Blood Culture - Preliminary No growth in 48 hours. 09/18/23 12:20 Blood Culture (Wb) - Anticubital Left Blood Culture - Preliminary No growth in 48 hours. 09/18/23 15:33 Mucosa - Nasopharyngeal Respiratory Panel (PCR) - Final Rhinovirus 09/18/23 11:54 Nasal Secretion SARS-CoV-2 & FLU Antigen (Rapid) - Final Rhythm Strip Rhythm Strip: paced (likely underlying afib) Rate: 100 Ectopy: None Physical Exam Narrative Patient is still very short of breath require 6 L of oxygen. Sitting upright in bed. Not able to lay flat. Very weak and fatigued. Denies chest pain. Low blood pressure. Physical exam General: Alert, Oriented x3, Cooperative, fatigue HEENT: Atraumatic, PERRLA, EOMI, Normocephalic Oral: Hard of hearing. No Gingival or Mucosal Lesions/ Ulcerations Neck: Supple, No JVD, Negative Carotid Bruits Lungs: Dyspnea at rest. Air entry diminished in bilateral lung bases. Bilateral expiratory rhonchi. Cardiovascular: Regular rate, Regular Rhythm, Normal S1, Normal S2, systolic murmur LLSB and right second ICS. AICD left subclavicular.Orthopnea and PND. Abdomen: Bowel Sounds Present, Soft, Non Tender, Non-Distended : No renal angle tenderness. No suprapubic tenderness. Extremities: Mild edema, Capillary Refill Less than 3 Seconds Skin: No rashes, No breakdown Musculoskeletal: No Tenderness to Palpation of Joints or Extremities. Muscle strength 4+/5 at knees and hip joints. Neurological: Cranial nerves II-XII grossly intact, DTR 2+/4. No acute focal neurological deficit. Psych/Mental Status:Lethargic. Flat affect Assessment & Plan Assessment/Plan (1) Declining functional status: (2) Edema: PLAN: Plan 73-year-old gentleman was admitted for edema of both legs for about 1 month worse for last 1 week. Denies chest pain dyspnea on exertion or orthopnea. Generalized weakness and difficulty getting up and around. Patient was discharged about a week ago for pneumonia. History of CABG 13 years ago. 1. Acute hypoxic respiratory failure most likely due to COPD exacerbation from rhinovirus. : Patient is was smoking 3 packs/day during a younger age and then quit 12 years ago. Currently chews tobacco. Bronchodilator, IV Solu-Medrol, Mucinex DM and bronchopulmonary hygiene. 09/21: 2. 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 Volodymyr wrap bandage. Rest as mentioned below History is unclear. Patient does not have much leg swelling or lung crepitations but he states mild PND. Patient hypotensive on admission and is still last BP 97/55. Patient on furosemide 40 mg daily, Coreg 12.5 mg twice daily and losartan 25 mg daily. Coreg decreased to 6.25 twice daily and other medications spaced out around the day with holding parameters. Potassium 3.7. Home spironolactone 25 mg resumed. 09/20: Lasix 40 mg oral changed to Lasix 20 mg IV twice daily with holding parameters. 09/21: Patient blood pressure still low. Coreg decreased to 3.125 twice daily. 2D echo in 2022 reported EF 25% grade 2 diastolic dysfunction, LA severely enlarged, 3+ MR 2+ TR RVSP 60 mmHg, moderate AI moderate size left pleural effusion suggestive of systolic and diastolic heart failure 3. Chronic A-fib with defibrillator: ? Resume his amiodarone ? INR supratherapeutic at 4.4, and continue to hold Coumadin and recheck INR in the morning 09/14: INR is still 3.9. Continue holding warfarin. 09/21: INR is 3.2. Started on low-dose warfarin 1 mg daily. Monitor INR daily 4. GERD ? Stable ? Continue with PPI 5. CKD stage IIIb: Patient baseline creatinine is around 2.0. Most recent 1.78. 09/21: Creatinine 1.89. DVT: Supratherapeutic INR Living will/advanced directive/end of life care: Patient does not have living will or advanced directive. Patient is states his son makes the decision and next of kin. After discussion of benefits/risks procedures involved with full code, DNR CC arrest and DNR CC, the patient opted for DNRCC arrest with no intubation Patient doesn't want artificial life support including intubation, tube feed, ventilator and/chest compression, central venous catheter, vasopressor and DC shock if needed. CODE STATUS changed to DNR CC arrest with no intubation. Palliative care requested. Total time spent in [id number] encounter in discussion of advanced directive 17 minutes. Charges/Coding Visit Charges Inpatient E&M: 01279 Subs Hosp L2 Procedures Hospitalists Procedures: 16163 Advncd Care Plan 30 Min
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
[2023-09-21] MEDS: Losartan Potassium 25 MG Tablet PO (17:11)
[2023-09-21] MEDS: Furosemide 20 MG/2 ML VIAL IV (17:11)
[2023-09-22] VITALS (19 sets, daily range): BP systolic 69–120; BP diastolic 46–90; PULSE 70–79; RESP 16–19; TEMP 36.1–37.1; O2SAT 80–97; BMI 19.1
[2023-09-22] MEDS: Atorvastatin Calcium 10 MG Tablet PO ×2 (00:22→21:28)
[2023-09-22] MEDS: guaiFENesin/D-Methorphan TAB.SR.12H 2 TABLET PO ×3 (00:23→21:28)
[2023-09-22 06:50] LABS: Absolute Lymphocyte Count 0.28 X10^3/uL (0.83-4.51); Absolute Neutrophil Count 12.9 X10^3/uL (2.0-7.7); Basophil# 0.01 X10^3/uL; Basophil% 0.1 % (0-1); Hematocrit 35.1 % (40-54); Hemoglobin 11.4 g/dL (13.0-16.5); Lymphocyte # 0.28 X10^3/ul (0.83-4.51); Lymphocyte % 2.1 % (19-41); Mean Corp Hgb Conc 32.5 g/dL (32-36); Mean Corpuscular Hgb 28.7 pg (27.0-32.0); Mean Corpuscular Volume 88.4 fL (80-94); Mean Platelet Vol. 10.8 fl (6.2-12.0); Monocyte# 0.25 X10^3/uL; Monocyte% 1.9 % (0-10); NRBC Flagged by Analyzer 0 % (0-5); Neutrophil # 12.91 X10^3/uL (2.7-7.7); Neutrophil % 95.5 % (47-70); POSITIVE DIFFERENTIAL YES; Platelet Count 276 K/mm3 (150-450); RBC Distribution Width CV 17.4 % (11.6-14.6); Red Blood Count 3.97 M/mm3 (4.6-6.2); White Blood Count 13.5 K/mm3 (4.4-11.0)
[2023-09-22 06:54] LABS: Differential Indicated SCAN CRITERIA MET
[2023-09-22 06:59] LABS: International Normalized Ratio 3.6; Prothrombin Time (Protime)PT. 36.4 SECONDS (11.7-14.9)
[2023-09-22] MEDS: Ipratropium/Albuterol Sulfate 3 ML AMPUL.NEB INHALATION ×4 (07:03→19:00)
[2023-09-22 07:15] LABS: Anion Gap 8 (5-15); BUN 47 mg/dL (7-18); BUN/Creat Ratio 26.4 RATIO (10-20); Calcium,Total 8.5 mg/dL (8.5-10.1); Chloride 107 mmol/L (98-107); Creatinine, Serum 1.78 mg/dL (0.70-1.30); EST Glomerular Filtration Rate 40 mL/min (>60); Est Glom Filt Rate - Afr Amer 48 mL/min (>60); Estimated Creatinine Clearance 31.93 ml/min; Glucose 136 mg/dL (74-106); Sodium Level 137 mmol/L (136-145)
--- NOTE | 2023-09-22 08:44 | PN.HOSP_ITS ---
Reason for Visit Reason for Visit: Diagnoses Other malaise (09/18/23) Edema, unspecified (09/18/23) Objective Data Objective Data Vital Signs: Vital Signs Temp Pulse Resp BP Pulse Ox O2 Del Method O2 Flow Rate 98.0 F 72 18 102/59 L 94 Nasal Cannula 5 09/22/23 04:00 09/22/23 04:00 09/22/23 04:00 09/22/23 04:00 09/22/23 04:00 09/22/23 04:00 09/22/23 04:00 Oxygen Flow Rate (L/min) 5 Oxygen Delivery Method Nasal Cannula Weight: 136 lb 10.986 oz Body Mass Index (BMI) 19.1 Intake & Output: Intake and Output for Last 24 Hours 09/20/23 09/21/23 09/22/23 23:59 23:59 23:59 Intake Total 700 / 1200 1330 / 1630 420 / 420 Output Total 400 / 400 200 / 200 Balance 300 / 800 1130 / 1430 420 / 420 Lab / Micro Data 09/22/23 05:45 09/22/23 05:45 Labs: Laboratory Results - last 24 hr 09/22/23 05:45: WBC 13.5 H, RBC 3.97 L, Hgb 11.4 L, Hct 35.1 L, MCV 88.4, MCH 28.7, MCHC 32.5, RDW Std Deviation 56.0 H, RDW Coeff of Cynthia 17.4 H, Plt Count 276, MPV 10.8, Immature Gran % (Auto) 0.400, Neut % (Auto) 95.5 H, Lymph % (Auto) 2.1 L, [place] % (Auto) 1.9, Eos % (Auto) 0.0, Baso % (Auto) 0.1, Absolute Neuts (auto) 12.9 H, Absolute Lymphs (auto) 0.28 L, Nucleated RBC % 0, PT 36.4 H , INR 3.6, Sodium 137, Potassium 4.0, Chloride 107, Carbon Dioxide 22.0, Anion Gap 8, BUN 47 H, Creatinine 1.78 H, Estim Creat Clear Calc 31.93, Est GFR (MDRD) Af Amer 48 L, Est GFR (MDRD) Non-Af 40 L, BUN/Creatinine Ratio 26.4 H, Glucose 136 H, Calcium 8.5 Micro: Microbiology 09/18/23 13:00 Urine, Clean Catch Urine Culture - Final Culture exhibits no growth. 09/18/23 12:04 Blood Culture (Wb) - Right Forearm Blood Culture - Preliminary No growth in 48 hours. 09/18/23 12:20 Blood Culture (Wb) - Anticubital Left Blood Culture - Preliminary No growth in 48 hours. 09/18/23 15:33 Mucosa - Nasopharyngeal Respiratory Panel (PCR) - Final Rhinovirus 09/18/23 11:54 Nasal Secretion SARS-CoV-2 & FLU Antigen (Rapid) - Final Rhythm Strip Rhythm Strip: paced (likely underlying afib) Rate: 100 Ectopy: None Physical Exam Narrative Seen and examined. Patient sitting up on the bed. He states he feels better. His breathing is better but is still on 6 to 7 L of oxygen. Very weak and fatigued. Denies chest pain. Low blood pressure. BP 91/47 Physical exam General: Alert, Oriented x3, Cooperative, fatigue HEENT: Atraumatic, PERRLA, EOMI, Normocephalic Oral: Hard of hearing. No Gingival or Mucosal Lesions/ Ulcerations Neck: Supple, No JVD, Negative Carotid Bruits Lungs: Air entry diminished in bilateral lung bases. Expiratory rhonchi has diminished lung seems clear. Does not look like in respiratory distress. Cardiovascular: Regular rate, Regular Rhythm, Normal S1, Normal S2, systolic murmur LLSB and right second ICS. AICD left subclavicular.Orthopnea and PND. Abdomen: Bowel Sounds Present, Soft, Non Tender, Non-Distended : No renal angle tenderness. No suprapubic tenderness. Extremities: Mild edema, Capillary Refill Less than 3 Seconds Skin: No rashes, No breakdown Musculoskeletal: No Tenderness to Palpation of Joints or Extremities. Muscle strength 4+/5 at knees and hip joints. Neurological: Cranial nerves II-XII grossly intact, DTR 2+/4. No acute focal neurological deficit. Psych/Mental Status: Flat affect Assessment & Plan Assessment/Plan (1) Declining functional status: (2) Edema: PLAN: Plan 73-year-old gentleman was admitted for edema of both legs for about 1 month worse for last 1 week. Denies chest pain dyspnea on exertion or orthopnea. Generalized weakness and difficulty getting up and around. Patient was discharged about a week ago for pneumonia. History of CABG 13 years ago. 1. Acute hypoxic respiratory failure most likely due to COPD exacerbation from rhinovirus. : Patient is was smoking 3 packs/day during a younger age and then quit 12 years ago. Currently chews tobacco. Bronchodilator, IV Solu-Medrol, Mucinex DM and bronchopulmonary hygiene. 09/22: Patient is still on 5 to 7 L of oxygen high flow. BiPAP as needed and during naps at night. 2. 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 Volodymyr wrap bandage. Rest as mentioned below History is unclear. Patient does not have much leg swelling or lung crepitations but he states mild PND. Patient hypotensive on admission and is still last BP 97/55. Patient on furosemide 40 mg daily, Coreg 12.5 mg twice daily and losartan 25 mg daily. Coreg decreased to 6.25 twice daily and other medications spaced out around the day with holding parameters. Potassium 3.7. Home spironolactone 25 mg resumed. 09/20: Lasix 40 mg oral changed to Lasix 20 mg IV twice daily with holding parameters. 09/21: Patient blood pressure still low. Coreg decreased to 3.125 twice daily. 2D echo in 2022 reported EF 25% grade 2 diastolic dysfunction, LA severely enlarged, 3+ MR 2+ TR RVSP 60 mmHg, moderate AI moderate size left pleural effusion suggestive of systolic and diastolic heart failure 09/22: Patient blood pressure remain low. Continue above medications with holding parameters. Patient on Coreg, losartan, furosemide and empagliflozin. 3. Chronic A-fib with defibrillator: ? Resume his amiodarone ? INR supratherapeutic at 4.4, and continue to hold Coumadin and recheck INR in the morning 09/14: INR is still 3.9. Continue holding warfarin. 09/21: INR is 3.2. Started on low-dose warfarin 1 mg daily. Monitor INR daily 10/03: INR 3.6. Will hold low warfarin 4. GERD ? Stable ? Continue with PPI 5. CKD stage IIIb: Patient baseline creatinine is around 2.0. Most recent 1. 78. 09/21: Creatinine 1.89. 09/22: Creatinine 1.78. DVT: Supratherapeutic INR Living will/advanced directive/end of life care: Patient does not have living will or advanced directive. Patient is states his son makes the decision and next of kin. After discussion of benefits/risks procedures involved with full code, DNR CC arrest and DNR CC, the patient opted for DNRCC arrest with no intubation Patient doesn't want artificial life support including intubation, tube feed, ventilator and/chest compression, central venous catheter, vasopressor and DC shock if needed. CODE STATUS changed to DNR CC arrest with no intubation. Palliative care requested. Total time spent in [id number] encounter in discussion of advanced directive 17 minutes. Charges/Coding Visit Charges Inpatient E&M: 91616 Subs Hosp L2
[2023-09-22] MEDS: Pantoprazole Sodium 40 MG Tablet PO (10:59)
[2023-09-22] MEDS: Clopidogrel Bisulfate 75 MG Tablet PO (10:59)
--- NOTE | 2023-09-22 14:39 | CASEMGMT ---
Received notification that DIL preferences for HHC are as follows: 1. Home Care 2.[facility] 3.[facility] 4.[facility] 5.[facility]
[2023-09-22] MEDS: LACTATED RINGERS 500 ML 999 ML IV (17:03)
[2023-09-22] MEDS: 0.9% Saline Lock 10 ML Syringe IV ×2 (17:03→21:27)
[2023-09-22] MEDS: MELATONIN 10 MG TABLET PO (22:23)
[2023-09-23] VITALS (22 sets, daily range): BP systolic 75–98; BP diastolic 42–67; PULSE 70–83; RESP 12–28; TEMP 36.1–37.1; O2SAT 85–96; BMI 19.2
[2023-09-23] MEDS: 0.9% Saline Lock 10 ML Syringe IV ×5 (05:35→21:08)
[2023-09-23] MEDS: Ipratropium/Albuterol Sulfate 3 ML AMPUL.NEB INHALATION ×3 (06:43→18:52)
[2023-09-23 06:51] LABS: Absolute Lymphocyte Count 0.29 X10^3/uL (0.83-4.51); Absolute Neutrophil Count 18.8 X10^3/uL (2.0-7.7); Basophil# 0.02 X10^3/uL; Basophil% 0.1 % (0-1); Hematocrit 35.7 % (40-54); Hemoglobin 11.8 g/dL (13.0-16.5); Lymphocyte # 0.29 X10^3/ul (0.83-4.51); Lymphocyte % 1.5 % (19-41); Mean Corp Hgb Conc 33.1 g/dL (32-36); Mean Corpuscular Hgb 30.3 pg (27.0-32.0); Mean Corpuscular Volume 91.8 fL (80-94); Mean Platelet Vol. 10.8 fl (6.2-12.0); Monocyte# 0.52 X10^3/uL; Monocyte% 2.6 % (0-10); NRBC Flagged by Analyzer 0 % (0-5); Neutrophil # 18.81 X10^3/uL (2.7-7.7); Neutrophil % 95.2 % (47-70); POSITIVE DIFFERENTIAL YES; Platelet Count 296 K/mm3 (150-450); RBC Distribution Width CV 17.6 % (11.6-14.6); RBC Distribution Width SD 58.8 fl (35.1-43.9); Red Blood Count 3.89 M/mm3 (4.6-6.2); White Blood Count 19.8 K/mm3 (4.4-11.0)
[2023-09-23 06:53] LABS: Differential Indicated SCAN CRITERIA MET
--- NOTE | 2023-09-23 06:57 | PN.HOSP_ITS ---
Reason for Visit Reason for Visit: Diagnoses Other malaise (09/18/23) Edema, unspecified (09/18/23) Subjective Subjective Worsening shortening of breath since this morning. Oxygen requirement with nasal cannula increased to 15 L/min Objective Data Objective Data Vital Signs: Vital Signs Temp Pulse Resp BP Pulse Ox O2 Del Method O2 Flow Rate 97 F L 73 18 95/65 96 Bi-pap 15 09/23/23 06:42 09/23/23 06:44 09/23/23 06:44 09/23/23 06:42 09/23/23 06:44 09/23/23 06:42 09/23/23 06:00 FiO2 40 09/23/23 06:44 Oxygen Flow Rate (L/min) 15 Oxygen Delivery Method Bi-pap Weight: 138 lb 0.15 oz Body Mass Index (BMI) 19.2 Intake & Output: Intake and Output for Last 24 Hours 09/21/23 09/22/23 09/23/23 23:59 23:59 23:59 Intake Total 1330 / 1630 1989 250 / 250 Output Total 200 / 200 100 / 100 200 / 200 Balance 1130 / 1430 1890 / 1890 50 / 50 Lab / Micro Data 09/23/23 06:30 09/22/23 05:45 Labs: Laboratory Results - last 24 hr 09/22/23 05:45: PT 36.4 H, INR 3.6, Sodium 137, Potassium 4.0, Chloride 107, Carbon Dioxide 22.0, Anion Gap 8, BUN 47 H, Creatinine 1.78 H, Estim Creat Clear Calc 31.93, Est GFR (MDRD) Af Amer 48 L, Est GFR (MDRD) Non-Af 40 L, BUN/Creatinine Ratio 26.4 H, Glucose 136 H, Calcium 8.5 09/23/23 06:30: WBC 19.8 H, RBC 3.89 L, Hgb 11.8 L, Hct 35.7 L, MCV 91.8, MCH 30.3, MCHC 33.1, RDW Std Deviation 58.8 H, RDW Coeff of Cynthia 17.6 H, Plt Count 296, MPV 10.8, Immature Gran % (Auto) 0.600, Neut % (Auto) 95.2 H, Lymph % (Auto) 1.5 L, [place] % (Auto) 2.6, Eos % (Auto) 0.0, Baso % (Auto) 0.1, Absolute Neuts (auto) 18.8 H, Absolute Lymphs (auto) 0.29 L, Nucleated RBC % 0 Micro: Microbiology 09/18/23 13:00 Urine, Clean Catch Urine Culture - Final Culture exhibits no growth. 09/18/23 12:04 Blood Culture (Wb) - Right Forearm Blood Culture - Preliminary No growth in 48 hours. 09/18/23 12:20 Blood Culture (Wb) - Anticubital Left Blood Culture - Prelimi nary No growth in 48 hours. 09/18/23 15:33 Mucosa - Nasopharyngeal Respiratory Panel (PCR) - Final Rhinovirus 09/18/23 11:54 Nasal Secretion SARS-CoV-2 & FLU Antigen (Rapid) - Final Rhythm Strip Rhythm Strip: paced (likely underlying afib) Rate: 100 Ectopy: None Physical Exam Resp Auscultation: rales bilateral and rhonchi Assessment & Plan Assessment/Plan (1) Acute exacerbation of CHF (congestive heart failure): PLAN: Plan Mr Persaud, was seen for worsening shortness of breath in the setting of CHF and COPD. We will start him on BiPAP therapy, Budecort and DuoNeb nebulization was provided. Will continue to monitor his oxygen requirement. If his blood pressure remains stable we will give him 1 unit dose of Lasix 40 mg IV.
[2023-09-23 07:03] LABS: Anion Gap 5 (5-15); BUN 52 mg/dL (7-18); BUN/Creat Ratio 25.6 RATIO (10-20); Calcium,Total 8.5 mg/dL (8.5-10.1); Chloride 106 mmol/L (98-107); Creatinine, Serum 2.03 mg/dL (0.70-1.30); EST Glomerular Filtration Rate 34 mL/min (>60); Est Glom Filt Rate - Afr Amer 42 mL/min (>60); Estimated Creatinine Clearance 28.27 ml/min; Glucose 135 mg/dL (74-106); Potassium 4.1 mmol/L (3.5-5.1); Sodium Level 137 mmol/L (136-145)
--- NOTE | 2023-09-23 08:45 | RAD_ITS ---
STUDY: X-RAY CHEST REASON FOR EXAM: Male, 73 years old. Shortness of breath TECHNIQUE: Frontal view of the chest COMPARISON: 09/18/2023 FINDINGS: There are increasing opacities noted in both lungs, right greater than left. There are small bilateral pleural effusions. There is no pneumothorax. The heart is enlarged, but stable. Again noted are sternotomy wires and a pacemaker. The visualized osseous structures are within normal limits. RAD/Chest 1 View (Portable) IMPRESSION: Increasing opacities in both lungs, consistent with worsening pneumonia. Small bilateral pleural effusions. Electronically Signed: Yazan Jo MD at 10:09 EST ,
--- NOTE | 2023-09-23 09:21 | PN.HOSP_ITS ---
Reason for Visit Reason for Visit: Diagnoses Heart failure, unspecified (09/18/23) Other malaise (09/18/23) Edema, unspecified (09/18/23) Objective Data Objective Data Vital Signs: Vital Signs Temp Pulse Resp BP Pulse Ox O2 Del Method O2 Flow Rate 97 F L 73 18 95/65 96 Bi-pap 15 09/23/23 06:42 09/23/23 06:44 09/23/23 06:44 09/23/23 06:42 09/23/23 06:44 09/23/23 06:42 09/23/23 06:00 FiO2 40 09/23/23 06:44 Oxygen Flow Rate (L/min) 15 Oxygen Delivery Method Bi-pap Weight: 138 lb 0.15 oz Body Mass Index (BMI) 19.2 Intake & Output: Intake and Output for Last 24 Hours 09/21/23 09/22/23 09/23/23 23:59 23:59 23:59 Intake Total 1330 / 1630 1989 250 / 250 Output Total 200 / 200 100 / 100 200 / 200 Balance 1130 / 1430 1890 / 1890 50 / 50 Lab / Micro Data 09/23/23 06:30 09/23/23 06:30 Labs: Laboratory Results - last 24 hr 09/23/23 06:30: WBC 19.8 H, RBC 3.89 L, Hgb 11.8 L, Hct 35.7 L, MCV 91.8, MCH 30.3, MCHC 33.1, RDW Std Deviation 58.8 H, RDW Coeff of Cynthia 17.6 H, Plt Count 296, MPV 10.8, Immature Gran % (Auto) 0.600, Neut % (Auto) 95.2 H, Lymph % (Auto) 1.5 L, Curry % (Auto) 2.6, Eos % (Auto) 0.0, Baso % (Auto) 0.1, Absolute Neuts (auto) 18.8 H, Absolute Lymphs (auto) 0.29 L, Nucleated RBC % 0, Sodium 137, Potassium 4.1, Chloride 106, Carbon Dioxide 26.0, Anion Gap 5, BUN 52 H, Creatinine 2.03 H, Estim Creat Clear Calc 28.27, Est GFR (MDRD) Af Amer 42 L, Est GFR (MDRD) Non-Af 34 L, BUN/Creatinine Ratio 25.6 H, Glucose 135 H, Calcium 8.5 Micro: Microbiology 09/18/23 13:00 Urine, Clean Catch Urine Culture - Final Culture exhibits no growth. 09/18/23 12:04 Blood Culture (Wb) - Right Forearm Blood Culture - Preliminary No growth in 48 hours. 09/18/23 12:20 Blood Culture (Wb) - Anticubital Left Blood Culture - Preliminary No growth in 48 hours. 09/18/23 15:33 Mucosa - Nasopharyngeal Respiratory Panel (PCR) - Final Rhinovirus 09/18/23 11:54 Nasal Secretion SARS-CoV-2 & FLU Antigen (Rapid) - Final Rhythm Strip Rhythm Strip: paced (likely underlying afib) Rate: 100 Ectopy: None Physical Exam Narrative Seen and examined. Over night patient respiratory status deteriorated. Patient was put on BiPAP changed to AVAPS. Patient on AVAPS 55% FiO2 TV 450 mL, EPAP 10 respiratory rate 12. Patient blood pressure has been low yesterday, is BP 69/48, systolic 71/50 therefore 500 mL of Ringer lactate was given. The antihypertensive medications and Lasix were held. Denies chest pain. Physical exam General: Awake but lethargic, cooperative, fatigue HEENT: Atraumatic, PERRLA, EOMI, Normocephalic Oral: Hard of hearing. No Gingival or Mucosal Lesions/ Ulcerations Neck: Supple, No JVD, Negative Carotid Bruits Lungs: Air entry severely diminished in bilateral lung bases. Expiratory rhonchi has diminished lung seems clear. On BiPAP Cardiovascular: Regular rate, Regular Rhythm, Normal S1, Normal S2, systolic murmur LLSB and right second ICS. AICD left subclavicular.Orthopnea and PND. Abdomen: Bowel Sounds Present, Soft, Non Tender, Non-Distended : No renal angle tenderness. No suprapubic tenderness. Extremities: Mild edema, Capillary Refill Less than 3 Seconds Skin: No rashes, No breakdown Musculoskeletal: No Tenderness to Palpation of Joints or Extremities. Muscle strength 4+/5 at knees and hip joints. Neurological: Cranial nerves II-XII grossly intact, DTR 2+/4. No acute focal neurological deficit. Psych/Mental Status: Flat affect Assessment & Plan Assessment/Plan (1) Acute exacerbation of CHF (congestive heart failure): PLAN: Plan 73-year-old gentleman was admitted for edema of both legs for about 1 month worse for last 1 week. Denies chest pain dyspnea on exertion or orthopnea. Generalized weakness and difficulty getting up and around. Patient was discharged about a week ago for pneumonia. History of CABG 13 years ago. 1. Acute hypoxic respiratory failure most likely due to COPD exacerbation from rhinovirus acute on chronic combined heart failure and severe pulmonary hypertension : Patient is was smoking 3 packs/day during a younger age and then quit 12 years ago. Currently chews tobacco. Bronchodilator, IV Solu-Medrol, Mucinex DM and bronchopulmonary hygiene. 09/22: Patient is still on 5 to 7 L of oxygen high flow. BiPAP as needed and during naps at night. 09/23: Patient respiratory status worsened overnight unclear region. Discussed with the respiratory therapist nursing staff. Psychology Fellow consulted. Repeat chest x-ray ordered. Later on respiratory status improving and AVAPS changed to Ventimask 2. 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 Volodymyr wrap bandage. Rest as mentioned below History is unclear. Patient does not have much leg swelling or lung crepit ations but he states mild PND. Patient hypotensive on admission and is still last BP 97/55. Patient on furosemide 40 mg daily, Coreg 12.5 mg twice daily and losartan 25 mg daily. Coreg decreased to 6.25 twice daily and other medications spaced out around the day with holding parameters. Potassium 3.7. Home spironolactone 25 mg resumed. 09/20: Lasix 40 mg oral changed to Lasix 20 mg IV twice daily with holding parameters. 09/21: Patient blood pressure still low. Coreg decreased to 3.125 twice daily. 2D echo in 2022 reported EF 25% grade 2 diastolic dysfunction, LA severely enlarged, 3+ MR 2+ TR RVSP 60 mmHg, moderate AI moderate size left pleural effusion suggestive of systolic and diastolic heart failure 09/22: Patient blood pressure remain low. Continue above medications with holding parameters. Patient on Coreg, losartan, furosemide and empagliflozin. 09/23: Blood pressure has been low and issue systolic blood pressure dropping to 70 yesterday on 09/22. Currently 90/65. 3. Chronic A-fib with defibrillator: ? Resume his amiodarone ? INR supratherapeutic at 4.4, and continue to hold Coumadin and recheck INR in the morning 09/14: INR is still 3.9. Continue holding warfarin. 09/21: INR is 3.2. Started on low-dose warfarin 1 mg daily. Monitor INR daily 09/22: INR 3.6. Will hold low warfarin 09/23: INR pending. 4. GERD ? Stable ? Continue with PPI 5. CKD stage IIIb: Patient baseline creatinine is around 2.0. Most recent 1.78. 09/21: Creatinine 1.89. 09/22: Creatinine 1.78. 09/23 creatinine went up to 2.03, BUN 2.0 DVT: Supratherapeutic INR Living will/advanced directive/end of life care: Patient does not have living will or advanced directive. Patient is states his son makes the decision and next of kin. After discussion of benefits/risks procedures involved with full code, DNR CC arrest and DNR CC, the patient opted for DNRCC arrest with no intubation Patient doesn't want artificial life support including intubation, tube feed, ventilator and/chest compression, central venous catheter, vasopressor and DC shock if needed. CODE STATUS changed to DNR CC arrest with no intubation. Palliative care requested. Charges/Coding Addendum Addendum: Total time of the visit including total time spent in counseling or coordination of care, (more than 50% of the total time, spent in obtaining medical information from nurses and other ancillary care providers,explaining to the patient about labs, imaging, diagnosis and management of active complex medical conditions),acute hypoxic resp failure discussion with black studies professor/science consultant, review of labs and imaging is 40 minutes. Visit Charges Inpatient E&M: 45749 [facility] Hosp L3
--- NOTE | 2023-09-23 09:21 | CPS ---
PT WAS PLACED ON 50% VENTI MASK FOR COMFORT. BIPAP IS ON STANDBY, PER NURSE PT WAS NOT TOLERATING THE BIPAP MASK. NURSE STATED THAT PT WAS C/O IT HURTING HIS NOSE DUE TO PAST H/O NOSE FRACTURES. SATURATION ON VENTI MASK BETWEEN 91-93%. NURSE AWARE OF OF VENTI MASK PLACEMENT AND SATURATION.
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
[2023-09-23] MEDS: guaiFENesin/D-Methorphan TAB.SR.12H 2 TABLET PO ×2 (09:54→21:08)
[2023-09-23] MEDS: Pantoprazole Sodium 40 MG Tablet PO (09:55)
[2023-09-23] MEDS: Amiodarone 200 MG Tablet PO (09:55)
[2023-09-23] MEDS: Furosemide 20 MG/2 ML VIAL IV ×2 (09:55→18:12)
[2023-09-23] MEDS: Clopidogrel Bisulfate 75 MG Tablet PO (09:55)
[2023-09-23] MEDS: Empagliflozin 10 MG Tablet PO (09:55)
[2023-09-23] MEDS: Spironolactone 25 MG Tablet PO (09:56)
[2023-09-23 10:15] LABS: International Normalized Ratio 4.3; Prothrombin Time (Protime)PT. 41.8 SECONDS (11.7-14.9)
[2023-09-23] MEDS: Azithromycin 250 MG Tablet 500 MG PO (10:40)
[2023-09-23] MEDS: Carvedilol 3.125 MG TABLET PO (10:42)
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
--- NOTE | 2023-09-23 20:44 | CPS ---
Patient refused PAP therapy for the night.
[2023-09-23] MEDS: Atorvastatin Calcium 10 MG Tablet PO (21:08)
[2023-09-23] MEDS: MELATONIN 10 MG TABLET PO (21:08)
--- NOTE | 2023-09-23 23:40 | CPS ---
Patient didn't tolerate bipap. Now on airvo 60L 80% per Dr. arteaga. Sat's 93%
[2023-09-24] VITALS (22 sets, daily range): BP systolic 84–110; BP diastolic 29–67; PULSE 72–80; RESP 15–74; TEMP 36.1–36.5; O2SAT 84–99
--- NOTE | 2023-09-24 00:06 | NURSING ---
RN has attempted to turn patient several times. Patient refusing to turn states he moves himself in bed. Patient was educated about area on coccyx and needs to keep pressure off of it.
[2023-09-24] MEDS: 0.9% Saline Lock 10 ML Syringe IV ×2 (05:40→21:00)
[2023-09-24] MEDS: Ipratropium/Albuterol Sulfate 3 ML AMPUL.NEB INHALATION ×5 (06:29→23:48)
[2023-09-24 06:49] LABS: Absolute Lymphocyte Count 0.18 X10^3/uL (0.83-4.51); Absolute Neutrophil Count 12.8 X10^3/uL (2.0-7.7); Basophil# 0.01 X10^3/uL; Basophil% 0.1 % (0-1); Hematocrit 34.4 % (40-54); Hemoglobin 11.1 g/dL (13.0-16.5); Lymphocyte # 0.18 X10^3/ul (0.83-4.51); Lymphocyte % 1.3 % (19-41); Mean Corp Hgb Conc 32.3 g/dL (32-36); Mean Corpuscular Hgb 29.5 pg (27.0-32.0); Mean Corpuscular Volume 91.5 fL (80-94); Mean Platelet Vol. 11.2 fl (6.2-12.0); Monocyte# 0.35 X10^3/uL; Monocyte% 2.6 % (0-10); NRBC Flagged by Analyzer 0 % (0-5); Neutrophil # 12.83 X10^3/uL (2.7-7.7); Neutrophil % 95.6 % (47-70); POSITIVE DIFFERENTIAL YES; Platelet Count 253 K/mm3 (150-450); RBC Distribution Width CV 17.8 % (11.6-14.6); RBC Distribution Width SD 58.8 fl (35.1-43.9); Red Blood Count 3.76 M/mm3 (4.6-6.2); White Blood Count 13.4 K/mm3 (4.4-11.0)
[2023-09-24 06:59] LABS: Differential Indicated SCAN CRITERIA MET
[2023-09-24 07:11] LABS: International Normalized Ratio 4.8; Prothrombin Time (Protime)PT. 46.1 SECONDS (11.7-14.9)
[2023-09-24 07:12] LABS: Anion Gap 6 (5-15); BUN 58 mg/dL (7-18); Calcium,Total 8.3 mg/dL (8.5-10.1); Chloride 105 mmol/L (98-107); Creatinine, Serum 1.81 mg/dL (0.70-1.30); EST Glomerular Filtration Rate 39 mL/min (>60); Est Glom Filt Rate - Afr Amer 47 mL/min (>60); Glucose 134 mg/dL (74-106); Sodium Level 136 mmol/L (136-145)
--- NOTE | 2023-09-24 09:18 | PCM.PN.INT ---
Assessment & Plan Assessment/Plan (1) Acute hypoxic respiratory failure: (2) Acute exacerbation of CHF (congestive heart failure): (3) Chronic kidney disease, stage 3b: (4) Warfarin-induced coagulopathy: PLAN: Plan RECOMMENDATIONS: 1. Recommend cardiology consultation. 2. Ongoing diuresis as tolerated by hemodynamics and renal function. 3. On account of worsening airspace disease on chest x-ray, will broaden antimicrobials. 4. Check procalcitonin and BNP. 5. Continue to wean FiO2 to maintain oxygen saturations at or above 90%. 6. Continue to hold Coumadin given supratherapeutic INR. IMPRESSIONS: 1. Acute hypoxic respiratory failure secondary to CHF and presumed COPD exacerbation secondary to rhinovirus The patient does have emphysematous changes noted on CT imaging of the chest. PE is unlikely given supratherapeutic INR. His repeat chest x-ray demonstrated interval worsening in his bilateral airspace disease. BNP remains markedly elevated. I suspect that his ongoing hypoxemia is multifactorial with underlying infection and pulmonary edema contributing. With this in mind, I am going to broaden his antimicrobial coverage. He will be continued on diuretic therapy as tolerated by hemodynamics and renal function. Plan to continue scheduled bronchodilators along with IV steroids. 2. Coagulopathy secondary to warfarin The patient currently has a supratherapeutic INR. Therefore, I recommend that we continue to hold Coumadin. Continue to monitor INR daily. 3. CKD stage IIIb Complicates care, management, recovery and prognosis. Continue supportive measures as noted above. This note was generated with [employer] dictation software. It may contain incorrect words, spelling, and punctuation that were not noted in checking the note before signing. Subjective Subjective The patient was seen and examined at the bedside this morning. Events from the last 24 hours have been reviewed. The patient is currently afebrile, hemodynamically stable and maintaining appropriate oxygen saturations on heated high flow with an FiO2 requirement of 70% and flow rate of 60 L/min. The patient is documented to be overall net +4.9 L for the hospitalization. Chest imaging from yesterday demonstrated increased bilateral airspace opacities as compared to prior chest imaging. INR is elevated at 4.8. Creatinine is relatively stable at 1.8. The patient seems insistent that he would like to be discharged today, stating that he has business to attend to in [place]. Objective Data Objective Data The patient's most recent lab work, culture data and imaging studies have all been personally reviewed. Surface echocardiogram demonstrated a severely dilated LV with severe global LV systolic dysfunction and ejection fraction of 25%. Respiratory viral panel on September 18 was positive for rhinovirus. Vital Signs: Vital Signs Temp Pulse Resp BP Pulse Ox O2 Del Method O2 Flow Rate 97.4 F L 76 20 H 95/62 98 Airvo 60 09/24/23 05:38 09/24/23 06:29 09/24/23 06:29 09/24/23 05:38 09/24/23 08:46 09/24/23 06:29 09/24/23 08:46 FiO2 70 09/24/23 06:29 Oxygen Flow Rate (L/min) 60 Oxygen Delivery Method Airvo Weight: 138 lb 0.15 oz Body Mass Index (BMI) 19.2 Intake & Output: Intake and Output for Last 24 Hours 09/22/23 09/23/23 09/24/23 23:59 23:59 23:59 Intake Total 1989 / 1989 790 / 1010 440 / 440 Output Total 100 / 100 200 / 550 650 / 650 Balance 1890 / 1890 590 / 460 -210 / -210 Lab / Micro Data Attestation: I reviewed the patient's lab results. 09/24/23 05:40 09/24/23 05:40 Labs: Laboratory Results - last 24 hr 09/23/23 06:30: PT 41.8 H, INR 4.3 H* 09/24/23 05:40: WBC 13.4 H, RBC 3.76 L, Hgb 11.1 L, Hct 34.4 L, MCV 91.5, MCH 29.5, MCHC 32.3, RDW Std Deviation 58.8 H, RDW Coeff of Cynthia 17.8 H, Plt Count 253, MPV 11.2, Immature Gran % (Auto) 0.400, Neut % (Auto) 95.6 H, Lymph % (Auto) 1.3 L, [place] % (Auto) 2.6, Eos % (Auto) 0.0, Baso % (Auto) 0.1, Absolute Neuts (auto) 12.8 H, Absolute Lymphs (auto) 0.18 L, Nucleated RBC % 0, PT 46.1 H, INR 4.8 H*, Sodium 136, Potassium 4.0, Chloride 105, Carbon Dioxide 25.0, Anion Gap 6, BUN 58 H, Creatinine 1.81 H, Estim Creat Clear Calc 31.70, Est GFR (MDRD) Af Amer 47 L, Est GFR (MDRD) Non-Af 39 L, BUN/Creatinine Ratio 32.0 H, Glucose 134 H, Calcium 8.3 L Micro: Microbiology 09/18/23 12:20 Blood Culture (Wb) - Anticubital Left Blood Culture - Final No growth in 5 days. 09/18/23 12:04 Blood Culture (Wb) - Right Forearm Blood Culture - Final No growth in 5 days. 09/18/23 13:00 Urine, Clean Catch Urine Culture - Final Culture exhibits no growth. 09/18/23 15:33 Mucosa - Nasopharyngeal Respiratory Panel (PCR) - Final Rhinovirus 09/18/23 11:54 Nasal Secretion SARS-CoV-2 & FLU Antigen (Rapid) - Final Radiography Diagnostic Testing: Radiology Impression Chest X-Ray 09/23/23 08:45 IMPRESSION: Increasing opacities in both lungs, consistent with worsening pneumonia. Small bilateral pleural effusions. Electronically Signed: Yazan Jo MD at 10:09 EST Reading Location ID and State: [facility] / [place] Tel , Service support , Rhythm Strip Rhythm Strip: paced (likely underlying afib) Rate: 72 Ectopy: None Physical Exam Const alert and no apparent distress General Appearance: cooperative HEENT normocephalic and head/scalp atraumatic Eyes PERRL, EOMs intact bilaterally and conjunctivae normal Neck supple General: trachea midline Chest inspection of chest normal Resp normal respiratory effort and no use of accessory muscles Auscultation: diminished lung sounds Cardio S1 normal heart sound and S2 normal heart sound Rhythm: abnormal rhythm Heart Sounds: murmur GI normal to inspection, nondistended, normoactive bowel sounds Extremity no clubbing, cyanosis or edema Skin no rashes or lesions noted Neuro CN's II-XII intact bilaterally, moves all extremities and no focal motor deficits Psych cooperative and affect normal Charges/Coding Visit Charges Inpatient E&M: 56945 Subs Hosp L3
[2023-09-24 09:51] LABS: BNP,B-Type NATRIURETIC PEPTIDE 2583.4 pg/mL (0-100)
[2023-09-24 10:00] LABS: Procalcitonin 0.11 ng/mL (0.00-0.09)
[2023-09-24] MEDS: Clopidogrel Bisulfate 75 MG Tablet PO (10:58)
[2023-09-24] MEDS: Empagliflozin 10 MG Tablet PO (10:58)
[2023-09-24] MEDS: Amiodarone 200 MG Tablet PO (10:58)
[2023-09-24] MEDS: Pantoprazole Sodium 40 MG Tablet PO (10:58)
[2023-09-24] MEDS: Vancomycin HCl 1,500 MG in 0.9% Normal Saline (500mL Bag) 500 ML 250 MG IV (11:10)
[2023-09-24] MEDS: Piperacil/Tazobactam 3.375 GM in 0.9% Normal Saline (50mL MB+) 50 ML IV ×3 (11:10→21:00)
[2023-09-24] MEDS: guaiFENesin/D-Methorphan TAB.SR.12H 2 TABLET PO ×2 (11:11→21:00)
--- NOTE | 2023-09-24 11:55 | CASEMGMT ---
Patient does not have a Healthcare Power of Limited Radiology Technician or Healthcare Living Will. Patient declined information on documents. Marleni PALAFOX
--- NOTE | 2023-09-24 12:04 | PCM.RX.CS ---
Consult Antibiotic Management Pharmacy has been consulted to manage selected antiobiotic: Vancomycin Type of Intervention Type of Consult: New start Suspected Infection Suspected Infection: Pneumonia Prior Doses of Antibiotics Prior Doses of Antibiotics Received/Current Regimen: Loading dose of 1500mg x1 given 09/24/23 @ 1110 Labs Labs: Sodium 136 mmol/L (136-145) 09/24/23 05:40 Potassium 4.0 mmol/L (3.5-5.1) 09/24/23 05:40 Chloride 105 mmol/L (98-107) 09/24/23 05:40 Carbon Dioxide 25.0 mmol/L (21.0-32.0) 09/24/23 05:40 Anion Gap 6 (5-15) 09/24/23 05:40 BUN 58 mg/dL (7-18) H 09/24/23 05:40 Creatinine 1.81 mg/dL (0.70-1.30) H 09/24/23 05:40 Est GFR (MDRD) Af Amer 47 mL/min (>60) L 09/24/23 05:40 Est GFR (MDRD) Non-Af 39 mL/min (>60) L 09/24/23 05:40 BUN/Creatinine Ratio 32.0 RATIO (10-20) H 09/24/23 05:40 Glucose 134 mg/dL (74-106) H 09/24/23 05:40 Microbiology Microbiology: Microbiology 09/18/23 12:20 Blood Culture (Wb) - Anticubital Left Blood Culture - Final No growth in 5 days. 09/18/23 12:04 Blood Culture (Wb) - Right Forearm Blood Culture - Final No growth in 5 days. 09/18/23 13:00 Urine, Clean Catch Urine Culture - Final Culture exhibits no growth. 09/18/23 15:33 Mucosa - Nasopharyngeal Respiratory Panel (PCR) - Final Rhinovirus 09/18/23 11:54 Nasal Secretion SARS-CoV-2 & FLU Antigen (Rapid) - Final Dosing Weight Weight used for dosin.6 kg Estimated Creatinine Clearance Estimated Creatinine Clearance: 32 Goal Trough Goal Trough: 15-20 mcg/mL Pharmacy Plan for Drug Dosing Pharmacy Plan for Drug Dosing: patient will recieve 750mg daily starting 09/25/23 @ 1100 Pharmacy Service will continue to monitor and adjust dosing as required. Follow-Up Labs Follow-Up Labs: Trough: Vancomycin Date/Time Labs Ordered Labs to be done on [date and time ordered]: 09/26/23 @ 0576
[2023-09-24 12:48] LABS: M R Staph aureus DNA By PCR POSITIVE (Negative); Probe Check PASS
--- NOTE | 2023-09-24 14:46 | PCM.CONS.C ---
Assessment & Plan Assessment/Plan (1) Acute hypoxic respiratory failure: PLAN: Chest x-ray shows worsening infiltrates. Patient's creatinine appears to be at baseline. BNP is elevated but prior values are also in the same range. On physical examination, he does not appear to be significantly volume overloaded. Reasonable to continue IV Lasix at this time. Agree with primary team and pulmonology service regarding considering and treating noncardiac etiologies as well. HPI Consult Data Date of Consult: 09/24/23 HPI Narrative Reason for Consultation: Worsening hypoxia HPI Narrative: KAREN JIMENEZ, is a 73 M with history of COPD and also CHF with decreased LV systolic function, presented with increased lower extremity edema. He has been diuresed and his edema has improved however he continues to remain hypoxic requiring high flow oxygen. Patient states that he does not have any symptoms at this time and wants to go home. [facility] Medical History AAA (abdominal aortic aneurysm) without rupture Acute CHF (congestive heart failure) Alcohol use Ambulates with cane Anxiety Arthritis Atrial fibrillation Back pain CAD (coronary artery disease) Cardiac resynchronization therapy defibrillator (SU[employer] TYPE BAR AND SEGMENT-D) in place Cardiology follow-up encounter Carotid stenosis, right CHF (congestive heart failure) Depression Essential (primary) hypertension Former smoker Gout History of diverticulitis History of echocardiogram History of peripheral vascular disease History of stress test Hyperlipidemia ICD (implantable cardioverter-defibrillator) in place Injury of head and neck Loss of hearing Mitral regurgitation Myocardial infarct On home oxygen therapy Primary cardiomyopathy Wears dentures Wears glasses Home Medications carvedilol 12.5 mg tablet 12.5 mg PO BID bp 07/02/15 [History Last Taken 09/17/23] losartan 25 mg tablet 25 mg PO DAILY bp 07/02/15 [History Last Taken 09/17/23] clopidogrel 75 mg tablet (Plavix) 75 mg PO QDAY blood thinner 03/27/18 [History Last Taken 09/17/23] allopurinol 300 mg tablet 300 mg PO DAILY PRN GOUT 05/29/22 [History Last Taken 09/17/23] amiodarone 200 mg tablet 200 mg PO DAILY HEART 05/29/22 [History Last Taken 09/17/23] furosemide 40 mg tablet 40 mg PO BID water pill 06/26/22 [History Last Taken 09/17/23] atorvastatin 10 mg tablet (Lipitor) 10 mg PO DAILY cholesterol #30 tabs 06/28/22 [Rx Last Taken 09/17/23] pantoprazole 40 mg tablet,delayed release 40 mg PO DAILY #30 tabs 03/19/23 [Rx Last Taken 09/17/23] warfarin 2.5 mg tablet 2.5 mg PO DAILY 09/08/23 [History Last Taken 09/17/23] spironolactone 25 mg tablet 25 mg PO DAILY #30 tabs 09/11/23 [Rx Last Taken 09/17/23] Allergy/AdvReac Type Severity Reaction Status Date / Time No Known Allergies Allergy Verified 09/18/23 11:24 Family History Father Hypertension Pacemaker Mother Myocardial infarction Daughter Thyroid disorder Other Essential (primary) hypertension Surgical History H/O carotid endarterectomy H/O heart artery stent H/O right inguinal hernia repair (~2003) History of cardiac catheterization History of carotid endarterectomy History of radiofrequency ablation procedure for cardiac arrhythmia Hx of CABG Pacemaker S/P AAA repair S/P CABG (coronary artery bypass graft) S/P colonoscopy S/P internal cardiac defibrillator procedure S/P internal cardiac defibrillator procedure Social History Smoking Status: Former smoker how long ago did patient quit smokin years ago alcohol intake: current alcohol intake frequency: a few times a month substance use type: does not use caffeine: Yes Type: coffee Number of servings: 5 Physical Exam Const alert and oriented x3 HEENT normocephalic Eyes no scleral icterus Resp Resp Narrative: Right basal crackles. Good air entry bilaterally Extremity no pedal edema Skin no rashes or lesions noted Risk Stratification Risk Stratification Applicable: No Charges/Coding Visit Charges Inpatient E&M: 22762 Init Hosp L2 Objective Data Vital Signs: Vital Signs Temp Pulse Resp BP Pulse Ox O2 Del Method O2 Flow Rate 97.2 F L 73 16 89/57 L 94 Airvo 60 09/24/23 10:39 09/24/23 11:02 09/24/23 11:02 09/24/23 10:54 09/24/23 11:02 09/24/23 10:45 09/24/23 10:45 FiO2 55 09/24/23 11:02 Oxygen Flow Rate (L/min) 60 Oxygen Delivery Method Airvo Weight: 138 lb 0.15 oz Body Mass Index (BMI) 19.2 Intake & Output: Intake and Output for Last 24 Hours 09/22/23 09/23/23 09/24/23 23:59 23:59 23:59 Intake Total 1989 / 1989 790 / 1010 440 / 440 Output Total 100 / 100 200 / 550 650 / 650 Balance 1890 / 1890 590 / 460 -210 / -210 Lab / Micro Data 09/24/23 05:40 09/24/23 05:40 Labs: Laboratory Results - last 24 hr 09/24/23 05:40: WBC 13.4 H, RBC 3.76 L, Hgb 11.1 L, Hct 34.4 L, MCV 91.5, MCH 29.5, MCHC 32.3, RDW Std Deviation 58.8 H, RDW Coeff of Cnythia 17.8 H, Plt Count 253, MPV 11.2, Immature Gran % (Auto) 0.400, Neut % (Auto) 95.6 H, Lymph % (Auto) 1.3 L, [place] % (Auto) 2.6, Eos % (Auto) 0.0, Baso % (Auto) 0.1, Absolute Neuts (auto) 12.8 H, Absolute Lymphs (auto) 0.18 L, Nucleated RBC % 0, PT 46.1 H, INR 4.8 H*, Sodium 136, Potassium 4.0, Chloride 105, Carbon Dioxide 25.0, Anion Gap 6, BUN 58 H, Creatinine 1.81 H, Estim Creat Clear Calc 31.70, Est GFR (MDRD) Af Amer 47 L, Est GFR (MDRD) Non-Af 39 L, BUN/Creatinine Ratio 32.0 H, Glucose 134 H, Calcium 8.3 L, B-Natriuretic Peptide 2583.4 H, Procalcitonin 0.11 H 09/24/23 11:02: MRSA (PCR) POSITIVE H Micro: Microbiology 09/24/23 12:25 Urine, Clean Catch Legionella Antigen - Final 09/24/23 12:25 Urine, Clean Catch Streptococcus pneumoniae Antigen (M - Final 09/18/23 12:20 Blood Culture (Wb) - Anticubital Left Blood Culture - Final No growth in 5 days. 09/18/23 12:04 Blood Culture (Wb) - Right Forearm Blood Culture - Final No growth in 5 days. Rhythm Strip Rhythm Strip: paced (likely underlying afib) Rate: 72 Ectopy: None Cardiology Labs/Tests 09/24/23 05:40: WBC 13.4 H, RBC 3.76 L, Hgb 11.1 L, Hct 34.4 L, MCV 91.5, MCH 29.5, MCHC 32.3, Plt Count 253, MPV 11.2, Immature Gran % (Auto) 0.400, Neut % (Auto) 95.6 H, Lymph % (Auto) 1.3 L, [place] % (Auto) 2.6, Eos % (Auto) 0.0, Baso % (Auto) 0.1, Absolute Neuts (auto) 12.8 H, Nucleated RBC % 0, PT 46.1 H, INR 4.8 H*, Sodium 136, Potassium 4.0, Chloride 105, Carbon Dioxide 25.0, Anion Gap 6, BUN 58 H, Creatinine 1.81 H, Est GFR (MDRD) Af Amer 47 L, Est GFR (MDRD) Non-Af 39 L, BUN/Creatinine Ratio 32.0 H, Glucose 134 H, Calcium 8.3 L, B-Natriuretic Peptide 2583.4 H Rhythm: EKG: ECHO: Stress Test: Cardiac Cath: PCI: CT Surgery: Holter monitor: EPS: PPM: CXR: Chest CT Scan:
--- NOTE | 2023-09-24 15:14 | PCM.PN.HOSP ---
Reason for Visit Reason for Visit: Diagnoses Hemorrhagic disorder due to extrinsic circulating anticoagulants (09/18/23) Heart failure, unspecified (09/18/23) Acute respiratory failure with hypoxia (09/18/23) Chronic kidney disease, stage 3b (09/18/23) Other malaise (09/18/23) Edema, unspecified (09/18/23) Adverse effect of anticoagulants, initial encounter (09/18/23) Subjective Subjective Patient seen at bedside this morning. Patient was satting in the low 90s on high flow nasal cannula at 60% FiO2 and 60 L, which is significantly more than he was requiring over the past few days. Patient was otherwise sitting comfortably in bed and did not appear to be in acute distress. He denied any cough or new sputum production. He had not been up and moving around much since yesterday. He denies any fevers or chills. Patient was actually fairly adamant that he wanted to leave the hospital today. He states he has never had significant lung issues in the past, and he would like to leave our hospital and go with his [id number] or son up to the [facility], which is closer to his house and where he has received care in the past. Patient is answering questions appropriately and does appear to have capacity. He otherwise denies any chest pain, abdominal pain or discomfort. Called patient's [id number] Sheree and had a good discussion with her over the phone. Informed Sheree that patient is unfortunately requiring more oxygen today than previous days, and I am very concerned about the possibility of him leaving AMA. Noted that patient is at risk for respiratory failure with respiratory arrest if he leaves without supplemental oxygen. Sheree was understanding and said that she would talk with the patient over the phone to try to persuade him to stay in the hospital. Objective Data Objective Data Vital Signs: Vital Signs Temp Pulse Resp BP Pulse Ox O2 Del Method O2 Flow Rate 97.2 F L 73 16 89/57 L 94 Airvo 60 09/24/23 10:39 09/24/23 11:02 09/24/23 11:02 09/24/23 10:54 09/24/23 11:02 09/24/23 10:45 09/24/23 10:45 FiO2 55 09/24/23 11:02 Oxygen Flow Rate (L/min) 60 Oxygen Delivery Method Airvo Weight: 62.6 kg Body Mass Index (BMI) 19.2 Intake & Output: Intake and Output for Last 24 Hours 09/22/23 09/23/23 09/24/23 23:59 23:59 23:59 Intake Total 1989 790 / 1010 440 / 440 Output Total 100 / 100 200 / 550 650 / 650 Balance 1890 / 1890 590 / 460 -210 / -210 Lab / Micro Data 09/24/23 05:40 09/24/23 05:40 Labs: Laboratory Results - last 24 hr 09/24/23 05:40: WBC 13.4 H, RBC 3.76 L, Hgb 11.1 L, Hct 34.4 L, MCV 91.5, MCH 29.5, MCHC 32.3, RDW Std Deviation 58.8 H, RDW Coeff of Cynthia 17.8 H, Plt Count 253, MPV 11.2, Immature Gran % (Auto) 0.400, Neut % (Auto) 95.6 H, Lymph % (Auto) 1.3 L, [place] % (Auto) 2.6, Eos % (Auto) 0.0, Baso % (Auto) 0.1, Absolute Neuts (auto) 12.8 H, Absolute Lymphs (auto) 0.18 L, Nucleated RBC % 0, PT 46.1 H, INR 4.8 H*, Sodium 136, Potassium 4.0, Chloride 105, Carbon Dioxide 25.0, Anion Gap 6, BUN 58 H, Creatinine 1.81 H, Estim Creat Clear Calc 31.70, Est GFR (MDRD) Af Amer 47 L, Est GFR (MDRD) Non-Af 39 L, BUN/Creatinine Ratio 32.0 H, Glucose 134 H, Calcium 8.3 L, B-Natriuretic Peptide 2583.4 H, Procalcitonin 0.11 H 09/24/23 11:02: MRSA (PCR) POSITIVE H Micro: Microbiology 09/24/23 12:25 Urine, Clean Catch Legionella Antigen - Final 09/24/23 12:25 Urine, Clean Catch Streptococcus pneumoniae Antigen (M - Final 09/18/23 12:20 Blood Culture (Wb) - Anticubital Left Blood Culture - Final No growth in 5 days. 09/18/23 12:04 Blood Culture (Wb) - Right Forearm Blood Culture - Final No growth in 5 days. 09/18/23 13:00 Urine, Clean Catch Urine Culture - Final Culture exhibits no growth. 09/18/23 15:33 Mucosa - Nasopharyngeal Respiratory Panel (PCR) - Final Rhinovirus 09/18/23 11:54 Nasal Secretion SARS-CoV-2 & FLU Antigen (Rapid) - Final Rhythm Strip Rhythm Strip: paced (likely underlying afib) Rate: 72 Ectopy: None Physical Exam Const alert and oriented x3 Constitutional Narrative: Elderly male, thin and chronically ill-appearing, sitting comfortably in bed. He is requiring high flow nasal cannula but does not have any increased work of breathing and does not appear to be in any acute distress. General Appearance: cooperative HEENT normocephalic, head/scalp atraumatic, hearing grossly normal bilaterally, nasal mucous membranes and turbinates normal and moist oral mucous membranes Eyes PERRL, EOMs intact bilaterally and conjunctivae normal Neck full ROM, no lymphadenopathy and supple Lymph Lymphatic: no lymphadenopathy noted Chest inspection of chest normal Resp Resp Narrative: Significantly decreased breath sounds bilaterally, with crackles noted at bilateral bases. No wheezing noted. Cardio regular rate, regular rhythm, no murmurs and peripheral pulses 2+ throughout GI normal to inspection, nondistended, normoactive bowel sounds, soft to palpation, non-tender and non-distended Back/Spine normal ROM Extremity normal to inspection, full ROM and no pedal edema Skin no rashes or lesions noted Neuro moves all extremities and no focal motor deficits Speech: speech normal Psych mental status grossly normal Mood & Affect: anxious Assessment & Plan Assessment/Plan (1) Acute hypoxic respiratory failure: PLAN: Plan Patient is a 73-year-old male who presented to [facility] ED on 09/18/2023 with shortness of breath, worsening lower extremity edema and hypotension. 1. Acute hypoxic respiratory failure secondary to CHF and presumed COPD exacerbation secondary to rhinovirus Positive for rhinovirus on admission. Initially requiring 3 to 4 L nasal cannula, but had significant worsening of respiratory status on 09/23-. Per pulmonary, does have emphysematous changes on CT chest imaging; however chest x-ray on 09/24 shows worsening of bilateral airspace disease. BNP remains markedly elevated. Suspect this may be multifactorial secondary to underlying infection and pulmonary edema contributing. ? Pulmonology following. Broadened antibiotic coverage to vancomycin and Zosyn on 09/24. Continue scheduled bronchodilators with IV steroids for presumed COPD exacerbation. Continue diuretic therapy as tolerated by hemodynamics and renal function. Wean supplemental oxygen as able. 2. Acute on chronic combined systolic and diastolic heart failure, pulmonary hypertension Recent echo on 09/08/2023 showed EF 25%, severe global LV systolic dysfunction, severely dilated LV, grade 2 diastolic dysfunction, severely enlarged LA, mildly enlarged RA, RVSP 60 mmHg, moderate to severe mitral valve insufficiency, moderate tricuspid valve insufficiency, moderate aortic valve insufficiency. BNP 2367 on admit, repeat BNP similar on 09/24. ? Cardiology following. Noted worsening infiltrates on chest x-ray as noted above. However, patient's creatinine appears to be at baseline, does not appear significantly volume overloaded, BNP is elevated but similar to previous values. Okay to continue IV Lasix for now, recommended considering in treating noncardiac etiologies as well. Continue empagliflozin. 3. Chronic A-fib on warfarin, supratherapeutic INR ? INR 4.8 on 09/24, continue holding home warfarin, recheck INR tomorrow morning. Continue Coreg at reduced dose. Continue home amiodarone. Chronic medical conditions: ? CAD s/p CABG, hypertension, hyperlipidemia: Continue home statin, Coreg, Plavix. ? GERD: Continue home PPI. ? CKD stage IIIb: Baseline creatinine 1.7-2.0, stable at baseline. Monitor daily BMP. DVT prophylaxis: Holding warfarin due to supratherapeutic INR as noted above CODE STATUS: DNR CCA, DO NOT INTUBATE Expected disposition: TBD Total clinical time spent by myself addressing the patient's medical issues, reviewing all the data, and collaborating with patient's care team: 40 minutes. Charges/Coding Visit Charges Inpatient E&M: 25797 Subs Hosp L3
[2023-09-24] MEDS: Sodium Chloride 0.65% 1 SPRAY SPRAY.BTL 2 SPRAY NASAL (15:42)
[2023-09-24] MEDS: Furosemide 20 MG/2 ML VIAL IV (18:16)
[2023-09-24] MEDS: MELATONIN 10 MG TABLET PO (21:00)
[2023-09-24] MEDS: Carvedilol 3.125 MG TABLET PO (21:00)
[2023-09-24] MEDS: Atorvastatin Calcium 10 MG Tablet PO (21:00)
[2023-09-25] VITALS (32 sets, daily range): BP systolic 79–127; BP diastolic 54–78; PULSE 72–88; RESP 17–29; TEMP 36–36.6; O2SAT 89–95
[2023-09-25] MEDS: 0.9% Saline Lock 10 ML Syringe IV (05:01)
[2023-09-25] MEDS: Piperacil/Tazobactam 3.375 GM in 0.9% Normal Saline (50mL MB+) 50 ML IV ×3 (05:01→21:01)
[2023-09-25] MEDS: Ipratropium/Albuterol Sulfate 3 ML AMPUL.NEB INHALATION ×4 (07:02→20:51)
[2023-09-25 07:03] LABS: Absolute Lymphocyte Count 0.18 X10^3/uL (0.83-4.51); Absolute Neutrophil Count 13.8 X10^3/uL (2.0-7.7); Basophil# 0.01 X10^3/uL; Basophil% 0.1 % (0-1); Hematocrit 35.6 % (40-54); Hemoglobin 11.2 g/dL (13.0-16.5); Lymphocyte # 0.18 X10^3/ul (0.83-4.51); Lymphocyte % 1.2 % (19-41); Mean Corp Hgb Conc 31.5 g/dL (32-36); Mean Corpuscular Hgb 28.6 pg (27.0-32.0); Mean Corpuscular Volume 90.8 fL (80-94); Mean Platelet Vol. 10.7 fl (6.2-12.0); Monocyte# 0.37 X10^3/uL; Monocyte% 2.6 % (0-10); NRBC Flagged by Analyzer 0 % (0-5); Neutrophil # 13.78 X10^3/uL (2.7-7.7); Neutrophil % 95.6 % (47-70); POSITIVE DIFFERENTIAL YES; Platelet Count 235 K/mm3 (150-450); RBC Distribution Width CV 17.7 % (11.6-14.6); RBC Distribution Width SD 58.4 fl (35.1-43.9); Red Blood Count 3.92 M/mm3 (4.6-6.2); White Blood Count 14.4 K/mm3 (4.4-11.0)
[2023-09-25 07:12] LABS: Prothrombin Time (Protime)PT. 47.7 SECONDS (11.7-14.9)
[2023-09-25 07:27] LABS: Differential Indicated SCAN CRITERIA MET
[2023-09-25 07:30] LABS: Anion Gap 5 (5-15); BUN 52 mg/dL (7-18); BUN/Creat Ratio 30.1 RATIO (10-20); Calcium,Total 8.3 mg/dL (8.5-10.1); Chloride 108 mmol/L (98-107); Creatinine, Serum 1.73 mg/dL (0.70-1.30); EST Glomerular Filtration Rate 41 mL/min (>60); Est Glom Filt Rate - Afr Amer 50 mL/min (>60); Estimated Creatinine Clearance 33.17 ml/min; Glucose 130 mg/dL (74-106); Potassium 3.8 mmol/L (3.5-5.1); Sodium Level 136 mmol/L (136-145)
[2023-09-25 07:39] LABS: Differential Comment SCANNED
[2023-09-25] MEDS: Pantoprazole Sodium 40 MG Tablet PO (08:24)
[2023-09-25] MEDS: Clopidogrel Bisulfate 75 MG Tablet PO (08:24)
[2023-09-25] MEDS: Amiodarone 200 MG Tablet PO (08:24)
[2023-09-25] MEDS: guaiFENesin/D-Methorphan TAB.SR.12H 2 TABLET PO ×2 (08:24→21:04)
[2023-09-25] MEDS: Furosemide 20 MG/2 ML VIAL IV (08:24)
[2023-09-25] MEDS: Empagliflozin 10 MG Tablet PO (08:25)
--- NOTE | 2023-09-25 09:21 | PCM.PN.INT ---
Assessment & Plan Assessment/Plan (1) Acute hypoxic respiratory failure: (2) Acute exacerbation of CHF (congestive heart failure): (3) Chronic kidney disease, stage 3b: (4) Warfarin-induced coagulopathy: PLAN: Plan RECOMMENDATIONS: 1. Ongoing diuresis as tolerated by hemodynamics and renal function. 2. Continue broad-spectrum antimicrobials. 3. Continue to wean FiO2 to maintain oxygen saturations at or above 90%. 4. Continue to hold Coumadin given supratherapeutic INR. IMPRESSIONS: 1. Acute hypoxic respiratory failure secondary to CHF and presumed COPD exacerbation secondary to rhinovirus The patient does have emphysematous changes noted on CT imaging of the chest. PE is unlikely given supratherapeutic INR. His repeat chest x-ray demonstrated interval worsening in his bilateral airspace disease. BNP remains markedly elevated. I suspect that his ongoing hypoxemia is multifactorial with underlying infection and pulmonary edema contributing. Plan to continue broad-spectrum antimicrobials along with ongoing diuresis as tolerated by hemodynamics and renal function. The patient will also be continued on scheduled bronchodilators and steroids. 2. Coagulopathy secondary to warfarin The patient currently has a supratherapeutic INR. Therefore, I recommend that we continue to hold Coumadin. Continue to monitor INR daily. 3. CKD stage IIIb Complicates care, management, recovery and prognosis. Continue supportive measures as noted above. This note was generated with [employer] dictation software. It may contain incorrect words, spelling, and punctuation that were not noted in checking the note before signing. Subjective Subjective The patient was seen and examined at the bedside this morning. Events from the last 24 hours have been reviewed. The patient is currently afebrile, hemodynamically stable and maintaining appropriate oxygen saturations on heated high flow with an FiO2 of 75%. The patient once again voiced his insistence to be allowed to leave the hospital. The patient is documented to be overall net +5 L for the hospitalization. However, because of borderline hemodynamics, we have not been able to significantly increase his diuretic dosing. Objective Data Objective Data The patient's most recent lab work, culture data and imaging studies have all been personally reviewed. Surface echocardiogram demonstrated a severely dilated LV with severe global LV systolic dysfunction and ejection fraction of 25%. Respiratory viral panel on September 18 was positive for rhinovirus. Vital Signs: Vital Signs Temp Pulse Resp BP Pulse Ox O2 Del Method O2 Flow Rate 96.8 F L 73 20 H 100/62 91 Airvo 60 09/25/23 08:00 09/25/23 08:00 09/25/23 08:00 09/25/23 08:00 09/25/23 08:52 09/25/23 08:52 09/25/23 08:52 FiO2 75 09/25/23 08:52 Oxygen Flow Rate (L/min) 60 Oxygen Delivery Method Airvo Weight: 138 lb 0.15 oz Body Mass Index (BMI) 19.2 Intake & Output: Intake and Output for Last 24 Hours 09/23/23 09/24/23 09/25/23 23:59 23:59 23:59 Intake Total 790 / 1010 1850 / 1950 150 / 150 Output Total 200 / 550 1550 / 1925 625 / 625 Balance 590 / 460 300 / 25 -475 / -475 Lab / Micro Data Attestation: I reviewed the patient's lab results. 09/25/23 06:10 09/25/23 06:10 Labs: Laboratory Results - last 24 hr 09/24/23 05:40: B-Natriuretic Peptide 2583.4 H, Procalcitonin 0.11 H 09/24/23 11:02: MRSA (PCR) POSITIVE H 09/25/23 06:10: WBC 14.4 H, RBC 3.92 L, Hgb 11.2 L, Hct 35.6 L, MCV 90.8, MCH 28.6, MCHC 31.5 L, RDW Std Deviation 58.4 H, RDW Coeff of Cynthia 17.7 H, Plt Count 235, MPV 10.7, Immature Gran % (Auto) 0.500, Neut % (Auto) 95.6 H, Lymph % (Auto) 1.2 L, [place] % (Auto) 2.6, Eos % (Auto) 0.0, Baso % (Auto) 0.1, Absolute Neuts (auto) 13.8 H, Absolute Lymphs (auto) 0.18 L, Nucleated RBC % 0, Differential Comment SCANNED, PT 47.7 H, INR 5.0 H*, Sodium 136, Potassium 3.8, Chloride 108 H, Carbon Dioxide 23.0, Anion Gap 5, BUN 52 H, Creatinine 1.73 H, Estim Creat Clear Calc 33.17, Est GFR (MDRD) Af Amer 50 L, Est GFR (MDRD) Non-Af 41 L, BUN/Creatinine Ratio 30.1 H, Glucose 130 H, Calcium 8.3 L Micro: Microbiology 09/24/23 12:25 Urine, Clean Catch Legionella Antigen - Final 09/24/23 12:25 Urine, Clean Catch Streptococcus pneumoniae Antigen (M - Final 09/18/23 12:20 Blood Culture (Wb) - Anticubital Left Blood Culture - Final No growth in 5 days. 09/18/23 12:04 Blood Culture (Wb) - Right Forearm Blood Culture - Final No growth in 5 days. 09/18/23 13:00 Urine, Clean Catch Urine Culture - Final Culture exhibits no growth. 09/18/23 15:33 Mucosa - Nasopharyngeal Respiratory Panel (PCR) - Final Rhinovirus 09/18/23 11:54 Nasal Secretion SARS-CoV-2 & FLU Antigen (Rapid) - Final Radiography Diagnostic Testing: Radiology Impression Chest X-Ray 09/23/23 08:45 IMPRESSION: Increasing opacities in both lungs, consistent with worsening pneumonia. Small bilateral pleural effusions. Electronically Signed: Yazan Jo MD at 10:09 EST , Rhythm Strip Rhythm Strip: paced (likely underlying afib) Rate: 72 Ectopy: None Physical Exam Const alert and no apparent distress General Appearance: cooperative HEENT normocephalic and head/scalp atraumatic Eyes PERRL, EOMs intact bilaterally and conjunctivae normal Neck supple General: trachea midline Chest inspection of chest normal Resp normal respiratory effort and no use of accessory muscles Auscultation: rales and diminished lung sounds Cardio S1 normal heart sound and S2 normal heart sound Rhythm: abnormal rhythm Heart Sounds: murmur GI normal to inspection, nondistended, normoactive bowel sounds Extremity no clubbing, cyanosis or edema Skin no rashes or lesions noted Neuro CN's II-XII intact bilaterally, moves all extremities and no focal motor deficits Psych cooperative and affect normal Charges/Coding Visit Charges Inpatient E&M: 44800 Subs Hosp L2
[2023-09-25] MEDS: Carvedilol 3.125 MG TABLET PO (11:45)
[2023-09-25] MEDS: Vancomycin HCl 750 MG in 0.9% Normal Saline (250mL Bag) 250 ML 250 MG IV (11:53)
--- NOTE | 2023-09-25 15:12 | PCM.PN.CARD ---
Subjective Subjective Patient denies any complaints and wants to go home. He is still requiring high flow oxygen and is saturating at 89 to 90%. His creatinine has remained stable. Objective Data Vital Signs: Vital Signs Temp Pulse Resp BP Pulse Ox O2 Del Method O2 Flow Rate 96.8 F L 85 20 H 90/54 L 93 Airvo 60 09/25/23 08:00 09/25/23 11:05 09/25/23 11:42 09/25/23 11:42 09/25/23 11:42 09/25/23 11:42 09/25/23 11:42 FiO2 78 09/25/23 11:42 Oxygen Flow Rate (L/min) 60 Oxygen Delivery Method Airvo Weight: 138 lb 0.15 oz Body Mass Index (BMI) 19.2 Intake & Output: Intake and Output for Last 24 Hours 09/23/23 09/24/23 09/25/23 23:59 23:59 23:59 Intake Total 790 / 1010 1850 / 1950 200 / 200 Output Total 200 / 550 1550 / 1925 625 / 625 Balance 590 / 460 300 / 25 -425 / -425 Lab / Micro Data 09/25/23 06:10 09/25/23 06:10 Labs: Laboratory Results - last 24 hr 09/25/23 06:10: WBC 14.4 H, RBC 3.92 L, Hgb 11.2 L, Hct 35.6 L, MCV 90.8, MCH 28.6, MCHC 31.5 L, RDW Std Deviation 58.4 H, RDW Coeff of Cynthia 17.7 H, Plt Count 235, MPV 10.7, Immature Gran % (Auto) 0.500, Neut % (Auto) 95.6 H, Lymph % (Auto) 1.2 L, [place] % (Auto) 2.6, Eos % (Auto) 0.0, Baso % (Auto) 0.1, Absolute Neuts (auto) 13.8 H, Absolute Lymphs (auto) 0.18 L, Nucleated RBC % 0, Differential Comment SCANNED, PT 47.7 H, INR 5.0 H*, Sodium 136, Potassium 3.8, Chloride 108 H, Carbon Dioxide 23.0, Anion Gap 5, BUN 52 H, Creatinine 1.73 H, Estim Creat Clear Calc 33.17, Est GFR (MDRD) Af Amer 50 L, Est GFR (MDRD) Non-Af 41 L, BUN/Creatinine Ratio 30.1 H, Glucose 130 H, Calcium 8.3 L Micro: Microbiology 09/24/23 12:25 Urine, Clean Catch Legionella Antigen - Final 09/24/23 12:25 Urine, Clean Catch Streptococcus pneumoniae Antigen (M - Final Rhythm Strip Rhythm Strip: paced (likely underlying afib) Rate: 72 Ectopy: None Cardiology Labs/Tests 09/25/23 06:10: WBC 14.4 H, RBC 3.92 L, Hgb 11.2 L, Hct 35.6 L, MCV 90.8, MCH 28.6, MCHC 31.5 L, Plt Count 235, MPV 10.7, Immature Gran % (Auto) 0.500, Neut % (Auto) 95.6 H, Lymph % (Auto) 1.2 L, [place] % (Auto) 2.6, Eos % (Auto) 0.0, Baso % (Auto) 0.1, Absolute Neuts (auto) 13.8 H, Nucleated RBC % 0, PT 47.7 H, INR 5.0 H*, Sodium 136, Potassium 3.8, Chloride 108 H, Carbon Dioxide 23.0, Anion Gap 5, BUN 52 H, Creatinine 1.73 H, Est GFR (MDRD) Af Amer 50 L, Est GFR (MDRD) Non-Af 41 L, BUN/Creatinine Ratio 30.1 H, Glucose 130 H, Calcium 8.3 L Rhythm: EKG: ECHO: Stress Test: Cardiac Cath: PCI: CT Surgery: Holter monitor: EPS: PPM: CXR: Chest CT Scan: Physical Exam Const alert and oriented x3 HEENT normocephalic Eyes no scleral icterus Resp Resp Narrative: Right basal crackles. Good air entry bilaterally Extremity no pedal edema Skin no rashes or lesions noted Assessment & Plan Assessment/Plan (1) Acute hypoxic respiratory failure: PLAN: Continue IV Lasix. Will decrease to hold parameter for IV Lasix to 85 mmHg systolic. Agree with trying a higher dose of IV Lasix.Creatinine should be monitored closely. Charges/Coding Visit Charges Inpatient E&M: 29895 Subs Hosp L1
--- NOTE | 2023-09-25 17:07 | PCM.PN.HOSP ---
Reason for Visit Reason for Visit: Diagnoses Hemorrhagic disorder due to extrinsic circulating anticoagulants (09/18/23) Heart failure, unspecified (09/18/23) Acute respiratory failure with hypoxia (09/18/23) Chronic kidney disease, stage 3b (09/18/23) Other malaise (09/18/23) Edema, unspecified (09/18/23) Adverse effect of anticoagulants, initial encounter (09/18/23) Subjective Subjective Patient seen at bedside this morning. Patient sitting in bed, in mild distress due to mild increased work of breathing. Patient is requiring a higher level of oxygen today than yesterday, currently satting in the low 90s on heated high flow with FiO2 of 75%. However, patient continues to state that he wants to leave the hospital, as he did yesterday. He has not gotten up and out of bed that I am aware of. He otherwise denies any acute pain or discomfort. Objective Data Objective Data Vital Signs: Vital Signs Temp Pulse Resp BP Pulse Ox O2 Del Method O2 Flow Rate 96.8 F L 88 20 H 90/54 L 93 Airvo 60 09/25/23 08:00 09/25/23 15:02 09/25/23 15:02 09/25/23 11:42 09/25/23 11:42 09/25/23 11:42 09/25/23 11:42 FiO2 78 09/25/23 11:42 Oxygen Flow Rate (L/min) 60 Oxygen Delivery Method Airvo Weight: 62.6 kg Body Mass Index (BMI) 19.2 Intake & Output: Intake and Output for Last 24 Hours 09/23/23 09/24/23 09/25/23 23:59 23:59 23:59 Intake Total 790 / 1010 1850 / 1950 465 / 465 Output Total 200 / 550 1550 / 1925 625 / 625 Balance 590 / 460 300 / 25 -160 / -160 Lab / Micro Data 09/25/23 06:10 09/25/23 06:10 Labs: Laboratory Results - last 24 hr 09/25/23 06:10: WBC 14.4 H, RBC 3.92 L, Hgb 11.2 L, Hct 35.6 L, MCV 90.8, MCH 28.6, MCHC 31.5 L, RDW Std Deviation 58.4 H, RDW Coeff of Cynthia 17.7 H, Plt Count 235, MPV 10.7, Immature Gran % (Auto) 0.500, Neut % (Auto) 95.6 H, Lymph % (Auto) 1.2 L, [place] % (Auto) 2.6, Eos % (Auto) 0.0, Baso % (Auto) 0.1, Absolute Neuts (auto) 13.8 H, Absolute Lymphs (auto) 0.18 L, Nucleated RBC % 0, Differential Comment SCANNED, PT 47.7 H, INR 5.0 H*, Sodium 136, Potassium 3.8, Chloride 108 H, Carbon Dioxide 23.0, Anion Gap 5, BUN 52 H, Creatinine 1.73 H, Estim Creat Clear Calc 33.17, Est GFR (MDRD) Af Amer 50 L, Est GFR (MDRD) Non-Af 41 L, BUN/Creatinine Ratio 30.1 H, Glucose 130 H, Calcium 8.3 L Micro: Microbiology 09/24/23 12:25 Urine, Clean Catch Legionella Antigen - Final 09/24/23 12:25 Urine, Clean Catch Streptococcus pneumoniae Antigen (M - Final 09/18/23 12:20 Blood Culture (Wb) - Anticubital Left Blood Culture - Final No growth in 5 days. 09/18/23 12:04 Blood Culture (Wb) - Right Forearm Blood Culture - Final No growth in 5 days. 09/18/23 13:00 Urine, Clean Catch Urine Culture - Final Culture exhibits no growth. 09/18/23 15:33 Mucosa - Nasopharyngeal Respiratory Panel (PCR) - Final Rhinovirus 09/18/23 11:54 Nasal Secretion SARS-CoV-2 & FLU Antigen (Rapid) - Final Rhythm Strip Rhythm Strip: paced (likely underlying afib) Rate: 72 Ectopy: None Physical Exam Const alert and oriented x3 Constitutional Narrative: Elderly male, thin and chronically ill-appearing, sitting in bed, mild distress due to mild increased work of breathing. Requiring high flow nasal cannula at increased rate from yesterday. General Appearance: cooperative HEENT normocephalic, head/scalp atraumatic, hearing grossly normal bilaterally, nasal mucous membranes and turbinates normal and moist oral mucous membranes Eyes PERRL, EOMs intact bilaterally and conjunctivae normal Neck full ROM, no lymphadenopathy and supple Lymph Lymphatic: no lymphadenopathy noted Chest inspection of chest normal Resp Resp Narrative: Significantly decreased breath sounds bilaterally, with crackles noted at bilateral bases. No wheezing noted. Cardio regular rate, regular rhythm, no murmurs and peripheral pulses 2+ throughout GI normal to inspection, nondistended, normoactive bowel sounds, soft to palpation, non-tender and non-distended Back/Spine normal ROM Extremity normal to inspection, full ROM and no pedal edema Skin no rashes or lesions noted Neuro moves all extremities and no focal motor deficits Speech: speech normal Psych mental status grossly normal Mood & Affect: anxious Assessment & Plan Assessment/Plan (1) Acute hypoxic respiratory failure: PLAN: Plan Patient is a 73-year-old male who presented to [facility] ED on 09/18/2023 with shortness of breath, worsening lower extremity edema and hypotension. 1. Acute hypoxic respiratory failure secondary to CHF and presumed COPD exacerbation secondary to rhinovirus Positive for rhinovirus on admission. Initially requiring 3 to 4 L nasal cannula, but had significant worsening of respiratory status on 09/23-. Per pulmonary, does have emphysematous changes on CT chest imaging; however chest x-ray on 09/24 shows worsening of bilateral airspace disease. BNP remains markedly elevated. Suspect this may be multifactorial secondary to underlying infection and pulmonary edema contributing. ? Pulmonology following. Broadened antibiotic coverage to vancomycin and Zosyn on 09/24. Continue scheduled bronchodilators with IV steroids for presumed COPD exacerbation. Will increase IV diuretic dose and lower hold parameter to 85 mmHg systolic. Wean supplemental oxygen as able. 2. Acute on chronic combined systolic and diastolic heart failure, pulmonary hypertension Recent echo on 09/08/2023 showed EF 25%, severe global LV systolic dysfunction, severely dilated LV, grade 2 diastolic dysfunction, severely enlarged LA, mildly enlarged RA, RVSP 60 mmHg, moderate to severe mitral valve insufficiency, moderate tricuspid valve insufficiency, moderate aortic valve insufficiency. BNP 2367 on admit, repeat BNP similar on 09/24. ? Cardiology following. Noted worsening infiltrates on chest x-ray as noted above. However, patient's creatinine appears to be at baseline, does not appear significantly volume overloaded, BNP is elevated but similar to previous values. Continue IV Lasix at increased dose as noted above, recommended considering in treating noncardiac etiologies as well. Continue empagliflozin. 3. Chronic A-fib on warfarin, supratherapeutic INR ? INR 5.0 on 09/25, continue holding home warfarin, recheck INR daily. Continue Coreg at reduced dose. Continue home amiodarone. Chronic medical conditions: ? CAD s/p CABG, hypertension, hyperlipidemia: Continue home statin, Coreg, Plavix. ? GERD: Continue home PPI. ? CKD stage IIIb: Baseline creatinine 1.7-2.0, stable at baseline. Monitor daily BMP. DVT prophylaxis: Holding warfarin due to supratherapeutic INR as noted above CODE STATUS: DNR CCA, DO NOT INTUBATE Expected disposition: TBD Total clinical time spent by myself addressing the patient's medical issues, reviewing all the data, and collaborating with patient's care team: 35 minutes. Charges/Coding Visit Charges Inpatient E&M: 22338 Subs Hosp L2
[2023-09-25] MEDS: Furosemide 40 MG/4 ML Vial IV (18:36)
[2023-09-25] MEDS: MELATONIN 10 MG TABLET PO (21:01)
[2023-09-25] MEDS: Atorvastatin Calcium 10 MG Tablet PO (21:03)
--- NOTE | 2023-09-25 22:35 | PCM.HOSP.N ---
Hospitalist Note Patient and family noting severe anxiety with claustrophobia but willingness to trial BIPAP with usage of low dose PRN anxiety agent. Will add low dose ativan with BIPAP usage only and continue to monitor.
[2023-09-25] MEDS: LORazepam 0.5 MG Tablet PO (23:15)
[2023-09-26] VITALS (22 sets, daily range): BP systolic 84–113; BP diastolic 54–67; PULSE 70–101; RESP 14–28; TEMP 36–36.6; O2SAT 86–99
--- NOTE | 2023-09-26 01:33 | CPS ---
RN tried to pt on bipap, pt unable to tolerate even just 15 minutes, pt had it off already. AIRVO re-applied 55L 87%
--- NOTE | 2023-09-26 02:46 | NURSING ---
This RN educated pt about wearing bipap tonight and received low dose Ativan form MD for pt. Pt wore bipap 30min- 1hour and back on airvo 55L 95%. Pt continues to be restless with signs of air hunger. Will continue to educate pt about bipap use.
[2023-09-26] MEDS: Piperacil/Tazobactam 3.375 GM in 0.9% Normal Saline (50mL MB+) 50 ML IV ×3 (05:27→20:53)
[2023-09-26] MEDS: clonazePAM 0.5 MG Tablet PO (05:28)
[2023-09-26 06:50] LABS: Absolute Lymphocyte Count 0.17 X10^3/uL (0.83-4.51); Absolute Neutrophil Count 13.3 X10^3/uL (2.0-7.7); Basophil# 0.01 X10^3/uL; Basophil% 0.1 % (0-1); Hematocrit 35.1 % (40-54); Lymphocyte # 0.17 X10^3/ul (0.83-4.51); Lymphocyte % 1.2 % (19-41); Mean Corp Hgb Conc 31.3 g/dL (32-36); Mean Corpuscular Hgb 28.5 pg (27.0-32.0); Mean Corpuscular Volume 90.9 fL (80-94); Mean Platelet Vol. 10.7 fl (6.2-12.0); Monocyte# 0.34 X10^3/uL; Monocyte% 2.4 % (0-10); NRBC Flagged by Analyzer 0 % (0-5); Neutrophil % 95.4 % (47-70); POSITIVE DIFFERENTIAL YES; Platelet Count 206 K/mm3 (150-450); RBC Distribution Width CV 17.5 % (11.6-14.6); RBC Distribution Width SD 58.3 fl (35.1-43.9); Red Blood Count 3.86 M/mm3 (4.6-6.2); White Blood Count 13.9 K/mm3 (4.4-11.0)
[2023-09-26 06:54] LABS: Differential Indicated SCAN CRITERIA MET
[2023-09-26 07:02] LABS: Prothrombin Time (Protime)PT. 47.5 SECONDS (11.7-14.9)
[2023-09-26 07:08] LABS: Differential Comment SCANNED
[2023-09-26] MEDS: Ipratropium/Albuterol Sulfate 3 ML AMPUL.NEB INHALATION ×4 (07:09→21:31)
[2023-09-26 07:15] LABS: ALB/GLOB Ratio 0.6 RATIO (0.9-2.4); AST(SGOT) 22 U/L (15-37); Alanine Aminotransfer ALT/SGPT 20 U/L (16-61); Albumin, Serum 2.1 g/dL (3.2-5.0); Alkaline Phosphatase 66 U/L (45-117); Anion Gap 5 (5-15); BUN 44 mg/dL (7-18); BUN/Creat Ratio 26.8 RATIO (10-20); Chloride 110 mmol/L (98-107); Creatinine, Serum 1.64 mg/dL (0.70-1.30); EST Glomerular Filtration Rate 44 mL/min (>60); Est Glom Filt Rate - Afr Amer 53 mL/min (>60); Estimated Creatinine Clearance 34.99 ml/min; Globulin 3.8 g/dL (2.2-4.2); Glucose 157 mg/dL (74-106); Potassium 3.3 mmol/L (3.5-5.1); Protein, Total 5.9 g/dL (6.4-8.2); Sodium Level 139 mmol/L (136-145)
--- NOTE | 2023-09-26 07:24 | PN.CC_ITS ---
Assessment & Plan Assessment/Plan (1) Acute hypoxic respiratory failure: (2) Acute exacerbation of CHF (congestive heart failure): (3) Chronic kidney disease, stage 3b: (4) Warfarin-induced coagulopathy: PLAN: Plan RECOMMENDATIONS: 1. Ongoing diuresis as tolerated by hemodynamics and renal function. 2. Continue broad-spectrum antimicrobials. 3. Continue to wean FiO2 to maintain oxygen saturations at or above 90%. 4. Continue to hold Coumadin given supratherapeutic INR. 5. Continue bronchodilator therapy. 6. Strongly recommend BiPAP therapy. 7. If the patient changes his CODE STATUS to full code, he would require transfer to the intensive care unit. IMPRESSIONS: 1. Acute hypoxic respiratory failure secondary to CHF and presumed COPD exacerbation secondary to rhinovirus The patient does have emphysematous changes noted on CT imaging of the chest. PE is unlikely given supratherapeutic INR. His repeat chest x-ray demonstrated interval worsening in his bilateral airspace disease. BNP remains markedly elevated. I suspect that his ongoing hypoxemia is multifactorial with underlying infection and pulmonary edema contributing. Plan to continue broad- spectrum antimicrobials along with ongoing diuresis as tolerated by hemodynamics and renal function. The patient will also be continued on scheduled bronchod ilators and steroids. Despite all of the aforementioned, the patient's respiratory status still remains quite tenuous. He has on maximum support from a heated high flow perspective and has refused noninvasive positive pressure ventilatory support. 2. Coagulopathy secondary to warfarin The patient currently has a supratherapeutic INR. Therefore, I recommend that we continue to hold Coumadin. Continue to monitor INR daily. 3. CKD stage IIIb Complicates care, management, recovery and prognosis. Continue supportive measures as noted above. This note was generated with [employer] dictation software. It may contain incorrect words, spelling, and punctuation that were not noted in checking the note before signing. Subjective Subjective The patient was seen and examined at the bedside this morning. Events from the last 24 hours have been reviewed. The patient has continued to struggle from a respiratory perspective over the last day. He is now on maximal support from Airvo and has adamantly refused BiPAP therapy. The patient is currently documented to be overall net +4.5 L for the hospitalization. INR remains elevated at 5.0. Potassium is low at 3.3. Creatinine is stable. The patient appears much more fatigued this morning. However, CODE STATUS was again confirmed to be DNR CCA without intubation. ABG obtained this morning demonstrated a pH of 7.31 with a pCO2 of 46 and pO2 of 79. Repeat chest x-ray continues to show bilateral pulmonary infiltrates with some interval improvement. Objective Data Objective Data The patient's most recent lab work, culture data and imaging studies have all been personally reviewed. Surface echocardiogram demonstrated a severely dilated LV with severe global LV systolic dysfunction and ejection fraction of 25%. Respiratory viral panel on September 18 was positive for rhinovirus. Vital Signs: Vital Signs Temp Pulse Resp BP Pulse Ox O2 Del Method O2 Flow Rate 97.4 F L 75 24 H 102/61 86 Airvo 55 09/26/23 05:35 09/26/23 06:00 09/26/23 06:00 09/26/23 06:00 09/26/23 06:00 09/26/23 06:00 09/26/23 06:00 FiO2 92 09/26/23 06:00 Oxygen Flow Rate (L/min) 55 Oxygen Delivery Method Airvo Weight: 138 lb 0.15 oz Body Mass Index (BMI) 19.2 Intake & Output: Intake and Output for Last 24 Hours 09/24/23 09/25/23 09/26/23 23:59 23:59 23:59 Intake Total 1850 / 1950 1610 / 1610 50 / 50 Output Total 1550 / 1925 2200 / 2200 400 / 400 Balance 300 / 25 -590 / -590 -350 / -350 Lab / Micro Data Attestation: I reviewed the patient's lab results. 09/26/23 06:40 09/26/23 06:40 Labs: Laboratory Results - last 24 hr 09/25/23 06:10: WBC 14.4 H, RBC 3.92 L, Hgb 11.2 L, Hct 35.6 L, MCV 90.8, MCH 28.6, MCHC 31.5 L, RDW Std Deviation 58.4 H, RDW Coeff of Cynthia 17.7 H, Plt Count 235, MPV 10.7, Immature Gran % (Auto) 0.500, Neut % (Auto) 95.6 H, Lymph % (Auto) 1.2 L, [place] % (Auto) 2.6, Eos % (Auto) 0.0, Baso % (Auto) 0.1, Absolute Neuts (auto) 13.8 H, Absolute Lymphs (auto) 0.18 L, Nucleated RBC % 0, Differential Comment SCANNED, PT 47.7 H, INR 5.0 H*, Sodium 136, Potassium 3.8, Chloride 108 H, Carbon Dioxide 23.0, Anion Gap 5, BUN 52 H, Creatinine 1.73 H, Estim Creat Clear Calc 33.17, Est GFR (MDRD) Af Amer 50 L, Est GFR (MDRD) Non-Af 41 L, BUN/Creatinine Ratio 30.1 H, Glucose 130 H, Calcium 8.3 L 09/26/23 06:40: WBC 13.9 H, RBC 3.86 L, Hgb 11.0 L, Hct 35.1 L, MCV 90.9, MCH 28.5, MCHC 31.3 L, RDW Std Deviation 58.3 H, RDW Coeff of Cynthia 17.5 H, Plt Count 206, MPV 10.7, Immature Gran % (Auto) 0.900, Neut % (Auto) 95.4 H, Lymph % (A uto) 1.2 L, [place] % (Auto) 2.4, Eos % (Auto) 0.0, Baso % (Auto) 0.1, Absolute Neuts (auto) 13.3 H, Absolute Lymphs (auto) 0.17 L, Nucleated RBC % 0, Differential Comment SCANNED, PT 47.5 H, INR 5.0 H*, Sodium 139, Potassium 3.3 L , Chloride 110 H, Carbon Dioxide 24.0, Anion Gap 5, BUN 44 H, Creatinine 1.64 H, Estim Creat Clear Calc 34.99, Est GFR (MDRD) Af Amer 53 L, Est GFR (MDRD) Non-Af 44 L, BUN/Creatinine Ratio 26.8 H, Glucose 157 H, Calcium 8.0 L, Total Bilirubin 0.90, AST 22, ALT 20, Alkaline Phosphatase 66, Total Protein 5.9 L, Albumin 2.1 L, Globulin 3.8, Albumin/Globulin Ratio 0.6 L Micro: Microbiology 09/24/23 12:25 Urine, Clean Catch Legionella Antigen - Final 09/24/23 12:25 Urine, Clean Catch Streptococcus pneumoniae Antigen (M - Final 09/18/23 12:20 Blood Culture (Wb) - Anticubital Left Blood Culture - Final No growth in 5 days. 09/18/23 12:04 Blood Culture (Wb) - Right Forearm Blood Culture - Final No growth in 5 days. 09/18/23 13:00 Urine, Clean Catch Urine Culture - Final Culture exhibits no growth. 09/18/23 15:33 Mucosa - Nasopharyngeal Respiratory Panel (PCR) - Final Rhinovirus 09/18/23 11:54 Nasal Secretion SARS-CoV-2 & FLU Antigen (Rapid) - Final Radiography Diagnostic Testing: Radiology Impression Chest X-Ray 09/23/23 08:45 IMPRESSION: Increasing opacities in both lungs, consistent with worsening pneumonia. Small bilateral pleural effusions. Electronically Signed: Yazan Jo MD at 10:09 EST , Rhythm Strip Rhythm Strip: paced (likely underlying afib) Rate: 72 Ectopy: None Physical Exam Const General Appearance: lethargic and ill appearing HEENT normocephalic and head/scalp atraumatic Eyes PERRL, EOMs intact bilaterally and conjunctivae normal Neck supple General: trachea midline Chest inspection of chest normal Resp Effort and Inspection: tachypneic Auscultation: rales and diminished lung sounds Cardio S1 normal heart sound and S2 normal heart sound Rhythm: abnormal rhythm Heart Sounds: murmur GI normal to inspection, nondistended, normoactive bowel sounds Extremity no clubbing, cyanosis or edema Skin no rashes or lesions noted Neuro CN's II-XII intact bilaterally and no focal motor deficits Psych Mood & Affect: flat affect Charges/Coding Visit Charges Inpatient E&M: 01417 Subs Hosp L3
--- NOTE | 2023-09-26 07:24 | RAD_ITS ---
EXAM: XR CHEST, 1 VIEW CLINICAL INDICATION: Respiratory Failure Respiratory Failure TECHNIQUE: Frontal view of the chest. COMPARISON: Chest x-ray 09/23/2023. FINDINGS: LUNGS AND PLEURAL SPACES: There are bilateral pulmonary infiltrates and small pleural effusions. Infiltration within the right lung singer show some interval improvement. No pneumothorax. HEART: The heart is enlarged. MEDIASTINUM: Central airways and mediastinal contour are unremarkable. BONES/JOINTS: There are sternotomy wires. No acute fracture. SOFT TISSUES: Unremarkable. TUBES, LINES AND DEVICES: There is an atrial-bilateral ventricular pacemaker. RAD/Chest 1 View (Portable) IMPRESSION: 1. Bilateral pulmonary infiltrates and small pleural effusions with some interval improvement on the right. 2. Cardiomegaly. Pacemaker. Electronically Signed: Harry Johnson MD at 7:55 EST Reading Location ID and State: [facility] / [place] , Service support ,
[2023-09-26 08:08] LABS: Allen Test Positive; Base Excess -3 mmol/L (-2 to +2); Bicarbonate 23.5 mmol/L (22-26); Blood Gas Specimen Type ART; Mode Not entered; O2 Delivery Device CPAP; PO2 79 mmHG (75-100); SITE R Radial; SO2 94 % (95-99); Total Carbon Dioxide 25 mmol/L; pCO2 46.3 mmHg (35-45); pH 7.31 (7.35-7.45)
[2023-09-26] MEDS: HYDROmorphone 0.5 MG/0.5 ML SYRINGE IV (10:26)
[2023-09-26] MEDS: 0.9% Saline Lock 10 ML Syringe IV ×3 (10:27→18:25)
[2023-09-26] MEDS: Furosemide 40 MG/4 ML Vial IV ×2 (10:34→18:25)
[2023-09-26 11:53] LABS: Vancomycin, Trough Level 14.3 ug/mL (5.0-15.0)
--- NOTE | 2023-09-26 12:48 | PCM.RX.CS ---
Consult Antibiotic Management Pharmacy has been consulted to manage selected antiobiotic: Vancomycin Type of Intervention Type of Consult: Follow-up Suspected Infection Suspected Infection: Pneumonia Prior Doses of Antibiotics Prior Doses of Antibiotics Received/Current Regimen: Currently on 750mg iv q24h. Labs Labs: Sodium 139 mmol/L (136-145) 09/26/23 06:40 Potassium 3.3 mmol/L (3.5-5.1) L 09/26/23 06:40 Chloride 110 mmol/L (98-107) H 09/26/23 06:40 Carbon Dioxide 24.0 mmol/L (21.0-32.0) 09/26/23 06:40 Anion Gap 5 (5-15) 09/26/23 06:40 BUN 44 mg/dL (7-18) H 09/26/23 06:40 Creatinine 1.64 mg/dL (0.70-1.30) H 09/26/23 06:40 Est GFR (MDRD) Af Amer 53 mL/min (>60) L 09/26/23 06:40 Est GFR (MDRD) Non-Af 44 mL/min (>60) L 09/26/23 06:40 BUN/Creatinine Ratio 26.8 RATIO (10-20) H 09/26/23 06:40 Glucose 157 mg/dL (74-106) H 09/26/23 06:40 Vancomycin Trough 14.3 ug/mL (5.0-15.0) 09/26/23 10:30 Microbiology Microbiology: Microbiology 09/24/23 12:25 Urine, Clean Catch Legionella Antigen - Final 09/24/23 12:25 Urine, Clean Catch Streptococcus pneumoniae Antigen (M - Final 09/18/23 12:20 Blood Culture (Wb) - Anticubital Left Blood Culture - Final No growth in 5 days. 09/18/23 12:04 Blood Culture (Wb) - Right Forearm Blood Culture - Final No growth in 5 days. 09/18/23 13:00 Urine, Clean Catch Urine Culture - Final Culture exhibits no growth. 09/18/23 15:33 Mucosa - Nasopharyngeal Respiratory Panel (PCR) - Final Rhinovirus 09/18/23 11:54 Nasal Secretion SARS-CoV-2 & FLU Antigen (Rapid) - Final Dosing Weight Weight used for dosin.6 kg Estimated Creatinine Clearance Estimated Creatinine Clearance: 35 ml/min Goal Trough Goal Trough: 15-20 mcg/mL Pharmacy Plan for Drug Dosing Pharmacy Plan for Drug Dosing: Trough level today ~22.5 hrs post last dose was 14.3. Slightly below desired level of 15-20. Recommend increasing dose to 1000mg iv q24h starting today. New trough level ordered for before 3rd dose. Pharmacy Service will continue to monitor and adjust dosing as required. Follow-Up Labs Follow-Up Labs: Trough: Vancomycin (12.15.23 @1230 before 1300 dose)
[2023-09-26] MEDS: Vancomycin IV 1,000 MG/200 ML BAG 200 MG IV (13:58)
[2023-09-26] MEDS: Pantoprazole Sodium 40 MG Tablet PO (14:10)
[2023-09-26] MEDS: Clopidogrel Bisulfate 75 MG Tablet PO (14:10)
[2023-09-26] MEDS: Empagliflozin 10 MG Tablet PO (14:10)
[2023-09-26] MEDS: guaiFENesin/D-Methorphan TAB.SR.12H 2 TABLET PO ×2 (14:10→20:53)
[2023-09-26] MEDS: Amiodarone 200 MG Tablet PO (14:10)
--- NOTE | 2023-09-26 17:03 | PCM.PN.HOSP ---
Reason for Visit Reason for Visit: Diagnoses Hemorrhagic disorder due to extrinsic circulating anticoagulants (09/18/23) Heart failure, unspecified (09/18/23) Acute respiratory failure with hypoxia (09/18/23) Chronic kidney disease, stage 3b (09/18/23) Other malaise (09/18/23) Edema, unspecified (09/18/23) Adverse effect of anticoagulants, initial encounter (09/18/23) Subjective Subjective Patient initially seen at bedside this morning. Was noted by nursing staff to have worsening respiratory status overnight. On my evaluation, patient appeared fatigued and had moderate increased work of breathing on high flow nasal cannula at max oxygen concentration. He was able to respond with short answers to questions but not much more than that. He certainly looks more fatigued and generally worse than previous days. Patient was again seen mid afternoon when his son came to the hospital. I had discussed with patient's [id number] (son's fiance) over the phone after seeing him this morning that the patient was not doing well and I was very concerned about his oxygen requirements. Told her that she has patient is a DNR CCA, DNI I was concerned that patient could have overt respiratory failure within hours to short days causing his . When I visited patient's son in the room, the patient was sitting in the bedside chair and continued to have fairly significant fatigue with increased work of breathing on high flow nasal cannula. Discussed patient's poor prognosis with the son. Discussed that it may be in the patient's best interest to consider inpatient hospice at this time. Hospice was planning to see the patient shortly after I left the room. Objective Data Objective Data Vital Signs: Vital Signs Temp Pulse Resp BP Pulse Ox O2 Del Method O2 Flow Rate 97.8 F 101 H 24 H 93/58 L 99 Airvo 55 09/26/23 14:22 09/26/23 14:52 09/26/23 14:52 09/26/23 14:22 09/26/23 14:22 09/26/23 14:24 09/26/23 14:00 FiO2 92 09/26/23 07:09 Oxygen Flow Rate (L/min) 55 Oxygen Delivery Method Airvo Weight: 62.6 kg Body Mass Index (BMI) 19.2 Intake & Output: Intake and Output for Last 24 Hours 09/24/23 09/25/23 09/26/23 23:59 23:59 23:59 Intake Total 1850 / 1950 1610 / 1610 350 / 350 Output Total 1550 / 1925 2200 / 2200 400 / 400 Balance 300 / 25 -590 / -590 -50 / -50 Lab / Micro Data 09/26/23 06:40 09/26/23 06:40 Labs: Laboratory Results - last 24 hr 09/26/23 06:40: WBC 13.9 H, RBC 3.86 L, Hgb 11.0 L, Hct 35.1 L, MCV 90.9, MCH 28.5, MCHC 31.3 L, RDW Std Deviation 58.3 H, RDW Coeff of Cynthia 17.5 H, Plt Count 206, MPV 10.7, Immature Gran % (Auto) 0.900, Neut % (Auto) 95.4 H, Lymph % (Auto) 1.2 L, [place] % (Auto) 2.4, Eos % (Auto) 0.0, Baso % (Auto) 0.1, Absolute Neuts (auto) 13.3 H, Absolute Lymphs (auto) 0.17 L, Nucleated RBC % 0, Differential Comment SCANNED, PT 47.5 H, INR 5.0 H*, Sodium 139, Potassium 3.3 L, Chloride 110 H, Carbon Dioxide 24.0, Anion Gap 5, BUN 44 H, Creatinine 1.64 H, Estim Creat Clear Calc 34.99, Est GFR (MDRD) Af Amer 53 L, Est GFR (MDRD) Non-Af 44 L, BUN/Creatinine Ratio 26.8 H, Glucose 157 H, Calcium 8.0 L, Total Bilirubin 0.90, AST 22, ALT 20, Alkaline Phosphatase 66, Total Protein 5.9 L, Albumin 2.1 L, Globulin 3.8, Albumin/Globulin Ratio 0.6 L 09/26/23 10:30: Vancomycin Trough 14.3 Micro: Microbiology 09/24/23 12:25 Urine, Clean Catch Legionella Antigen - Final 09/24/23 12:25 Urine, Clean Catch Streptococcus pneumoniae Antigen (M - Final 09/18/23 12:20 Blood Culture (Wb) - Anticubital Left Blood Culture - Final No growth in 5 days. 09/18/23 12:04 Blood Culture (Wb) - Right Forearm Blood Culture - Final No growth in 5 days. 09/18/23 13:00 Urine, Clean Catch Urine Culture - Final Culture exhibits no growth. 09/18/23 15:33 Mucosa - Nasopharyngeal Respiratory Panel (PCR) - Final Rhinovirus 09/18/23 11:54 Nasal Secretion SARS-CoV-2 & FLU Antigen (Rapid) - Final ABG Data ABG results: ABG 09/26/23 08:05 Specimen Type ART Sample Site R Radial pH 7.31 L Bicarbonate Actual 23.5 Total CO2 25 Base Excess -3 L O2 Saturation 94 L O2 % 92.0 ABG pCO2 46.3 H ABG pO2 79 Pancho Test Positive O2 Delivery Device CPAP Vent Mode Not entered Radiography Diagnostic Testing: Radiology Impression Chest X-Ray 09/26/23 07:24 IMPRESSION: 1. Bilateral pulmonary infiltrates and small pleural effusions with some interval improvement on the right. 2. Cardiomegaly. Pacemaker. Electronically Signed: Harry Johnson MD at 7:55 EST Reading Location ID and State: [facility] / [place] , Service support , Rhythm Strip Rhythm Strip: paced (likely underlying afib) Rate: 72 Ectopy: None Physical Exam Const alert Constitutional Narrative: Elderly male, thin and chronically ill-appearing, very fatigued appearing today and with moderate increased work of breathing, much worse than previous days. General Appearance: cooperative HEENT normocephalic, head/scalp atraumatic, hearing grossly normal bilaterally, nasal mucous membranes and turbinates normal and moist oral mucous membranes Eyes PERRL, EOMs intact bilaterally and conjunctivae normal Neck full ROM, no lymphadenopathy and supple Lymph Lymphatic: no lymphadenopathy noted Chest inspection of chest normal Resp Resp Narrative: Significantly decreased breath sounds bilaterally, with crackles noted at bilateral bases. No wheezing noted. Cardio regular rate, regular rhythm, no murmurs and peripheral pulses 2+ throughout GI normal to inspection, nondistended, normoactive bowel sounds, soft to palpation, non-tender and non-distended Back/Spine normal ROM Extremity normal to inspection, full ROM and no pedal edema Skin no rashes or lesions noted Neuro moves all extremities and no focal motor deficits Speech: speech normal Assessment & Plan Assessment/Plan (1) Acute hypoxic respiratory failure: PLAN: Plan Patient is a 73-year-old male who presented to [facility] [place] ED on 09/18/2023 with shortness of breath, worsening lower extremity edema and hypotension. 1. Acute hypoxic respiratory failure secondary to CHF and presumed COPD exacerbation secondary to rhinovirus Positive for rhinovirus on admission. Initially requiring 3 to 4 L nasal cannula, but had significant worsening of respiratory status on 09/23-. Per pulmonary, does have emphysematous changes on CT chest imaging; however chest x-ray on 09/24 shows worsening of bilateral airspace disease. BNP remains markedly elevated. Suspect this may be multifactorial secondary to underlying infection and pulmonary edema contributing. Antibiotic coverage broadened to vancomycin and Zosyn on 09/24. ? Pulmonology following. Patient fortunately has had significant worsening despite very aggressive medical intervention, now with maximum requirements of oxygen on high flow nasal cannula with oxygen saturations in the low 90s. Hospice consulted. Continue broad-spectrum antibiotics, scheduled by dilators, IV steroids, IV diuretics for now. 2. Acute on chronic combined systolic and diastolic heart failure, pulmonary hypertension Recent echo on 09/08/2023 showed EF 25%, severe global LV systolic dysfunction, severely dilated LV, grade 2 diastolic dysfunction, severely enlarged LA, mildly enlarged RA, RVSP 60 mmHg, moderate to severe mitral valve insufficiency, moderate tricuspid valve insufficiency, moderate aortic valve insufficiency. BNP 2367 on admit, repeat BNP similar on 09/24. ? Cardiology following. Continue IV Lasix at increased dose as noted above. Continue empagliflozin. 3. Chronic A-fib on warfarin, supratherapeutic INR ? INR 5.0 on 09/26, continue holding home warfarin, recheck INR daily. Continue Coreg at reduced dose. Continue home amiodarone. Chronic medical conditions: ? CAD s/p CABG, hypertension, hyperlipidemia: Continue home statin, Coreg, Plavix. ? GERD: Continue home PPI. ? CKD stage IIIb: Baseline creatinine 1.7-2.0, stable at baseline. Monitor daily BMP. DVT prophylaxis: Holding warfarin due to supratherapeutic INR as noted above CODE STATUS: DNR CCA, DO NOT INTUBATE Expected disposition: TBD Total clinical time spent by myself addressing the patient's medical issues, reviewing all the data, and collaborating with patient's care team: 35 minutes. Charges/Coding Visit Charges Inpatient E&M: 86143 Subs Hosp L2
[2023-09-26] MEDS: Carvedilol 3.125 MG TABLET PO (20:53)
[2023-09-26] MEDS: MELATONIN 10 MG TABLET PO (20:53)
[2023-09-26] MEDS: Atorvastatin Calcium 10 MG Tablet PO (20:53)
[2023-09-27] VITALS (36 sets, daily range): BP systolic 75–107; BP diastolic 42–67; PULSE 70–79; RESP 17–25; TEMP 36–36.6; O2SAT 82–100
[2023-09-27] MEDS: Piperacil/Tazobactam 3.375 GM in 0.9% Normal Saline (50mL MB+) 50 ML IV ×3 (05:08→21:33)
[2023-09-27] MEDS: Ipratropium/Albuterol Sulfate 3 ML AMPUL.NEB INHALATION ×4 (06:52→18:57)
--- NOTE | 2023-09-27 08:16 | CASEMGMT ---
SW received a voice mail from Cole with Hospice. Patient's son signed Hospice papers. They will likely send a nurse this am to evaluate for their inpatient unit. There is some concern regarding amount of O2 patient is requiring and the amount Hospice can provide. Marleni Connor MORTGAGE LOAN ORIGINATOR VIVIENNE
--- NOTE | 2023-09-27 10:17 | CASEMGMT ---
Tessie from Hospice came to talk with patient. Patient is refusing to go to the inpatient Hospice unit. Patient said he wants to go home on Hospice. Tessie from Hospice spoke with Jelena at Hospice and they could transport patient to his son's home in [place]. However, patient would have to be able to tolerate 20L of O2, his defibrillator needs de-activated, and equipment needs set up in the home. SW notified patient and his son as well as charger operator. SW will notify RN and physician. Marleni PALAFOX
--- NOTE | 2023-09-27 10:21 | CASEMGMT ---
SW also assisted patient in completing Healthcare Power of Junior Designer papers. Patient named his son Ja as his Healthcare Power of Junior Designer. Copies were made and given to patient along with original. A copy was also placed in patient's chart. Marleni PALAFOX
[2023-09-27] MEDS: guaiFENesin/D-Methorphan TAB.SR.12H 2 TABLET PO ×2 (11:01→21:34)
[2023-09-27] MEDS: Amiodarone 200 MG Tablet PO (11:01)
[2023-09-27] MEDS: Carvedilol 3.125 MG TABLET PO (11:01)
[2023-09-27] MEDS: Pantoprazole Sodium 40 MG Tablet PO (11:02)
[2023-09-27] MEDS: Clopidogrel Bisulfate 75 MG Tablet PO (11:02)
[2023-09-27] MEDS: Empagliflozin 10 MG Tablet PO (11:02)
--- NOTE | 2023-09-27 11:48 | CASEMGMT ---
Patient is tolerating 6L of O2. Per RN patient's son Ja is now saying he does not want patient to come home with him. SW met with patient and Ja. SW asked Ja if he was still okay with patient returning home with him. SW said that prior to hospice being brought up SW was under the impression that patient was going to stay with him. Ja said he is confused and he didn't know there was a set plan. Ja said he was under the impression patient was going to the inpatient unit. SW explained that patient does not want to go to the inpatient unit. Patient said he wants to go home and would be agreeable to hospice at home. Ja said he is not sure what he is going to do. Ja said he is confused and is going to talk with his fiance. CUAUHTEMOC explained that at this point SW is not sure if the plan for patient will be d/c home with Hospice or not Hospice. SW will check back with patient and Ja. Marleni Connor CARE TRANSITION COORDINATOR VIVIENNE
[2023-09-27] MEDS: Furosemide 40 MG/4 ML Vial IV (12:07)
--- NOTE | 2023-09-27 14:32 | PCM.PN.HOSP ---
Reason for Visit Reason for Visit: Diagnoses Hemorrhagic disorder due to extrinsic circulating anticoagulants (09/18/23) Heart failure, unspecified (09/18/23) Acute respiratory failure with hypoxia (09/18/23) Chronic kidney disease, stage 3b (09/18/23) Other malaise (09/18/23) Edema, unspecified (09/18/23) Adverse effect of anticoagulants, initial encounter (09/18/23) Subjective Subjective Patient seen at bedside's morning, son present. Patient actually appears improved this morning yesterday. Was satting in the mid 90s on Airvo at 45 L. Patient had discussion with hospice yesterday. Patient stated he would not go to inpatient hospice, but patient's son is hesitant to take the patient home with home hospice. However, given the patient's improvement, discussions with patient and family are ongoing with regards to plans on discharge. Patient was able to answer questions for me this morning, stated he wanted to go home, similar to his sentiments at the beginning of the week. No other acute concerns this morning. Objective Data Objective Data Vital Signs: Vital Signs Temp Pulse Resp BP Pulse Ox O2 Del Method O2 Flow Rate 97.2 F L 76 20 H 75/53 L 95 High Flow 15 09/27/23 14:24 09/27/23 14:24 09/27/23 14:24 09/27/23 14:24 09/27/23 14:24 09/27/23 14:24 09/27/23 14:24 FiO2 85 09/27/23 10:15 Oxygen Flow Rate (L/min) 15 Oxygen Delivery Method High Flow Weight: 62.6 kg Body Mass Index (BMI) 19.2 Intake & Output: Intake and Output for Last 24 Hours 09/25/23 09/26/23 09/27/23 23:59 23:59 23:59 Intake Total 1610 / 1610 750 / 750 820 / 820 Output Total 2200 / 2200 875 / 875 1100 / 1100 Balance -590 / -590 -125 / -125 -280 / -280 Lab / Micro Data 09/26/23 06:40 09/26/23 06:40 Micro: Microbiology 09/24/23 12:25 Urine, Clean Catch Legionella Antigen - Final 09/24/23 12:25 Urine, Clean Catch Streptococcus pneumoniae Antigen (M - Final 09/18/23 12:20 Blood Culture (Wb) - Anticubital Left Blood Culture - Final No growth in 5 days. 09/18/23 12:04 Blood Culture (Wb) - Right Forearm Blood Culture - Final No growth in 5 days. 09/18/23 13:00 Urine, Clean Catch Urine Culture - Final Culture exhibits no growth. 09/18/23 15:33 Mucosa - Nasopharyngeal Respiratory Panel (PCR) - Final Rhinovirus 09/18/23 11:54 Nasal Secretion SARS-CoV-2 & FLU Antigen (Rapid) - Final Rhythm Strip Rhythm Strip: paced (likely underlying afib) Rate: 72 Ectopy: None Physical Exam Const alert Constitutional Narrative: Elderly male, thin and chronically ill-appearing, fatigued but improved today, able to answer questions appropriately, no acute distress. General Appearance: cooperative HEENT normocephalic, head/scalp atraumatic, hearing grossly normal bilaterally, nasal mucous membranes and turbinates normal and moist oral mucous membranes Eyes PERRL, EOMs intact bilaterally and conjunctivae normal Neck full ROM, no lymphadenopathy and supple Lymph Lymphatic: no lymphadenopathy noted Chest inspection of chest normal Resp Resp Narrative: Decreased breath sounds bilaterally with crackles at bases. No wheezing noted. Cardio regular rate, regular rhythm, no murmurs and peripheral pulses 2+ throughout GI normal to inspection, nondistended, normoactive bowel sounds, soft to palpation, non-tender and non-distended Back/Spine normal ROM Extremity normal to inspection, full ROM and no pedal edema Skin no rashes or lesions noted Neuro moves all extremities and no focal motor deficits Speech: speech normal Assessment & Plan Assessment/Plan (1) Acute hypoxic respiratory failure: PLAN: Plan Patient is a 73-year-old male who presented to [facility] ED on 09/18/2023 with shortness of breath, worsening lower extremity edema and hypotension. 1. Acute hypoxic respiratory failure secondary to CHF and presumed COPD exacerbation secondary to rhinovirus Positive for rhinovirus on admission. Initially requiring 3 to 4 L nasal cannula, but had significant worsening of respiratory status on 09/23-. Per pulmonary, does have emphysematous changes on CT chest imaging; however chest x-ray on 09/24 shows worsening of bilateral airspace disease. BNP remains markedly elevated. Suspect this may be multifactorial secondary to underlying infection and pulmonary edema contributing. Antibiotic coverage broadened to vancomycin and Zosyn on 09/24. ? Pulmonology following. Patient appeared to have significant worsening respiratory status requiring maximum oxygen requirements on Airvo on 09/26. However, he was able to be weaned to 6 L nasal cannula on 09/27. Suspect that patient's oxygen readings were inaccurate on Airvo, as this level of improvement would be highly unusual. Continue broad-spectrum antibiotics, scheduled bronchodilators, IV steroids, IV diuretics. Working closely with family on next steps for care. Palliative care/hospice, case management following. 2. Acute on chronic combined systolic and diastolic heart failure, pulmonary hypertension Recent echo on 09/08/2023 showed EF 25%, severe global LV systolic dysfunction, severely dilated LV, grade 2 diastolic dysfunction, severely enlarged LA, mildly enlarged RA, RVSP 60 mmHg, moderate to severe mitral valve insufficiency, moderate tricuspid valve insufficiency, moderate aortic valve insufficiency. BNP 2367 on admit, repeat BNP similar on 09/24. ? Cardiology following. Continue IV Lasix at increased dose as noted above. Continue empagliflozin. 3. Chronic A-fib on warfarin, supratherapeutic INR ? INR 5.0 on 09/26, continue holding home warfarin, recheck INR daily. Continue Coreg at reduced dose. Continue home amiodarone. Chronic medical conditions: ? CAD s/p CABG, hypertension, hyperlipidemia: Continue home statin, Coreg, Plavix. ? GERD: Continue home PPI. ? CKD stage IIIb: Baseline creatinine 1.7-2.0, stable at baseline. Monitor daily BMP. DVT prophylaxis: Holding warfarin due to supratherapeutic INR as noted above CODE STATUS: DNR CCA, DO NOT INTUBATE Expected disposition: TBD Total clinical time spent by myself addressing the patient's medical issues, reviewing all the data, and collaborating with patient's care team: 35 minutes. Charges/Coding Visit Charges Inpatient E&M: 06516 Subs Hosp L2
[2023-09-27] MEDS: Vancomycin IV 1,000 MG/200 ML BAG 200 MG IV (14:43)
--- NOTE | 2023-09-27 15:23 | CASEMGMT ---
CUAUHTEMOC spoke with Ja and patient. It sounds like Ja is okay with patient going home with him. Per RN Ja is not sure if he wants patient on Hospice as he is doing better. CUAUHTEMOC called Jelena with Hospice and updated her on situation. CUAUHTEMOC will keep her updated as CUAUHTEMOC knows more. Marleni Connor LABORATORY CUREMAN VIVIENNE
[2023-09-27] MEDS: MELATONIN 10 MG TABLET PO (21:34)
[2023-09-27] MEDS: Atorvastatin Calcium 10 MG Tablet PO (21:34)
[2023-09-28] VITALS (16 sets, daily range): BP systolic 80–95; BP diastolic 54–76; PULSE 70–87; RESP 16–23; TEMP 36–36.6; O2SAT 88–99
[2023-09-28] MEDS: Piperacil/Tazobactam 3.375 GM in 0.9% Normal Saline (50mL MB+) 50 ML IV ×3 (05:16→21:13)
[2023-09-28] MEDS: Ipratropium/Albuterol Sulfate 3 ML AMPUL.NEB INHALATION ×4 (07:24→20:17)
[2023-09-28 08:01] LABS: Hematocrit 34.1 % (40-54); Hemoglobin 10.8 g/dL (13.0-16.5); Mean Corp Hgb Conc 31.7 g/dL (32-36); Mean Corpuscular Hgb 28.5 pg (27.0-32.0); Mean Platelet Vol. 11.4 fl (6.2-12.0); Platelet Count 185 K/mm3 (150-450); RBC Distribution Width CV 17.4 % (11.6-14.6); RBC Distribution Width SD 57.1 fl (35.1-43.9); Red Blood Count 3.79 M/mm3 (4.6-6.2); White Blood Count 15.6 K/mm3 (4.4-11.0)
[2023-09-28 08:25] LABS: Anion Gap 9 (5-15); BUN 35 mg/dL (7-18); BUN/Creat Ratio 24.6 RATIO (10-20); Calcium,Total 7.9 mg/dL (8.5-10.1); Chloride 106 mmol/L (98-107); Creatinine, Serum 1.42 mg/dL (0.70-1.30); EST Glomerular Filtration Rate 52 mL/min (>60); Est Glom Filt Rate - Afr Amer 63 mL/min (>60); Estimated Creatinine Clearance 40.41 ml/min; Glucose 143 mg/dL (74-106); Potassium 2.9 mmol/L (3.5-5.1); Sodium Level 141 mmol/L (136-145)
[2023-09-28] MEDS: Carvedilol 3.125 MG TABLET PO (09:47)
[2023-09-28] MEDS: Furosemide 40 MG/4 ML Vial IV (09:49)
[2023-09-28] MEDS: Pantoprazole Sodium 40 MG Tablet PO (09:53)
[2023-09-28] MEDS: Empagliflozin 10 MG Tablet PO (09:53)
[2023-09-28] MEDS: guaiFENesin/D-Methorphan TAB.SR.12H 2 TABLET PO ×2 (09:53→21:13)
[2023-09-28] MEDS: 0.9% Saline Lock 10 ML Syringe IV (09:53)
[2023-09-28] MEDS: Amiodarone 200 MG Tablet PO (09:53)
[2023-09-28] MEDS: Clopidogrel Bisulfate 75 MG Tablet PO (09:53)
--- NOTE | 2023-09-28 12:20 | CASEMGMT ---
Discharge Planning HH referral sent to [facility], [facility], [facility], and [facility] . Marie Eubanks, Discharge Planning Asst.
--- NOTE | 2023-09-28 12:21 | PN.CC_ITS ---
Assessment & Plan Assessment/Plan (1) Acute hypoxic respiratory failure: PLAN: Plan Assessment * Acute on chronic hypoxic respiratory failure initially requiring Airvo alternating with BiPAP currently improved to 6 L. Patient is usually on 3 L nasal cannula at home * Acute systolic and diastolic CHF exacerbation. EF of 25% with grade 2 diastolic dysfunction * Rhinovirus infection * A-fib * Coagulopathy * CKD stage III * Debility Plan Patient appears to be improving with diuresis and steroids He is now on 6 L via nasal cannula. Would continue to recommend DNR/DNI CODE STATUS and the patient's comorbidities decrease Solu-Medrol to twice daily dosing and monitor response Recommend avoiding amiodarone in the long-term given the patient's age and underlying lung disease as this will put him at higher risk of amiodarone lung toxicity Continue goals of care discussions Subjective Subjective Patient sleeping comfortably on 6 L nasal cannula. He reports that his shereen athing is improving. Objective Data Objective Data Vital Signs: Vital Signs Temp Pulse Resp BP Pulse Ox O2 Del Method O2 Flow Rate 36.6 C 80 20 H 95/67 96 High Flow 6 09/28/23 10:54 09/28/23 11:10 09/28/23 11:10 09/28/23 10:54 09/28/23 10:54 09/28/23 10:54 09/28/23 10:54 FiO2 85 09/27/23 10:15 Oxygen Flow Rate (L/min) 6 Oxygen Delivery Method High Flow Weight: 62.6 kg Body Mass Index (BMI) 19.2 Intake & Output: Intake and Output for Last 24 Hours 09/26/23 09/27/23 09/28/23 23:59 23:59 23:59 Intake Total 750 / 750 1740 / 1740 400 / 400 Output Total 875 / 875 1700 / 1700 800 / 800 Balance -125 / -125 40 / 40 -400 / -400 Lab / Micro Data 09/28/23 07:43 09/28/23 07:43 Labs: Laboratory Results - last 24 hr 09/28/23 07:43: WBC 15.6 H, RBC 3.79 L, Hgb 10.8 L, Hct 34.1 L, MCV 90.0, MCH 28.5, MCHC 31.7 L, RDW Std Deviation 57.1 H, RDW Coeff of Cynthia 17.4 H, Plt Count 185, MPV 11.4, Sodium 141, Potassium 2.9 L, Chloride 106, Carbon Dioxide 26.0, Anion Gap 9, BUN 35 H, Creatinine 1.42 H, Estim Creat Clear Calc 40.41, Est GFR (MDRD) Af Amer 63, Est GFR (MDRD) Non-Af 52 L, BUN/Creatinine Ratio 24.6 H, Glucose 143 H, Calcium 7.9 L Micro: Microbiology 09/24/23 12:25 Urine, Clean Catch Legionella Antigen - Final 09/24/23 12:25 Urine, Clean Catch Streptococcus pneumoniae Antigen (M - Final 09/18/23 12:20 Blood Culture (Wb) - Anticubital Left Blood Culture - Final No growth in 5 days. 09/18/23 12:04 Blood Culture (Wb) - Right Forearm Blood Culture - Final No growth in 5 days. 09/18/23 13:00 Urine, Clean Catch Urine Culture - Final Culture exhibits no growth. 09/18/23 15:33 Mucosa - Nasopharyngeal Respiratory Panel (PCR) - Final Rhinovirus 09/18/23 11:54 Nasal Secretion SARS-CoV-2 & FLU Antigen (Rapid) - Final Rhythm Strip Rhythm Strip: paced (likely underlying afib) Rate: 72 Ectopy: None Physical Exam Narrative General alert oriented in no acute distress HEENT. Normocephalic atraumatic, pupils equal and reactive Respiratory reduced air entry bilaterally, mild crackles Cardiac S1-S2, regular rate and rhythm GI abdomen soft and nontender MSK no lower extremity edema Skin no rashes Neuro moves all extremities, no dysarthria, no facial droop Charges/Coding Visit Charges Inpatient E&M: 26087 Subs Hosp L2
[2023-09-28] MEDS: Potassium Chloride Oral Tablet 20 MEQ 60 MEQ PO (12:33)
[2023-09-28 13:26] LABS: Vancomycin, Trough Level 19.6 ug/mL (5.0-15.0)
--- NOTE | 2023-09-28 13:54 | PCM.RX.CS ---
Consult Antibiotic Management Pharmacy has been consulted to manage selected antiobiotic: Vancomycin Type of Intervention Type of Consult: Follow-up Suspected Infection Suspected Infection: Pneumonia Prior Doses of Antibiotics Prior Doses of Antibiotics Received/Current Regimen: Current order of 1gm iv q24h. Labs Labs: Sodium 141 mmol/L (136-145) 09/28/23 07:43 Potassium 2.9 mmol/L (3.5-5.1) L 09/28/23 07:43 Chloride 106 mmol/L (98-107) 09/28/23 07:43 Carbon Dioxide 26.0 mmol/L (21.0-32.0) 09/28/23 07:43 Anion Gap 9 (5-15) 09/28/23 07:43 BUN 35 mg/dL (7-18) H 09/28/23 07:43 Creatinine 1.42 mg/dL (0.70-1.30) H 09/28/23 07:43 Est GFR (MDRD) Af Amer 63 mL/min (>60) 09/28/23 07:43 Est GFR (MDRD) Non-Af 52 mL/min (>60) L 09/28/23 07:43 BUN/Creatinine Ratio 24.6 RATIO (10-20) H 09/28/23 07:43 Glucose 143 mg/dL (74-106) H 09/28/23 07:43 Vancomycin Trough 19.6 ug/mL (5.0-15.0) H 09/28/23 12:33 Microbiology Microbiology: Microbiology 09/24/23 12:25 Urine, Clean Catch Legionella Antigen - Final 09/24/23 12:25 Urine, Clean Catch Streptococcus pneumoniae Antigen (M - Final 09/18/23 12:20 Blood Culture (Wb) - Anticubital Left Blood Culture - Final No growth in 5 days. 09/18/23 12:04 Blood Culture (Wb) - Right Forearm Blood Culture - Final No growth in 5 days. 09/18/23 13:00 Urine, Clean Catch Urine Culture - Final Culture exhibits no growth. 09/18/23 15:33 Mucosa - Nasopharyngeal Respiratory Panel (PCR) - Final Rhinovirus 09/18/23 11:54 Nasal Secretion SARS-CoV-2 & FLU Antigen (Rapid) - Final Dosing Weight Weight used for dosin kg Estimated Creatinine Clearance Estimated Creatinine Clearance: 40ml/min Goal Trough Goal Trough: 15-20 mcg/mL Pharmacy Plan for Drug Dosing Pharmacy Plan for Drug Dosing: Trough today 19.6 (~22 hrs post dose) and in therapeutic range. Cr improved from 1.64 to 1.42. Recommend continuing same dose and get another trough before third dose. Pharmacy Service will continue to monitor and adjust dosing as required. Follow-Up Labs Follow-Up Labs: Trough: Vancomycin (12.17.23 @1230 before 1300 dose)
--- NOTE | 2023-09-28 13:54 | PCM.PN.HOSP ---
Reason for Visit Reason for Visit: Diagnoses Hemorrhagic disorder due to extrinsic circulating anticoagulants (09/18/23) Heart failure, unspecified (09/18/23) Acute respiratory failure with hypoxia (09/18/23) Chronic kidney disease, stage 3b (09/18/23) Other malaise (09/18/23) Edema, unspecified (09/18/23) Adverse effect of anticoagulants, initial encounter (09/18/23) Subjective Subjective Patient seen at bedside this morning. Patient was sitting comfortably in bed, satting in the low 90s on 6 L nasal cannula at rest. Patient did appear fatigued this morning, similar to previous days. Had short answers to questions this morning, was responding appropriately. No other acute concerns at this time. Objective Data Objective Data Vital Signs: Vital Signs Temp Pulse Resp BP Pulse Ox O2 Del Method O2 Flow Rate 97.8 F 87 18 95/67 96 High Flow 6 09/28/23 12:00 09/28/23 12:00 09/28/23 12:00 09/28/23 12:00 09/28/23 12:00 09/28/23 12:00 09/28/23 12:00 FiO2 85 09/27/23 10:15 Oxygen Flow Rate (L/min) 6 Oxygen Delivery Method High Flow Weight: 62.6 kg Body Mass Index (BMI) 19.2 Intake & Output: Intake and Output for Last 24 Hours 09/26/23 09/27/23 09/28/23 23:59 23:59 23:59 Intake Total 750 / 750 1740 / 1740 400 / 400 Output Total 875 / 875 1700 / 1700 800 / 800 Balance -125 / -125 40 / 40 -400 / -400 Lab / Micro Data 09/28/23 07:43 09/28/23 07:43 Labs: Laboratory Results - last 24 hr 09/28/23 07:43: WBC 15.6 H, RBC 3.79 L, Hgb 10.8 L, Hct 34.1 L, MCV 90.0, MCH 28.5, MCHC 31.7 L, RDW Std Deviation 57.1 H, RDW Coeff of Cynthia 17.4 H, Plt Count 185, MPV 11.4, Sodium 141, Potassium 2.9 L, Chloride 106, Carbon Dioxide 26.0, Anion Gap 9, BUN 35 H, Creatinine 1.42 H, Estim Creat Clear Calc 40.41, Est GFR (MDRD) Af Amer 63, Est GFR (MDRD) Non-Af 52 L, BUN/Creatinine Ratio 24.6 H, Glucose 143 H, Calcium 7.9 L 09/28/23 12:33: Vancomycin Trough 19.6 H Micro: Microbiology 09/24/23 12:25 Urine, Clean Catch Legionella Antigen - Final 09/24/23 12:25 Urine, Clean Catch Streptococcus pneumoniae Antigen (M - Final 09/18/23 12:20 Blood Culture (Wb) - Anticubital Left Blood Culture - Final No growth in 5 days. 09/18/23 12:04 Blood Culture (Wb) - Right Forearm Blood Culture - Final No growth in 5 days. 09/18/23 13:00 Urine, Clean Catch Urine Culture - Final Culture exhibits no growth. 09/18/23 15:33 Mucosa - Nasopharyngeal Respiratory Panel (PCR) - Final Rhinovirus 09/18/23 11:54 Nasal Secretion SARS-CoV-2 & FLU Antigen (Rapid) - Final Rhythm Strip Rhythm Strip: paced (likely underlying afib) Rate: 72 Ectopy: None Physical Exam Const alert Constitutional Narrative: Elderly male, thin and chronically ill-appearing, fatigued but improved today, able to answer questions appropriately, no acute distress. General Appearance: cooperative HEENT normocephalic, head/scalp atraumatic, hearing grossly normal bilaterally, nasal mucous membranes and turbinates normal and moist oral mucous membranes Eyes PERRL, EOMs intact bilaterally and conjunctivae normal Neck full ROM, no lymphadenopathy and supple Lymph Lymphatic: no lymphadenopathy noted Chest inspection of chest normal Resp Resp Narrative: Satting in low 90s on 6 L nasal cannula, no increased work of breathing noted. Decreased breath sounds bilaterally with crackles at bases. No wheezing noted. Cardio regular rate, regular rhythm, no murmurs and peripheral pulses 2+ throughout GI normal to inspection, nondistended, normoactive bowel sounds, soft to palpation, non-tender and non-distended Back/Spine normal ROM Extremity normal to inspection, full ROM and no pedal edema Skin no rashes or lesions noted Neuro moves all extremities and no focal motor deficits Speech: speech normal Assessment & Plan Assessment/Plan (1) Acute hypoxic respiratory failure: PLAN: Plan Patient is a 73-year-old male who presented to [facility] ED on 09/18/2023 with shortness of breath, worsening lower extremity edema and hypotension. 1. Acute hypoxic respiratory failure secondary to CHF and presumed COPD exacerbation secondary to rhinovirus Positive for rhinovirus on admission. Initially requiring 3 to 4 L nasal cannula, but had significant worsening of respiratory status on 09/23-. Per pulmonary, does have emphysematous changes on CT chest imaging; however chest x-ray on 09/24 shows worsening of bilateral airspace disease. BNP remains markedly elevated. Suspect this may be multifactorial secondary to underlying infection and pulmonary edema contributing. Antibiotic coverage broadened to vancomycin and Zosyn on 09/24. Patient appeared to have significant worsening respiratory status requiring maximum oxygen requirements on Airvo on 09/26. However, he was able to be weaned to 6 L nasal cannula on 09/27. Suspect that patient's oxygen readings were inaccurate on Airvo, as this level of improvement would be highly unusual. ? Pulmonology following. Patient appears to be improving with diuresis and steroids, stable on 6 L nasal cannula at rest. Solu-Medrol dose decreased to twice daily, IV Lasix decreased to daily. Continue antibiotics, scheduled bronchodilators. Planning for home with patient's son with home health care if patient is able to be weaned to 6 L nasal cannula with exertion. Continue to monitor closely. 2. Acute on chronic combined systolic and diastolic heart failure, pulmonary hypertension Recent echo on 09/08/2023 showed EF 25%, severe global LV systolic dysfunction, severely dilated LV, grade 2 diastolic dysfunction, severely enlarged LA, mildly enlarged RA, RVSP 60 mmHg, moderate to severe mitral valve insufficiency, moderate tricuspid valve insufficiency, moderate aortic valve insufficiency. BNP 2367 on admit, repeat BNP similar on 09/24. ? Cardiology following. Decreased to IV Lasix 40 mg daily on 09/28, monitor urine output and volume status. Continue empagliflozin. 3. Chronic A-fib on warfarin, supratherapeutic INR ? Continue holding home warfarin, recheck INR daily. Continue Coreg at reduced dose. Continue home amiodarone for now, but notably would recommend avoiding amiodarone in the long-term given patient's age and underlying lung disease. Chronic medical conditions: ? CAD s/p CABG, hypertension, hyperlipidemia: Continue home statin, Coreg, Plavix. ? GERD: Continue home PPI. ? CKD stage IIIb: Baseline creatinine 1.7-2.0, stable at baseline. Monitor daily BMP. DVT prophylaxis: Holding warfarin due to supratherapeutic INR as noted above CODE STATUS: DNR CCA, DO NOT INTUBATE Expected disposition: TBD Total clinical time spent by myself addressing the patient's medical issues, reviewing all the data, and collaborating with patient's care team: 35 minutes. Charges/Coding Visit Charges Inpatient E&M: 79619 Subs Hosp L2
[2023-09-28] MEDS: Vancomycin IV 1,000 MG/200 ML BAG 200 MG IV (13:56)
--- NOTE | 2023-09-28 14:20 | CASEMGMT ---
RN NAS called and updated CARMITA Bentley that C has been setup with [facility]. RN CM confirmed Son and DIL address and updated facesheet. CARMITA had no further questions or concern at this time. Green sheet placed on chart.
--- NOTE | 2023-09-28 14:21 | NURSING ---
Pt ambulated in raven from bed to chair, while moving SPO2 stayed >90 on 6L, desats to <90 with less than 6 L.
--- NOTE | 2023-09-28 14:35 | CASEMGMT ---
HH order for SN, PT/OT sent to [facility].
[2023-09-28] MEDS: Atorvastatin Calcium 10 MG Tablet PO (21:13)
[2023-09-28] MEDS: MELATONIN 10 MG TABLET PO (21:13)
[2023-09-29] VITALS (22 sets, daily range): BP systolic 91–101; BP diastolic 54–67; PULSE 71–88; RESP 13–20; TEMP 36.1–37.2; O2SAT 87–99
[2023-09-29] MEDS: Piperacil/Tazobactam 3.375 GM in 0.9% Normal Saline (50mL MB+) 50 ML IV ×3 (05:11→21:51)
[2023-09-29] MEDS: Ipratropium/Albuterol Sulfate 3 ML AMPUL.NEB INHALATION ×4 (06:47→21:04)
[2023-09-29 07:05] LABS: Hematocrit 36.1 % (40-54); Hemoglobin 11.4 g/dL (13.0-16.5); Mean Corp Hgb Conc 31.6 g/dL (32-36); Mean Corpuscular Hgb 28.6 pg (27.0-32.0); Mean Corpuscular Volume 90.7 fL (80-94); Mean Platelet Vol. 11.5 fl (6.2-12.0); Platelet Count 199 K/mm3 (150-450); RBC Distribution Width CV 17.4 % (11.6-14.6); RBC Distribution Width SD 57.6 fl (35.1-43.9); Red Blood Count 3.98 M/mm3 (4.6-6.2); White Blood Count 17.3 K/mm3 (4.4-11.0)
[2023-09-29 07:30] LABS: Anion Gap 6 (5-15); BUN 32 mg/dL (7-18); BUN/Creat Ratio 22.4 RATIO (10-20); Calcium,Total 7.8 mg/dL (8.5-10.1); Chloride 107 mmol/L (98-107); Creatinine, Serum 1.43 mg/dL (0.70-1.30); EST Glomerular Filtration Rate 51 mL/min (>60); Est Glom Filt Rate - Afr Amer 62 mL/min (>60); Estimated Creatinine Clearance 40.13 ml/min; Glucose 130 mg/dL (74-106); Potassium 3.4 mmol/L (3.5-5.1); Sodium Level 139 mmol/L (136-145)
[2023-09-29] MEDS: Potassium Chloride Oral Tablet 20 MEQ 40 MEQ PO (08:20)
[2023-09-29] MEDS: Carvedilol 3.125 MG TABLET PO ×2 (08:21→22:01)
[2023-09-29] MEDS: Clopidogrel Bisulfate 75 MG Tablet PO (08:21)
[2023-09-29] MEDS: Amiodarone 200 MG Tablet PO (08:21)
[2023-09-29] MEDS: Furosemide 40 MG/4 ML Vial IV (08:21)
[2023-09-29] MEDS: Pantoprazole Sodium 40 MG Tablet PO (08:21)
[2023-09-29] MEDS: guaiFENesin/D-Methorphan TAB.SR.12H 2 TABLET PO ×2 (08:23→21:51)
[2023-09-29] MEDS: Empagliflozin 10 MG Tablet PO (08:24)
[2023-09-29 10:13] LABS: International Normalized Ratio 2.5; Prothrombin Time (Protime)PT. 27.7 SECONDS (11.7-14.9)
[2023-09-29] MEDS: Vancomycin IV 1,000 MG/200 ML BAG 200 MG IV (12:29)
--- NOTE | 2023-09-29 13:04 | PCM.PN.HOSP ---
Reason for Visit Reason for Visit: Diagnoses Hemorrhagic disorder due to extrinsic circulating anticoagulants (09/18/23) Heart failure, unspecified (09/18/23) Acute respiratory failure with hypoxia (09/18/23) Chronic kidney disease, stage 3b (09/18/23) Other malaise (09/18/23) Edema, unspecified (09/18/23) Adverse effect of anticoagulants, initial encounter (09/18/23) Subjective Subjective Patient seen at bedside this morning. Was sitting comfortably in bedside chair, receiving a breathing treatment during my interview. He reported feeling similar yesterday. Has been moving around the room with assistance is much as possible. Denies any new pain or discomfort. No other acute concerns morning. Objective Data Objective Data Vital Signs: Vital Signs Temp Pulse Resp BP Pulse Ox O2 Del Method O2 Flow Rate 97.6 F L 87 18 98/64 94 High Flow 8 09/29/23 12:00 09/29/23 12:00 09/29/23 12:00 09/29/23 12:00 09/29/23 12:14 09/29/23 12:00 09/29/23 12:14 FiO2 85 09/27/23 10:15 Oxygen Flow Rate (L/min) 8 Oxygen Delivery Method High Flow Weight: 62.6 kg Body Mass Index (BMI) 19.2 Intake & Output: Intake and Output for Last 24 Hours 09/27/23 09/28/23 09/29/23 23:59 23:59 23:59 Intake Total 1740 / 1740 1150 / 1150 400 / 400 Output Total 1700 / 1700 1350 / 1350 600 / 600 Balance 40 / 40 -200 / -200 -200 / -200 Lab / Micro Data 09/29/23 05:45 09/29/23 05:45 Labs: Laboratory Results - last 24 hr 09/28/23 12:33: Vancomycin Trough 19.6 H 09/29/23 05:45: WBC 17.3 H, RBC 3.98 L, Hgb 11.4 L, Hct 36.1 L, MCV 90.7, MCH 28.6, MCHC 31.6 L, RDW Std Deviation 57.6 H, RDW Coeff of Cynthia 17.4 H, Plt Count 199, MPV 11.5, PT 27.7 H, INR 2.5, Sodium 139, Potassium 3.4 L, Chloride 107, Carbon Dioxide 26.0, Anion Gap 6, BUN 32 H, Creatinine 1.43 H, Estim Creat Clear Calc 40.13, Est GFR (MDRD) Af Amer 62, Est GFR (MDRD) Non-Af 51 L, BUN/Creatinine Ratio 22.4 H, Glucose 130 H, Calcium 7.8 L Micro: Microbiology 09/24/23 12:25 Urine, Clean Catch Legionella Antigen - Final 09/24/23 12:25 Urine, Clean Catch Streptococcus pneumoniae Antigen (M - Final 09/18/23 12:20 Blood Culture (Wb) - Anticubital Left Blood Culture - Final No growth in 5 days. 09/18/23 12:04 Blood Culture (Wb) - Right Forearm Blood Culture - Final No growth in 5 days. 09/18/23 13:00 Urine, Clean Catch Urine Culture - Final Culture exhibits no growth. 09/18/23 15:33 Mucosa - Nasopharyngeal Respiratory Panel (PCR) - Final Rhinovirus 09/18/23 11:54 Nasal Secretion SARS-CoV-2 & FLU Antigen (Rapid) - Final Rhythm Strip Rhythm Strip: paced (likely underlying afib) Rate: 72 Ectopy: None Physical Exam Const alert Constitutional Narrative: Elderly male, thin and chronically ill-appearing, fatigued but improved today, sitting comfortably in bedside chair, able to answer questions appropriately, no acute distress. General Appearance: cooperative HEENT normocephalic, head/scalp atraumatic, hearing grossly normal bilaterally, nasal mucous membranes and turbinates normal and moist oral mucous membranes Eyes PERRL, EOMs intact bilaterally and conjunctivae normal Neck full ROM, no lymphadenopathy and supple Lymph Lymphatic: no lymphadenopathy noted Chest inspection of chest normal Resp Resp Narrative: Satting in low 90s on 6 L nasal cannula, no increased work of breathing noted. Decreased breath sounds bilaterally with crackles at bases. No wheezing noted. Cardio regular rate, regular rhythm, no murmurs and peripheral pulses 2+ throughout GI normal to inspection, nondistended, normoactive bowel sounds, soft to palpation, non-tender and non-distended Back/Spine normal ROM Extremity normal to inspection, full ROM and no pedal edema Skin no rashes or lesions noted Neuro moves all extremities and no focal motor deficits Speech: speech normal Assessment & Plan Assessment/Plan (1) Acute hypoxic respiratory failure: PLAN: Plan Patient is a 73-year-old male who presented to [facility] ED on 09/18/2023 with shortness of breath, worsening lower extremity edema and hypotension. 1. Acute hypoxic respiratory failure secondary to CHF and presumed COPD exacerbation secondary to rhinovirus Positive for rhinovirus on admission. Initially requiring 3 to 4 L nasal cannula, but had significant worsening of respiratory status on 09/23-. Per pulmonary, does have emphysematous changes on CT chest imaging; however chest x-ray on 09/24 shows worsening of bilateral airspace disease. BNP remains markedly elevated. Suspect this may be multifactorial secondary to underlying infection and pulmonary edema contributing. Antibiotic coverage broadened to vancomycin and Zosyn on 09/24. Patient appeared to have significant worsening respiratory status requiring maximum oxygen requirements on Airvo on 09/26. However, he was able to be weaned to 6 L nasal cannula on 09/27. Suspect that patient's oxygen readings were inaccurate on Airvo, as this level of improvement would be highly unusual. ? Pulmonology following. Patient stable on 6-8 L nasal cannula at rest. Continue Solu-Medrol, IV Lasix at reduced doses. Continue antibiotics and scheduled dilators. Planning for home with patient's son with home health care if patient is able to be weaned to 6 L nasal cannula with exertion. Continue to monitor closely. 2. Acute on chronic combined systolic and diastolic heart failure, pulmonary hypertension Recent echo on 09/08/2023 showed EF 25%, severe global LV systolic dysfunction, severely dilated LV, grade 2 diastolic dysfunction, severely enlarged LA, mildly enlarged RA, RVSP 60 mmHg, moderate to severe mitral valve insufficiency, moderate tricuspid valve insufficiency, moderate aortic valve insufficiency. BNP 2367 on admit, repeat BNP similar on 09/24. ? Cardiology following. Decreased to IV Lasix 40 mg daily on 09/28, monitor urine output and volume status. Continue empagliflozin. 3. Chronic A-fib on warfarin, supratherapeutic INR ? INR therapeutic on 09/29, restarted home warfarin. Continue Coreg at reduced dose. Continue home amiodarone for now, but notably would recommend avoiding amiodarone in the long-term given patient's age and underlying lung disease. Chronic medical conditions: ? CAD s/p CABG, hypertension, hyperlipidemia: Continue home statin, Coreg, Plavix. ? GERD: Continue home PPI. ? CKD stage IIIb: Baseline creatinine 1.7-2.0, stable at baseline. Monitor daily BMP. DVT prophylaxis: Warfarin restarted on 09/29 CODE STATUS: DNR CCA, DO NOT INTUBATE Expected disposition: TBD Total clinical time spent by myself addressing the patient's medical issues, reviewing all the data, and collaborating with patient's care team: 35 minutes. Charges/Coding Visit Charges Inpatient E&M: 33827 Subs Hosp L2
--- NOTE | 2023-09-29 15:14 | CASEMGMT ---
DOMI CM: Call placed to pt's DIL to discuss HH preference(s). Voicemail received and nondescript message left requesting a return call. Shara Forbes RN CM
--- NOTE | 2023-09-29 16:09 | CASEMGMT ---
Addendum entered and electronically signed by Tessie Forbes RN 09/29/23 16:25: Call placed to CARMITA Bentley to inform of acceptance by [facility]. Nondescript voicemail left requesting a return call. Shara Forbes RN CM Addendum entered and electronically signed by Tessie Forbes RN 09/29/23 16:16: Noted documentation that pt has been accepted by [facility] on 09/28. Noted in [facility] that [facility] and [facility] declined pt. Will continue to follow for final home O2 needs and walker. Shara Forbes RN CM Original Note: DOMI LOVELL Follow-up: This DOMI LOVELL met with pt's son Ja and CARMITA Bentley outside pt's room. Discussed home health agencies and preferences provided as follows: 1st: [facility], 2nd [facility], 3rd [facility]. [facility] Pt's family also requests a walker, will facilitate script with hospitalist. Discussed home O2. Pt's son states they have 4 tanks and a concentrator. Will need to eval liter flow at dc to determine appropriate concentrator. Will continue to follow for final HH acceptance, walker, and home O2 flow. Shara Forbes RN CM
[2023-09-29] MEDS: MELATONIN 10 MG TABLET PO (21:51)
[2023-09-29] MEDS: Atorvastatin Calcium 10 MG Tablet PO (21:52)
[2023-09-30] VITALS (15 sets, daily range): BP systolic 90–103; BP diastolic 58–67; PULSE 73–78; RESP 16–20; TEMP 36.1–36.6; O2SAT 89–97
[2023-09-30] MEDS: Piperacil/Tazobactam 3.375 GM in 0.9% Normal Saline (50mL MB+) 50 ML IV ×3 (05:01→21:01)
[2023-09-30 05:52] LABS: Hematocrit 34.8 % (40-54); Hemoglobin 11.1 g/dL (13.0-16.5); Mean Corp Hgb Conc 31.9 g/dL (32-36); Mean Corpuscular Hgb 28.6 pg (27.0-32.0); Mean Corpuscular Volume 89.7 fL (80-94); Mean Platelet Vol. 11.8 fl (6.2-12.0); Platelet Count 178 K/mm3 (150-450); RBC Distribution Width CV 17.4 % (11.6-14.6); RBC Distribution Width SD 56.5 fl (35.1-43.9); Red Blood Count 3.88 M/mm3 (4.6-6.2); White Blood Count 14.2 K/mm3 (4.4-11.0)
[2023-09-30 06:19] LABS: Anion Gap 7 (5-15); BUN 30 mg/dL (7-18); BUN/Creat Ratio 21.4 RATIO (10-20); Calcium,Total 7.4 mg/dL (8.5-10.1); Chloride 110 mmol/L (98-107); EST Glomerular Filtration Rate 53 mL/min (>60); Est Glom Filt Rate - Afr Amer 64 mL/min (>60); Estimated Creatinine Clearance 40.99 ml/min; Glucose 156 mg/dL (74-106); Potassium 3.2 mmol/L (3.5-5.1); Sodium Level 142 mmol/L (136-145)
[2023-09-30 06:40] LABS: International Normalized Ratio 2.5; Prothrombin Time (Protime)PT. 27.6 SECONDS (11.7-14.9)
[2023-09-30] MEDS: Ipratropium/Albuterol Sulfate 3 ML AMPUL.NEB INHALATION ×3 (07:16→20:35)
[2023-09-30] MEDS: predniSONE 20 MG Tablet 40 MG PO (09:32)
[2023-09-30] MEDS: Potassium Chloride Oral Tablet 20 MEQ 40 MEQ PO (09:32)
[2023-09-30] MEDS: Amiodarone 200 MG Tablet PO (09:33)
[2023-09-30] MEDS: Carvedilol 3.125 MG TABLET PO ×2 (09:33→21:07)
[2023-09-30] MEDS: Clopidogrel Bisulfate 75 MG Tablet PO (09:36)
[2023-09-30] MEDS: Empagliflozin 10 MG Tablet PO (09:36)
[2023-09-30] MEDS: Pantoprazole Sodium 40 MG Tablet PO (09:36)
[2023-09-30] MEDS: guaiFENesin/D-Methorphan TAB.SR.12H 2 TABLET PO ×2 (09:36→21:01)
[2023-09-30] MEDS: Furosemide 40 MG/4 ML Vial IV (09:36)
[2023-09-30] MEDS: 0.9% Saline Lock 10 ML Syringe IV ×2 (09:40→13:50)
--- NOTE | 2023-09-30 12:17 | PN.HOSP_ITS ---
Reason for Visit Reason for Visit: Diagnoses Hemorrhagic disorder due to extrinsic circulating anticoagulants (09/18/23) Heart failure, unspecified (09/18/23) Acute respiratory failure with hypoxia (09/18/23) Chronic kidney disease, stage 3b (09/18/23) Other malaise (09/18/23) Edema, unspecified (09/18/23) Adverse effect of anticoagulants, initial encounter (09/18/23) Subjective Subjective Patient seen at bedside this morning. Sitting fairly comfortably in bed, conversing normally, no acute distress. Satting in the low 90s at rest on 5 L n chayo cannula, no increased work of breathing noted. Patient states he has gotten up and moved around the room with assistance a few times since yesterday evening. Unclear if patient desaturated significantly with ambulation. Patient otherwise denies any acute pain or discomfort. No other acute concerns morning. Objective Data Objective Data Vital Signs: Vital Signs Temp Pulse Resp BP Pulse Ox O2 Del Method O2 Flow Rate 96.9 F L 75 20 H 95/61 94 High Flow 5 09/30/23 09:26 09/30/23 11:26 09/30/23 11:26 09/30/23 09:26 09/30/23 09:26 09/30/23 09:26 09/30/23 09:26 FiO2 85 09/27/23 10:15 Oxygen Flow Rate (L/min) 5 Oxygen Delivery Method High Flow Weight: 62.6 kg Body Mass Index (BMI) 19.2 Intake & Output: Intake and Output for Last 24 Hours 09/28/23 09/29/23 09/30/23 23:59 23:59 23:59 Intake Total 1150 / 1150 1070 / 1070 340 / 340 Output Total 1350 / 1350 1100 / 1100 300 / 300 Balance -200 / -200 -30 / -30 40 / 40 Lab / Micro Data 09/30/23 05:05 09/30/23 05:05 Labs: Laboratory Results - last 24 hr 09/30/23 05:05: WBC 14.2 H, RBC 3.88 L, Hgb 11.1 L, Hct 34.8 L, MCV 89.7, MCH 28.6, MCHC 31.9 L, RDW Std Deviation 56.5 H, RDW Coeff of Cynthia 17.4 H, Plt Count 178, MPV 11.8, PT 27.6 H, INR 2.5, Sodium 142, Potassium 3.2 L, Chloride 110 H, Carbon Dioxide 25.0, Anion Gap 7, BUN 30 H, Creatinine 1.40 H, Estim Creat Clear Calc 40.99, Est GFR (MDRD) Af Amer 64, Est GFR (MDRD) Non-Af 53 L, BUN/Creatinine Ratio 21.4 H, Glucose 156 H, Calcium 7.4 L Micro: Microbiology 09/24/23 12:25 Urine, Clean Catch Legionella Antigen - Final 09/24/23 12:25 Urine, Clean Catch Streptococcus pneumoniae Antigen (M - Final 09/18/23 12:20 Blood Culture (Wb) - Anticubital Left Blood Culture - Final No growth in 5 days. 09/18/23 12:04 Blood Culture (Wb) - Right Forearm Blood Culture - Final No growth in 5 days. 09/18/23 13:00 Urine, Clean Catch Urine Culture - Final Culture exhibits no growth. 09/18/23 15:33 Mucosa - Nasopharyngeal Respiratory Panel (PCR) - Final Rhinovirus 09/18/23 11:54 Nasal Secretion SARS-CoV-2 & FLU Antigen (Rapid) - Final Rhythm Strip Rhythm Strip: paced (likely underlying afib) Rate: 72 Ectopy: None Physical Exam Const alert Constitutional Narrative: Elderly male, thin and chronically ill-appearing, fatigued but improved today, sitting comfortably in bedside chair, able to answer questions appropriately, no acute distress. General Appearance: cooperative HEENT normocephalic, head/scalp atraumatic, hearing grossly normal bilaterally, nasal mucous membranes and turbinates normal and moist oral mucous membranes Eyes PERRL, EOMs intact bilaterally and conjunctivae normal Neck full ROM, no lymphadenopathy and supple Lymph Lymphatic: no lymphadenopathy noted Chest inspection of chest normal Resp Resp Narrative: Satting in low 90s on 5 L nasal cannula, no increased work of breathing noted. Decreased breath sounds bilaterally with crackles at bases. No wheezing noted. Cardio regular rate, regular rhythm, no murmurs and peripheral pulses 2+ throughout GI normal to inspection, nondistended, normoactive bowel sounds, soft to palpation, non-tender and non-distended Back/Spine normal ROM Extremity normal to inspection, full ROM and no pedal edema Skin no rashes or lesions noted Neuro moves all extremities and no focal motor deficits Speech: speech normal Psych affect normal Assessment & Plan Assessment/Plan (1) Acute hypoxic respiratory failure: PLAN: Plan Patient is a 73-year-old male who presented to [facility] ED on 09/18/2023 with shortness of breath, worsening lower extremity edema and h ypotension. 1. Acute hypoxic respiratory failure secondary to CHF and presumed COPD exacerbation secondary to rhinovirus Positive for rhinovirus on admission. Initially requiring 3 to 4 L nasal can nula, but had significant worsening of respiratory status on 09/23-. Per pulmonary, does have emphysematous changes on CT chest imaging; however chest x- ray on 09/24 shows worsening of bilateral airspace disease. BNP remains markedly elevated. Suspect this may be multifactorial secondary to underlying infection and pulmonary edema contributing. Antibiotic coverage broadened to vancomycin and Zosyn on 09/24. Patient appeared to have significant worsening respiratory status requiring maximum oxygen requirements on Airvo on 09/26. However, he was able to be weaned to 6 L nasal cannula on 09/27. Suspect that patient's oxygen readings were inaccurate on Airvo, as this level of improvement would be highly unusual. ? Pulmonology following. Patient stable on 5-6 L nasal cannula at rest. Continue Solu-Medrol, IV Lasix at reduced doses. Continue antibiotics and scheduled dilators. Will complete O2 ambulatory test today to assess for oxygen desaturation with exertion. If patient does have significant desaturation, suspect patient may be an LTAC candidate on discharge for a slower oxygen wean. 2. Acute on chronic combined systolic and diastolic heart failure, pulmonary hypertension Recent echo on 09/08/2023 showed EF 25%, severe global LV systolic dysfunction, severely dilated LV, grade 2 diastolic dysfunction, severely enlarged LA, mildly enlarged RA, RVSP 60 mmHg, moderate to severe mitral valve insufficiency, moderate tricuspid valve insufficiency, moderate aortic valve insufficiency. BNP 2367 on admit, repeat BNP similar on 09/24. ? Cardiology following. Decreased to IV Lasix 40 mg daily on 09/28, monitor urine output and volume status. Continue empagliflozin. 3. Chronic A-fib on warfarin, supratherapeutic INR ? INR therapeutic on 09/29, restarted home warfarin. Continue Coreg at reduced dose. Continue home amiodarone for now, but notably would recommend avoiding amiodarone in the long-term given patient's age and underlying lung disease. 4. Debility, complex social situation ? Patient apparently was living with his girlfriend shortly before this hospitalization but will not be going there on discharge. Patient's [id number] Sheree has been the primary point of contact, as well as patient's son Ja (Sheree's ). They live up in [place], plan is for patient to go home with them on discharge with home health care if able. They notably do have oxygen supplies already at the house for him. PT/OT/case management following. Chronic medical conditions: ? CAD s/p CABG, hypertension, hyperlipidemia: Continue home statin, Coreg, Plavix. ? GERD: Continue home PPI. ? CKD stage IIIb: Baseline creatinine 1.7-2.0, stable at baseline. Monitor daily BMP. DVT prophylaxis: Warfarin restarted on 09/29 CODE STATUS: DNR CCA, DO NOT INTUBATE Expected disposition: TBD Total clinical time spent by myself addressing the patient's medical issues, reviewing all the data, and collaborating with patient's care team: 35 minutes. Charges/Coding Visit Charges Inpatient E&M: 81194 Subs Hosp L2
[2023-09-30 13:02] LABS: Vancomycin, Trough Level 23.5 ug/mL (5.0-15.0)
--- NOTE | 2023-09-30 16:40 | PCM.RX.CS ---
Consult Antibiotic Management Pharmacy has been consulted to manage selected antiobiotic: Vancomycin Type of Intervention Type of Consult: Follow-up Suspected Infection Suspected Infection: Pneumonia Prior Doses of Antibiotics Prior Doses of Antibiotics Received/Current Regimen: Has been on 1000mg iv q24h. Labs Labs: Sodium 142 mmol/L (136-145) 09/30/23 05:05 Potassium 3.2 mmol/L (3.5-5.1) L 09/30/23 05:05 Chloride 110 mmol/L (98-107) H 09/30/23 05:05 Carbon Dioxide 25.0 mmol/L (21.0-32.0) 09/30/23 05:05 Anion Gap 7 (5-15) 09/30/23 05:05 BUN 30 mg/dL (7-18) H 09/30/23 05:05 Creatinine 1.40 mg/dL (0.70-1.30) H 09/30/23 05:05 Est GFR (MDRD) Af Amer 64 mL/min (>60) 09/30/23 05:05 Est GFR (MDRD) Non-Af 53 mL/min (>60) L 09/30/23 05:05 BUN/Creatinine Ratio 21.4 RATIO (10-20) H 09/30/23 05:05 Glucose 156 mg/dL (74-106) H 09/30/23 05:05 Vancomycin Trough 23.5 ug/mL (5.0-15.0) H 09/30/23 12:07 Microbiology Microbiology: Microbiology 09/24/23 12:25 Urine, Clean Catch Legionella Antigen - Final 09/24/23 12:25 Urine, Clean Catch Streptococcus pneumoniae Antigen (M - Final 09/18/23 12:20 Blood Culture (Wb) - Anticubital Left Blood Culture - Final No growth in 5 days. 09/18/23 12:04 Blood Culture (Wb) - Right Forearm Blood Culture - Final No growth in 5 days. 09/18/23 13:00 Urine, Clean Catch Urine Culture - Final Culture exhibits no growth. 09/18/23 15:33 Mucosa - Nasopharyngeal Respiratory Panel (PCR) - Final Rhinovirus 09/18/23 11:54 Nasal Secretion SARS-CoV-2 & FLU Antigen (Rapid) - Final Dosing Weight Weight used for dosin.6 kg Estimated Creatinine Clearance Estimated Creatinine Clearance: 41ml/min Goal Trough Goal Trough: 15-20 mcg/mL Pharmacy Plan for Drug Dosing Pharmacy Plan for Drug Dosing: Trough today elevated at 23.5. Will hold further dosing for now and get a random level in A.M. Pharmacy Service will continue to monitor and adjust dosing as required. Follow-Up Labs Follow-Up Labs: Trough: Other (vanco random level 12.18.23 @0600)
[2023-09-30] MEDS: Atorvastatin Calcium 10 MG Tablet PO (21:01)
[2023-09-30] MEDS: MELATONIN 10 MG TABLET PO (21:01)
[2023-10-01] VITALS (14 sets, daily range): BP systolic 92–97; BP diastolic 56–66; PULSE 70–78; RESP 16–22; TEMP 36.1–36.7; O2SAT 80–96
[2023-10-01] MEDS: Piperacil/Tazobactam 3.375 GM in 0.9% Normal Saline (50mL MB+) 50 ML IV ×3 (05:17→21:33)
[2023-10-01 06:34] LABS: Hematocrit 38.7 % (40-54); Hemoglobin 12.1 g/dL (13.0-16.5); Mean Corp Hgb Conc 31.3 g/dL (32-36); Mean Corpuscular Hgb 28.4 pg (27.0-32.0); Mean Corpuscular Volume 90.8 fL (80-94); Mean Platelet Vol. 11.8 fl (6.2-12.0); Platelet Count 201 K/mm3 (150-450); RBC Distribution Width CV 17.6 % (11.6-14.6); RBC Distribution Width SD 58.2 fl (35.1-43.9); Red Blood Count 4.26 M/mm3 (4.6-6.2); White Blood Count 15.9 K/mm3 (4.4-11.0)
[2023-10-01 06:46] LABS: Anion Gap 7 (5-15); BUN 29 mg/dL (7-18); Calcium,Total 7.8 mg/dL (8.5-10.1); Chloride 109 mmol/L (98-107); Creatinine, Serum 1.38 mg/dL (0.70-1.30); EST Glomerular Filtration Rate 54 mL/min (>60); Est Glom Filt Rate - Afr Amer 65 mL/min (>60); Estimated Creatinine Clearance 41.58 ml/min; Glucose 122 mg/dL (74-106); Potassium 3.3 mmol/L (3.5-5.1); Sodium Level 142 mmol/L (136-145)
--- NOTE | 2023-10-01 07:04 | PHA.PHARE_ITS ---
Consult Antibiotic Management Pharmacy has been consulted to manage selected antiobiotic: Vancomycin Type of Intervention Type of Consult: Follow-up Labs Labs: Sodium 142 mmol/L (136-145) 10/01/23 06:00 Potassium 3.3 mmol/L (3.5-5.1) L 10/01/23 06:00 Chloride 109 mmol/L (98-107) H 10/01/23 06:00 Carbon Dioxide 26.0 mmol/L (21.0-32.0) 10/01/23 06:00 Anion Gap 7 (5-15) 10/01/23 06:00 BUN 29 mg/dL (7-18) H 10/01/23 06:00 Creatinine 1.38 mg/dL (0.70-1.30) H 10/01/23 06:00 Est GFR (MDRD) Af Amer 65 mL/min (>60) 10/01/23 06:00 Est GFR (MDRD) Non-Af 54 mL/min (>60) L 10/01/23 06:00 BUN/Creatinine Ratio 21.0 RATIO (10-20) H 10/01/23 06:00 Glucose 122 mg/dL (74-106) H 10/01/23 06:00 Vancomycin Trough 23.5 ug/mL (5.0-15.0) H 09/30/23 12:07 Random Vancomycin 18.0 ug/mL (0.0-15.0) H 10/01/23 06:00 Microbiology Microbiology: Microbiology 09/24/23 12:25 Urine, Clean Catch Legionella Antigen - Final 09/24/23 12:25 Urine, Clean Catch Streptococcus pneumoniae Antigen (M - Final 09/18/23 12:20 Blood Culture (Wb) - Anticubital Left Blood Culture - Final No growth in 5 days. 09/18/23 12:04 Blood Culture (Wb) - Right Forearm Blood Culture - Final No growth in 5 days. 09/18/23 13:00 Urine, Clean Catch Urine Culture - Final Culture exhibits no growth. 09/18/23 15:33 Mucosa - Nasopharyngeal Respiratory Panel (PCR) - Final Rhinovirus 09/18/23 11:54 Nasal Secretion SARS-CoV-2 & FLU Antigen (Rapid) - Final Goal Trough Goal Trough: 15-20 mcg/mL Pharmacy Plan for Drug Dosing Pharmacy Plan for Drug Dosing: VANCOMYCIN LEVEL RECEIVED Current Vancomycin Dose: ON HOLD- Patient previously with elevated trough Number of Doses Received: several Vancomycin Level: 18 Hours Since Last Dose: ~36hr Renal Function: 1.38 Renal Function Trend: stable Lab/Micro: no new data Vancomycin Plan/Comments: Patient had a random vancomycin trough drawn which resulted in a value of 18 (goal 15-20). Since patient is now back in the the rapeutic window, will start vancomycin 750mg IV Q24hr to start 10/01/23 @0800. Pending Level: 10/03/23 @0730, prior to 3rd dose of new regimen per protocol Pharmacy Service will continue to monitor and adjust dosing as required.
[2023-10-01 07:14] LABS: International Normalized Ratio 3.1; Prothrombin Time (Protime)PT. 32.2 SECONDS (11.7-14.9)
[2023-10-01] MEDS: Ipratropium/Albuterol Sulfate 3 ML AMPUL.NEB INHALATION ×4 (07:15→21:08)
[2023-10-01] MEDS: Vancomycin HCl 750 MG in 0.9% Normal Saline (250mL Bag) 250 ML 250 MG IV (08:02)
--- NOTE | 2023-10-01 08:40 | PN.HOSP_ITS ---
Subjective Subjective Feels well. Anxious to go home. Objective Data Objective Data Vital Signs: Vital Signs Temp Pulse Resp BP Pulse Ox O2 Del Method O2 Flow Rate 36.6 C 77 21 H 94/66 94 Nasal Cannula 4 10/01/23 03:20 10/01/23 07:10 10/01/23 07:10 10/01/23 03:20 10/01/23 08:07 10/01/23 08:07 10/01/23 08:07 FiO2 85 09/27/23 10:15 Oxygen Flow Rate (L/min) [ 4 AMBULATING with Oxygen #1] Oxygen Flow Rate (L/min) [At 4 REST with Oxygen] Oxygen Flow Rate (L/min) 4 Oxygen Delivery Method Nasal Cannula Weight: 62.6 kg Body Mass Index (BMI) 19.2 Intake & Output: Intake and Output for Last 24 Hours 09/29/23 09/30/23 10/01/23 23:59 23:59 23:59 Intake Total 1070 / 1070 510 / 510 504.79 / 504.79 Output Total 1100 / 1100 875 / 875 125 / 125 Balance -30 / -30 -365 / -365 379.79 / 379.79 Lab / Micro Data 10/01/23 06:00 10/01/23 06:00 Labs: Laboratory Results - last 24 hr 09/30/23 12:07: Vancomycin Trough 23.5 H 10/01/23 06:00: WBC 15.9 H, RBC 4.26 L, Hgb 12.1 L, Hct 38.7 L, MCV 90.8, MCH 28.4, MCHC 31.3 L, RDW Std Deviation 58.2 H, RDW Coeff of Cynthia 17.6 H, Plt Count 201, MPV 11.8, PT 32.2 H, INR 3.1, Sodium 142, Potassium 3.3 L, Chloride 109 H, Carbon Dioxide 26.0, Anion Gap 7, BUN 29 H, Creatinine 1.38 H, Estim Creat Clear Calc 41.58, Est GFR (MDRD) Af Amer 65, Est GFR (MDRD) Non-Af 54 L, BUN/Creatinine Ratio 21.0 H, Glucose 122 H, Calcium 7.8 L, Random Vancomycin 18.0 H Micro: Microbiology 09/24/23 12:25 Urine, Clean Catch Legionella Antigen - Final 09/24/23 12:25 Urine, Clean Catch Streptococcus pneumoniae Antigen (M - Final 09/18/23 12:20 Blood Culture (Wb) - Anticubital Left Blood Culture - Final No growth in 5 days. 09/18/23 12:04 Blood Culture (Wb) - Right Forearm Blood Culture - Final No growth in 5 days. 09/18/23 13:00 Urine, Clean Catch Urine Culture - Final Culture exhibits no growth. 09/18/23 15:33 Mucosa - Nasopharyngeal Respiratory Panel (PCR) - Final Rhinovirus 09/18/23 11:54 Nasal Secretion SARS-CoV-2 & FLU Antigen (Rapid) - Final Rhythm Strip Rhythm Strip: paced (likely underlying afib) Rate: 72 Ectopy: None Physical Exam Const alert and no apparent distress HEENT head/scalp atraumatic Resp Resp Narrative: coarse BS bilaterally with crackles. Cardio regular rate, regular rhythm, S1 normal heart sound and S2 normal heart sound GI normal to inspection, nondistended, normoactive bowel sounds, soft to palpation, non-tender and non-distended Extremity normal to inspection Neuro Sensorium / Orientation: awake and alert Assessment & Plan Assessment/Plan (1) Acute hypoxic respiratory failure: PLAN: Plan 1. Acute hypoxic respiratory failure secondary to CHF and presumed COPD exacer bation secondary to rhinovirus * Positive for rhinovirus on admission. Initially requiring 3 to 4 L nasal cannula, but had significant worsening of respiratory status on 09/23-. * Suspect this may be multifactorial secondary to underlying infection and pulmonary edema contributing. * Antibiotic coverage broadened to vancomycin and Zosyn on 09/24. * Patient appeared to have significant worsening respiratory status requiring maximum oxygen requirements on Airvo on 09/26. However, he was able to be weaned to 6 L nasal cannula on 09/27. * Pulmonology following. Patient stable on 5-6 L nasal cannula at rest. Continue Solu-Medrol, IV Lasix at reduced doses. Continue antibiotics and scheduled dilators. Will complete O2 ambulatory test today to assess for oxygen desaturation with exertion. * Continue furosemide * Continue PEP. * Home oxygen evaluation, patient required greater than 8 L of oxygen with activity. 2. Acute on chronic combined systolic and diastolic heart failure, pulmonary hypertension * Recent echo on 09/08/2023 showed EF 25%, severe global LV systolic dysfunction, severely dilated LV, grade 2 diastolic dysfunction, severely enlarged LA, mildly enlarged RA, RVSP 60 mmHg, moderate to severe mitral valve insufficiency, moderate tricuspid valve insufficiency, moderate aortic valve insufficiency. BNP 2367 on admit, repeat BNP similar on 09/24. * Cardiology following. Decreased to IV Lasix 40 mg daily on 09/28, monitor urine output and volume status. Continue empagliflozin. 3. Chronic A-fib on warfarin, supratherapeutic INR * INR therapeutic on 09/29, restarted home warfarin. Continue Coreg at reduced dose. Continue home amiodarone for now, but notably would recommend avoiding amiodarone in the long-term given patient's age and underlying lung disease. 4. Debility * Patient apparently was living with his girlfriend shortly before this hospitalization but will not be going there on discharge. Patient's hyioobbx-uf-vir Sheree has been the primary point of contact, as well as patient's son Ja (Sheree's ). They live up in [place], plan is for patient to go home with them on discharge with home health care if able. They notably do have oxygen supplies already at the house for him. PT/OT/case management following. Chronic medical conditions: ? CAD s/p CABG, hypertension, hyperlipidemia: Continue home statin, Coreg, Plavix. ? GERD: Continue home PPI. ? CKD stage IIIb: Baseline creatinine 1.7-2.0, stable at baseline. Monitor daily BMP. DVT prophylaxis: Warfarin restarted on 09/29 CODE STATUS: DNR CCA, DO NOT INTUBATE Expected disposition: TBD Charges/Coding Visit Charges Inpatient E&M: 72251 Subs Hosp L2
[2023-10-01] MEDS: Furosemide 40 MG/4 ML Vial IV (09:11)
[2023-10-01] MEDS: Amiodarone 200 MG Tablet PO (09:11)
[2023-10-01] MEDS: 0.9% Saline Lock 10 ML Syringe IV (09:11)
[2023-10-01] MEDS: Empagliflozin 10 MG Tablet PO (09:12)
[2023-10-01] MEDS: guaiFENesin/D-Methorphan TAB.SR.12H 2 TABLET PO ×2 (09:12→21:31)
[2023-10-01] MEDS: predniSONE 20 MG Tablet 40 MG PO (09:12)
[2023-10-01] MEDS: Carvedilol 3.125 MG TABLET PO ×2 (09:12→21:32)
[2023-10-01] MEDS: Clopidogrel Bisulfate 75 MG Tablet PO (09:12)
[2023-10-01] MEDS: Pantoprazole Sodium 40 MG Tablet PO (09:13)
[2023-10-01] MEDS: Ensure Plus High Protein 120 ML LIQUID PO ×2 (16:56→21:32)
[2023-10-01] MEDS: Atorvastatin Calcium 10 MG Tablet PO (21:31)
[2023-10-01] MEDS: MELATONIN 10 MG TABLET PO (21:32)
[2023-10-01] MEDS: oxyCODONE 5 MG Tablet PO (22:55)
[2023-10-02] VITALS (9 sets, daily range): BP systolic 91–106; BP diastolic 48–64; PULSE 72–79; RESP 16–18; TEMP 36.1–36.6; O2SAT 87–96
[2023-10-02] MEDS: Piperacil/Tazobactam 3.375 GM in 0.9% Normal Saline (50mL MB+) 50 ML IV ×2 (05:39→13:28)
[2023-10-02 06:05] LABS: Absolute Lymphocyte Count 0.29 X10^3/uL (0.83-4.51); Absolute Neutrophil Count 12.4 X10^3/uL (2.0-7.7); Basophil# 0.01 X10^3/uL; Basophil% 0.1 % (0-1); Hemoglobin 11.9 g/dL (13.0-16.5); Lymphocyte # 0.29 X10^3/ul (0.83-4.51); Lymphocyte % 2.2 % (19-41); Mean Corp Hgb Conc 31.3 g/dL (32-36); Mean Corpuscular Hgb 28.7 pg (27.0-32.0); Mean Corpuscular Volume 91.6 fL (80-94); Mean Platelet Vol. 12.2 fl (6.2-12.0); Monocyte# 0.63 X10^3/uL; Monocyte% 4.7 % (0-10); NRBC Flagged by Analyzer 0 % (0-5); Neutrophil % 92.6 % (47-70); POSITIVE DIFFERENTIAL YES; Platelet Count 184 K/mm3 (150-450); RBC Distribution Width CV 17.6 % (11.6-14.6); RBC Distribution Width SD 58.6 fl (35.1-43.9); Red Blood Count 4.15 M/mm3 (4.6-6.2); White Blood Count 13.4 K/mm3 (4.4-11.0)
[2023-10-02 06:22] LABS: Differential Indicated SCAN CRITERIA MET
[2023-10-02 06:23] LABS: ALB/GLOB Ratio 0.6 RATIO (0.9-2.4); AST(SGOT) 25 U/L (15-37); Alanine Aminotransfer ALT/SGPT 27 U/L (16-61); Alkaline Phosphatase 59 U/L (45-117); Anion Gap 5 (5-15); BUN 27 mg/dL (7-18); BUN/Creat Ratio 17.6 RATIO (10-20); Calcium,Total 7.9 mg/dL (8.5-10.1); Chloride 109 mmol/L (98-107); Creatinine, Serum 1.53 mg/dL (0.70-1.30); EST Glomerular Filtration Rate 48 mL/min (>60); Est Glom Filt Rate - Afr Amer 58 mL/min (>60); Estimated Creatinine Clearance 37.51 ml/min; Globulin 3.6 g/dL (2.2-4.2); Glucose 125 mg/dL (74-106); Protein, Total 5.6 g/dL (6.4-8.2); Sodium Level 141 mmol/L (136-145)
[2023-10-02 06:24] LABS: International Normalized Ratio 3.9; Prothrombin Time (Protime)PT. 38.7 SECONDS (11.7-14.9)
[2023-10-02] MEDS: Ipratropium/Albuterol Sulfate 3 ML AMPUL.NEB INHALATION ×2 (06:54→11:16)
[2023-10-02 07:19] LABS: Differential Comment SCANNED
[2023-10-02] MEDS: Vancomycin HCl 750 MG in 0.9% Normal Saline (250mL Bag) 250 ML 250 MG IV (07:35)
--- NOTE | 2023-10-02 07:40 | PCM.PN.HOSP ---
Subjective Subjective Breathing well. Anxious to go home. Objective Data Objective Data Vital Signs: Vital Signs Temp Pulse Resp BP Pulse Ox O2 Del Method O2 Flow Rate 36.4 C L 76 17 100/48 L 95 Nasal Cannula 3 10/02/23 05:40 10/02/23 07:26 10/02/23 07:26 10/02/23 05:40 10/02/23 07:26 10/02/23 07:26 10/02/23 07:26 FiO2 85 09/27/23 10:15 Oxygen Flow Rate (L/min) [ 8 AMBULATING with Oxygen #3] Oxygen Flow Rate (L/min) [ 6 AMBULATING with Oxygen #2] Oxygen Flow Rate (L/min) [ 2 AMBULATING with Oxygen #1] Oxygen Flow Rate (L/min) [At 2 REST with Oxygen] Oxygen Flow Rate (L/min) 3 Oxygen Delivery Method Nasal Cannula Weight: 62.6 kg Body Mass Index (BMI) 19.2 Intake & Output: Intake and Output for Last 24 Hours 09/30/23 10/01/23 10/02/23 23:59 23:59 23:59 Intake Total 510 / 510 1425.00 / 1475.00 346.17 / 346.17 Output Total 875 / 875 1025 / 1175 150 / 150 Balance -365 / -365 400.00 / 300.00 196.17 / 196.17 Lab / Micro Data 10/02/23 04:50 10/02/23 04:50 Labs: Laboratory Results - last 24 hr 10/02/23 04:50: WBC 13.4 H, RBC 4.15 L, Hgb 11.9 L, Hct 38.0 L, MCV 91.6, MCH 28.7, MCHC 31.3 L, RDW Std Deviation 58.6 H, RDW Coeff of Cynthia 17.6 H, Plt Count 184, MPV 12.2 H, Immature Gran % (Auto) 0.400, Neut % (Auto) 92.6 H, Lymph % (Auto) 2.2 L, Forrest % (Auto) 4.7, Eos % (Auto) 0.0, Baso % (Auto) 0.1, Absolute Neuts (auto) 12.4 H, Absolute Lymphs (auto) 0.29 L, Nucleated RBC % 0, Differential Comment SCANNED, PT 38.7 H, INR 3.9, Sodium 141, Potassium 3.0 L, Chloride 109 H, Carbon Dioxide 27.0, Anion Gap 5, BUN 27 H, Creatinine 1.53 H, Estim Creat Clear Calc 37.51, Est GFR (MDRD) Af Amer 58 L, Est GFR (MDRD) Non-Af 48 L, BUN/Creatinine Ratio 17.6, Glucose 125 H, Calcium 7.9 L, Total Bilirubin 1.00, AST 25, ALT 27, Alkaline Phosphatase 59, Total Protein 5.6 L, Albumin 2.0 L, Globulin 3.6, Albumin/Globulin Ratio 0.6 L Micro: Microbiology 09/24/23 12:25 Urine, Clean Catch Legionella Antigen - Final 09/24/23 12:25 Urine, Clean Catch Streptococcus pneumoniae Antigen (M - Final 09/18/23 12:20 Blood Culture (Wb) - Anticubital Left Blood Culture - Final No growth in 5 days. 09/18/23 12:04 Blood Culture (Wb) - Right Forearm Blood Culture - Final No growth in 5 days. 09/18/23 13:00 Urine, Clean Catch Urine Culture - Final Culture exhibits no growth. 09/18/23 15:33 Mucosa - Nasopharyngeal Respiratory Panel (PCR) - Final Rhinovirus 09/18/23 11:54 Nasal Secretion SARS-CoV-2 & FLU Antigen (Rapid) - Final Rhythm Strip Rhythm Strip: paced (likely underlying afib) Rate: 72 Ectopy: None Physical Exam Const alert and no apparent distress Constitutional Narrative: frail elderly. Resp normal respiratory effort, no retractions, no use of accessory muscles and clear to auscultation bilaterally Cardio regular rate, regular rhythm, S1 normal heart sound and S2 normal heart sound GI normal to inspection, nondistended, normoactive bowel sounds Assessment & Plan Assessment/Plan (1) Acute hypoxic respiratory failure: PLAN: Plan 1. Acute hypoxic respiratory failure secondary to CHF and presumed COPD exacerbation secondary to rhinovirus Positive for rhinovirus on admission. Initially requiring 3 to 4 L nasal cannula, but had significant worsening of respiratory status on 09/23-. Suspect this may be multifactorial secondary to underlying infection and pulmonary edema contributing. Antibiotic coverage broadened to vancomycin and Zosyn on 09/24. Patient appeared to have significant worsening respiratory status requiring maximum oxygen requirements on Airvo on 09/26. However, he was able to be weaned to 6 L nasal cannula on 09/27. Pulmonology following. Patient stable on 5-6 L nasal cannula at rest. Continue Solu-Medrol, IV Lasix at reduced doses. Continue antibiotics and scheduled dilators. Will complete O2 ambulatory test today to assess for oxygen desaturation with exertion. Continue furosemide Continue PEP. Home oxygen evaluation, patient require 4 L of oxygen with activity and 2 L at rest. 2. Acute on chronic combined systolic and diastolic heart failure, pulmonary hypertension Recent echo on 09/08/2023 showed EF 25%, severe global LV systolic dysfunction, severely dilated LV, grade 2 diastolic dysfunction, severely enlarged LA, mildly enlarged RA, RVSP 60 mmHg, moderate to severe mitral valve insufficiency, moderate tricuspid valve insufficiency, moderate aortic valve insufficiency. BNP 2367 on admit, repeat BNP similar on 09/24. Cardiology following. Decreased to IV Lasix 40 mg daily on 09/28, monitor urine output and volume status. Continue empagliflozin. 3. Chronic A-fib on warfarin, supratherapeutic INR INR supratherapeutic at 3.9. Hold warfarin for now. 4. Debility Patient apparently was living with his girlfriend shortly before this hospitalization but will not be going there on discharge. Patient's [id number]-uo-srv Sheree has been the primary point of contact, as well as patient's son Ja (Sheree's ). They live up in [place], plan is for patient to go home with them on discharge with home health care if able. They notably do have oxygen supplies already at the house for him. PT/OT/case management following. Chronic medical conditions: ? CAD s/p CABG, hypertension, hyperlipidemia: Continue home statin, Coreg, Plavix. ? GERD: Continue home PPI. ? CKD stage IIIb: Baseline creatinine 1.7-2.0, stable at baseline. Monitor daily BMP. DVT prophylaxis: Warfarin restarted on 09/29 CODE STATUS: DNR CCA, DO NOT INTUBATE Expected disposition: Discharged home. Patient will require walker to help with ambulation.
[2023-10-02] MEDS: Clopidogrel Bisulfate 75 MG Tablet PO (08:35)
[2023-10-02] MEDS: predniSONE 20 MG Tablet 40 MG PO (08:35)
[2023-10-02] MEDS: guaiFENesin/D-Methorphan TAB.SR.12H 2 TABLET PO (08:35)
[2023-10-02] MEDS: Pantoprazole Sodium 40 MG Tablet PO (08:35)
[2023-10-02] MEDS: Potassium Chloride Oral Tablet 20 MEQ 60 MEQ PO (08:35)
[2023-10-02] MEDS: Furosemide 40 MG/4 ML Vial IV (08:35)
[2023-10-02] MEDS: 0.9% Saline Lock 10 ML Syringe IV (08:35)
[2023-10-02] MEDS: Ensure Plus High Protein 120 ML LIQUID PO ×2 (08:35→13:28)
[2023-10-02] MEDS: Carvedilol 3.125 MG TABLET PO (08:35)
[2023-10-02] MEDS: Amiodarone 200 MG Tablet PO (08:36)
[2023-10-02] MEDS: Empagliflozin 10 MG Tablet PO (08:36)
--- NOTE | 2023-10-02 10:17 | DS.PCM_ITS ---
Providers Date of Admission: 09/18/23 Primary Care Physician: Dr. Oumar Wilkerson, Consultations 09/23/23 08:26 Consult: Powerhouse Tender / Pulmonary Medicine Routine Consulting Provider: Pulmonary Medicine ricardo [place] Reason for Consult: acute hypoxic resp failure on Bipap/AVAPS EMERGENT Consult: No Notified: Yes Date Notified: 09/23/23 Time Notified: 08:26 Method of Notification: Verbal 09/24/23 08:22 Consult: Cardiology Routine Consulting Provider: Jordan Gauthier Reason for Consult: HFrEF, worsening hypoxia EMERGENT Consult: No Notified: Yes Date Notified: 09/24/23 Time Notified: 08:36 Method of Notification: Text Reason For Visit: HYPOTENSION AND SOB Diagnosis Discharge Diagnosis (1) Acute hypoxic respiratory failure: Status: Acute Code(s): J96.01 - Acute respiratory failure with hypoxia Plan 1. Acute hypoxic respiratory failure secondary to CHF and presumed COPD exacerbation secondary to rhinovirus * Positive for rhinovirus on admission. Initially requiring 3 to 4 L nasal cannula, but had significant worsening of respiratory status on 09/23-. * Suspect this may be multifactorial secondary to underlying infection and pulmonary edema contributing. * Antibiotic coverage broadened to vancomycin and Zosyn on 09/24. * Patient appeared to have significant worsening respiratory status requiring maximum oxygen requirements on Airvo on 09/26. However, he was able to be weaned to 6 L nasal cannula on 09/27. * Pulmonology following. Patient stable on 5-6 L nasal cannula at rest. Continue Solu-Medrol, IV Lasix at reduced doses. Continue antibiotics and scheduled dilators. Will complete O2 ambulatory test today to assess for oxygen desaturation with exertion. * Continue furosemide * Continue PEP. * Home oxygen evaluation, patient require 4 L of oxygen with activity and 2 L at rest. * Patient is amatory in the home and community requires home oxygen with portability * Patient completed a 7-day course of antibiotics with vancomycin and pipe racillin/tazobactam 2. Acute on chronic combined systolic and diastolic heart failure, pulmonary h ypertension * Recent echo on 09/08/2023 showed EF 25%, severe global LV systolic dysfunction, severely dilated LV, grade 2 diastolic dysfunction, severely enlarged LA, mildly enlarged RA, RVSP 60 mmHg, moderate to severe mitral valve insufficiency, moderate tricuspid valve insufficiency, moderate aortic valve insufficiency. BNP 2367 on admit, repeat BNP similar on 09/24. * Cardiology following. Decreased to IV Lasix 40 mg daily on 09/28, monitor urine output and volume status. Continue empagliflozin. * Follow-up with cardiology as outpatient 3. Chronic A-fib on warfarin, supratherapeutic INR * INR supratherapeutic at 3.9. Hold warfarin for now. Resume warfarin on the . 4. Debility * Patient apparently was living with his girlfriend shortly before this hospitalization but will not be going there on discharge. Patient's [id number] Sheree has been the primary point of contact, as well as patient's son Ja (Sheree's ). They live up in [place], plan is for patient to go home with them on discharge with home health care if able. They notably do have oxygen supplies already at the house for him. PT/OT/case management following. Chronic medical conditions: ? CAD s/p CABG, hypertension, hyperlipidemia: Continue home statin, Coreg, Plavix. ? GERD: Continue home PPI. ? CKD stage IIIb: Baseline creatinine 1.7-2.0, stable at baseline. Monitor daily BMP. DVT prophylaxis: Warfarin restarted on 09/29 CODE STATUS: DNR CCA, DO NOT INTUBATE Expected disposition: Discharged home. Patient will require walker to help with ambulation. Medications at Discharge Home Medications carvedilol 12.5 mg tablet 12.5 mg PO BID bp 07/02/15 losartan 25 mg tablet 25 mg PO DAILY bp 07/02/15 clopidogrel 75 mg tablet (Plavix) 75 mg PO QDAY blood thinner 03/27/18 allopurinol 300 mg tablet 300 mg PO DAILY PRN GOUT 05/29/22 amiodarone 200 mg tablet 200 mg PO DAILY HEART 05/29/22 furosemide 40 mg tablet 40 mg PO BID water pill 06/26/22 atorvastatin 10 mg tablet (Lipitor) 10 mg PO DAILY cholesterol #30 tabs 06/28/22 pantoprazole 40 mg tablet,delayed release 40 mg PO DAILY #30 tabs 03/19/23 warfarin 2.5 mg tablet 2.5 mg PO DAILY 09/08/23 spironolactone 25 mg tablet 25 mg PO DAILY #30 tabs 09/11/23 empagliflozin 10 mg tablet (Jardiance) 10 mg PO DAILY #30 tabs 10/02/23 food supplemt, lactose-reduced 0.08 gram-1.5 kcal/mL oral liquid (Ensure Plus High Protein) 120 ml PO 4X/DAY #60 BOTTLES 10/02/23 prednisone 20 mg tablet 40 mg (2 x 20 mg) PO BREAKFAST 4 days #8 tabs 10/02/23 sodium chloride 0.65 % nasal spray aerosol (Deep Sea Nasal) 2 spray NASAL BID PRN PRN NASAL DRYNESS #0 mL 10/02/23 Hospital Course Operations None Procedures None Summary of Care Provided Minutes Spent on Discharge: 35 Weight / BMI Weight Weight: 62.6 kg Body Mass Index (BMI) 19.2 ABG / Lab / Microbiology Data 10/02/23 04:50 10/02/23 04:50 Laboratory: Laboratory Results - last 24 hr 10/02/23 04:50: WBC 13.4 H, RBC 4.15 L, Hgb 11.9 L, Hct 38.0 L, MCV 91.6, MCH 28.7, MCHC 31.3 L, RDW Std Deviation 58.6 H, RDW Coeff of Cynthia 17.6 H, Plt Count 184, MPV 12.2 H, Immature Gran % (Auto) 0.400, Neut % (Auto) 92.6 H, Lymph % (Auto) 2.2 L, Wirt % (Auto) 4.7, Eos % (Auto) 0.0, Baso % (Auto) 0.1, Absolute Neuts (auto) 12.4 H, Absolute Lymphs (auto) 0.29 L, Nucleated RBC % 0, Differential Comment SCANNED, PT 38.7 H, INR 3.9, Sodium 141, Potassium 3.0 L, Chloride 109 H, Carbon Dioxide 27.0, Anion Gap 5, BUN 27 H, Creatinine 1.53 H, Estim Creat Clear Calc 37.51, Est GFR (MDRD) Af Amer 58 L, Est GFR (MDRD) Non-Af 48 L, BUN/Creatinine Ratio 17.6, Glucose 125 H, Calcium 7.9 L, Total Bilirubin 1.00, AST 25, ALT 27, Alkaline Phosphatase 59, Total Protein 5.6 L, Albumin 2.0 L, Globulin 3.6, Albumin/Globulin Ratio 0.6 L Microbiology: Microbiology 09/24/23 12:25 Urine, Clean Catch Legionella Antigen - Final 09/24/23 12:25 Urine, Clean Catch Streptococcus pneumoniae Antigen (M - Final 09/18/23 12:20 Blood Culture (Wb) - Anticubital Left Blood Culture - Final No growth in 5 days. 09/18/23 12:04 Blood Culture (Wb) - Right Forearm Blood Culture - Final No growth in 5 days. 09/18/23 13:00 Urine, Clean Catch Urine Culture - Final Culture exhibits no growth. 09/18/23 15:33 Mucosa - Nasopharyngeal Respiratory Panel (PCR) - Final Rhinovirus 09/18/23 11:54 Nasal Secretion SARS-CoV-2 & FLU Antigen (Rapid) - Final D/C Instructions Discharge Diet: 8 Cup Fluid Restriction and 2000 mg Sodium Diet Call your doctor if you observe: Fever of 101 or Higher and Shortness of breath Meaningful Use Info Meaningful Use Diagnoses (Choose all that apply): None applicable Discharge Plan Admission Admit Date/Time: 09/18/23 15:48 Primary Reason for Your Visit: Respiratory failure. Pneumonia. CHF. rhinovirus. Attending Provider: Son Orozco Primary Care Provider: Oumar Wilkerson Consulting Providers: Jordan Gauthier; Son Orozco; Dwight Hackett Instructions Additional Instructions / Restrictions: You had respiratory failure secondary to heart failure, rhinovirus and possibly pneumonia. He completed a 7-day course of antibiotics and will not require any additional antibiotics upon discharge. You were given IV furosemide to help get fluid off which seems to have helped to tremendously. Continue taking the furosemide as well as spironolactone at home for your heart failure. Additionally you have been also added Jardiance this is not for diabetes but for your underlying heart failure. It is important that you do follow-up with your financial services assistant as outpatient. Discharge Orders/Prescriptions Prescriptions: New Jardiance 10 mg Tablet 10 mg PO DAILY Qty: 30 0RF Ensure Plus High Protein 0.08 gram-1.5 kcal/mL Liquid 120 ml PO 4X/DAY Qty: 60 0RF prednisone 20 mg Tablet 40 mg PO BREAKFAST 4 Days Qty: 8 0RF Deep Sea Nasal 0.65 % Aerosol,[place] 2 spray NASAL BID PRN PRN (Reason: NASAL DRYNESS) Qty: 0 0RF Continued clopidogrel [Plavix] 75 mg tablet 75 mg PO QDAY amiodarone 200 mg tablet 200 mg PO DAILY allopurinol 300 mg tablet 300 mg PO DAILY PRN (Reason: GOUT) atorvastatin [Lipitor] 10 mg tablet 10 mg PO DAILY Qty: 30 6RF carvedilol 12.5 MG tablet 12.5 mg PO BID Patient Comments: Heart losartan 25 MG tablet 25 mg PO DAILY Patient Comments: Blood pressure furosemide 40 mg tablet 40 mg PO BID Patient Comments: water pill pantoprazole 40 mg tablet,delayed release (DR/EC) 40 mg PO DAILY Qty: 30 3RF spironolactone 25 mg Tablet 25 mg PO DAILY Qty: 30 0RF Held warfarin 2.5 mg tablet 2.5 mg PO DAILY Hold Instructions: Resume on 10/04/23. Referrals / Follow Up: Oumar Wilkerson DO [Primary Care Provider] - Within 2 Weeks Disposition Disposition (needs filled in before D/C Order can be placed): Home Health Service Charges/Coding Visit Charges Inpatient E&M: 04991 Disch Hosp >30min
--- NOTE | 2023-10-02 10:45 | CASEMGMT ---
Discharge Planning Discharge summary sent to [facility] via [facility]. Marie Eubanks, Discharge Planning Asst.
--- NOTE | 2023-10-02 10:52 | CASEMGMT ---
Patient has order for discharge. Patient will need increase in home oxygen and walker at discharge. Script received and [place] [facility] DOMI LOVELL called daughter in law Bentley to update to bring oxygen tank from home for at discharge. DOMI LOVELL confirmed that [facility] will be updated. Sheree states they will be here around 5pm to supervisor picking crew patient. Patient has script for Jardiance, cost is $588.16 and has no prescription coverage, patient will not be able to afford. DOMI LOVELL updated hospitalist regarding cost of Jardiance. CM will continue to follow this patient and plan for a safe discharge.
--- NOTE | 2023-10-02 11:03 | PHA.DC.MR.R ---
Pharmacy [facility] Reconciliation Pharmacy Service has performed discharge medication reconciliation for this patient. The patient's discharge medication list was reviewed for discrepancies and discrepancies were resolved. Medications at Discharge Home Medications carvedilol 12.5 mg tablet 12.5 mg PO BID bp 07/02/15 losartan 25 mg tablet 25 mg PO DAILY bp 07/02/15 clopidogrel 75 mg tablet (Plavix) 75 mg PO QDAY blood thinner 03/27/18 allopurinol 300 mg tablet 300 mg PO DAILY PRN GOUT 05/29/22 amiodarone 200 mg tablet 200 mg PO DAILY HEART 05/29/22 furosemide 40 mg tablet 40 mg PO BID water pill 06/26/22 atorvastatin 10 mg tablet (Lipitor) 10 mg PO DAILY cholesterol #30 tabs 06/28/22 pantoprazole 40 mg tablet,delayed release 40 mg PO DAILY #30 tabs 03/19/23 warfarin 2.5 mg tablet 2.5 mg PO DAILY 09/08/23 spironolactone 25 mg tablet 25 mg PO DAILY #30 tabs 09/11/23 empagliflozin 10 mg tablet (Jardiance) 10 mg PO DAILY #30 tabs 10/02/23 food supplemt, lactose-reduced 0.08 gram-1.5 kcal/mL oral liquid (Ensure Plus High Protein) 120 ml PO 4X/DAY #60 BOTTLES 10/02/23 prednisone 20 mg tablet 40 mg (2 x 20 mg) PO BREAKFAST 4 days #8 tabs 10/02/23 sodium chloride 0.65 % nasal spray aerosol (Deep Sea Nasal) 2 spray NASAL BID PRN PRN NASAL DRYNESS #0 mL 10/02/23
== END 2023-10-02 18:04 | disposition home health service (06) | DRG 291 ==
LOC: ED 15:07 → PCU 16:01
PROVIDERS: Family Medicine; Hospitalist; Internal Medicine; Internal Medicine Critical Care Medicine; Admitting Provider Family Medicine; Emergency Provider Emergency Medicine; PCP Family Medicine; Referring Provider Emergency Medicine
DX: I13.0 Hypertensive heart and chronic kidney disease with heart failure and stage 1 through stage 4 chronic kidney disease, or unspecified chronic kidney disease (principal); I50.43 Acute on chronic combined systolic (congestive) and diastolic (congestive) heart failure; J96.21 Acute and chronic respiratory failure with hypoxia; J44.1 Chronic obstructive pulmonary disease with (acute) exacerbation; I48.20 Chronic atrial fibrillation, unspecified; I95.9 Hypotension, unspecified; I27.20 Pulmonary hypertension, unspecified; I42.0 Dilated cardiomyopathy; Z79.01 Long term (current) use of anticoagulants; Z95.1 Presence of aortocoronary bypass graft; N18.32 Chronic kidney disease, stage 3b; I08.3 Combined rheumatic disorders of mitral, aortic and tricuspid valves; I25.10 Atherosclerotic heart disease of native coronary artery without angina pectoris; K21.9 Gastro-esophageal reflux disease without esophagitis; M10.9 Gout, unspecified; E78.5 Hyperlipidemia, unspecified; F17.220 Nicotine dependence, chewing tobacco, uncomplicated; R79.1 Abnormal coagulation profile; Z87.891 Personal history of nicotine dependence; Z79.02 Long term (current) use of antithrombotics/antiplatelets; B34.8 Other viral infections of unspecified site; Z66 Do not resuscitate; Z51.5 Encounter for palliative care; R53.81 Other malaise; Z79.84 Long term (current) use of oral hypoglycemic drugs; Z95.5 Presence of coronary angioplasty implant and graft; Z95.810 Presence of automatic (implantable) cardiac defibrillator; Z99.81 Dependence on supplemental oxygen
CPT/HCPCS: 36415; 36600; 71045; 80048; 80053; 80202; 81001; 82803; 83605; 83880; 84145; 84484; 85025; 85027; 85610; 85730; 87040; 87086; 87428; 87449; 87633; 87641; 93005; 94002; 94640; 94660; 94668; 94762; 97110; 97116; 97162; 97166; 97530; 97535; 97802; 99285; J7040; J7050; J7120; P9047; P9612; A4216; J1940